=== PATIENT | male | born 1950 | race Caucasian/White ===

== ENCOUNTER 2019-04-21 00:29 | Emergency (ER) | payer MEDICARE, OTHER, SELFPAY ==
[2019-04-21 00:30] VITALS: BP 171/134; PULSE 76; RESP 24; TEMP 36.5; O2SAT 97; BMI 33.0
[2019-04-21 00:40] VITALS: O2SAT 97
--- NOTE | 2019-04-21 00:43 | RAD_ITS ---
STUDY: X-RAY CHEST REASON FOR EXAM: Male, 69 years old. COLD SYMPTOMS X 3 WEEKS -- INCREASED COUGHING and amp; SOB TONIGHT -- HX OF ASTHMA TECHNIQUE: PA and lateral views of the chest. COMPARISON: None. FINDINGS: The lungs are clear and expanded. There is no demonstrated pleural abnormality. Normal size heart. Normal mediastinum and jose l. Normal visualized pulmonary arteries. There is atherosclerotic calcification of the aortic arch with tortuosity. There are diffuse degenerative changes of the visualized thoracic spine. There is degenerative osteoarthritis of the bilateral shoulders. There is no demonstrated abnormality of the visualized soft tissue structures of the upper abdomen. RAD/Chest PA and Lateral IMPRESSION: No acute cardiopulmonary disease. Electronically Signed: Sirena Gonzaelz MD at 1:48 EDT , Service support ,
--- NOTE | 2019-04-21 00:45 | ED.VISSUMM ---
- ER Visit Summary Date of Service: 04/21/19 Chief Complaint: Shortness of breath History of Present Illness: The patient is a 69 M who presents with shortness of breath that is been getting worse over the past couple hours. Patient states this began rather suddenly. Patient states that is been constant. Patient states nothing makes it better or worse. Patient states he has been coughing. Patient states he is coughing up some dark sputum. Patient admits to some rhinorrhea. Patient denies any fevers or chills. Patient denies any chest pain. Patient denies any nausea or vomiting. Physical Examination: Vital signs are stable except for an elevated blood pressure of 171/134 and a mild tachypnea of 24. Patient is afebrile. Patient is in no acute distress. Oral mucosa is pink and moist. Oropharynx is clear. Neck is supple. Trachea is midline. There is no JVD or lymphadenopathy. Heart was regular rate and rhythm. Lungs showed diffuse expiratory wheezing. There is good respiratory effort noted. Abdomen is soft. Bowel sounds are normal. There is no tenderness. Cranial nerves II through XII are intact. There are no focal motor or sensory deficits noted. Extremities are intact. There is no calf tenderness or edema. Test Results: CBC and basic metabolic profile were within normal limits. Flu swabs were negative. PA and lateral chest x-ray was obtained. There is no acute cardiopulmonary process. This is interpreted by the radiologist and myself. Emergency Department Course and Treatment: Patient was given a DuoNeb aerosol here. Patient was given albuterol aerosols. Patient was ordered a dose of clonidine for his blood pressure however, his blood pressure improved prior to obtaining the clonidine so this was held. Patient was feeling better after his aerosols. Patient was instructed to continue his inhalers as prescribed at home. Patient was instructed to follow-up with his primary care physician in 5 to 7 days. Patient understood and was agreeable with the plan. All questions were answered. Disposition: Discharge home Impression: Asthma exacerbation This note was generated with [employer] dictation software. It may contain incorrect words, spelling, and punctuation that were not noted in review of the chart prior to signing ED Disposition - Plan for ED Patient: Disposition: Home or Assisted Living Diagnosis: Asthma exacerbation Instructions: ASTHMA, Acute (Adult) Referrals: Salbador Pollard [Primary Care Provider] - 3-5 Days
[2019-04-21 00:51] LABS: Absolute Lymphocyte Count 1.95 X10^3/uL (0.83-4.51); Absolute Neutrophil Count 5.1 X10^3/uL (2.0-7.7); Basophil# 0.03 X10^3/uL; Basophil% 0.4 % (0-1); Eosinophil# 0.32 X10^3/uL; Eosinophils% 3.8 % (0-5); Hematocrit 40.8 % (40-54); Hemoglobin 13.5 g/dL (13.0-16.5); Lymphocyte # 1.95 X10^3/ul (4.0); Lymphocyte % 23.4 % (19-41); Mean Corp Hgb Conc 33.1 g/dL (32-36); Mean Corpuscular Hgb 28.8 pg (27.0-32.0); Monocyte# 0.89 X10^3/uL; Monocyte% 10.7 % (0-10); NRBC Flagged by Analyzer 0 % (0-5); Neutrophil # 5.13 X10^3/uL (2.7-7.7); Neutrophil % 61.5 % (47-70); Platelet Count 199 K/mm3 (150-450); RBC Distribution Width CV 13.2 % (11.6-14.6); RBC Distribution Width SD 41.3 fl (35.1-43.9); Red Blood Count 4.69 M/mm3 (4.6-6.2); White Blood Count 8.3 K/mm3 (4.4-11.0)
[2019-04-21] MEDS: Albuterol 2.5 MG/3 ML VIAL.NEB. INHALATION ×2 (00:51)
[2019-04-21] MEDS: Ipratropium/Albuterol Sulfate 3 ML AMPUL.NEB INHALATION (00:51)
[2019-04-21 00:52] VITALS: BP 172/98; PULSE 55; RESP 18; O2SAT 96
[2019-04-21 00:55] VITALS: PULSE 68; RESP 16
[2019-04-21 01:09] LABS: Anion Gap 7 (5-15); BUN 17 mg/dL (7-18); BUN/Creat Ratio 17.1 RATIO (10-20); Calcium,Total 9.4 mg/dL (8.5-10.1); Chloride 111 mmol/L (98-107); EST Glomerular Filtration Rate 79 mL/min (>60); Est Glom Filt Rate - Afr Amer 96 mL/min (>60); Estimated Creatinine Clearance 69.72 ml/min; Glucose 102 mg/dL (74-106); Potassium 4.3 mmol/L (3.5-5.1); Sodium Level 144 mmol/L (136-145)
[2019-04-21 01:32] VITALS: BP 125/65; PULSE 64; RESP 15; O2SAT 95
[2019-04-21 02:02] VITALS: BP 139/66; PULSE 62; RESP 10; O2SAT 97
== END 2019-04-21 02:02 | disposition home or self-care (01) ==
PROVIDERS: Emergency Provider Emergency Medicine; PCP Obstetrics & Gynecology Maternal & Fetal Medicine
DX: J45.901 Unspecified asthma with (acute) exacerbation (principal); I10 Essential (primary) hypertension; Z79.51 Long term (current) use of inhaled steroids; Z79.899 Other long term (current) drug therapy
CPT/HCPCS: 71046; 80048; 85025; 87804; 94640; 99251; 99284; A4216; G0463

== ENCOUNTER 2020-04-19 19:05 | Emergency (ER) | payer MEDICARE, OTHER, SELFPAY ==
[2020-04-19 19:06] VITALS: BP 161/85; PULSE 68; RESP 17; TEMP 35.7; O2SAT 96; BMI 32.2
--- NOTE | 2020-04-19 19:26 | ED.VIS.GEN ---
History of Present Illness Chief Complaint: Shortness of Breath Informant: Patient Narrative: This is a 7-year-old male with a history of asthma presenting with shortness of breath. Tells me that 4 days ago he went to a basketball game and sat by a lady who had a very strong perfume. States that once he smelled it he got up and moved but by time he got home he was wheezing. He uses an albuterol MDI rarely. He tells me that it has been about a year since the last time he has had a flareup. He denies any fever. He notes minimal sputum production. He nasal congestion or sore throat. No diarrhea. Past Medical History - Allergies and Home Meds Allergies/Adverse Reactions: Allergies No Known Allergies Allergy (Verified 04/19/20 19:08) Primary Care Physician: Salbador Pollard MD [Primary Care Provider] - Past Medical History: - - Asthma Surgical History: noncontributory Smoking Status: Never smoker Drugs: None Review of Systems General: Denies: Chills, Fever, Sweats Eyes: Denies: Visual changes - bilaterally, Diplopia ENT: Denies: Rhinorrhea, Sore throat Cardiovascular: Denies: Chest pain, Palpitations Respiratory: Reports: Dyspnea, Cough, Dyspnea on exertion. Denies: Orthopnea Gastrointestinal: Denies: Abdominal pain, Nausea, Vomiting, Diarrhea, Melena, Hematochezia Genitourinary: Denies: Dysuria, Hematuria, Frequency Musculoskeletal: Denies: Back pain, Extremity Pain Skin: Denies: Rash, Wounds Neurological: Denies: Headache, Weakness, Numbness Physical Exam Vital Signs/Narrative: Vital Signs Temp Pulse Resp BP Pulse Ox 04/19/20 19:06 96.3 F L 68 17 161/85 H 96 Inital Vital Signs reviewed: Yes General: Well nourished, Well developed, No Acute Distress Head: Normocephalic, Atraumatic Eyes: Perrl, EOMI ENT: Moist mucous membranes, No rhinorrhea Neck: Supple, Nontender Cardiovascular: Regular rate, Regular rhythm, No murmurs Respiratory: No distress, Chest nontender, Diminished Abdomen: Soft, Nontender, Nondistended, Normal bowel sounds Back: Nontender, Normal Inspection Extremities: Nontender, No edema Skin: Normal color, No rash Neurological: Alert, Oriented x3, Cranial nerves II-XII grossly intact, Normal Strength, Normal Sensation Psychological: Normal affect, Normal Mood Diagnostic/Tx/Re-eval - Medical Decision Making Patient received breathing treatments and prednisone. My interpretation of the single view portable chest x-ray is no acute disease process. The patient's Covid test is negative. After treatments he is feeling significantly better. Peak flows are 500. Will write for him to have prednisone for the next 4 days as well as a refill on this his inhaler. Patient to return if worsening or concerns ED Disposition - Plan for ED Patient: Disposition: Home or Assisted Living Diagnosis: Asthma exacerbation Instructions: ED Asthma, Acute (Adult) Prescriptions: predniSONE tablet 60 mg PO DAILY #12 tab Prescription Printed Albuterol Inhaler [Ventolin Hfa] 2 puff INHALATION Q4H PRN PRN #1 inhaler PRN Reason: Wheezing Prescription Printed
[2020-04-19] MEDS: predniSONE 20 MG Tablet 60 MG PO (19:27)
[2020-04-19] MEDS: Albuterol 2.5 MG/3 ML VIAL.NEB. INHALATION ×3 (19:35→19:36)
[2020-04-19] MEDS: Ipratropium/Albuterol Sulfate 3 ML AMPUL.NEB INHALATION (19:35)
[2020-04-19 19:37] VITALS: PULSE 61; RESP 13
--- NOTE | 2020-04-19 19:53 | RAD_ITS ---
STUDY: X-RAY CHEST REASON FOR EXAM: Male, 70 years old. dyspnea TECHNIQUE: Single AP portable view of the chest. COMPARISON: None. FINDINGS: The lungs are clear and expanded. Stable small calcified granuloma in the lower right lung. No infiltrates or effusions. There is no demonstrated pleural abnormality. Normal size heart. Normal mediastinum and jose l. Normal visualized pulmonary arteries. Normal visualized aortic arch and descending thoracic aorta. There are diffuse degenerative changes of the visualized thoracic spine. Normal visualized ribs, clavicles, and shoulders. There is no demonstrated abnormality of the visualized soft tissue structures of the upper abdomen. RAD/Chest 1 View (Portable) IMPRESSION: No definite acute or significant abnormality seen. Electronically Signed: Sylvester Baez MD at 20:42 EST , Service support ,
[2020-04-19 19:54] VITALS: PULSE 71; RESP 18
[2020-04-19 20:06] VITALS: O2SAT 96
[2020-04-19 20:32] VITALS: BP 149/75; PULSE 81; RESP 18; O2SAT 95
== END 2020-04-19 20:32 | disposition home or self-care (01) ==
LOC: ED 20:36
PROVIDERS: Emergency Provider Emergency Medicine
DX: J45.901 Unspecified asthma with (acute) exacerbation (principal)
CPT/HCPCS: 71045; 87426; 94640; 99251; 99283; G0463

== ENCOUNTER 2021-02-28 10:16 | Emergency (ER) | payer MEDICARE, OTHER, SELFPAY ==
[2021-02-28 10:16] VITALS: BP 171/83; PULSE 73; RESP 18; TEMP 36; O2SAT 97; BMI 31.7
[2021-02-28 10:21] VITALS: O2SAT 98
[2021-02-28 10:23] VITALS: BP 171/83; PULSE 73; RESP 18; TEMP 36; O2SAT 97
--- NOTE | 2021-02-28 10:36 | EDS_ITS ---
HPI HPI - URI History of Present Illness Chief Complaint: Shortness of Breath Narrative Narrative: 70-year-old male presenting with a cough. He states he has had this since Sunday. Initial onset he had body aches and chills and went home from work. 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 He has not had a fever. He has not had loss of taste or smell. Patient states he was vaccinated with his last shot in May and states he has had the Moderna shot x2. He has not had any booster. He denies history of having COVID-19. Patient is denying chest pain although he feels a little bit short of breath. Patient states he has a history of asthma and felt he was wheezing earlier uses albuterol inhaler and felt improved. Patient denies nausea, vomiting, diarrhea. ROS ROS ED Constitutional Constitutional ED: Reports chills Eyes Eyes: Denies blurry vision or change in vision ENT ENT ED: Denies rhinorrhea or sore throat Cardiovascular Cardiovascular: Denies chest pain or palpitations Respiratory/Chest Respiratory/Chest: Reports cough and dyspnea Gastrointestinal Gastrointestinal: Denies abdominal pain, nausea or vomiting Genitourinary Genitourinary ED: Denies dysuria or hematuria Musculoskeletal Musculoskeletal: Reports myalgias; Denies arthralgias or neck pain Integumentary Denies Abrasions or rash Neurologic Neurologic: Denies headache(s) or paresthesias PFSH PFSH Home Medications albuterol sulfate 1 - 2 puff IH Q4H PRN 04/21/19 [History Last Taken Unknown] atorvastatin 20 mg PO DAILY 04/21/19 [History Last Taken Unknown] enalapril maleate 20 mg PO DAILY 04/21/19 [History Last Taken Unknown] gtvwxox-bgvoozapp-vhvlzbox(PF) 10 ml OP BID 04/21/19 [History Last Taken Unknown] albuterol sulfate 2 puff INHALATION Q4H PRN PRN #1 inhaler 04/19/20 [Rx Last Taken Unknown] Allergy/AdvReac Type Severity Reaction Status Date / Time No Known Allergies Allergy Verified 02/28/21 10:18 Social History Smoking Status: Never smoker EXAM Physical Exam Const Vital Signs: 02/28/21 10:16 02/28/21 10:21 02/28/21 10:23 Temperature 96.8 F L 96.8 F L Temperature Source Temporal Temporal Pulse Rate 73 73 Respiratory Rate 18 18 Respiratory Effort Normal Non-Labored Respiratory Depth Normal Respiratory Pattern Normal Blood Pressure 171/83 H 171/83 H Blood Pressure Mean 112 112 Pulse Ox 97 97 Oxygen Delivery Method Room Air Room Air Room Air Positive well nourished General Appearance ED: NAD; Negative for pallor HEENT normocephalic and atraumatic Eyes PERRL and EOMs intact bilaterally Neck supple and no meningeal signs Resp normal respiratory effort and clear to auscultation bilaterally Cardio Rate: regular rate Rhythm: regular rhythm Extremity normal to inspection; Negative for full ROM General Extremety ED: Negative for cyanosis General Extremity: Negative for cyanosis Neuro oriented x3, CN's II-XII intact bilaterally and no sensory deficits noted Sensorium / Orientation: alert Motor Exam: strength 5/5 throughout Psych mental status grossly normal Skin General Skin Exam: Negative for jaundice or pallor Lesions: no lesions Rashes: no rashes MDM MDM MDM Narrative Medical decision making narrative: 70-year-old male presenting with a cough, body aches, chills. His symptoms are not severe. He is not having chest pain. He does feel as if he was wheezing earlier and took his home albuterol and this improved however he requested breathing treatment. He is not wheezing on examination. He has a history of asthma and wants to be treated as an asthma exacerbation. I will give him prednisone 60 mg. I will order chest x-ray and COVID test. Rapid COVID is positive. Chest x-ray on my interpretation shows no acute cardiopulmonary process. He does have a stable calcified granuloma in the right lower lobe per the radiologist. Patient is 97% on room air with respirations of 18. He is well-appearing. Patient has albuterol at home. He will be given a burst of prednisone as he feels he was wheezing earlier. Patient did wish to be referred for monoclonal antibodies and this form was filled out and handed to the assistant secretary. Patient will be discharged home in stable condition. Impression: 1. Asthma exacerbation 2. COVID-19 Radiography Diagnostic Testing: Clinical Impression(s) from Imaging Studies Chest X-Ray 02/28/21 10:37 IMPRESSION: Hyperinflation. Stable calcified granuloma in the right lower lobe. Electronically Signed: Gary Hernandez MD at 10:52 EST , Service support , Discharge Plan Triage Chief Complaint: Shortness of Breath ED Provider: Jon Granados Dx/Rx/DC Orders Prescriptions: No Action atorvastatin 20 MG tablet 20 mg PO DAILY RF: 0 enalapril maleate 20 MG tablet 20 mg PO DAILY RF: 0 albuterol sulfate 90 mcg/actuation HFA aerosol inhaler 1 - 2 puff IH Q4H PRN (Reason: Sob &/Or Wheezing) RF: 0 ingvrou-jpfzuquyy-oeixrdjx(PF) 10 ML drops 10 ml OP BID RF: 0 albuterol sulfate 1 INHALER inhaler 2 puff INHALATION Q4H PRN PRN (Reason: Wheezing) Qty: 1 RF: 0 Primary Care Provider: Dorothy Jovel
--- NOTE | 2021-02-28 10:37 | RAD_ITS ---
STUDY: X-RAY CHEST REASON FOR EXAM: Male, 70 years old. Cough TECHNIQUE: Single AP portable view of the chest. COMPARISON: Comparison is made with prior study dated 04/19/2020. FINDINGS: There is hyperinflation of the lungs consistent with chronic obstructive lung disease (COPD). Stable calcified granuloma in the right lower lobe. There is no demonstrated pleural abnormality. Normal size heart. Normal mediastinum and jose l. Normal visualized pulmonary arteries. Normal visualized aortic arch and descending thoracic aorta. There are diffuse degenerative changes of the visualized thoracic spine. Normal visualized ribs, clavicles, and shoulders. There is no demonstrated abnormality of the visualized soft tissue structures of the upper abdomen. RAD/Chest 1 View (Portable) IMPRESSION: Hyperinflation. Stable calcified granuloma in the right lower lobe. Electronically Signed: Gary Hernandez MD at 10:52 EST , Service support ,
[2021-02-28] MEDS: predniSONE 20 MG Tablet 60 MG PO (10:42)
[2021-02-28] MEDS: Ipratropium/Albuterol Sulfate 3 ML AMPUL.NEB INHALATION (11:03)
[2021-02-28] MEDS: Albuterol 2.5 MG/3 ML VIAL.NEB. INHALATION (11:03)
[2021-02-28 11:34] VITALS: PULSE 61; RESP 18
[2021-02-28 11:57] VITALS: BP 137/64; PULSE 72; RESP 17; TEMP 36.4; O2SAT 96
== END 2021-02-28 11:58 | disposition home or self-care (01) ==
PROVIDERS: Emergency Provider Student in an Organized Health Care Education/Training Program; PCP General Practice; Visit Provider Student in an Organized Health Care Education/Training Program
DX: U07.1 COVID-19 (principal); J45.901 Unspecified asthma with (acute) exacerbation; Z79.51 Long term (current) use of inhaled steroids
CPT/HCPCS: 71045; 87426; 94640; 99283

== ENCOUNTER 2021-03-02 17:42 | Outpatient (CLI) | payer MEDICARE, OTHER, SELFPAY ==
[2021-03-02 17:52] VITALS: BP 173/90; PULSE 59; RESP 18; TEMP 36.8; O2SAT 100; BMI 32.5
[2021-03-02] MEDS: 0.9% Saline Lock 10 ML Syringe IV (18:01)
[2021-03-02 18:52] VITALS: BP 150/87; PULSE 52; RESP 18; TEMP 36.9; O2SAT 99
[2021-03-02 19:49] VITALS: BP 161/88; PULSE 51; RESP 16; TEMP 36.6; O2SAT 99
== END 2021-03-02 23:59 | disposition home or self-care (01) ==
LOC: MS3OUT 17:42 → MS3 17:43
PROVIDERS: PCP General Practice; Referring Provider Student in an Organized Health Care Education/Training Program; Visit Provider Student in an Organized Health Care Education/Training Program
DX: Z23 Encounter for immunization (principal); U07.1 COVID-19
CPT/HCPCS: J7050; M0245; Q0245; A4216

== ENCOUNTER 2021-10-31 14:04 | Emergency (ER) | payer MEDICARE, OTHER, SELFPAY ==
[2021-10-31 14:04] VITALS: BP 141/74; PULSE 93; RESP 15; TEMP 36.3; O2SAT 96; BMI 31.6
[2021-10-31 14:06] VITALS: BP 141/74; PULSE 93; RESP 15; TEMP 36.3; O2SAT 96
--- NOTE | 2021-10-31 14:07 | RAD_ITS ---
INDICATION: COUGH EXAMINATION/TECHNIQUE: X-RAY - XR Chest 1 View COMPARISON: 02/28/2021. FINDINGS: LINES/DEVICES: None. LUNGS: No consolidation, edema or effusion. No pneumothorax. Calcified granuloma in the right mid lung field demonstrates no change in comparison to the prior study. MEDIASTINUM AND CARDIOVASCULAR STRUCTURES: Cardiac silhouette not enlarged. Central airways and mediastinal contour are unremarkable. BONES AND SOFT TISSUES: Degenerative changes unremarkable for the patient''s age. RAD/Chest 1 View (Portable) IMPRESSION: No radiographic evidence of acute cardiopulmonary disease. Electronically Signed: Channing Hernandez MD at 14:28 EDT ,
--- NOTE | 2021-10-31 15:20 | EX.ED.DYSGE1 ---
HPI History of Present Illness Chief Complaint: Cough Informant: patient Narrative Narrative: -year-old male with a history of asthma presenting to the emergency department with cough. He tells me at the beginning of the month he was diagnosed via chest x-ray with a pneumonia by his primary care doctor. Sounds like he was treated with an antibiotic for 5 days possibly azithromycin. He states that his cough has continued and is seems to be worsening. He notes night sweats. He notes occasional sputum production. He has an albuterol MDI as well as an albuterol aerosol machine at home. He states has not been doing the trick for him. He is supposed to see his primary care doctor in 4 days but due to the persistent cough wanted to be seen earlier. [facility] Medical History (Updated 10/31/21 @ 15:[address] Rex Jade DO) Asthma Hypercholesterolemia Hypertension Home Medications albuterol sulfate 90 mcg/actuation aerosol inhaler 1 - 2 puff IH Q4H PRN Sob &/Or Wheezing 04/21/19 [History Last Taken Unknown] atorvastatin 20 mg tablet 20 mg PO DAILY 04/21/19 [History Last Taken Unknown] enalapril maleate 20 mg tablet 20 mg PO DAILY 04/21/19 [History Last Taken Unknown] timolol 0.5 %-brimonidine 0.15 %-dorzolamide 2 % (PF) eye drops 1 drp ophthalmic (eye) DAILY 04/21/19 [History Last Taken Unknown] aspirin 81 mg capsule 81 mg PO DAILY 03/02/21 [History Last Taken Unknown] prednisone 20 mg tablet 60 mg PO DAILY 4 days #12 tabs 10/31/21 [Rx Last Taken Unknown] Allergy/AdvReac Type Severity Reaction Status Date / Time No Known Allergies Allergy Verified 02/28/21 10:18 Social History (Updated 10/31/21 @ 15:[address] Rex Jade DO) current gender identity: male Smoking Status: Never smoker ROS ROS ED Constitutional Constitutional ED: Denies chills or weight loss Eyes Eyes: Denies blurry vision, change in vision or diplopia ENT ENT ED: Denies ear pain, rhinorrhea or sore throat Cardiovascular Cardiovascular: Denies chest pain, orthopnea, palpitations or racing heartbeat Respiratory/Chest Respiratory/Chest: Reports cough and dyspnea; Denies orthopnea Gastrointestinal Gastrointestinal: Denies abdominal pain, diarrhea, nausea or vomiting Genitourinary Genitourinary ED: Denies dysuria, hematuria or urinary frequency Musculoskeletal Musculoskeletal: Denies arthralgias or myalgias Integumentary Denies abscess or rash Neurologic Neurologic: Denies headache(s) or weakness Psychiatric Psychiatric: Denies anxiety, depression, suicidal ideation or suicidal thoughts Endocrine Endocrinology: Denies polydipsia, polyphagia or polyuria Allergic/Immunologic Allergic/Immunologic ED: Denies mouth swelling, tongue swelling or urticaria EXAM Physical Exam Const Vital Signs: 10/31/21 14:04 10/31/21 14:06 10/31/21 15:32 Temperature 97.4 F L 97.4 F L Temperature Source Temporal Temporal Pulse Rate 93 93 Respiratory Rate 15 15 Respiratory Effort Normal Non-Labored Respiratory Depth Normal Respiratory Pattern Normal Blood Pressure 141/74 H 141/74 H Blood Pressure Mean 96 96 Pulse Ox 96 96 Oxygen Delivery Method Room Air Room Air Positive well nourished and well developed General Appearance ED: well developed HEENT Reports normocephalic, head/scalp atraumatic and moist mucous membranes Eyes PERRL and EOMs intact bilaterally Neck no lymphadenopathy, supple and no JVD Resp Auscultation: wheezes expiratory wheezes and diminished lung sounds Cardio regular rate, regular rhythm and no murmurs GI normal to inspection, nondistended, normoactive bowel sounds and non-tender Palpation: soft Back/Spine no CVA tenderness and normal ROM Extremity normal to inspection General Extremety ED: Negative for edema General Extremity: Negative for edema Neuro oriented x3 and CN's II-XII intact bilaterally Sensorium / Orientation: alert Motor Exam: strength 5/5 throughout Psych mental status grossly normal Mood & Affect: Negative for depressed or tearful Skin no rashes or lesions noted and no wounds MDM MDM MDM Narrative Medical decision making narrative: My impression of the chest x-ray is no acute process. Radiology concurs. Patient received a DuoNeb and feels significantly better. He does have increased aeration. He also received 60 mg of prednisone. Patient states that he has plenty of albuterol vials at home. We will start him on burst prednisone for the next 4 days. He has an appointment in 4 days with his PCP. Radiography Diagnostic Testing: Clinical Impression(s) from Imaging Studies Chest X-Ray 10/31/21 14:07 IMPRESSION: No radiographic evidence of acute cardiopulmonary disease. Electronically Signed: Channing Hernandez MD at 14:28 EDT , Discharge Plan Triage Chief Complaint: Cough ED Provider: Rex Jade Dx/Rx/DC Orders Clinical Impression: Asthma, Bronchospasm, acute Instructions: ED Bronchospasm (Adult) Prescriptions: New prednisone 20 mg tablet 60 mg PO DAILY 4 Days Qty: 12 0RF Discontinued prednisone 10 mg tablet 50 mg PO DAILY 5 Days Qty: 25 0RF No Action atorvastatin 20 MG tablet 20 mg PO DAILY enalapril maleate 20 MG tablet 20 mg PO DAILY albuterol sulfate 90 mcg/actuation HFA aerosol inhaler 1 - 2 puff IH Q4H PRN (Reason: Sob &/Or Wheezing) oqxfist-ycwxsfifc-yrhhahsf(PF) 10 ML drops 1 drp ophthalmic (eye) DAILY aspirin 81 mg Capsule 81 mg PO DAILY Primary Care Provider: Dorothy Jovel Referrals: Dorothy Jovel MD [Primary Care Provider] - Keep Debra appointment Disposition Disposition: Home, Self Care
[2021-10-31] MEDS: predniSONE 20 MG Tablet 60 MG PO (16:06)
[2021-10-31] MEDS: Ipratropium/Albuterol Sulfate 3 ML AMPUL.NEB INHALATION (16:19)
== END 2021-10-31 16:20 | disposition home or self-care (01) ==
PROVIDERS: Emergency Provider Emergency Medicine; PCP General Practice; Visit Provider Emergency Medicine
DX: J45.909 Unspecified asthma, uncomplicated (principal); I10 Essential (primary) hypertension; E78.00 Pure hypercholesterolemia, unspecified; Z79.899 Other long term (current) drug therapy; Z79.52 Long term (current) use of systemic steroids; Z79.82 Long term (current) use of aspirin
CPT/HCPCS: 71045; 99283

== ENCOUNTER 2021-11-05 19:43 | Emergency (ER) | payer MEDICARE, OTHER, SELFPAY ==
[2021-11-05 19:45] VITALS: BP 158/87; PULSE 86; RESP 15; TEMP 36.9; O2SAT 94; BMI 33.2
--- NOTE | 2021-11-05 20:06 | EKG12_ITS ---
Test Reason : DYSRYTHMIA Blood Pressure : / mmHG Vent. Rate : 082 BPM Atrial Rate : 082 BPM P-R Int : 120 ms QRS Dur : 096 ms QT Int : 382 ms P-R-T Axes : 065 -08 026 degrees QTc Int : 446 ms Sinus rhythm with occasional Premature ventricular complexes Otherwise normal ECG Confirmed by SONIA PHAN, PAGE ([id number]), index editor MARSHALL CORRALES ([id number]) on 11/08/2021 12:57:09 PM Referred By: HOLDEN Confirmed By:PAGE SCOTT MD
--- NOTE | 2021-11-05 20:08 | EDS_ITS ---
HPI HPI - URI History of Present Illness Chief Complaint: Cough Detail of Chief Complaint: Wheezing Informant: patient Onset/Context/Timing Onset: Weeks Context: Gradual Onset Timing: Intermittent Current Severity: Mild Maximum Severity: Mild Associated Symptoms Associated Symptoms: Positive for Productive Cough Narrative Narrative: 79-year-old male history of asthma and hypertension. Has a URI symptoms and was diagnosed with pneumonia by his primary care physician 3 weeks ago. Started on Levaquin. Was improving Sunday started having wheezing and shortness of breath again. Was seen here in the emergency department. Had a negative chest x-ray and was placed on prednisone. States he is wheezing again. He denies any fever. He denies any mopped assist. No recent travel surgery or immobilization. No leg pain or swelling. No chest pain. He does not smoke. Prior similar symptoms: Yes Recent Illness/Hospitalization: No ROS ROS ED ROS Narrative Cough. Wheezing. Review of Systems ROS Unobtainable: Denies due to encephalopathy Constitutional Constitutional ED: Denies chills or fever(s) Eyes Eyes: Denies blurry vision ENT ENT ED: Denies ear pain Cardiovascular Cardiovascular: Denies chest pain Respiratory/Chest Respiratory/Chest: Reports cough, dyspnea and sputum Gastrointestinal Gastrointestinal: Denies abdominal pain Genitourinary Genitourinary ED: Denies dysuria or hematuria Musculoskeletal Musculoskeletal: Denies arthralgias Integumentary Denies abscess Neurologic Neurologic: Denies headache(s) Psychiatric Psychiatric: Denies anxiety Hematologic/Lymphatic Hematologic/Lymphatic: Denies easy bleeding Allergic/Immunologic Allergic/Immunologic ED: Denies mouth swelling or tongue swelling [facility] Medical History Asthma Hypercholesterolemia Hypertension Home Medications albuterol sulfate 90 mcg/actuation aerosol inhaler 1 - 2 puff IH Q4H PRN Sob &/Or Wheezing 04/21/19 [History Last Taken Unknown] atorvastatin 20 mg tablet 20 mg PO DAILY 04/21/19 [History Last Taken Unknown] enalapril maleate 20 mg tablet 20 mg PO DAILY 04/21/19 [History Last Taken Unknown] timolol 0.5 %-brimonidine 0.15 %-dorzolamide 2 % (PF) eye drops 1 drp ophthalmic (eye) DAILY 04/21/19 [History Last Taken Unknown] aspirin 81 mg capsule 81 mg PO DAILY 03/02/21 [History Last Taken Unknown] prednisone 20 mg tablet 60 mg PO DAILY 4 days #12 tabs 10/31/21 [Rx Last Taken Unknown] azithromycin 250 mg tablet (Zithromax) 250 mg PO DAILY 4 days #4 tabs 11/05/21 [Rx Last Taken Unknown] prednisone 20 mg tablet 40 mg PO DAILY 10 days #20 tabs 11/05/21 [Rx Last Taken Unknown] Allergy/AdvReac Type Severity Reaction Status Date / Time No Known Allergies Allergy Verified 11/05/21 19:44 Social History Smoking Status: Never smoker EXAM Physical Exam Narrative Exam Narrative: 21-year-old male no acute distress. Vital signs stable afebrile. H EENT exam unremarkable. Posterior pharynx normal. Moist mucous members. Neck nontender. No JVD. No lymphadenopathy. Lungs prolonged expiratory phase. Expiratory wheezing bilaterally. No rales or rhonchi. Equal symmetrical. No distress. Heart regular rhythm rate about 85 no murmur. Chest were nontender. Abdomen soft nontender. Moving all 4 extremities. Calves are nontender without edema or cords. Neurologically is awake and alert. Const Vital Signs: 11/05/21 19:45 11/05/21 19:58 11/05/21 20:31 Temperature 98.5 F Temperature Source Temporal Pulse Rate 86 80 Respiratory Rate 15 16 Respiratory Effort Short of Breath Respiratory Depth Normal Respiratory Pattern Tachypnea Normal Blood Pressure 158/87 H Blood Pressure Mean 110 Pulse Ox 94 Oxygen Delivery Method Room Air Positive well nourished and well developed; Negative for cachectic or contractures General Appearance ED: well developed and NAD; Negative for cachectic, contractures, cyanotic, diaphoretic or pallor Nutritional Appearance: Negative for cachectic HEENT Reports moist mucous membranes; Denies dry mucous membranes normocephalic and atraumatic; Negative for scalp tenderness Face and Sinus: Negative for sinus tenderness Mouth ED: No dry mucous membranes Mouth: No dry mucous membranes Throat: posterior oropharynx normal Eyes PERRL and EOMs intact bilaterally General Eye ED: Negative for pale conjunctiva or scleral icterus Neck no lymphadenopathy, supple and no meningeal signs General: Negative for anterior neck swelling or lymphadenopathy Resp normal respiratory effort and No clear to auscultation bilaterally Resp Narrative: Prolonged expiratory phase. Effort and Inspection: Negative for retractions Auscultation: wheezes; Negative for rales or rhonchi Cardio S1 normal heart sound, S2 normal heart sound and no murmurs Rate: regular rate Rhythm: regular rhythm GI non-tender, non-distended and no masses Inspection: Negative for abdominal distention Auscultation: normoactive bowel sounds Palpation: soft; Negative for tender or guarding Back/Spine no CVA tenderness and normal ROM General Back: Negative for CVA tenderness Cervical Spine: Negative for cervical spine tenderness Thoracic Spine / Upper Back: Negative for thoracic spinal tenderness Lumbar Spine / Lower Back: Negative for lumbar spinal tenderness Sacrum: Negative for tenderness Extremity normal to inspection and full ROM General Extremety ED: Negative for cyanosis or tenderness General Extremity: Negative for cyanosis Neuro oriented x3 and CN's II-XII intact bilaterally Sensorium / Orientation: alert, oriented to person, oriented to place and oriented to time; Negative for orientation impaired, lethargic or stuporous Motor Exam: strength 5/5 throughout Psych mental status grossly normal Appearance: Negative for other Attitude: No agitated Mood & Affect: Negative for depressed Skin General Skin Exam: Negative for jaundice or pallor Lesions: no lesions Rashes: no rashes Trauma: Negative for abrasion MDM MDM MDM Narrative Medical decision making narrative: 71-year-old male with pneumonia earlier in the month has a history of asthma. He is wheezing. Had a negative COVID test earlier in the month. Exam is consistent with expiratory wheezing. To be treated with Solu-Medrol, DuoNeb and albuterol aerosols. I will do a chest x-ray and screening labs due to his age and recurrent symptoms over the last several weeks. Repeat exam patient is doing well. He is moving more air Aerosols and steroids. We discussed his x-ray results and lab work results. Given a dose of Zithromax here. Placed on a Z-Juan Miguel for the next 4 days. Steroids daily for the next 10 days. Follow-up with his primary care physician. Return if worse. Lab Data Attestation: I reviewed the patient's lab results. Lab results narrative: X-rayCBC increased density right lower lobe consistent with infiltrate and pneumonia. Not seen well on the lateral. A white count of 14.7. H&H 12.2 and 37. Platelets 252. Electrolytes show a gap of 9 BUN and creatinine 22 0.9. Glucose 83. I Labs: Laboratory Results - last 24 hr 11/05/21 11/05/21 20:10 20:10 WBC 14.7 H RBC 4.40 L Hgb 12.2 L Hct 37.9 L MCV 86.1 MCH 27.7 MCHC 32.2 RDW Std Deviation 42.8 RDW Coeff of Diego 13.9 Plt Count 252 MPV 11.0 Immature Gran % (Auto) 0.500 Neut % (Auto) 75.1 H Lymph % (Auto) 10.0 L [place] % (Auto) 12.7 H Eos % (Auto) 1.5 Baso % (Auto) 0.2 Absolute Neuts (auto) 11.0 H Absolute Lymphs (auto) 1.47 Nucleated RBC % 0 Diff Path Review May foll Platelet Estimate ADEQUATE RBC Morphology NORM C+C Sodium 138 Potassium 4.6 Chloride 103 Carbon Dioxide 26.0 Anion Gap 9 BUN 22 H Creatinine 0.96 Estim Creat Clear Calc 68.28 Est GFR (MDRD) Af Amer 99 Est GFR (MDRD) Non-Af 82 BUN/Creatinine Ratio 22.9 H Glucose 83 Calcium 8.9 Radiography Diagnostic Testing: Clinical Impression(s) from Imaging Studies Chest X-Ray 11/05/21 21:10 IMPRESSION: Right lower lobe pneumonia. Electronically Signed: Eli Barr MD at 21:45 EDT Reading Location ID and State: [id number] / Tel , Service support , Chest x-ray, 2 views, AP and lateral, interpreted myself and radiologist shows right lower lobe infiltrate consistent with a right lower lobe pneumonia. Rhythm Strip Rhythm Strip: Sinus Rhythm Rate: 82 Ectopy: PVC(s) EKG Initial EKG: Attestation: I personally reviewed and interpreted this EKG as follows: Interpretation: No Acute Injury Pattern Comments: Normal sinus rhythm rate of 82 with PVCs. Discharge Plan Triage Chief Complaint: Cough ED Provider: Olayinka Palm Dx/Rx/DC Orders Clinical Impression: Asthma, Bronchospasm, acute, Pneumonia Instructions: ED Pneumonia (Adult), Asthma Prescriptions: New azithromycin [Zithromax] 250 mg tablet 250 mg PO DAILY 4 Days Qty: 4 0RF Rx Instructions: start on day 2 of therapy prednisone 20 mg tablet 40 mg PO DAILY 10 Days Qty: 20 0RF No Action atorvastatin 20 MG tablet 20 mg PO DAILY enalapril maleate 20 MG tablet 20 mg PO DAILY albuterol sulfate 90 mcg/actuation HFA aerosol inhaler 1 - 2 puff IH Q4H PRN (Reason: Sob &/Or Wheezing) [id number]-[id number]-fbhjzdid(PF) 10 ML drops 1 drp ophthalmic (eye) DAILY aspirin 81 mg Capsule 81 mg PO DAILY prednisone 20 mg tablet 60 mg PO DAILY 4 Days Qty: 12 0RF Primary Care Provider: Dorothy Jovel Referrals: Dorothy Jovel MD [Primary Care Provider] - Activity Restrictions/Additional Instructions: Prednisone daily 40 mg a day for the next 10 days starting tomorrow. Zithromax 1 pill a day for the next 4 days start tomorrow at lunch. Use your inhaler as needed for wheezing. Follow-up with your doctor to ensure you are improving. Disposition Disposition: Home, Self Care
[2021-11-05 20:21] LABS: Absolute Lymphocyte Count 1.47 X10^3/uL (0.83-4.51); Basophil# 0.03 X10^3/uL; Basophil% 0.2 % (0-1); Eosinophil# 0.22 X10^3/uL; Eosinophils% 1.5 % (0-5); Hematocrit 37.9 % (40-54); Hemoglobin 12.2 g/dL (13.0-16.5); Lymphocyte # 1.47 X10^3/ul (0.83-4.51); Mean Corp Hgb Conc 32.2 g/dL (32-36); Mean Corpuscular Hgb 27.7 pg (27.0-32.0); Mean Corpuscular Volume 86.1 fL (80-94); Monocyte# 1.86 X10^3/uL; Monocyte% 12.7 % (0-10); NRBC Flagged by Analyzer 0 % (0-5); Neutrophil # 11.04 X10^3/uL (2.7-7.7); Neutrophil % 75.1 % (47-70); POSITIVE DIFFERENTIAL YES; Platelet Count 252 K/mm3 (150-450); RBC Distribution Width CV 13.9 % (11.6-14.6); RBC Distribution Width SD 42.8 fl (35.1-43.9); White Blood Count 14.7 K/mm3 (4.4-11.0)
[2021-11-05] MEDS: Albuterol 2.5 MG/3 ML VIAL.NEB. INHALATION ×2 (20:25)
[2021-11-05 20:29] LABS: Differential Indicated SCAN CRITERIA MET
[2021-11-05] MEDS: Ipratropium/Albuterol Sulfate 3 ML AMPUL.NEB INHALATION (20:30)
[2021-11-05 20:31] VITALS: PULSE 80; RESP 16
[2021-11-05] MEDS: MethylPREDNISolone 125 MG/2 ML Vial IV (20:39)
[2021-11-05 20:45] LABS: Anion Gap 9 (5-15); BUN 22 mg/dL (7-18); BUN/Creat Ratio 22.9 RATIO (10-20); Calcium,Total 8.9 mg/dL (8.5-10.1); Chloride 103 mmol/L (98-107); Creatinine, Serum 0.96 mg/dL (0.70-1.30); EST Glomerular Filtration Rate 82 mL/min (>60); Est Glom Filt Rate - Afr Amer 99 mL/min (>60); Estimated Creatinine Clearance 68.28 ml/min; Glucose 83 mg/dL (74-106); Potassium 4.6 mmol/L (3.5-5.1); Sodium Level 138 mmol/L (136-145)
--- NOTE | 2021-11-05 21:10 | RAD_ITS ---
STUDY: X-RAY CHEST REASON FOR EXAM: Male, 71 years old. cough TECHNIQUE: PA and lateral views of the chest. COMPARISON: 10/31/2021, 04/21/2019. FINDINGS: No pleural effusion. Increased markings in the right lower lobe consistent with acute pneumonia. Normal size heart. Normal mediastinum and jose l. Normal visualized pulmonary arteries. Normal visualized aortic arch and descending thoracic aorta. Normal visualized thoracic spine. Normal visualized ribs, clavicles, and shoulders. There is no demonstrated abnormality of the visualized soft tissue structures of the upper abdomen. RAD/Chest PA and Lateral IMPRESSION: Right lower lobe pneumonia. Electronically Signed: Eli Barr MD at 21:45 EDT Reading Location ID and State: [id number] / Tel , Service support ,
[2021-11-05 21:23] LABS: Platelet Estimate ADEQUATE (ADEQ); Red Cell Morphology NORM C+C NORMAL (NORM C&C)
[2021-11-05 22:17] VITALS: BP 122/70; PULSE 83; RESP 18; O2SAT 93
[2021-11-05] MEDS: Azithromycin 250 MG Tablet 500 MG PO (22:22)
[2021-11-07 12:37] LABS: Pathologist Review Reviewed
== END 2021-11-05 22:28 | disposition home or self-care (01) ==
PROVIDERS: Emergency Provider Emergency Medicine; PCP General Practice; Visit Provider Emergency Medicine
DX: J18.9 Pneumonia, unspecified organism (principal); E78.00 Pure hypercholesterolemia, unspecified; J45.909 Unspecified asthma, uncomplicated; I10 Essential (primary) hypertension; Z79.899 Other long term (current) drug therapy
CPT/HCPCS: 71046; 80048; 85025; 93005; 94640; 96374; 99284; A4216

== ENCOUNTER 2024-02-12 17:10 | Emergency (ER) | payer MEDICARE, OTHER, SELFPAY ==
[2024-02-12 17:11] VITALS: BP 184/110; PULSE 65; RESP 18; TEMP 37.1; O2SAT 96; BMI 34.2
[2024-02-12 17:44] VITALS: BP 168/67; PULSE 51; RESP 18; TEMP 37.1; O2SAT 96
--- NOTE | 2024-02-12 17:44 | ED.VIS.DYS ---
HPI History of Present Illness Chief Complaint: Shortness of Breath Detail of Chief Complaint: Respiratory symptoms that started this past weekend Informant: patient Onset/Context/Timing Onset: Days Context: sudden Timing: Continuous and Waxes and wanes Quality: Positive for Dyspnea on exertion and Wheezing; Negative for Orthopnea or PND Current Severity: Mild Maximum Severity: Moderate Worsened by: Exertion and Coughing Relieved by: Nothing Associated Symptoms cough, rhinorrhea, chills and sweats; Negative for post nasal drip, ear pain, fever, sore throat, subjective, clear sputum, white sputum, yellow sputum or green sputum Chest Pain: Positive for None Narrative Narrative: Patient is a 73-year-old male with history of asthma. He presents with respiratory symptoms that started this past weekend. He is not a smoker presently. He has not been using his inhaler. He has not been on prednisone recently. He does have history of hyper cholesterolemia. He also has history of glaucoma. He has had chronic occipital head discomfort. He denies double vision blurred vision loss of vision. [place] photophobia. He denies chest pain. He does have a cough that is nonproductive. He also has wheezing. He denies leg pain, swelling discoloration. Denies orthopnea or PND. He does report body aches. PE Risk Factors: Negative for Cancer, OCP + Smoking + > 35, Prior DVT or PE, Recent immobilization, Recent surgery or Recent travel Prior similar symptoms: No Recent Illness/Hospitalization: No PFSH PFS Medical History Hypercholesterolemia Hypertension Asthma Home Medications ?Medication ?Instructions ?Recorded ?Last Taken ?Type albuterol sulfate 90 mcg/actuation 1 - 2 puff IH Q4H PRN Sob &/Or 04/21/19 Unknown History aerosol inhaler Wheezing atorvastatin 20 mg tablet 20 mg PO DAILY 04/21/19 Unknown History enalapril maleate 20 mg tablet 20 mg PO DAILY 04/21/19 Unknown History timolol 0.5 %-brimonidine 0.15 1 drp ophthalmic (eye) DAILY 04/21/19 Unknown History %-dorzolamide 2 % (PF) eye drops aspirin 81 mg capsule 81 mg PO DAILY 03/02/21 Unknown History prednisone 20 mg tablet 60 mg (3 x 20 mg) PO DAILY 4 days 10/31/21 Unknown Rx #12 tabs azithromycin 250 mg tablet 250 mg PO DAILY 4 days #4 tabs 11/05/21 Unknown Rx (Zithromax) prednisone 20 mg tablet 40 mg (2 x 20 mg) PO DAILY 10 days 11/05/21 Unknown Rx #20 tabs prednisone 20 mg tablet 60 mg (3 x 20 mg) PO DAILY #15 02/12/24 Unknown Rx TABLETS Allergy/AdvReac Type Severity Reaction Status Date / Time No Known Allergies Allergy Verified 02/12/24 17:10 Social History Smoking Status: Never smoker ROS ROS ED Constitutional Constitutional ED: Reports chills and sweats; Denies fever(s) or weight loss Eyes Eyes: Denies blurry vision or change in vision ENT ENT ED: Reports rhinorrhea; Denies ear pain or sore throat Cardiovascular Cardiovascular: Denies chest pain, orthopnea, palpitations, paroxysmal nocturnal dyspnea or racing heartbeat Respiratory/Chest Respiratory/Chest: Reports cough, dyspnea, dyspnea on exertion and other Details: Positive wheezing. ; Denies orthopnea, paroxysmal nocturnal dyspnea or sputum Gastrointestinal Gastrointestinal: Denies abdominal pain, diarrhea, melena or vomiting Musculoskeletal Musculoskeletal: Reports myalgias Integumentary Denies rash Neurologic Neurologic: Reports headache(s); Denies paresthesias or weakness Endocrine Endocrinology: Reports cold intolerance and heat intolerance Hematologic/Lymphatic Hematologic/Lymphatic: Denies easy bleeding or easy bruising EXAM Physical Exam Const Vital Signs: 02/12/24 17:11 02/12/24 17:44 02/12/24 17:44 Temperature 98.8 F 98.7 F Temperature Source Oral Oral Pulse Rate 65 51 L Respiratory Rate 18 18 Respiratory Effort Normal Non-Labored Respiratory Depth Normal Respiratory Pattern Normal Blood Pressure 184/110 H 168/67 H Blood Pressure Mean 134 100 Pulse Ox 96 96 Oxygen Delivery Method Room Air Room Air Room Air 02/12/24 18:02 02/12/24 19:10 Temperature Temperature Source Pulse Rate 60 76 Respiratory Rate 16 16 Respiratory Effort Respiratory Depth Respiratory Pattern Blood Pressure 151/72 H Blood Pressure Mean 98 Pulse Ox 95 Oxygen Delivery Method Positive well nourished and well developed Constitutional Narrative: Patient does not appear well. He is not toxic in appearance. General Appearance ED: well developed; Negative for pallor HEENT Reports dry mucous membranes HEENT Narrative: Ears normal. Nares patent. Posterior pharynx unremarkable. atraumatic; Negative for tenderness Mouth ED: Yes dry mucous membranes Mouth: dry mucous membranes Eyes PERRL and EOMs intact bilaterally General Eye ED: Negative for pale conjunctiva or scleral icterus Neck no lymphadenopathy, supple, no meningeal signs and no JVD Resp normal respiratory effort and No clear to auscultation bilaterally Auscultation: wheezes expiratory wheezes and throughout and diminished lung sounds; Negative for rales or rhonchi Cardio regular rate, regular rhythm, S1 normal heart sound, S2 normal heart sound and no murmurs GI non-tender, non-distended and no masses Palpation: soft Back/Spine no CVA tenderness Extremity normal to inspection General Extremety ED: Negative for edema or tenderness General Extremity: Negative for edema Neuro oriented x3 and CN's II-XII intact bilaterally Darlin Coma Scale: document GCS findings Spontaneous Obeys Commands Oriented 15 Sensorium / Orientation: alert Psych mental status grossly normal Skin no wounds and skin turgor normal General Skin Exam: Negative for jaundice or pallor MDM MDM MDM Narrative Medical decision making narrative: Patient with upper respiratory viral-like symptoms. Will assess for COVID, RSV and influenza. Since he is wheezing he was treated with 3 albuterol treatments. Since he does not have a history of diabetes we will also treat with prednisone. Chest x-ray was obtained to evaluate for pneumonia. History & Record Review Additional record(s) reviewed:: Prior ED visit (Seen October 2021 for asthma exacerbation. February 2021 for asthma exacerbation in April 2019 for asthma exacerbation) Lab Data Lab results narrative: Rapid antigen for COVID, RSV and influenza are all negative. Radiography Chest X-Ray - ED: 2 View, Read by ED Physician ([id number]), Normal, Heart, Mediastinum, Bony Structures, No Acute Disease and Chronic Changes Diagnostic Testing: Clinical Impression(s) from Imaging Studies Chest X-Ray 02/12/24 17:50 IMPRESSION: Mild right upper lobe interstitial thickening possibly inflammatory.. Chronic interstitial thickening in the right lower lobe Electronically Signed: Eren Pruitt MD at 18:24 EST Reading Location ID and State: [facility] / [place] Tel , Service support , EKG Initial EKG: Attestation: I personally reviewed and interpreted this EKG as follows: Interpretation: Sinus Bradycardia (Rate is 51. EKG other than the bradycardia is normal. TN interval is 130 ms Rickers duration 104 ms. QT duration 403 ms. [place] is normal.) Treatment and Re-Evaluation :: Patient was reassessed at 2030. He is wheeze free. Patient been instructed uses inhaler every 2-4 hours while awake. He was placed on prednisone. Since in my opinion this is a viral infection he was not treated with antibiotics. Discharge Plan Triage Chief Complaint: Shortness of Breath ED Provider: Rakan Leger Dx/Rx/DC Orders Clinical Impression: Upper respiratory infection with cough and congestion, Acute exacerbation of extrinsic asthma Instructions: ED URI, Viral, No Abx (Adult) Prescriptions: New prednisone 20 mg tablet 60 mg PO DAILY Qty: 15 0RF No Action atorvastatin 20 MG tablet 20 mg PO DAILY enalapril maleate 20 MG tablet 20 mg PO DAILY albuterol sulfate 90 mcg/actuation HFA aerosol inhaler 1 - 2 puff IH Q4H PRN (Reason: Sob &/Or Wheezing) bipmvec-tqbqtkzba-leqkiuil(PF) 10 ML drops 1 drp ophthalmic (eye) DAILY aspirin 81 mg Capsule 81 mg PO DAILY prednisone 20 mg tablet 60 mg PO DAILY 4 Days Qty: 12 0RF azithromycin [Zithromax] 250 mg tablet 250 mg PO DAILY 4 Days Qty: 4 0RF Rx Instructions: start on day 2 of therapy prednisone 20 mg tablet 40 mg PO DAILY 10 Days Qty: 20 0RF Primary Care Provider: Dorothy Jvoel Referrals: Dorothy Jovel MD [Primary Care Provider] - 1 Week Print Language: Azeri Disposition Disposition: Home, Self Care
--- NOTE | 2024-02-12 17:50 | RAD_ITS ---
STUDY: X-RAY CHEST REASON FOR EXAM: Male, 73 years old. Cough, fever and wheezing TECHNIQUE: PA and lateral COMPARISON: November 05, 2021 FINDINGS: Mild interstitial thickening in the right lower and upper lobes. Tiny calcified granuloma in the right lower lobe There is no demonstrated pleural abnormality. Normal size heart. Calcified right hilar and mediastinal nodes. Normal visualized pulmonary arteries. Normal visualized aortic arch and descending thoracic aorta. Dorsal spine demonstrates changes. Normal visualized ribs, clavicles, and shoulders. There is no demonstrated abnormality of the visualized soft tissue structures of the upper abdomen. There is improved aeration in the right lower lobe since prior exam however the interstitial thickening in the right upper lobe is new and may represent acute inflammatory changes RAD/Chest PA and Lateral IMPRESSION: Mild right upper lobe interstitial thickening possibly inflammatory.. Chronic interstitial thickening in the right lower lobe Electronically Signed: Eren Pruitt MD at 18:24 EST ,
[2024-02-12] MEDS: Albuterol 2.5 MG/3 ML VIAL.NEB. INHALATION ×3 (17:56)
[2024-02-12 18:02] VITALS: PULSE 60; RESP 16
--- NOTE | 2024-02-12 18:03 | EKG12_ITS ---
Test Reason : SOB Blood Pressure : */* mmHG Vent. Rate : 51 BPM Atrial Rate : 51 BPM P-R Int : 130 ms QRS Dur : 104 ms QT Int : 438 ms P-R-T Axes : 40 -23 8 degrees QTcB Int : 403 ms Sinus bradycardia Otherwise normal ECG Confirmed by SONIA PHAN, PAGE ([id number]), editor publications RSOA STEIN ([id number]) on 02/14/2024 6:17:28 AM Referred By: CG/UG Confirmed By: PAGE SCOTT MD
[2024-02-12] MEDS: predniSONE 20 MG Tablet 60 MG PO (18:05)
[2024-02-12] MEDS: 0.9% Normal Saline (1000mL) 1,000 ML 1000 ML IV (18:05)
[2024-02-12 19:10] VITALS: BP 151/72; PULSE 76; RESP 16; O2SAT 95
[2024-02-12 20:54] VITALS: BP 146/77; PULSE 74; RESP 16; TEMP 36.7; O2SAT 98
== END 2024-02-12 20:56 | disposition home or self-care (01) ==
PROVIDERS: Emergency Provider Emergency Medicine; PCP General Practice; Visit Provider Emergency Medicine
DX: J06.9 Acute upper respiratory infection, unspecified (principal); J45.901 Unspecified asthma with (acute) exacerbation
CPT/HCPCS: 71046; 87631; 93005; 94640; 99283; A4216

== ENCOUNTER 2025-02-06 03:15 | Emergency (ER) | payer MEDICARE, SELFPAY ==
[2025-02-06] VITALS (7 sets, daily range): BP systolic 140–181; BP diastolic 65–89; PULSE 48–67; RESP 16–18; TEMP 36.6–36.9; O2SAT 96–99; BMI 34.5
--- NOTE | 2025-02-06 03:19 | EKG12_ITS ---
Test Reason : SOB Blood Pressure : */* mmHG Vent. Rate : 51 BPM Atrial Rate : 51 BPM P-R Int : 112 ms QRS Dur : 116 ms QT Int : 448 ms P-R-T Axes : 27 -14 31 degrees QTcB Int : 412 ms Sinus bradycardia Otherwise normal ECG Confirmed by Willie Linares ([id number]), photograph editor MARSHALL CORRALES ([id number]) on 02/06/2025 8:22:51 AM Referred By: Confirmed By: Willie Linares
[2025-02-06] MEDS: 0.9% Normal Saline (1000mL) 1,000 ML 999 ML IV (03:31)
[2025-02-06 03:33] LABS: Hematocrit 39.1 % (40-54); Hemoglobin 13.0 g/dL (13.0-16.5); Immature Granulocytes Count 0.020 X10^3/uL (0.0-0.0); Mean Corp Hgb Conc 33.2 g/dL (32-36); Mean Corpuscular Volume 85.4 fL (80-94); Mean Platelet Vol. 10.9 fl (6.2-12.0); NRBC Flagged by Analyzer 0 % (0-5); POSITIVE DIFFERENTIAL YES; Platelet Count 152 K/mm3 (150-450); RBC Distribution Width CV 13.3 % (11.6-14.6); RBC Distribution Width SD 41.1 fl (35.1-43.9); Red Blood Count 4.58 M/mm3 (4.6-6.2); White Blood Count 8.3 K/mm3 (4.4-11.0)
--- OUTSIDE RECORDS SUMMARY | 2025-02-06 03:52 | XMS RPT_ITS | CCD ---
Author Organization [facility]iniSymi Care Team Providers Care Certification And Selection Specialist Name Role Phone July Jovel Unavailable Unavailable Med, July Ugarte Unavailable Unavailable Med, July Ugarte Unavailable Unavailable Unavailable Unavailable Unavailable Unavailable Unavailable Med, Dr. July Ugarte Attending Preeti Jovel, Dr. July Ugarte Referring Unavailgulshan Jovel, Dr. July Ugarte Primary Care Preeti BALLESTEROS, Dr. RENATO Michel Referring Unavailable SAMMI, Dr. RENATO Michel Attending Unavailable Med, Dr. July Ugarte Primary Care Unavailgulshan Jovel, Dr. July Ugarte Referring Unavailabl e Med, Dr. July Ugarte Primary Care Unavailgulshan Mack, Dr. Sahara Kruger Attending Duc Mack, Dr. Sahara Kruger Attending Duc Mack, Dr. Sahara Kruger Referring [place] Jovel, Dr. July Ugarte Primary Care Preeti Mack, Dr. Sahara Kruger Attending Duc Mack, Dr. Sahara Kruger Referring Unavai labhans Med, Dr. July Ugarte Primary Care Unavailgulshan Jovel, Dr. July Ugarte Primary Care Preeti Mack, Dr. Sahara Kruger Referring [place] labh[place] Mack, Dr. Sahara Kruger Attending Duc labhans Jovel, Dr. July Ugarte Attending Unavailabl e Med, Dr. July Ugarte Primary Care Unavailgulshan Jovel, Dr. July Ugarte Primary Care Preeti BALLESTEROS, Dr. RENATO Michel Attending Unavailable Med, Dr. July Ugarte Attending Unavailgulshan e Med, Dr. July Ugarte Primary Care Unavailabl e Med, Dr. July Ugarte Attending Unavailabl e Med, Dr. July Ugarte Referring Unavailabl e Med, Dr. July Ugarte Primary Care Unavailabl e Med, Dr. July Ugarte Attending Unavailabl e Med, Dr. July Ugarte Primary Care Unavailabl e Med, Dr. July Ugarte Attending Unavailabl e Med, Dr. July Ugarte Referring Unavailabl e Med, Dr. July Ugarte Primary Care Unavailabl e Med, Dr. July Ugarte Attending Unavailabl e Med, Dr. July Ugarte Referring Unavailabl e Med, Dr. July Ugarte Primary Care Unavailabl e Med, Dr. July Ugarte Primary Care Unavailabl e Med, Dr. July Ugarte Referring Unavailabl e Med, Dr. July Ugarte Attending Unavailabl e Med, Dr. July Ugarte Attending Unavailabl e Med, Dr. July Ugarte Primary Care Unavailabl e Med, Dr. July Ugarte Referring Unavailabl e Med, Dr. July Ugarte Attending Unavailabl e Med, Dr. July Ugarte Primary Care Unavailabl e Med, Dr. July Ugarte Referring Unavailabl e Med, Dr. July Ugarte Attending Unavailabl e Med, Dr. July Ugarte Referring Unavailabl e Med, Dr. July Ugarte Primary Care Unavailabl e Med , July Ugarte Primary Care Provider Med PHAN, July Pike Med, Dr. July Ugarte Primary Care Unavailabl e [place], Dr. Sahara Kruger Attending [facility] lable Med, Dr. July Ugarte Primary Care Unavailabl e [place], Dr. Sahara Kruger Attending [place] lab[place]ans Jovel, Dr. July Ugarte Primary Care Unavailabl e [place], Dr. Sahara Kruger [facility]ending [facility], Dr. July Ugarte Primary Care Unavailabl e [place], Dr. Sahara Kruger Attending [facility] MED, JULY UGARTE Primary Care Unavailable MED, JULY UGARTE Primary Care Unavailable MED, JULY UGARTE Referring Unavailable MED, DONOVAN Primary Care Unavailable Leger, Rakan Attending Unavailable Med, Donovan Primary Care Unavailable Med , July Ugarte Primary Care Provider [phone] Med PHAN, July Ugarte Unavailable Med PHAN, July Ugarte Unavailable Med PHAN, July Ugarte Unavailable LORE CLINTON Attending Unavailab le MED, DONOVAN Primary Care Unavailable PIASECKSAHARA Davis Attending Unavailable MED, JULY UGARTE Primary Care Unavailable MED, JULY UGARTE Attending Unavailable MED, DONOVAN Primary Care Unavailable MED, JULY UGARTE Attending Unavailable MED, DONOVAN Primary Care Unavailable PISAHARA BRITT Attending Unavailable MED, DONOVAN Primary Care Unavailable PISAHARA BRITT Attending Unavailable MED, DONOVAN Primary Care Unavailable PISAHARA BRITT Attending Unavailable MED, DONOVAN Primary Care Unavailable PIASESAHARA MCKEON Attending Unavailable MED, JULY UGARTE Primary Care Unavailable MED, JULY UGARTE Attending Unavailable MED, DONOVAN Primary Care Unavailable PISAHARA BRITT Attending Unavailable MED, DONOVAN Primary Care Unavailable PISAHARA BRITT Attending Unavailable MED, DONOVAN Primary Care Unavailable PISAHARA BRITT Attending Unavailable MED, DONOVAN Primary Care Unavailable MED, JULY UGARTE Attending Unavailable MED, DONOVAN Primary Care Unavailable LORE CLINTON Referring Unavailab le MED, DONOVAN Primary Care Unavailable PISAHARA BRITT Referring Unavailable MED, DONOVAN Primary Care Unavailable Medications Current Medications Medication Drug Class(es) Dates Sig (Normalized) Sig (Original) [id number] 200 actuat albuterol 0.09 mg/actuat metered dose inhaler (20 sources) beta2-Adrenergic Agonist Start: 02-19-2024 End: 02-18-2025 take 2 puff(s) by inhalation every four hours for wheezing albuterol (Ventolin HFA) 90 mcg/actuation inhaler Indications: Moderate persistent asthma without complication ([facility]-H[facility]) Inhale 2 puffs every 4 hours if needed for wheezing or shortness of breath. RINSE MOUTH WITH WATER AFTER AND SPIT. 18 g 2 02/19/2024 02/18/2025 Active Start: 02-18-2024 End: 02-17-2025 albuterol 2.5 mg /3 mL (0.08 3 %) nebulizer solution Indications: COPD with acute exacerbation (Multi) Take 3 mL (2.5 mg) by nebulization 4 times a day as needed for wheezing or shortness of breath. 90 mL 02/18/2024 02/17/2025 Active Start: 02-14-2024 take 2 puff(s) by in halation every four hours for wheezing Ventolin HFA 90 mcg/actuation inhaler Indications: Moderate asthma without complication, unspecified whether persistent ([facility]-HCC) Inhale 2 puffs every 4 hours if needed for wheezing or shortness of breath. 18 g 2 02/14/2024 Active Start: 01-04-2024 take 2 puff(s) by in halation every four hours for wheezing Ventolin HFA 90 mcg/actuation inhaler Indications: Moderate asthma without complication, unspecified whether persistent ([facility]-HCC) Inhale 2 puffs every 4 hours if needed for wheezing or shortness of breath. 18 g 2 01/04/2024 Active Start: 02-21-2022 Albuterol Sulf ate (2.5 MG/3ML) 0.083% Inhalation Nebulization Solution USE 1 UNIT DOSE EVERY 4-6 HOURS NEEDED FOR WHEEZING . Quantity: 1 Refills: 0 Ordered: 21-Feb-2022 July Jovel MD Start : 21-Feb-2022 Active Start: 11-08-2021 End: 01-19-2022 take 1 [IU] by inhalation four times daily as needed Albuterol Sulfate 1.25 MG/3ML Inhalation Nebulization Solution USE 1 UNIT DOSE VIA NEBULIZER 4 TIMES A DAY NEEDED Quantity: 1 Refills: 0 Ordered: 08-Nov-2021 July Jovel MD Start : 08-Nov-2021 End : 19-Jan-2022 Complete Start: 10-20-2021 Albuterol Sulf ate (2.5 MG/3ML) 0.083% Inhalation Nebulization Solution USE 1 VIAL VIA NEBULIZER EVERY 4 HOURS NEEDED Quantity: 90 Refills: 0 Ordered: 08-Nov-2021 DO Start : 20-Oct-2021 Complete Start: 04-21-2019 take 1 puff(s) by in halation every four hours Albuterol Sulfate Active 1 - 2 PUFF IH Q4H April 21, 2019 12:00am Start: 12-03-2017 End: 01-04-2024 Ventolin HFA 90 mcg/actuatio n inhaler Inhale. 12/03/2017 01/04/2024 Discontinued (Reorder) Start: 12-03-2017 take 2 puff(s) by in halation every four to six hours as needed Ventolin HFA 108 (90 Base) MCG/ACT Inhalation Aerosol Solution INHALE 2 PUFFS EVERY 4 TO 6 HOURS NEEDED Quantity: 1 Refills: 1 Ordered: 17-Feb-2022 Sahara Mack DO Start : 03-Dec-2017 Active Start: 12-03-2017 take 2 puff(s) by in halation every four to six hours as needed Ventolin HFA 108 (90 Base) MCG/ACT Inhalation Aerosol Solution INHALE 2 PUFFS EVERY 4 TO 6 HOURS NEEDED Quantity: 2 Refills: 0 July Jovel MD Start : 03-Dec-2017 Active 18 GM Inhaler aspirin 81 mg oral tablet (1 source) Platelet Aggregation Inhibitor, Nonsteroidal Anti-inflammatory Drug Start: 03-02-2021 take 81 mg by mouth once daily Aspirin Active 81 MG PO DAILY March 02, 2021 1:00am atorvastatin 20 mg oral tablet (20 sources) HMG-CoA Reductase Inhibitor Start: 02-14-2024 End: 08-07-2024 take 1 tablet by mouth once daily atorvastatin (Lipitor) 20 mg tablet Indications: Primary hypertension , Mixed hyperlipidemia , Health maintenance examination Take 1 tablet (20 mg) by mouth once daily. 90 tablet 1 08/07/2024 Active Start: 07-12-2022 End: 07-31-2023 take 1 tablet by mouth once daily atorvastatin (Lipitor) 20 mg tablet Indications: Mixed hyperlipidemia Take 1 tablet (20 mg) by mouth once daily. 90 tablet 1 07/31/2023 Active Start: 04-21-2019 take 20 mg by mouth once daily Atorvastatin Active 20 MG PO DAILY April 21, 2019 12:00am azithromycin 250 mg oral tablet (6 sources) Macrolide Antimicrobial Start: 02-18-2024 End: 02-23-2024 azithromycin (Zithromax) 250 mg tablet Indications: COPD with acute exacerbation (Multi) , Acute cough Take 2 tablets (500 mg) by mouth once daily for 1 day, THEN 1 tablet (250 mg) once daily for 4 days. Take 2 tabs (500 mg) by mouth today, than 1 daily for 4 days.. 6 tablet 02/18/2024 02/23/2024 Active Start: 05-31-2021 Azithromycin 2 50 MG Oral Tablet TAKE 2 TABLETS ON DAY 1 THEN TAKE 1 TABLET A DAY FOR 4 DAYS. Quantity: 1 Refills: 0 Ordered: 31-May-2021 July Jovel MD Start : 31-May-2021 Active Start: 11-11-2018 take 2 tablets by mo [facility] once daily, then take 1 tablet by mouth, then take 1 tablet by mouth once daily Azithromycin 250 MG Oral Tablet TAKE 2 TABLETS ON DAY 1 THEN TAKE 1 TABLET A DAY FOR 4 DAYS. Quantity: 1 Refills: 0 July Jovel MD Start : 11-Nov-2018 Active 6 Tablet Pack Start: 07-30-2018 take 2 tablets by mo [facility] once daily, then take 1 tablet by mouth, then take 1 tablet by mouth once daily Azithromycin 250 MG Oral Tablet TAKE 2 TABLETS ON DAY 1 THEN TAKE 1 TABLET A DAY FOR 4 DAYS. Quantity: 1 Refills: 0 July Jovel MD Start : 30-Jul-2018 Active 6 Tablet Pack benzonatate 200 mg oral capsule (7 sources) Non-narcotic Antitussive Start: 03-18-2024 End: 05-17-2024 take 1 capsule by mouth three times daily as needed for cough benzonatate (Tessalon) 200 mg capsule Indications: Mild asthma, unspecified whether complicated, unspecified whether persistent ([facility]) , Chronic cough Take 1 capsule (200 mg) by mouth 3 times a day as needed for cough. Do not crush or chew. 60 capsule 1 03/18/2024 05/17/2024 Active Start: 02-23-2022 End: 03-06-2024 benzonatate (Tessalon) 200 m g capsule Take by mouth. 02/23/2022 03/06/2024 Discontinued (Med List Cleanup) dorzolamide 20 mg/ml / timolol 5 mg/ml ophthalmic solution (12 sources) Carbonic Anhydrase Inhibitor, beta-Adrenergic Ashly Start: 02-14-2024 End: 03-06-2024 dorzolamide-timoloL (Cosopt) 22.3-6.8 mg/mL ophthalmic solution 02/14/2024 03/06/2024 Discontinued (Med List Cleanup) Start: 09-21-2023 take 1 drop(s) into the eye(s) twice daily dorzolamide-timoloL (Cosopt) 22.3-6.8 mg/mL ophthalmic solution Administer 1 drop into both eyes 2 times a day. 09/21/2023 Active enalapril maleate 20 mg oral tablet (20 sources) Angiotensin Converting Enzyme Inhibitor Start: 02-14-2024 End: 08-07-2024 take 1 tablet by mouth once daily enalapril (Vasotec) 20 mg tablet Indications: Primary hypertension Take 1 tablet (20 mg) by mouth once daily. 90 tablet 1 08/07/2024 Active Start: 07-12-2022 End: 07-31-2023 take 1 tablet by mouth once daily enalapril (Vasotec) 20 mg tablet Indications: Primary hypertension Take 1 tablet (20 mg) by mouth once daily. 90 tablet 1 07/31/2023 Active Start: 01-29-2014 take 1 tablet by miguel a th once daily Enalapril Maleate 20 MG Oral Tablet TAKE 1 TABLET DAILY DIRECTED. Quantity: 90 Refills: 0 Ordered: 17-Mar-2022 July Jovel MD Start : 29-Jan-2014 Active fluticasone propionate 0.05 mg/actuat metered dose nasal spray (18 sources) Corticosteroid Start: 07-31-2023 End: 07-30-2024 take 2 spray(s) nasal route once daily fluticasone (Flonase) 50 mcg/actuation nasal spray Indications: Chronic sinusitis, unspecified location Administer 2 sprays into each nostril once daily. Shake gently. Before first use, prime pump. After use, clean tip and replace cap. 48 g 1 07/31/2023 Active Start: 01-26-2023 End: 01-26-2024 take 2 spray(s) nasal route once daily fluticasone (Flonase) 50 mcg/actuation nasal spray Indications: Chronic sinusitis, unspecified location Administer 2 sprays into each nostril once daily. Shake gently. Before first use, prime pump. After use, clean tip and replace cap. 16 g 1 01/26/2023 07/31/2023 Discontinued (Reorder) 30 actuat fluticasone furoate 0.1 mg/actuat / umeclidinium 0.0625 mg/actuat / vilanterol 0.025 mg/actuat dry powder inhaler (6 sources) Anticholinergic, Corticosteroid, beta2-Adrenergic Agonist Start: 07-03-2024 take 1 puff(s) by mouth once daily lrwowsazatn-uqmnylokr-rnyhzyqh (Trelegy Ellipta) 100-62.5-25 mcg blister with device Indications: Moderate persistent asthma without complication ([facility]) Inhale 1 puff once daily. RINSE MOUTH WITH WATER AFTER AND SPIT. 60 each 5 07/03/2024 Active fluticasone-umec lidin-vilanter (Trelegy Ellipta) 100-62.5-25 mcg blister with device Inhale 1 puff. RINSE MOUTH WITH WATER AFTER AND SPIT. #1 Sample to pt per Dr. Mack.LL To replace Trelegy 200. Active 12 hr guaiFENesin 600 mg extended release oral tablet (16 sources) Start: 02-23-2022 take 1 tablet by mouth twice daily guaiFENesin (Mucinex) 600 mg 12 hr tablet Take 1 tablet (600 mg) by mouth 2 times a day. 02/23/2022 Active latanoprost 0.05 mg/ml ophthalmic solution (13 sources) Prostaglandin Analog Start: 02-14-2024 take 1 drop(s) into the eye(s) once daily at bedtime latanoprost (Xalatan) 0.005 % ophthalmic solution Administer 1 drop into both eyes once daily at bedtime. 02/14/2024 Active Start: 10-27-2021 Latanoprost 0. 005 % Ophthalmic Solution Quantity: 10 Refills: 0 Ordered: 27-Oct-2021 DO Start : 27-Oct-2021 Complete levalbuterol 0.417 mg/ml inhalation solution (11 sources) beta2-Adrenergic Agonist Start: 02-23-2022 End: 01-04-2024 levalbuterol (Xopenex) 1.25 mg/3 mL nebulizer solution Inhale. 02/23/2022 01/04/2024 Discontinued (Med List Cleanup) Start: 02-23-2022 take 1 [IU] by inhal ation every four to six hours as needed Levalbuterol HCl - 1.25 MG/3ML Inhalation Nebulization Solution USE 1 UNIT DOSE IN NEBULIZER EVERY 4 TO 6 HOURS NEEDED. Quantity: 1 Refills: 0 Ordered: 23-Feb-2022 July Jovel MD Start : 23-Feb-2022 Active predniSONE 10 mg oral tablet (16 sources) Start: 06-26-2024 End: 07-26-2024 predniSONE (Deltasone) 10 mg tablet Indications: Asthma, unspecified asthma severity, unspecified whether complicated, unspecified whether persistent ([facility]-HCC) Take 4 tabs (40mg) daily for 3 days, then 3 tabs (30mg) daily for 3 days, 2 tabs (20mg) daily for 3 days, 1 tab (10 mg) daily for 3 days. 30 tablet 06/26/2024 07/26/2024 Active Start: 03-18-2024 End: 06-19-2024 predniSONE (Deltasone) 10 mg tablet Indications: Mild asthma, unspecified whether complicated, unspecified whether persistent ([facility]HS-HCC) , Chronic cough Take 2 tabs (20mg) daily for 3 days, 1 tab (10 mg) daily for 4 days in am with food. 10 tablet 03/18/2024 06/19/2024 Discontinued (Therapy completed) Start: 03-06-2024 End: 04-05-2024 predniSONE (Deltasone) 10 mg tablet Indications: Acute bronchitis, unspecified organism , Cough, unspecified type Take 4 tabs (40mg) daily for 3 days, then 3 tabs (30mg) daily for 3 days, 2 tabs (20mg) daily for 3 days, 1 tab (10 mg) daily for 3 days in the morning with food for 12 days. 30 tablet 03/06/2024 04/05/2024 Active Start: 02-13-2024 End: 03-06-2024 predniSONE (Deltasone) 20 mg tablet 02/13/2024 03/06/2024 Discontinued (Therapy completed) Start: 12-07-2021 End: 12-20-2021 predniSONE 20 MG Oral Tablet Take 3 tabs x 3 days, 2 tabs x 5 days, and 1 tab x 5 days Quantity: 24 Refills: 0 Ordered: 07-Dec-2021 July Jovel MD Start : 07-Dec-2021 End : 20-Dec-2021 Complete Start: 10-31-2021 take 60 mg by mouth once daily Prednisone Active 60 MG PO DAILY 12 October 31, 2021 12:00am Start: 10-22-2021 take 1 tablet by miguel a th twice daily predniSONE 10 MG Oral Tablet TAKE 1 TABLET BY MOUTH TWICE DAILY FOR 5 DAYS Quantity: 10 Refills: 0 Ordered: 22-Oct-2021 DO Start : 22-Oct-2021 Complete Start: 02-28-2021 End: 10-31-2021 take 50 mg by mouth once daily Prednisone Discontinued 50 MG PO DAILY 06 07February 28, 2021 1:00am October 31, 2021 4:07pm Gfmsijq-Wsxdnempp-Iahttqdj(P f) (1 source) Start: 04-21-2019 Hykxgjx-Pieygoyfn-Zochpxax(P f) Active 1 DRP OPHTHALMIC DAILY April 21, 2019 12:00am Trelegy Ellipta 200-62.5-25 mcg blister with device (17 sources) Start: 02-14-2024 take 1 puff(s) by mouth once daily Trelegy Ellipta 200-62.5-25 mcg blister with device Indications: Moderate persistent asthma without complication ([facility]-HCC) Inhale 1 puff once daily. Rinse mouth with water after and spit. 30 each 02/14/2024 Active Start: 01-04-2024 take 1 puff(s) by mo [facility] once daily Trelegy Ellipta 200-62.5-25 mcg blister with device Indications: Moderate persistent asthma without complication ([facility]-HCC) Inhale 1 puff once daily. Rinse mouth with water after and spit. 30 each 5 01/04/2024 Active Start: 10-23-2023 End: 01-04-2024 take 1 puff(s) by inhalation once daily Trelegy Ellipta 200-62.5-25 mcg blister with device Indications: Chronic obstructive pulmonary disease, unspecified COPD type (Multi) Inhale 1 puff once daily. 30 each 2 10/23/2023 01/04/2024 Discontinued (Reorder) Start: 03-19-2023 take 1 puff(s) by in halation once daily Trelegy Ellipta 200-62.5-25 mcg blister with device Indications: Chronic obstructive pulmonary disease, unspecified COPD type (Multi) Inhale 1 puff once daily. 1 each 6 03/19/2023 Active take 1 puff(s) by in halation once daily Trelegy Ellipta 200-62.5-25 mcg blister with device Inhale 1 puff once daily. 0 Active Completed/Discontinued Medications Medication Drug Class(es) Dates Sig (Normalized) Sig (Original) Budesonide / formoterol (17 sources) Corticosteroid, beta2-Adrenergic Agonist Start: 02-21-2024 End: 06-19-2024 take 2 puff(s) by mouth twice daily budesonide-formoter oL (Symbicort) 160-4.5 mcg/actuation inhaler Indications: Moderate persistent asthma with acute exacerbation ([facility]-HCC) Inhale 2 puffs 2 times a day. Rinse mouth with water after use to reduce aftertaste and incidence of candidiasis. Do not swallow. 10.2 g 02/21/2024 06/19/2024 Discontinued (Therapy completed) Start: 02-21-2024 End: 02-20-2025 take 2 puff(s) by mouth twice daily budesonide-formoteroL (Symbicort) 160-4.5 mcg/actuation inhaler Indications: Moderate persistent asthma with acute exacerbation ([facility]HS-HCC) Inhale 2 puffs 2 times a day. Rinse mouth with water after use to reduce aftertaste and incidence of candidiasis. Do not swallow. 10.2 g 02/21/2024 02/20/2025 Active Start: 11-18-2021 End: 03-06-2024 take 2 puff(s) by inhalation twice daily budesonide-formoteroL (Symbicort) 160-4.5 mcg/actuation inhaler Inhale 2 puffs 2 times a day. 11/18/2021 03/06/2024 Discontinued (Med List Cleanup) Start: 11-18-2021 End: 12-27-2021 take 2 puff(s) by mouth twice daily Symbicort 160-4.5 MCG/ACT Inhalation Aerosol INHALE 2 PUFFS TWICE DAILY. RINSE MOUTH AFTER USE. Quantity: 1 Refills: 0 Ordered: 18-Nov-2021 July Jovel MD Start : 18-Nov-2021 End : 27-Dec-2021 Complete Start: 05-31-2021 take 2 puff(s) by mo [facility] twice daily Symbicort 160-4.5 MCG/ACT Inhalation Aerosol INHALE 2 PUFFS TWICE DAILY. RINSE MOUTH AFTER USE. Quantity: 1 Refills: 0 Ordered: 31-May-2021 July Jovel MD Start : 31-May-2021 Active Start: 11-11-2018 take 2 puff(s) by mo [facility] twice daily Symbicort 160-4.5 MCG/ACT Inhalation Aerosol INHALE 2 PUFFS TWICE DAILY. RINSE MOUTH AFTER USE. Quantity: 1 Refills: 0 July Jvoel MD Start : 11-Nov-2018 Active 10.2 GM Inhaler levoFLOXacin 500 mg oral tablet (5 sources) Quinolone Antimicrobial Start: 02-23-2022 End: 03-03-2022 take 1 tablet by mouth once daily levoFLOXacin 500 MG Oral Tablet TAKE 1 TABLET Daily TAKE WITH PROBIOTIC Quantity: 7 Refills: 0 Ordered: 27-Feb-2022 Sahara Mack DO Start : 23-Feb-2022 End : 03-Mar-2022 Complete Start: 02-16-2022 take 1 tablet by miguel a once daily levoFLOXacin 750 MG Oral Tablet TAKE 1 TABLET DAILY. Quantity: 5 Refills: 0 Ordered: 16-Feb-2022 Renato Ballesteros MD Start : 16-Feb-2022 Active Start: 10-14-2021 take 1 tablet by miguel a th once daily levoFLOXacin 750 MG Oral Tablet TAKE 1 TABLET DAILY. Quantity: 5 Refills: 0 Ordered: 14-Oct-2021 July Jovel MD Start : 14-Oct-2021 Active sulindac 200 mg oral tablet (1 source) Nonsteroidal Anti-inflammatory Drug Start: 06-18-2018 take 1 tablet by mouth twice daily at mealtime Sulindac 200 MG Oral Tablet TAKE 1 TABLET TWICE DAILY WITH MEALS. Quantity: 40 Refills: 0 July Jovel MD Start : 18-Jun-2018 Active 12 hr timolol 5 mg/ml ophthalmic solution (2 sources) beta-Adrenergic Ashly Start: 06-20-2021 take 1 drop(s) into the eye(s) twice daily Timolol Maleate 0.5 % Ophthalmic Solution instill 1 (ONE) DROP IN THE LEFT EYE only TWICE DAILY Quantity: 10 Refills: 0 Ordered: 27-Oct-2021 DO Start : 20-Jun-2021 Complete Trelegy Ellipta 200-62.5-25 MCG/ACT Inhalation Aerosol Powder Breath Activated (13 sources) Start: 12-27-2021 take 1 puff(s) by inhalation once daily Trelegy Ellipta 200-62.5-25 MCG/ACT Inhalation Aerosol Powder Breath Activated INHALE 1 PUFFS Daily Quantity: 1 Refills: 11 Ordered: 17-Feb-2022 Sahara Mack DO Start : 27-Dec-2021 Active Start: 12-27-2021 take 1 puff(s) by in halation once daily Trelegy Ellipta 200-62.5-25 MCG/ACT Inhalation Aerosol Powder Breath Activated INHALE 1 PUFFS Daily Quantity: 3 Refills: 0 Ordered: 24-Jan-2022 Sahara Mack DO Start : 27-Dec-2021 Active Start: 12-27-2021 take 1 puff(s) by in halation once daily Trelegy Ellipta 200-62.5-25 MCG/ACT Inhalation Aerosol Powder Breath Activated INHALE 1 PUFFS Daily Quantity: 2 Refills: 0 Ordered: 27-Dec-2021 Sahara Mack DO Start : 27-Dec-2021 Active Problems Active Problems Problem Classification Problem Date Documented Da te Episodic/Chronic Asthma (20 sources) Reactive airway disease; Translations: [Asthma, unspecified type, unspecified] Onset: 07-24-2022 07-27-2022 Chronic Chronic obstructive pulmonary disease and bronchiectasis (6 sources) Chronic obstructive lung disease; Translations: [Chronic obstructive pulmonary disease, unspecified] Onset: 01-04-2024 07-31-2023 Chronic Disorders of lipid metabolism (20 sources) Hyperlipidemia; Translations: [Other and unspecified hyperlipidemia] Onset: 07-24-2022 07-27-2022 Chronic Essential hypertension (20 sources) Hypertensive disorder; Translations: [Unspecified essential hypertension] Onset: 07-24-2022 07-27-2022 Chronic Comment on above: HTN (hypertension); Other lower respiratory disease (15 sources) H/O: asthma; Translations: [Personal history of other diseases of respiratory system] Episodic Other lower respiratory disease (13 sources) H/O: pneumonia; Translations: [Personal history of pneumonia (recurrent)] Resolved: 02-16-2022 Episodic Other lower respiratory disease (1 source) Personal history of pneumonia (recurrent); Translations: [Personal history of pneumonia (recurrent)] Onset: 07-04-2022 Episodic Other lower respiratory disease (3 sources) Shortness of breath; Translations: [Shortness of breath] Onset: 12-27-2021 Episodic Other lower respiratory disease (2 sources) Cough; Translations: [Acute cough] 02-18-2024 Episodic Other nutritional; endocrine; and metabolic disorders (20 sources) Obesity; Translations: [Obesity, unspecified] Onset: 06-19-2024 06-19-2024 Chronic Other nutritional; endocrine; and metabolic disorders (20 sources) Body mass index 30+ - obesity; Translations: [Body Mass Index 34.0-34.9, adult] Onset: 06-19-2024 06-19-2024 Chronic Comment on above: Body mass index [BMI ] 34.0-34.9, adult; Other screening for suspected conditions (not mental disorders or infectious disease) (20 sources) Patient encounter status; Translations: [Screening for malignant neoplasms of prostate] Onset: 07-18-2023 Episodic Other upper respiratory disease (8 sources) Hoarse; Translations: [Dysphonia] 04-28-2024 Episodic Other upper respiratory disease (4 sources) Dysphonia; Translations: [Dysphonia] Onset: 12-09-2024 Episodic Other upper respiratory infections (2 sources) Chronic sinusitis; Translations: [Chronic sinusitis, unspecified] 01-26-2023 Chronic Residual codes; unclassified (20 sources) Needs influenza immunization; Translations: [Need for prophylactic vaccination and inoculation against influenza] Episodic Unclassified (6 sources) Cough, unspecified; Translations: [Cough, unspecified] Onset: 12-06-2021 Unclassified (2 sources) Acute cough; Translations: [Acute cough] Onset: 02-18-2024 Past or Other Problems Problem Classification Problem Date Documented Da te Episodic/Chronic Abdominal pain (20 sources) Epigastric pain; Translations: [Abdominal pain] Onset: 06-19-2024 06-19-2024 Episodic Acute bronchitis (20 sources) Acute bronchitis; Translations: [Acute bronchitis] Onset: 03-06-2024 03-06-2024 Episodic Nausea and vomiting (20 sources) Vomiting; Translations: [Vomiting alone] Onset: 06-19-2024 06-19-2024 Episodic Other circulatory disease (20 sources) Elevated blood-pressure reading without diagnosis of hypertension; Translations: [Elevated blood pressure reading without diagnosis of hypertension] Onset: 07-24-2022 07-24-2022 Episodic Other lower respiratory disease (20 sources) Postviral cough; Translations: [Cough] Onset: 06-19-2024 06-19-2024 Episodic Other lower respiratory disease (20 sources) Cough; Translations: [Cough] Onset: 12-27-2021 03-06-2024 Episodic Other lower respiratory disease (20 sources) Chronic cough; Translations: [Cough] Onset: 02-16-2022 Episodic Other lower respiratory disease (20 sources) Dyspnea on exertion; Translations: [Shortness of breath] Onset: 07-24-2022 07-24-2022 Episodic Other non-traumatic joint disorders (20 sources) Hip pain; Translations: [Pain in joint, pelvic region and thigh] Onset: 06-19-2024 06-19-2024 Episodic Other non-traumatic joint disorders (20 sources) Shoulder pain; Translations: [Pain in joint, shoulder region] Onset: 08-07-2024 08-07-2024 Episodic Other skin disorders (20 sources) Skin lesion; Translations: [Unspecified disorder of skin and subcutaneous tissue] Onset: 07-24-2022 07-24-2022 Episodic Other upper respiratory disease (7 sources) Acute bronchospasm; Translations: [Acute bronchospasm] Onset: 06-19-2024 06-19-2024 Episodic Other upper respiratory infections (20 sources) Acute sinusitis; Translations: [Acute pharyngitis] Onset: 06-19-2024 01-03-2023 Episodic Pleurisy; pneumothorax; pulmonary collapse (1 source) Atelectasis; Translations: [Atelectasis] Onset: 05-31-2021 Episodic Pneumonia (except that caused by tuberculosis or sexually transmitted disease) (20 sources) Community acquired pneumonia; Translations: [Pneumonia, organism unspecified] Onset: 11-09-2021 Episodic Spondylosis; intervertebral disc disorders; other back problems (20 sources) Low back pain; Translations: [Lumbago] Onset: 06-19-2024 06-19-2024 Episodic Unclassified (8 sources) Patient encounter status; Translations: [Prostate cancer screening] Unclassified (2 sources) Cough, unspecified; Translations: [Cough, unspecified] Onset: 12-27-2021 Unclassified (20 sources) Onset: 07-27-2022 Resolved: 08-07-2024 07-27-2022 Unclassified (4 sources) Acute cough; Translations: [Acute cough] Onset: 02-18-2024 02-18-2024 Viral infection (20 sources) Disease caused by 2019-nCoV; Translations: [Other specified viral infection] Onset: 06-19-2024 06-19-2024 Episodic NEGATED: Highlighted row has not occurred!Residual codes; unclassified (20 sources) Disease Episodic Results Test Name Value Interpretation Reference Range Facility XR CHEST 2 VIEWSon XR CHEST 2 VIEWS Interpreted By: Harvey Bocanegra, STUDY: XR CHEST 2 VIEWS INDICATION: Signs/Symptoms:cough previous abnormal xray February. COMPARISON: March 06, 2024 ACCESSION NUMBER(S): [id number] ORDERING CLINICIAN: LORE CLINTON FINDINGS: No consolidation, effusion, edema, or pneumothorax. Heart size within normal limits. Previous granulomatous disease again noted. Thoracic spinal DISH IMPRESSION: No evidence of acute intrathoracic abnormality. Signed by: Harvey Cifuentes 12/10/2024 11:52 AM Dictation workstation: [id number] [facility] CBC (INCLUDES DIFF/PLT)on Basophils (Bld) [#/Vol] 0.02 10*3/uL Normal 0-200 [facility] Comment on above: Performed By: #### 3 8611, 5004, 71373, 8699 #### [facility] [address], [address] [place] [id number] [employer]: Korey Fernando MD Basophils/100 WBC (Bld) 0.3 % Normal [facility] Comment on above: Performed By: #### 3 61, 7600, 73293, 6399 #### [facility] of [place] [address] [employer]: Korey Fernando MD Eosinophils (Bld) [#/Vol] 0.315 10*3/uL Normal 15-500 [facility] Comment on above: Performed By: #### 3 61, 7600, 30486, 6399 #### [facility] of [address], [address] [place] [address] [employer]: Korey Fernando MD Eosinophils/100 WBC (Bld) 4.7 % Normal [facility] Comment on above: Performed By: #### 3 61, 7600, 83203, 6399 #### [facility] of [place] [address] [employer]: Korey Fernando MD Erythrocyte distribution width (RBC) [Ratio] 12.6 % Normal 11.0-15.0 [facility] Comment on above: Performed By: #### 3 61, 7600, 49913, 6399 #### [facility] of [place] [address] [employer]: Korey Fernando MD Hematocrit (Bld) [Volume fraction] 43.0 % Normal 38.5-50.0 [facility] Comment on above: Performed By: #### 3 61, 7600, 47973, 6399 #### [facility] of [place] [address] [employer]: Korey Fernando MD Hemoglobin (Bld) [Mass/Vol] 13.8 g/dL Normal 13.2-17.1 [facility] Comment on above: Performed By: #### 3 61, 7600, 30287, 6399 #### [facility] of [place] [address] [employer]: Korey Fernando MD Lymphocytes (Bld) [#/Vol] 1.079 10*3/uL Normal 850-3900 [facility] Comment on above: Performed By: #### 3 61, 0, 94758, 6399 #### [facility] of [place] [address] [employer]: Korey Fernando MD Lymphocytes/100 WBC (Bld) 16.1 % Normal [facility] Comment on above: Performed By: #### 3 6126, 7599, , 6399 #### [facility] [place] [address] [employer]: Korey Fernando MD MCH (RBC) [Entitic mass] 28.9 pg Normal 27.0-33.0 [facility] Comment on above: Performed By: #### 3 6126, 7599, , 6399 #### [facility] [place] [address] [employer]: Korey Fernando MD MCHC (RBC) [Mass/Vol] 32.1 g/dL Normal 32.0-36.0 [facility] Comment on above: Result Comment: For adults, a slight decrease in the calculated MCHC value (in the range of 30 to 32 g/dL) is most likely not clinically significant; however, it should be interpreted with caution in correlation with other red cell parameters and the patient's clinical condition. Performed By: #### 3 6126, 7599, 57867, 6399 #### [facility] [place] [address] [employer]: Korey Fernando MD MCV (RBC) [Entitic vol] 90.1 fL Normal 80.0-100.0 [facility] Comment on above: Performed By: #### 3 6126, 7599, 77383, 2899 #### [facility] [place] [address] [employer]: Korey Fernando MD Monocytes (Bld) [#/Vol] 0.784 10*3/uL Normal 200-950 [facility] Comment on above: Performed By: #### 3 6127, 7600, 20558, 6399 #### [facility] of [address], [address] [place] [address] [employer]: Korey Fernando MD Monocytes/100 WBC (Bld) 11.7 % Normal [facility] Comment on above: Performed By: #### 3 6127, 7600, 54665, 6399 #### [facility] of [address], [address] [place] [address] [employer]: Korey Fernando MD Neutrophils (Bld) [#/Vol] 4.502 10*3/uL Normal 3391-8975 [facility] Comment on above: Performed By: #### 3 6127, 7600, 15715, 6399 #### [facility] of [address], [address] [place] [address] [employer]: Korey Fernando MD Neutrophils/100 WBC (Bld) 67.2 % Normal [facility] Comment on above: Performed By: #### 3 61, 7600, 48593, 6399 #### [facility] of [place] [address] [employer]: Korey Fernando MD Platelet mean volume (Bld) [Entitic vol] 11.2 fL Normal 7.5-12.5 [facility] Comment on above: Performed By: #### 3 6127, 7600, 42573, 6399 #### [facility] of [place] [address] [employer]: Korey Fernando MD Platelets (Bld) [#/Vol] 189 10*3/uL Normal 140-400 [facility] Comment on above: Performed By: #### 3 6127, 7600, 37039, 6399 #### [facility] of [address], [address] [place] [address] [employer]: Korey Fernando MD RBC (Bld) [#/Vol] 4.77 10*6/uL Normal 4.20-5.80 [facility] Comment on above: Performed By: #### 3 6127, 7600, 13383, 6399 #### [facility] of [place] [address], [address] [place] [address] [employer]: Korey Fernando MD WBC (Bld) [#/Vol] 6.7 10*3/uL Normal 3.8-10.8 [facility] Comment on above: Performed By: #### 3 6127, 7600, 34840, 6399 #### [facility] of [place] [address], [address] [place] [address] [employer]: Korey Fernando MD COMPREHENSIVE METABOLIC PANE L W/ANION GAPon 07-28-2024 ALBUMIN Normal [facility] Comment on above: Performed By: #### 3 6127, 7600, 41775, 6399 #### [facility] of [place] [address] [address] , [address] [place] [address] [employer]: Korey Fernando MD ALKALINE PHOSPHATASE Normal [facility] Comment on above: Performed By: #### 3 6127, 7600, 55213, 6399 #### [facility] of [place] [address] [address] , [address] [place] [address] [employer]: Korey Fernando MD ALT Normal [facility] Comment on above: Performed By: #### 3 6127, 7600, 65100, 6399 #### [facility] of [place] [address], [address] [place] [address] [employer]: Korey Fernando MD AST Normal [facility] Comment on above: Performed By: #### 3 6127, 7600, 00444, 6399 #### [facility] of [facility] [address], [address] [place] [address] [employer]: Korey Fernando MD BILIRUBIN, TOTAL Normal [facility] Comment on above: Performed By: #### 3 6127, 7600, 86237, 6399 #### [facility] of [facility] [address], [address] [place] [address] [employer]: Korey Fernando MD CALCIUM Normal [facility] Comment on above: Performed By: #### 3 6127, 7600, 52783, 6399 #### [facility] of [place] [address], [address] [place] [address] [employer]: Korey Fernando MD CARBON DIOXIDE Normal [facility] Comment on above: Performed By: #### 3 6127, 7600, 91688, 6399 #### [facility] of [place] [address], [address] [place] [address] [employer]: Korey Fernando MD CHLORIDE Normal [facility] Comment on above: Performed By: #### 3 6127, 7600, 07022, 6399 #### [facility] of [place] [address] [address] , [address] [place] [address] [employer]: Korey Fernando MD CREATININE Normal [facility] Comment on above: Performed By: #### 3 6127, 7600, 66411, 6399 #### [facility] of [place] [address] [address] , [address] [place] [address] [employer]: Korey Fernando MD EGFR Normal [facility] Comment on above: Performed By: #### 3 6127, 7600, 85493, 6399 #### [facility] of [place] [address] [address] , [address] [place] [address] [employer]: Korey Fernando MD ELECTROLYTE BALANCE Normal [facility] Comment on above: Performed By: #### 3 6127, 7600, 51519, 6399 #### [facility] of [place] [address], [address] [place] [address] [employer]: Korey Fernando MD GLUCOSE Normal [facility] Comment on above: Performed By: #### 3 6127, 7600, 65624, 6399 #### [facility] of [facility] [address], [address] [place] [address] [employer]: Korey Fernando MD POTASSIUM Normal [facility] Comment on above: Performed By: #### 3 6127, 7600, 91890, 6399 #### [facility] of [address], [address] [place] [address] [employer]: Korey Fernando MD PROTEIN, TOTAL Normal [facility] Comment on above: Performed By: #### 3 6127, 7600, 66417, 6399 #### [facility] of [address], [address] [place] [address] [employer]: Korey Fernando MD SODIUM Normal [facility] Comment on above: Performed By: #### 3 6127, 7600, 41304, 6399 #### [facility] of [address], [address] [place] [address] [employer]: Korey Fernando MD UREA NITROGEN (BUN) Normal [facility] Comment on above: Performed By: #### 3 6127, 7600, 95499, 6399 #### [facility] of [address], [address] [place] [address] [employer]: Korey Fernando MD LIPID PANEL, [facility] [place] 07-13 CHOL/HDLC RATIO Normal [facility] Comment on above: Order Comment: FASTI NG:YES FASTING: YES Performed By: #### 3 6127, 7600, 22619, 6399 #### [facility] of [address] , [address] [place] [address] [employer]: Korey Fernando MD CHOLESTEROL, TOTAL Normal [facility] Comment on above: Order Comment: FASTI NG:YES FASTING: YES Performed By: #### 3 6127, 7600, 68306, 6399 #### [facility] of [address] , [address] [place] [address] [employer]: Korey Fernando MD HDL CHOLESTEROL Normal [facility] Comment on above: Order Comment: FASTI NG:YES FASTING: YES Performed By: #### 3 6127, 7600, 22243, 6399 #### [facility] of [address], [address] [place] [address] [employer]: Korey Fernando MD LDL-CHOLESTEROL Normal [facility] Comment on above: Order Comment: FASTI NG:YES FASTING: YES Performed By: #### 3 6127, 7600, 09711, 6399 #### [facility] [address], [address] [place] [address] [employer]: Korey Fernando MD NON HDL CHOLESTEROL Normal [facility] Comment on above: Order Comment: FASTI NG:YES FASTING: YES Performed By: #### 3 6127, 7600, 03853, 6399 #### [facility] of [address], [address] [place] [address] [employer]: Korey Fernando MD TRIGLYCERIDES Normal [facility] Comment on above: Order Comment: FASTI NG:YES FASTING: YES Performed By: #### 3 6127, 7600, 49584, 6399 #### [facility] [address], [address] [place] [address] [employer]: Korey Fernando MD PSA, TOTAL, MONITORINGon PSA, TOTAL, MONITORING Normal [facility] Comment on above: Performed By: #### 3 6127, 7600, 12349, 6399 #### [facility] [address], [address] [place] [address] [employer]: Korey Fernando MD TSH W/REFLEX TO FT4on 2024 TSH W/REFLEX TO FT4 Normal [facility] Comment on above: Performed By: #### 3 6127, 7600, 19299, 6399 #### [facility] [address], [address] [place] [address] [employer]: Korey Fernando MD XR CHEST 2 VIEWSon XR CHEST 2 VIEWS Interpreted By: Tony Horowitz, STUDY: XR CHEST 2 VIEWS; 03/06/2024 11:44 am INDICATION: Signs/Symptoms:pneumonia. COMPARISON: Chest radiograph 02/18/2024 ACCESSION NUMBER(S): [id number] ORDERING CLINICIAN: SAHARA MACK FINDINGS: CARDIOMEDIASTINAL SILHOUETTE: Cardiomediastinal silhouette is unremarkable in size and configuration. LUNGS: No consolidation, pneumothorax, or significant effusion. Slightly improved aeration since previous exam. There is a similar appearing nodular opacity of the left infrahilar region. ABDOMEN: No remarkable upper abdominal findings. BONES: No acute osseous changes. IMPRESSION: 1. Similar appearing nodular opacity left infrahilar region. As previously suggested, CT may be obtained for further assessment and exclusion underlying nodule. Signed by: Tony Khan 03/07/2024 10:37 AM Dictation workstation: [id number] [facility] XR CHEST 2 VIEWSon 5 XR CHEST 2 VIEWS Interpreted By: Alessandra Bocanegra, STUDY: XR CHEST 2 VIEWS; 02/18/2024 10:23 am INDICATION: Signs/Symptoms:cough. COMPARISON: 07/04/2022 ACCESSION NUMBER(S): [id number] ORDERING CLINICIAN: JULY JOVEL FINDINGS: The heart is normal in size. There is a question of irregular patchy density in the left. This is not confirmed on the lateral view and may represent confluent shadows. There are atherosclerotic changes of the aorta. There are degenerative changes of the spine. COMPARISON OF FINDING: The area suspected on the left was not obvious previously. This may be due to a difference in rotation. IMPRESSION: Question of patchy area on the left. CT scan may be useful. MACRO: none Signed by: Alessandra Cifuentes 02/18/2024 10:50 AM Dictation workstation: [id number] [facility] XR Chest 2 Viewson 5 Question of patchy a maximus on the left. CT scan may be useful. MACRO: none Signed by: Alessandra Cifuentes 02/18/2024 10:50 AM Dictation workstation: [id number] [facility] Interpreted By: Alessandra Bocanegra, STUDY: XR CHEST 2 VIEWS; 02/18/2024 10:23 am INDICATION: Signs/Symptoms:cough. COMPARISON: 07/04/2022 ACCESSION NUMBER(S): [id number] ORDERING CLINICIAN: JULY JOVEL FINDINGS: The heart is normal in size. There is a question of irregular patchy density in the left. This is not confirmed on the lateral view and may represent confluent shadows. There are atherosclerotic changes of the aorta. There are degenerative changes of the spine. COMPARISON OF FINDING: The area suspected on the left was not obvious previously. This may be due to a difference in rotation. [facility] Alessandra Cifuentes MD - 02/18/2024 Interpreted By: Alessandra Cifuentes, STUDY: XR CHEST 2 VIEWS; 02/18/2024 10:23 am INDICATION: Signs/Symptoms:cough. COMPARISON: 07/04/2022 ACCESSION NUMBER(S): [id number] ORDERING CLINICIAN: JULY JOVEL FINDINGS: The heart is normal in size. There is a question of irregular patchy density in the left. This is not confirmed on the lateral view and may represent confluent shadows. There are atherosclerotic changes of the aorta. There are degenerative changes of the spine. COMPARISON OF FINDING: The area suspected on the left was not obvious previously. This may be due to a difference in rotation. IMPRESSION: Question of patchy area on the left. CT scan may be useful. MACRO: none Signed by: Alessandra Cifuentes 02/18/2024 10:50 AM Dictation workstation: [id number] [facility] Work Phone: Radiology Study observation (narrative) [facility] Work Phone: XR Chest 2 ViewsOrdered By: Alessandra Cifuentes on 02-18-2024 [facility] Work Phone: 12 Lead EKGon 02-12-2024 12 Lead EKG [facility] Cardiovascular Services [address] [place] [address] 12 Lead EKG 02/12/24 1731 MR#: [id number] Acct: [id number] Name: RORY FELICIANO Rep #: [id number] : 1950 73 From: Jason Ramos MD Attending Dr: Status: DEP ER Ordering Dr: Rakan Leger MD Date: 02/12/24 Location: ED Sex: M C Admitted: Test Reason : SOB Blood Pressure : */* mmHG Vent. Rate : 51 BPM Atrial Rate : 51 BPM P-R Int : 130 ms QRS Dur : 104 ms QT Int : 438 ms P-R-T Axes : 40 -23 8 degrees QTcB Int : 403 ms Sinus bradycardia Otherwise normal ECG Confirmed by SONIA PHAN, JASON ([id number]), book editor EMIL ROSA ([id number]) on 02/14/2024 6:17:28 AM Referred By: MEL/BESS Confirmed By: JASON RAMOS MD 02/14/24 0617 Date Jason Ramos MD CC: Dr. July Jovel MD; Dr. Rakan Leger MD Signed Normal [facility] Chest PA and Lateralon 02-11 Chest PA and Lateral [facility] Imaging Services [address] [place], [place] [address] Chest PA and Lateral MR#: [id number] Acct: [id number] Name: RORY FELICIANO Rep #: [id number] : 1950 M 73 From: Eren Pruitt MD PCP: Dr. July Jovel MD Status: PRE ER Study: Chest PA and Lateral Date of Exam: 02/12/24 Exam# [id number] Ordering Dr: Rakan Leger MD :[id number] STUDY: X-RAY CHEST REASON FOR EXAM: Male, 73 years old. Cough, fever and wheezing TECHNIQUE: PA and lateral COMPARISON: November 05, 2021 FINDINGS: Mild interstitial thickening in the right lower and upper lobes. Tiny calcified granuloma in the right lower lobe There is no demonstrated pleural abnormality. Normal size heart. Calcified right hilar and mediastinal nodes. Normal visualized pulmonary arteries. Normal visualized aortic arch and descending thoracic aorta. Dorsal spine demonstrates changes. Normal visualized ribs, clavicles, and shoulders. There is no demonstrated abnormality of the visualized soft tissue structures of the upper abdomen. There is improved aeration in the right lower lobe since prior exam however the interstitial thickening in the right upper lobe is new and may represent acute inflammatory changes RAD/Chest PA and Lateral IMPRESSION: Mild right upper lobe interstitial thickening possibly inflammatory.. Chronic interstitial thickening in the right lower lobe Electronically Signed: Eren Pruitt MD at 18:24 EST Reading Location ID and State: [facility] / [place] Tel , Service support , CC: Dr. July Jovel MD; Dr. Rakan Leger MD Speech Coach: Signed Normal [facility] Emergency Department Summary on 02-12-2024 Emergency Department Summary [facility] Medical Records Department [address] [place] [address] Emergency Department Summary 02/12/24 MR#: [id number] Acct: [id number] Name: RORY FELICIANO Rep #: [id number] : 1950 73 From: Rakan Leger MD PCP: Dr. July Jovel MD Status:REG ER Location: ED HPI History of Present Illness Chief Complaint: Shortness of Breath Detail of Chief Complaint: Respiratory symptoms that started this past weekend Informant: patient Onset/Context/Timing Onset: Days Context: sudden Timing: Continuous and Waxes and wanes Quality: Positive for Dyspnea on exertion and Wheezing; Negative for Orthopnea or PND Current Severity: Mild Maximum Severity: Moderate Worsened by: Exertion and Coughing Relieved by: Nothing Associated Symptoms cough, rhinorrhea, chills and sweats; Negative for post nasal drip, ear pain, fever, sore throat, subjective, clear sputum, white sputum, yellow sputum or green sputum Chest Pain: Positive for None Narrative Narrative: Patient is a 73-year-old male with history of asthma. He presents with respiratory symptoms that started this past weekend. He is not a smoker presently. He has not been using his inhaler. He has not been on prednisone recently. He does have history of hyper cholesterolemia. He also has history of glaucoma. He has had chronic occipital head discomfort. He denies double vision blurred vision loss of vision. Nu[place] photophobia. He denies chest pain. He does have a cough that is nonproductive. He also has wheezing. He denies leg pain, swelling discoloration. Denies orthopnea or PND. He does report body aches. PE Risk Factors: Negative for Cancer, OCP + Smoking + > 35, Prior DVT or PE, Recent immobilization, Recent surgery or Recent travel Prior similar symptoms: No Recent Illness/Hospitalization: No PFSH PFSH Medical History Hypercholesterolemia Hypertension Asthma Home Medications ???Medication ???Instructions ???Recorded ???Last Taken ???Type albuterol sulfate 90 mcg/actuation 1 - 2 puff IH Q4H PRN Sob /Or 04/21/19 Unknown History aerosol inhaler Wheezing atorvastatin 20 mg tablet 20 mg PO DAILY 04/21/19 Unknown History enalapril maleate 20 mg tablet 20 mg PO DAILY 04/21/19 Unknown History timolol 0.5 %-brimonidine 0.15 1 drp ophthalmic (eye) DAILY 04/21/19 Unknown History %-dorzolamide 2 % (PF) eye drops aspirin 81 mg capsule 81 mg PO DAILY 03/02/21 Unknown History prednisone 20 mg tablet 60 mg (3 x 20 mg) PO DAILY 4 days 10/31/21 Unknown Rx #12 tabs azithromycin 250 mg tablet 250 mg PO DAILY 4 days #4 tabs 11/05/21 Unknown Rx (Zithromax) prednisone 20 mg tablet 40 mg (2 x 20 mg) PO DAILY 10 days 11/05/21 Unknown Rx #20 tabs prednisone 20 mg tablet 60 mg (3 x 20 mg) PO DAILY #15 02/12/24 Unknown Rx TABLETS Allergy/AdvReac Type Severity Reaction Status Date / Time No Known Allergies Allergy Verified 02/12/24 17:10 Social History Smoking Status: Never smoker ROS ROS ED Constitutional Constitutional ED: Reports chills and sweats; Denies fever(s) or weight loss Eyes Eyes: Denies blurry vision or change in vision ENT ENT ED: Reports rhinorrhea; Denies ear pain or sore throat Cardiovascular Cardiovascular: Denies chest pain, orthopnea, palpitations, paroxysmal nocturnal dyspnea or racing heartbeat Respiratory/Chest Respiratory/Chest: Reports cough, dyspnea, dyspnea on exertion and other Details: Positive wheezing. ; Denies orthopnea, paroxysmal nocturnal dyspnea or sputum Gastrointestinal Gastrointestinal: Denies abdominal pain, diarrhea, melena or vomiting Musculoskeletal Musculoskeletal: Reports myalgias Integumentary Denies rash Neurologic Neurologic: Reports headache(s); Denies paresthesias or weakness Endocrine Endocrinology: Reports cold intolerance and heat intolerance Hematologic/Lymphatic Hematologic/Lymphatic: Denies easy bleeding or easy bruising EXAM Physical Exam Const Vital Signs: 02/12/24 17:11 02/12/24 17:44 02/12/24 17:44 Temperature 98.8 F 98.7 F Temperature Source Oral Oral Pulse Rate 65 51 L Respiratory Rate 18 18 Respiratory Effort Normal Non-Labored Respiratory Depth Normal Respiratory Pattern Normal Blood Pressure 184/110 H 168/67 H Blood Pressure Mean 134 100 Pulse Ox 96 96 Oxygen Delivery Method Room Air Room Air Room Air 02/12/24 18:02 02/12/24 19:10 Temperature Temperature Source Pulse Rate 60 76 Respiratory Rate 16 16 Respiratory Effort Respiratory Depth Respiratory Pattern Blood Pressure 151/72 H Blood Pressure Mean 98 Pulse Ox 95 Oxygen Delivery Method Positive well nourished and well developed (more content not included)... Normal [facility] M100.678on 02-12-2024 M100.678 Pending SARS-CoV-2 (COVID 19) Negative INFLUENZA A Negative INFLUENZA B Negative RSV PCR Negative Normal [facility] Comment on above: Performed By: #### M 100.678 #### [facility] [address] [place], [address] Comprehensive metabolic 2000 panelon 01-25-2024 Albumin BCP dye [Mass/Vol] 4.2 g/dL Normal 3.4-5.0 [facility] Comment on above: Performed By: #### 2 4323-8 #### HECTOR Calderon ([id number]) [facility] ([facility]) [address] [place] [address] 89598 ALP [Catalytic activity/Vol] 54 U/L Normal 33-136 [facility] Comment on above: Performed By: #### 2 4323-8 #### HECTOR Calderon ([id number]) [facility] ([facility]) [address] [place] [address] [place] [address] ALT With P-5'-P [Catalytic activity/Vol] 17 U/L Normal 10-52 [facility] Comment on above: Result Comment: Thania ents treated with Sulfasalazine may generate falsely decreased results for ALT. Performed By: #### 2 4323-8 #### HECTOR Calderon ([id number]) [facility] ([facility]) [address] [place] [address] Anion gap [Moles/Vol] 10 mmol/L Normal 10-20 [facility] Comment on above: Performed By: #### 2 4323-8 #### HECTOR Calderon ([id number]) [facility] ([facility]) [address] [place] [address] AST With P-5'-P [Catalytic activity/Vol] 17 U/L Normal 9-39 [facility] Comment on above: Performed By: #### 2 4323-8 #### HECTOR EDWARDS L ([id number]) [facility] ([facility]) [address] [place] [address] 97877 Bilirubin [Mass/Vol] 0.7 mg/dL Normal 0.0-1.2 [facility] Comment on above: Performed By: #### 2 4323-8 #### HECTOR EDWARDS L ([id number]) [facility] ([facility]) [address] [place] [address] 58514 Calcium [Mass/Vol] 9.2 mg/dL Normal 8.6-10.6 [facility] Comment on above: Performed By: #### 2 4323-8 #### HECTOR EDWARDS L ([id number]) [facility] ([facility]) [address] [place] [address] 31672 Chloride [Moles/Vol] 108 mmol/L High 98-107 [facility] Comment on above: Performed By: #### 2 4323-8 #### HECTOR EDWARDS L ([id number]) [facility] ([facility]) [address] [place] [address] CO2 [Moles/Vol] 27 mmol/L Normal 21-32 [facility] Comment on above: Performed By: #### 2 4323-8 #### HECTOR Calderon ([id number]) [facility] ([facility]) [address] [place] [address] 64023 Creatinine [Mass/Vol] 1.20 mg/dL Normal 0.50-1.30 [facility] Comment on above: Performed By: #### 2 4323-8 #### HECTOR EDWARDS L ([id number]) [facility] ([facility]) [address] [place] [address] 92366 Glomerular filtration rate/1.73 sq M.predicted 64 mL/min/1.73m*2 Normal >60 [facility] Comment on above: Result Comment: Calc ulations of estimated GFR are performed using the 2020 CKD-EPI Study Refit equation without the race variable for the IDMS-Traceable creatinine methods. https://jasn.asnjournals.org/content//ASN.7015087489 Performed By: #### 2 4323-8 #### HECTOR Calderon ([id number]) [facility] ([facility]) [address] [place] [address] 28693 Glucose [Mass/Vol] 90 mg/dL Normal 74-99 [facility] Comment on above: Performed By: #### 2 4323-8 #### HECTOR Calderon ([id number]) [facility] ([facility]) [address] [place] [address] 12808 Potassium [Moles/Vol] 4.8 mmol/L Normal 3.5-5.3 [facility] Comment on above: Performed By: #### 2 4323-8 #### HECTOR Calderon ([id number]) [facility] ([facility]) [address] [place] [address] 17791 Protein [Mass/Vol] 6.6 g/dL Normal 6.4-8.2 [facility] Comment on above: Performed By: #### 2 4323-8 #### HECTOR EDWARDS L ([id number]) [facility] ([facility]) [address] [place] [address] Sodium [Moles/Vol] 140 mmol/L Normal 136-145 [facility] Comment on above: Performed By: #### 2 4323-8 #### HECTOR Calderon ([id number]) [facility] ([facility]) [address] [place] [address] Urea nitrogen [Mass/Vol] 21 mg/dL Normal 6-23 [facility] Comment on above: Performed By: #### 2 4323-8 #### HECTOR Calderon ([id number]) [facility] ([facility]) [address] [place] [address] 94640 Lipid 1996 panelon 4 Cholesterol [Mass/Vol] 147 mg/dL Normal 0-199 [facility] Comment on above: Result Comment: Age Desirable Borderline High High 0-19 Y 0 - 169 170 - 199 >/= 200 20-24 Y 0 - 189 190 - 224 >/= 225 >24 Y 0 - 199 200 - 239 >/= 240 All ranges are based on fasting samples. Specific therapeutic targets will vary based on patient-specific cardiac risk. Pediatric guidelines reference:Pediatrics 2011, 128(S5).Adult guidelines reference: NCEP ATPIII Guidelines,MANDIE 2001, 258:2486-97 Venipuncture immediately after or during the administration of Metamizole may lead to falsely low results. Testing should be performed immediately prior to Metamizole dosing. Performed By: #### 2 4331-1 #### HECTOR Calderon ([id number]) [facility] ([facility]) [address] [place] [address] 50279 Cholesterol in HDL [Mass/Vol] 48.9 mg/dL Normal [facility] Comment on above: Result Comment: Age Very Low Low Normal High 0-19 Y < 35 < 40 40-45 ---- 20-24 Y ---- < 40 >45 ---- >24 Y ---- < 40 40-60 >60 Performed By: #### 2 4331-1 #### HECTOR Calderon ([id number]) [facility] ([facility]) [address] [place] [address] 22484 Cholesterol in LDL [Mass/Vol] 84 mg/dL Normal <=99 [facility] Comment on above: Result Comment: Near Borderline AGE Desirable Optimal High High Very High 0-19 Y 0 - 109 --- 110-129 >/= 130 ---- 20-24 Y 0 - 119 --- 120-159 >/= 160 ---- >24 Y 0 - 99 100-129 130-159 160-189 >/=190 Performed By: #### 2 4331-1 #### HECTOR Calderon ([id number]) [facility] ([facility]) [address] [place] [address] Cholesterol in VLDL [Mass/Vol] 15 mg/dL Normal 0-40 [facility] Comment on above: Performed By: #### 2 4331-1 #### HECTOR Calderon ([id number]) [facility] ([facility]) [address] [place] [address] 74151 CHOLESTEROL/HDL RATIO 3.0 Normal [facility] Comment on above: Result Comment: Ref Values Desirable < 3.4 High Risk > 5.0 Performed By: #### 2 4331-1 #### HECTOR Calderon ([id number]) [facility] ([facility]) [address] [place] [address] 25632 NON HDL CHOLESTEROL 98 mg/dL Normal 0-149 [facility] Comment on above: Result Comment: Age Desirable Borderline High High Very High 0-19 Y 0 - 119 120 - 144 >/= 145 >/= 160 20-24 Y 0 - 149 150 - 189 >/= 190 ---- >24 Y 30 mg/dL above LDL Cholesterol goal Performed By: #### 2 4331-1 #### HECTOR Calderon ([id number]) [facility] ([facility]) [address] [place] [address] Triglyceride [Mass/Vol] 73 mg/dL Normal 0-149 [facility] Comment on above: Result Comment: Age Desirable Borderline High Very High SEX:B mg/dL mg/dL mg/dL mg/dL <=14D 86-277 ---- ---- ---- 15D-365D 55-277 ---- ---- ---- 1Y-9Y 0-74 75-99 >=100 ---- 10Y-19Y 0-89 90-129 >=130 ---- 20Y-24Y 0-114 115-149 >=150 ---- >= 25Y 0-149 150-199 200-499 >=500 Venipuncture immediately after or during the administration of Metamizole may lead to falsely low results. Testing should be performed immediately prior to Metamizole dosing. Performed By: #### 2 4331-1 #### HECTOR Calderon ([id number]) [facility] ([facility]) [address] [place] [address] 64615 CBC W Auto Differential pane l (Bld)on 07-18-2023 Basophils (Bld) [#/Vol] 0.03 x10*3/uL Normal 0.00-0.10 [facility] Comment on above: Performed By: #### 5 7021-8 #### HECTOR Caledron ([id number]) [facility] ([facility]) [address] [place] [address] 84243 Basophils/100 WBC (Bld) 0.4 % Normal 0.0-2.0 [facility] Comment on above: Performed By: #### 5 7021-8 #### HECTOR LANDEROSMOMARIKA L ([id number]) [facility] ([facility]) [address] [place] [address] 94882 Eosinophils (Bld) [#/Vol] 0.25 x10*3/uL Normal 0.00-0.40 [facility] Comment on above: Performed By: #### 5 7021-8 #### HECTOR LANDEROSMOMARIKA L ([id number]) [facility] ([facility]) [address] [place] [address] 76993 Eosinophils/100 WBC (Bld) 3.1 % Normal 0.0-6.0 [facility] Comment on above: Performed By: #### 5 7021-8 #### HECTOR LANDEROSMOMARIKA L ([id number]) [facility] ([facility]) [address] [place] [address] 77317 Erythrocyte distribution width (RBC) [Ratio] 13.7 % Normal 11.5-14.5 [facility] Comment on above: Performed By: #### 5 7021-8 #### HECTOR Calderon ([id number]) [facility] ([facility]) [address] [place] [address] 71537 Hematocrit (Bld) [Volume fraction] 42.8 % Normal 41.0-52.0 [facility] Comment on above: Performed By: #### 5 7021-8 #### HECTOR Calderon ([id number]) [facility] ([facility]) [address] [place] [address] 87507 Hemoglobin (Bld) [Mass/Vol] 13.8 g/dL Normal 13.5-17.5 [facility] Comment on above: Performed By: #### 5 7021-8 #### HECTOR Calderon ([id number]) [facility] ([facility]) [address] [place] [address] 01665 Immature granulocytes (Bld) [#/Vol] 0.02 x10*3/uL Normal 0.00-0.50 [facility] Comment on above: Performed By: #### 5 7021-8 #### HECTOR Calderon ([id number]) [facility] ([facility]) [address] [place] [address] 86342 Immature granulocytes/100 WBC (Bld) 0.2 % Normal 0.0-0.9 [facility] Comment on above: Result Comment: Johana ture Granulocyte Count (IG) includes promyelocytes, myelocytes and metamyelocytes but does not include bands. Percent differential counts (%) should be interpreted in the context of the absolute cell counts (cells/UL). Performed By: #### 5 7021-8 #### HECTOR Calderon ([id number]) [facility] ([facility]) [address] [place] [address] 08839 Lymphocytes (Bld) [#/Vol] 1.44 x10*3/uL Normal 0.80-3.00 [facility] Comment on above: Performed By: #### 5 7021-8 #### HECTOR Calderon ([id number]) [facility] ([facility]) [address] [place] [address] 49346 Lymphocytes/100 WBC (Bld) 17.7 % Normal 13.0-44.0 [facility] Comment on above: Performed By: #### 5 7021-8 #### HECTOR EDWARDS L ([id number]) [facility] ([facility]) [address] [place] [address] 31486 MCH (RBC) [Entitic mass] 28.2 pg Normal 26.0-34.0 [facility] Comment on above: Performed By: #### 5 7021-8 #### HECTOR Calderon ([id number]) [facility] ([facility]) [address] [place] [address] 68896 MCHC (RBC) [Mass/Vol] 32.2 g/dL Normal 32.0-36.0 [facility] Comment on above: Performed By: #### 5 7021-8 #### HECTOR Calderon ([id number]) [facility] ([facility]) [address] [place] [address] 76706 MCV (RBC) [Entitic vol] 87 fL Normal 80-100 [facility] Comment on above: Performed By: #### 5 7021-8 #### HECTOR Calderon ([id number]) [facility] ([facility]) [address] [place] [address] 78130 Monocytes (Bld) [#/Vol] 0.84 x10*3/uL High 0.05-0.80 [facility] Comment on above: Performed By: #### 5 7021-8 #### HECTOR EDWARDS L ([id number]) [facility] ([facility]) [address] [place] [address] 03522 Monocytes/100 WBC (Bld) 10.3 % Normal 2.0-10.0 [facility] Comment on above: Performed By: #### 5 7021-8 #### HECTOR Calderon ([id number]) [facility] ([facility]) [address] [place] [address] 19624 Neutrophils (Bld) [#/Vol] 5.55 x10*3/uL High 1.60-5.50 [facility] Comment on above: Result Comment: Perc ent differential counts (%) should be interpreted in the context of the absolute cell counts (cells/uL). Performed By: #### 5 7021-8 #### HECTOR EDWARDS L ([id number]) [facility] ([facility]) [address] [place] [address] Neutrophils/100 WBC (Bld) 68.3 % Normal 40.0-80.0 [facility] Comment on above: Performed By: #### 5 7021-8 #### HECTOR EDWARDS L ([id number]) [facility] ([facility]) [address] [place] [address] Nucleated RBC/100 WBC (Bld) [Ratio] 0.0 /100 WBCs Normal 0.0-0.0 [facility] Comment on above: Performed By: #### 5 7021-8 #### HECTOR EDWARDS L ([id number]) [facility] ([facility]) [address] [place] [address] Platelets (Bld) [#/Vol] 209 x10*3/uL Normal 150-450 [facility] Comment on above: Performed By: #### 5 7021-8 #### HECTOR EDWARDS L ([id number]) [facility] ([facility]) [address] [place] [address] RBC (Bld) [#/Vol] 4.90 x10*6/uL Normal 4.50-5.90 [facility] Comment on above: Performed By: #### 5 7021-8 #### HECTOR LANDEROSMOMARIKA L ([id number]) [facility] ([facility]) [address] [place] [address] WBC (Bld) [#/Vol] 8.1 x10*3/uL Normal 4.4-11.3 [facility] Comment on above: Performed By: #### 5 7021-8 #### HECTOR Calderon ([id number]) [facility] ([facility]) [address] [place] [address] 26738 Comprehensive metabolic 2000 panelon 07-18-2023 Albumin BCP dye [Mass/Vol] 4.3 g/dL Normal 3.4-5.0 [facility] Comment on above: Performed By: #### 2 4323-8 #### HECTOR Calderon ([id number]) [facility] ([facility]) [address] [place] [address] 05594 ALP [Catalytic activity/Vol] 62 U/L Normal 33-136 [facility] Comment on above: Performed By: #### 2 4323-8 #### HECTOR Calderon ([id number]) [facility] ([facility]) [address] [place] [address] 42604 ALT With P-5'-P [Catalytic activity/Vol] 21 U/L Normal 10-52 [facility] Comment on above: Result Comment: Thania ents treated with Sulfasalazine may generate falsely decreased results for ALT. Performed By: #### 2 4323-8 #### HECTOR Calderon ([id number]) [facility] ([facility]) [address] [place] [address] 15845 Anion gap [Moles/Vol] 11 mmol/L Normal 10-20 [facility] Comment on above: Performed By: #### 2 4323-8 #### HECTOR Calderon ([id number]) [facility] ([facility]) [address] [place] [address] 71859 AST With P-5'-P [Catalytic activity/Vol] 18 U/L Normal 9-39 [facility] Comment on above: Performed By: #### 2 4323-8 #### HECTOR Calderon ([id number]) [facility] ([facility]) [address] [place] [address] 80541 Bilirubin [Mass/Vol] 0.4 mg/dL Normal 0.0-1.2 [facility] Comment on above: Performed By: #### 2 4323-8 #### HECTOR Calderon ([id number]) [facility] ([facility]) [address] [place] [address] Calcium [Mass/Vol] 9.3 mg/dL Normal 8.6-10.6 [facility] Comment on above: Performed By: #### 2 4323-8 #### HECTOR Calderon ([id number]) [facility] ([facility]) [address] [place] [address] Chloride [Moles/Vol] 110 mmol/L High 98-107 [facility] Comment on above: Performed By: #### 2 4323-8 #### HECTOR EDWARDS L ([id number]) [facility] ([facility]) [address] [place] [address] CO2 [Moles/Vol] 26 mmol/L Normal 21-32 [facility] Comment on above: Performed By: #### 2 4323-8 #### HECTOR Calderon ([id number]) [facility] ([facility]) [address] [place] [address] 78930 Creatinine [Mass/Vol] 0.94 mg/dL Normal 0.50-1.30 [facility] Comment on above: Performed By: #### 2 4323-8 #### HECTOR Calderon ([id number]) [facility] ([facility]) [address] [place] [address] 84487 Glomerular filtration rate/1.73 sq M.predicted 86 mL/min/1.73m*2 Normal >60 [facility] Comment on above: Result Comment: Calc ulations of estimated GFR are performed using the 2020 CKD-EPI Study Refit equation without the race variable for the IDMS-Traceable creatinine methods. https://jasn.asnjournals.org/content/early/ASN.7885063321 Performed By: #### 2 4323-8 #### HECTOR EDWARDS L ([id number]) [facility] ([facility]) [address] [place] [address] 06779 Glucose [Mass/Vol] 100 mg/dL High 74-99 [facility] Comment on above: Performed By: #### 2 4323-8 #### HECTOR BOXER L ([id number]) [facility] ([facility]) [address] [place] [address] Potassium [Moles/Vol] 4.7 mmol/L Normal 3.5-5.3 [facility] Comment on above: Performed By: #### 2 4323-8 #### HECTOR SCHMOTZER L ([id number]) [facility] ([facility]) [address] [place] [address] 19188 Protein [Mass/Vol] 6.5 g/dL Normal 6.4-8.2 [facility] Comment on above: Performed By: #### 2 4323-8 #### HECTOR SCHMOTZER L ([id number]) [facility] ([facility]) [address] [place] [address] 46818 Sodium [Moles/Vol] 142 mmol/L Normal 136-145 [facility] Comment on above: Performed By: #### 2 4323-8 #### HECTOR LANDEROSMOTZER L ([id number]) [facility] ([facility]) [address] [place] [address] 30760 Urea nitrogen [Mass/Vol] 20 mg/dL Normal 6-23 [facility] Comment on above: Performed By: #### 2 4323-8 #### HECTOR SCHMOTZER L ([id number]) [facility] ([facility]) [address] [place] [address] 31866 Lipid 1996 panelon 4 Cholesterol [Mass/Vol] 146 mg/dL Normal 0-199 [facility] Comment on above: Result Comment: Age Desirable Borderline High High 0-19 Y 0 - 169 170 - 199 >/= 200 20-24 Y 0 - 189 190 - 224 >/= 225 >24 Y 0 - 199 200 - 239 >/= 240 All ranges are based on fasting samples. Specific therapeutic targets will vary based on patient-specific cardiac risk. Pediatric guidelines reference:Pediatrics 2011, 128(S5).Adult guidelines reference: NCEP ATPIII Guidelines,MANDIE 2001, 258:2486-97 Venipuncture immediately after or during the administration of Metamizole may lead to falsely low results. Testing should be performed immediately prior to Metamizole dosing. Performed By: #### 2 4331-1 #### HECTOR Calderon ([id number]) [facility] ([facility]) [address] [place] [address] 09205 Cholesterol in HDL [Mass/Vol] 48.6 mg/dL Normal [facility] Comment on above: Performed By: #### 2 4331-1 #### HECTOR Calderon ([id number]) [facility] ([facility] [facility]) [id number] [place] [address]4622 Cholesterol in LDL [Mass/Vol] 76 mg/dL Normal <=99 [facility] Comment on above: Result Comment: Near Borderline AGE Desirable Optimal High High Very High 0-19 Y 0 - 109 --- 110-129 >/= 130 ---- 20-24 Y 0 - 119 --- 120-159 >/= 160 ---- >24 Y 0 - 99 100-129 130-159 160-189 >/=190 Performed By: #### 2 4331-1 #### HECTOR Calderon ([id number]) [facility] ([facility]) [id number] [place] [address] 11347 Cholesterol in VLDL [Mass/Vol] 21 mg/dL Normal 0-40 [facility] Comment on above: Performed By: #### 2 4331-1 #### HECTOR Calderon ([id number]) [facility] ([facility]) [id number] [place] [address] 83939 CHOLESTEROL/HDL RATIO 3.0 Normal [facility] Comment on above: Result Comment: Ref Values Desirable < 3.4 High Risk > 5.0 Performed By: #### 2 4331-1 #### HECTOR Calderon ([id number]) [facility] ([facility]) [address] [place] [address] NON HDL CHOLESTEROL 97 mg/dL Normal 0-149 [facility] Comment on above: Result Comment: Age Desirable Borderline High High Very High 0-19 Y 0 - 119 120 - 144 >/= 145 >/= 160 20-24 Y 0 - 149 150 - 189 >/= 190 ---- >24 Y 30 mg/dL above LDL Cholesterol goal Performed By: #### 2 4331-1 #### HECTOR Calderon ([id number]) [facility] ([facility]) [address] [place] [address] Triglyceride [Mass/Vol] 107 mg/dL Normal 0-149 [facility] Comment on above: Performed By: #### 2 4331-1 #### HECTOR Calderon ([id number]) [facility] ([facility]) [address] [place] [address] Prostate specific Agon 07-17 Prostate specific Ag [Mass/Vol] 0.91 ng/mL Normal <=4.00 [facility] Comment on above: Order Comment: The DA requires that the method used for PSA assay be reported to the physician. Values obtained with different assay methods must not be used interchangeably. This test was performed at [facility] using Siemens Clinc! PSA method, which is a sandwich immunoassay using chemiluminescence for quantitation. The assay is approved for measurement of prostate-specific antigen (PSA) in serum and may be used in conjunction with a digital rectal examination in men 50 years and older as an aid in the detection of prostate cancer. 5 Alpha-reductase inhibitors (e.g., Proscar, Finasteride, Avodart, Dutasteride, and Em) for the treatment of BPH have been shown to lower PSA levels by an average of 50% after 6 months of treatment. Performed By: #### 2 857-1 #### HECTOR Calderon ([id number]) [facility] ([facility]) [address] [place] [address] TSH WITH REFLEX TO FREE T4 I F ABNORMALon 07-18-2023 TSH Qn 1.18 m[IU]/L Normal 0.44-3.98 [facility] Comment on above: Order Comment: TSH t esting is performed using different testing methodology at [facility] than at other [facility]. Direct result comparisons should only be made within the same method. Performed By: #### T HYDS #### HECTOR Calderon ([id number]) [facility] ([facility]) [id number] [place] [address] CHEST 2 VIEW PA AND LATon CHEST 2 VIEW PA AND LAT Patient Name: RORY FELICIANO STUDY: TH CHEST 2 VIEW PA AND LAT; 07/04/2022 8:55 am INDICATION: CHRONIC COUGH, S/P RIGHT LOWER LOBE PNEUMONIA R05.3: Chronic cough J18.9: Pneumonia. COMPARISON: 03/03/2022 ACCESSION NUMBER(S): [id number] ORDERING CLINICIAN: SAHARA MACK FINDINGS: PA and lateral views of the chest were obtained. No focal infiltrate, pleural effusion or pneumothorax is identified. The cardiac silhouette is within normal limits for size. Moderate discogenic degenerative changes are seen throughout the thoracic spine. IMPRESSION: No focal infiltrate or pneumothorax. Electronically signed by: ERNESTO DIAZ MD [facility] CHEST 2 VIEW PA AND LATon CHEST 2 VIEW PA AND LAT Patient Name: RORY FELICIANO STUDY: TH CHEST 2 VIEW PA AND LAT; 03/03/2022 8:50 am INDICATION: cough R05.9: Cough J18.9: Pneumonia. COMPARISON: 02/23/2022 ACCESSION NUMBER(S): [id number] ORDERING CLINICIAN: SAHARA MACK TECHNIQUE: FINDINGS: Heart is normal in size. There is no consolidation. There is blunting of the right costophrenic angle. There are calcified granulomas. There are degenerative changes of the spine. COMPARISON OF FINDING: There appears to be less patchiness at the right base than there was previously. The small effusion however may be new. IMPRESSION: Blunting of the right costophrenic angle. Otherwise unremarkable chest. Electronically signed by: ALESSANDRA CIFUENTES MD [facility] Radiologyon 03-03-2022 XR Chest 2 Views Please click on the link to view the study images Normal [facility] DO Work Phone: XR Chest 2 Views Normal [facility] Work Phone: Tobacco Screening.on 023 Fall risk assessment a) No falls within the last year [facility] Work Phone: Tobacco use status CPHS b) No [facility] DO Work Phone: CHEST 2 VIEW PA AND LATon CHEST 2 VIEW PA AND LAT Patient Name: RORY FELICIANO STUDY: TH CHEST 2 VIEW PA AND LAT; 02/23/2022 8:29 am INDICATION: PNEUMONIA J18.9: Community acquired pneumonia. COMPARISON: 02/21/2022 ACCESSION NUMBER(S): [id number] ORDERING CLINICIAN: SAHARA MACK FINDINGS: PA and lateral radiographs of the chest were provided. CARDIOMEDIASTINAL SILHOUETTE: Cardiomediastinal silhouette is normal in size and configuration.Suggestion of prominent hilar lymph nodes which may be reactive. LUNGS: Patchy right basilar opacity may reflect pneumonia in the appropriate clinical scenario. This is similar to the prior. No pneumothorax. No pleural effusion. ABDOMEN: No remarkable upper abdominal findings. BONES: No acute osseous changes. IMPRESSION: 1. Overall unchanged appearance of the thorax with patchy right basilar opacities which may reflect pneumonia in the appropriate clinical scenario. 2. Likely reactive prominent right hilar lymph nodes. Electronically signed by: ATA RIVAS MD [facility] Follow Up (Pulmonary Medicin e)on 02-23-2022 Follow Up (Pulmonary Medicine) Diagnoses/Problems Pneumonia (486) (J18.9) Cough (786.2) (R05.9) Moderate persistent asthma, unspecified whether complicated (493.90) (J45.40) Orders Start: Benzonatate 200 MG Oral Capsule; TAKE 1 CAPSULE 3 times daily PRN cough Rx By: Sahara Mack; Dispense: 17 Days ; #:50 Capsule; Refill: 0;For: Cough; JANNA = N; Call Rx; Last Updated By: Yanira Lopez; 02/23/2022 10:09:27 AM Xray Chest 2 View PA + Lateral; Status:Hold For - Scheduling,Retrospective Authorization; Requested for:03Mar2022; Perform: Radiology Services Imaging; Due:01Jun2022; Last Updated By:Yanira Lopez; 02/23/2022 10:09:48 AM;Ordered; For:Cough, Pneumonia; Ordered By:Sahara Mack; Radiologist to Determine Optimal Study : Y What are the patient's signs and symptoms? : cough Start: levoFLOXacin 500 MG Oral Tablet; TAKE 1 TABLET Daily TAKE WITH PROBIOTIC Rx By: Sahara Mack; Dispense: 7 Days ; #:7 Tablet; Refill: 0;For: Pneumonia; JANNA = N; Call Rx; Last Updated By: Yanira Lopez; 02/23/2022 10:09:27 AM Provider Impressions Impressions: 1. Right lower lobe pneumonia that is gradually improving on his chest x-ray from today. 2. History of chronic cough which was worsened with the above pneumonia. 3. Moderate persistent asthma. Recommendations: 1. We can extend his antibiotics for several days and I placed him back on Levaquin at 500 mg #7 to be taken 1 p.o. daily with a probiotic. 2. Tessalon Perles 200 mg #51 p.o. 3 times daily as needed cough. 3. Mucinex 1 tablet p.o. twice daily. Patient reports that the phlegm he has is very tenacious and difficult to expectorate. 4. Stay on current bronchodilator therapy, which is Trelegy?200 and daily and albuterol inhaler 2 puffs 4 times daily as needed shortness of breath. 5. Follow-up with the patient in 7 to 10 days. Also discuss with patient discontinuing the enalapril if that has not already been trialed in the past. This note was transcribed using the [employer] Dictation system. There may be grammatical, punctuation, or verbiage errors that occur with voice recognition programs. Chief Complaint RORY FELICIANO is here for a 6 week follow-up and here with daughter, Eli. Reason for Visit: Obstructive Airway Disease; S/P Urgent care visit 02/16/2022; CXR done on arrival. Appointment requested by: Dr. Jovel (PCP); Dr. Lawton (ENT). History of Present IllnessPatient was seen in the office today in regards to his chronic cough and with a recent chest x-ray from an urgent care center on 02/16/2022 which apparently indicated that he had a pneumonia in the right lower lobe. He was placed on Levaquin 750 mg daily for 5 days and has noticed some improvement in the sputum production but still has yellowish color to what he is expectorating. I had the patient do a chest x-ray today in the office which shows improvement in that right lower lobe infiltrate. The report from the urgent care mistakenly refer to this is being in the right middle lobe. Patient does report that his right posterior chest pain that he was having has improved. He no longer has fever, chills, rhinitis or sore throat. He is not a smoker. He did finish the Levaquin on 02/20/2022 I did review his chest x-ray once again that proceeds this from 12/06/2021 which showed was clear. I did review the reports he brought to me from his programmer engineering and scientific from 2020 which shows that he does have some allergies that office visit did not make any new recommendations except for consideration of discontinuing the enalapril as the possible etiology of his chronic cough. Review of Systems On review of systems refer to the HPI. Active Problems Abdominal pain (789.00) (R10.9) Abdominal pain, epigastric (789.06) (R10.13) Acute bronchitis (466.0) (J20.9) Acute pharyngitis (462) (J02.9) Acute sinusitis (461.9) (J01.90) Body mass index [BMI] 34.0-34.9, adult (V85.34) (Z68.34) Body mass index [BMI] 34.0-34.9, adult Chronic cough (786.2) (R05.3) Class 1 obesity with body mass index (BMI) of 33.0 to 33.9 in adult (278.00,V85.33) (E66.9,Z68.33) Class 1 obesity with body mass index (BMI) of 34.0 to 34.9 in adult (278.00,V85.34) (E66.9,Z68.34) Community acquired pneumonia (486) (J18.9) Cough (786.2) (R05.9) COVID (079.89) (U07.1) Elevated blood pressure reading without diagnosis of hypertension (796.2) (R03.0) Hip pain (719.45) (M25.559) History of asthma (V12.69) (Z87.09) HTN (hypertension) (401.9) (I10) HTN (hypertension) Hyperlipidemia (272.4) (E78.5) Low back pain (724.2) (M54.50) Moderate persistent asthma, unspecified whether complicated (493.90) (J45.40) Need for influenza vaccination (V04.81) (Z23) Post-viral cough syndrome (786.2) (R05.8) Prostate cancer screening (V76.44) (Z12.5) Reactive airway disease (493.90) (J45.909) Shortness of breath on exertion (786.05) (R06.02) Shoulder pain (719.41) (M25.519) Skin lesion (709.9) (L98.9) Vomiting (787.03) (R11.10) Past Medical History History of community acquired pneumon (more content not included)... Normal [facility] 02-23-2022 XR Chest 2 Views Please click on the link to view the study images Normal [facility] DO Work Phone: XR Chest 2 Views Normal [facility] Work Phone: Tobacco Screening.on 023 Fall risk assessment a) No falls within the last year [facility] Work Phone: Tobacco use status CPHS b) No [facility] Work Phone: CHEST 2 VIEW PA AND LATon CHEST 2 VIEW PA AND LAT STUDY: Chest Radiographs; 02/21/2022 4:09 PM INDICATION: Community acquired pneumonia. COMPARISON: 02/17/2022 XR Chest Two Views. 12/06/2021 XR Chest Two Views ACCESSION NUMBER(S): [id number] ORDERING CLINICIAN: VALDO JOVEL MD TECHNIQUE: Frontal and lateral chest. FINDINGS: CARDIOMEDIASTINAL SILHOUETTE: Cardiomediastinal silhouette is normal in size and configuration. LUNGS: Persistent focal opacity in the posteromedial right lung base, slightly improved. The lungs otherwise appear clear. ABDOMEN: No remarkable upper abdominal findings. BONES: No acute osseous changes. IMPRESSION: Minimal interval improvement in right lower lobe pneumonia. No new abnormalities. Continued follow-up to demonstrate complete clearing is recommended. Signed by Nora Fuentes MD Electronically signed by: NORA FUENTES MD Normal [facility] Office Visit (Family Abdelrahman pike)on 02-21-2022 Follow-up visit Diagnoses/Problems Community acquired pneumonia (486) (J18.9) Cough (786.2) (R05.9) Orders Community acquired pneumonia Xray Chest 2 View PA + Lateral; Status:Canceled; Radiologist to Determine Optimal Study : Y What are the patient's signs and symptoms? : CAP Cough Start: Albuterol Sulfate (2.5 MG/3ML) 0.083% Inhalation Nebulization Solution; USE 1 UNIT DOSE EVERY 4-6 HOURS NEEDED FOR WHEEZING Patient Discussion/Summary By signing my name below, I, Dustin Armenta , attest that this documentation has been prepared under the direction and in the presence of Dr. July Jovel MD.1 All medical record entries made by the Scribe were at my direction and personally dictated by me. I have reviewed the chart and agree that the record accurately reflects my personal performance of the history, physical exam, discussion and plan. 1 . 1 Amended By: Charisse Roberts; Feb 21 2022 11:05 PM ESTHistory of Present Illness EP. Here for cough. Feels the same from when he had pneumonia. Rory is a 71 year old male presenting today for a cough. 1 -feeling 1 better but still has cough. 1 -Has appointment with product blending supervisor Dr. Mack on . -Did not receive a call until 02/17 from the pulmonology office. -Recently diagnosed with right lower lobe pneumonia. 1 -He was prescribed Levaquin. -Doing albuterol nebulizer treatments at home. -Also 1 has some congestion and sinus pressure 1 with his cough. -He was told at urgent care there is a possibility it may be an esophageal issue.1 1 Amended By: Charisse Roberts; Feb 21 2022 10:44 PM ESTActive Problems Abdominal pain (789.00) (R10.9) Abdominal pain, epigastric (789.06) (R10.13) Acute bronchitis (466.0) (J20.9) Acute pharyngitis (462) (J02.9) Acute sinusitis (461.9) (J01.90) Body mass index [BMI] 34.0-34.9, adult (V85.34) (Z68.34) Body mass index [BMI] 34.0-34.9, adult Chronic cough (786.2) (R05.3) Class 1 obesity with body mass index (BMI) of 33.0 to 33.9 in adult (278.00,V85.33) (E66.9,Z68.33) Class 1 obesity with body mass index (BMI) of 34.0 to 34.9 in adult (278.00,V85.34) (E66.9,Z68.34) Community acquired pneumonia (486) (J18.9) Cough (786.2) (R05.9) COVID (079.89) (U07.1) Elevated blood pressure reading without diagnosis of hypertension (796.2) (R03.0) Hip pain (719.45) (M25.559) History of asthma (V12.69) (Z87.09) HTN (hypertension) (401.9) (I10) HTN (hypertension) Hyperlipidemia (272.4) (E78.5) Low back pain (724.2) (M54.50) Moderate persistent asthma, unspecified whether complicated (493.90) (J45.40) Need for influenza vaccination (V04.81) (Z23) Post-viral cough syndrome (786.2) (R05.8) Prostate cancer screening (V76.44) (Z12.5) Reactive airway disease (493.90) (J45.909) Shortness of breath on exertion (786.05) (R06.02) Shoulder pain (719.41) (M25.519) Skin lesion (709.9) (L98.9) Vomiting (787.03) (R11.10) Past Medical History History of community acquired pneumonia (V12.61) (Z87.01) Resolved Date: 16 Feb 2022 Allergies No Known Allergies Recorded By: Daphnie Nina; 05/03/2012 9:47:16 AM Current Meds Medication NameInstructionReason Ventolin HFA 108 (90 Base) MCG/ACT Inhalation Aerosol SolutionINHALE 2 PUFFS EVERY 4 TO 6 HOURS NEEDEDCough Trelegy Ellipta 200-62.5-25 MCG/ACT Inhalation Aerosol Powder Breath ActivatedINHALE 1 PUFFS DailyHistory of asthma Enalapril Maleate 20 MG Oral TabletTAKE 1 TABLET DAILY DIRECTED.HTN (hypertension) Atorvastatin Calcium 20 MG Oral TabletTAKE 1 TABLET DAILY.Hyperlipidemia Vitals Vital Signs Recorded: 21Feb2022 03:00PM Gfyocnfztpa43.4 F Heart Rate76 Xhuoefck368 Slhrcbwdn68 Yjrssd224 lb BMI Awmbzaqahs97.46 kg/m2 BSA Calculated2.11 Tobacco Useb) No Falls Screening (Age 18+)a) No falls within the last year Physical Exam Alert, well-appearing. HEENT: OP clear. Sclera white. Pupils equal and round. EACs and TMs clear. Neck: Supple. No palpable masses. CVS: RRR, no murmurs. Respiratory: Normal inspirations and expirations. Clear and equal breath sounds. GI: Soft, nontender 'Scores and Scales' Signatures Electronically signed by : July Jovel MD; Feb 22 2022 5:40PM EST (Author) Normal [facility] 02-21-2022 XR Chest 2 Views Normal [facility] Work Phone: XR Chest 2 Views FINAL REPORT Interpreted by: NORA FUENTES DANIEL, MD 02/21/22 16:16 STUDY: Chest Radiographs; 02/21/2022 4:09 PM INDICATION: Community acquired pneumonia. COMPARISON: 02/17/2022 XR Chest Two Views. 12/06/2021 XR Chest Two Views ACCESSION NUMBER( Normal [facility] Work Phone: Tobacco Screening.on 023 Fall risk assessment a) No falls within the last year [facility] Physician [facility] Work Phone: Tobacco use status CPHS b) No [facility] Physician [facility] Work Phone: CHEST 2 VIEW PA AND LATon CHEST 2 VIEW PA AND LAT STUDY: Chest Radiographs; 02/16/2022 12:25 PM INDICATION: Persistent cough for three months. COMPARISON: 12/06/2021 XR Chest ACCESSION NUMBER(S): [id number] ORDERING CLINICIAN: RENATO BALLESTEROS MD TECHNIQUE: Frontal and lateral chest. FINDINGS: CARDIOMEDIASTINAL SILHOUETTE: Cardiomediastinal silhouette is normal in size and configuration. LUNGS: There is a focal region of opacity within the right lower lobe measuring approximately 6.6 x 3.6 cm ABDOMEN: No remarkable upper abdominal findings. BONES: No acute osseous changes. IMPRESSION: 6.6 x 3.6 cm focal opacity along the posterior aspect of the right lower lobe may represent right lower lobe pneumonia. Recommend follow-up chest x-ray after antibiotic therapy to document resolution. If the abnormality does not resolve on follow-up chest x-ray, recommend correlation with CT chest to exclude pulmonary mass. Signed by Glory Goodman MD Electronically signed by: GLORY GOODMAN MD Normal [facility] Office Visit (Urgent Care)on 02-16-2022 Follow-up visit Diagnoses/Problems Assessed Cough (786.2) (R05.9) History of community acquired pneumonia (V12.61) (Z87.01) Community acquired pneumonia (486) (J18.9) Orders Community acquired pneumonia Start: levoFLOXacin 750 MG Oral Tablet; TAKE 1 TABLET DAILY Rx By: Renato Ballesteros; Dispense: 5 Days ; #:5 Tablet; Refill: 0;For: Community acquired pneumonia; JANNA = N; [facility] To: [id number] Cough Xray Chest 2 View PA + Lateral; Status:Canceled; Perform: Radiology Services Imaging; Due:17May2022;Ordered; Stat; For:Cough; Ordered By:Renato Ballesteros; Radiologist to Determine Optimal Study : Y What are the patient's signs and symptoms? : Persistent cough x3 months Provider Impressions 1. Chronic cough-unclear diagnosis. Exam pretty benign today. Asthma seems well controlled, maybe has a bit more sinus congestion. Doubt allergies suspicion of MARY effect due to duration, has appointment Sunday to discuss that. New chest x-ray today does show a recurrence of an infiltrate in the right middle lobe so we will treat with a course of antibiotics, follow-up with PCP Sunday. Chief Complaint Chief Complaints Cough History of Present Illness 71-year-old male presents with evaluation for chronic cough x3 months. Was diagnosed with pneumonia in November has struggled with cough since then. He has several visits including his PCP and a product blending supervisor. The reason he came in today is because he most recently saw his product blending supervisor a month ago. Seemed to think the cough was more allergic , they added Xyzal and then he has a follow-up appointment in 2 weeks. He does not feel improved at all on the Xyzal. The last 2 nights that he had some chills or sweats overnight. But otherwise just frustrated that this cough is waxing and waning and not resolved. He also saw his programmer engineering and scientific 2 days ago who thought the cough was less likely allergic or pulmonary and was concerned about an MARY induced cough told to see his PCP. Has an appointment next week Active Problems Problems Abdominal pain (789.00) (R10.9) Abdominal pain, epigastric (789.06) (R10.13) Acute bronchitis (466.0) (J20.9) Acute pharyngitis (462) (J02.9) Acute sinusitis (461.9) (J01.90) Body mass index [BMI] 34.0-34.9, adult (V85.34) (Z68.34) Body mass index [BMI] 34.0-34.9, adult Chronic cough (786.2) (R05.3) Class 1 obesity with body mass index (BMI) of 33.0 to 33.9 in adult (278.00,V85.33) (E66.9,Z68.33) Class 1 obesity with body mass index (BMI) of 34.0 to 34.9 in adult (278.00,V85.34) (E66.9,Z68.34) Cough (786.2) (R05.9) COVID (079.89) (U07.1) Elevated blood pressure reading without diagnosis of hypertension (796.2) (R03.0) Hip pain (719.45) (M25.559) History of asthma (V12.69) (Z87.09) HTN (hypertension) (401.9) (I10) HTN (hypertension) Hyperlipidemia (272.4) (E78.5) Low back pain (724.2) (M54.50) Moderate persistent asthma, unspecified whether complicated (493.90) (J45.40) Need for influenza vaccination (V04.81) (Z23) Post-viral cough syndrome (786.2) (R05.8) Prostate cancer screening (V76.44) (Z12.5) Reactive airway disease (493.90) (J45.909) Shortness of breath on exertion (786.05) (R06.02) Shoulder pain (719.41) (M25.519) Skin lesion (709.9) (L98.9) Vomiting (787.03) (R11.10) Past Medical History Problems History of community acquired pneumonia (V12.61) (Z87.01) Resolved Date: 16 Feb 2022 Allergies NoKnown No Known Allergies Recorded By: Daphnie Nina; 05/03/2012 9:47:16 AM Current Meds Medication NameInstruction Atorvastatin Calcium 20 MG Oral TabletTAKE 1 TABLET DAILY. Enalapril Maleate 20 MG Oral TabletTAKE 1 TABLET DAILY DIRECTED. Trelegy Ellipta 200-62.5-25 MCG/ACT Inhalation Aerosol Powder Breath ActivatedINHALE 1 PUFFS Daily Ventolin HFA 108 (90 Base) MCG/ACT Inhalation Aerosol SolutionINHALE 2 PUFFS EVERY 4 TO 6 HOURS NEEDED Vitals Vital Signs Recorded: 16Feb2022 11:42AM Zlsjoqdivvw20.7 F Heart Rate88 Qjgdaxioeux11 Ltaeaxgq078 Cfzbjbapf90 Height5 ft 7 in Gvjjon828 lb BMI Pnrsjipqin22.83 kg/m2 BSA Calculated2.09 Tobacco Useb) No PHQ-2 Patient Declined/Screening not indicatedYes Falls Screening (Age 18+)a) No falls within the last year O2 Tdpeeuksve84 Pain Scale4 Physical Exam General- No apparent distress, well appearing Cardiovascular- regular rate and rhythm, no gallops, murmurs or rubs Lungs- clear to auscultation bilaterally, no wheezing or rhonchi ENT- Normal bilateral tympanic membranes, normal pharynx Skin- no rashes noted Signatures Electronically signed by : Renato Ballesteros MD; Feb 16 2022 12:56PM EST (Author) Normal [facility] 02-16-2022 XR Chest 2 Views Normal [facility] Work Phone: Tobacco Screening.on 023 Fall risk assessment a) No falls within the last year [facility] Work Phone: Tobacco use status CPHS b) No [facility] Work Phone: Tobacco Screening. Yes [facility] Work Phone: Established Visit (Pulmonary Medicine)on 01-19-2022 Established Visit (Pulmonary Medicine) Diagnoses/Problems Chronic cough (786.2) (R05.3) Moderate persistent asthma, unspecified whether complicated (493.90) (J45.40) Shortness of breath on exertion (786.05) (R06.02) Orders History of asthma Renew: Caterina Ellipta 200-62.5-25 MCG/ACT Inhalation Aerosol Powder Breath Activated; INHALE 1 PUFFS Daily Rx By: Sahara Mack; Dispense: 0 Days ; #:3 X 28 Each Pack; Refill: 0;For: History of asthma; JANNA = N; Dispense Sample; Last Updated By: Yanira Lopez; 01/19/2022 5:06:37 PM Provider Impressions Impressions: 1. Obstructive airway disease most consistent with asthma. 2. Cough secondary to posterior nasal drainage. 3. Dyspnea on exertion. Recommendations: 1 trial of Xyzal 5 mg nightly. 2. If his cough is not improved within the next 2 weeks then I told him to contact our office. 3. The patient has tried Mucinex DM and bjvw-dhv-robncwk cough preparations without improvement in the cough. 4. We will follow-up with the patient in 6 weeks. This note was transcribed using the Mind[employer] Studio Dictation system. There may be grammatical, punctuation, or verbiage errors that occur with voice recognition programs. Chief Complaint RORY FELICIANO is here for a 4 week follow-up. Reason for Visit: Obstructive Airway Disease. Appointment requested by: Dr. Jovel. History of Present IllnessPatient was seen today in the office on a 4-week follow-up visit. He has a history of obstructive airway disease that is most consistent with asthma. His peak flow today was 490 L/min patient also has a problem today with a cough which is something he has had since he first had pneumonia about 4 months ago. He has clear phlegm production, with a mild amount of clear sputum. He reports that the cough decreases when he lays down at night he feels that the source is posterior nasal drainage that he can appreciate when he is walking around during the day. He did try Mucinex DM but that did not change his cough. He is on Trelegy?200 daily and that does help out with his of breathing and he has an albuterol inhaler that he is seldom using. He does complain of some dyspnea with activity especially a flight of stairs or an incline. Should be noted to that the patient did have a right lower lobe pneumonia on his chest x-ray from 10/14/2021 which has resolved on the 12/06/2021 x-ray. Review of Systems On review of systems the denies any fever or chills and does have rhinitis but denies any reflux symptoms. He is not a smoker. All other review of systems were noncontributory. Refer to the HPI. Active Problems Abdominal pain (789.00) (R10.9) Abdominal pain, epigastric (789.06) (R10.13) Acute bronchitis (466.0) (J20.9) Acute pharyngitis (462) (J02.9) Acute sinusitis (461.9) (J01.90) Body mass index [BMI] 34.0-34.9, adult (V85.34) (Z68.34) Body mass index [BMI] 34.0-34.9, adult Chronic cough (786.2) (R05.3) Class 1 obesity with body mass index (BMI) of 33.0 to 33.9 in adult (278.00,V85.33) (E66.9,Z68.33) Class 1 obesity with body mass index (BMI) of 34.0 to 34.9 in adult (278.00,V85.34) (E66.9,Z68.34) Community acquired pneumonia (486) (J18.9) Cough (786.2) (R05.9) COVID (079.89) (U07.1) Elevated blood pressure reading without diagnosis of hypertension (796.2) (R03.0) Hip pain (719.45) (M25.559) History of asthma (V12.69) (Z87.09) HTN (hypertension) (401.9) (I10) HTN (hypertension) Hyperlipidemia (272.4) (E78.5) Low back pain (724.2) (M54.50) Moderate persistent asthma, unspecified whether complicated (493.90) (J45.40) Need for influenza vaccination (V04.81) (Z23) Post-viral cough syndrome (786.2) (R05.8) Prostate cancer screening (V76.44) (Z12.5) Reactive airway disease (493.90) (J45.909) Shortness of breath on exertion (786.05) (R06.02) Shoulder pain (719.41) (M25.519) Skin lesion (709.9) (L98.9) Vomiting (787.03) (R11.10) Allergies No Known Allergies Recorded By: Daphnie Nina; 05/03/2012 9:47:16 AM Current Meds Medication NameInstructionReason Ventolin HFA 108 (90 Base) MCG/ACT Inhalation Aerosol SolutionINHALE 2 PUFFS EVERY 4 TO 6 HOURS NEEDEDCough Trelegy Ellipta 200-62.5-25 MCG/ACT Inhalation Aerosol Powder Breath ActivatedINHALE 1 PUFFS DailyHistory of asthma Enalapril Maleate 20 MG Oral TabletTAKE 1 TABLET DAILY DIRECTED.HTN (hypertension) Atorvastatin Calcium 20 MG Oral TabletTAKE 1 TABLET DAILY.Hyperlipidemia Vitals Vital Signs Recorded: 95Idm2029 04:03PM Thagcwcoqzf82.7 F, Temporal Heart Rate70 Cnrqdlrg106 Kdrdqkvpu83 Height5 ft 7 in Vzmenq163 lb 9.6 oz BMI Rqdjnalmpe78.92 kg/m2 BSA Calculated2.09 Tobacco Useb) No Falls Screening (Age 18+)a) No falls within the last year O2 Ssfnwgyztl08, RA Physical Exam On physical exam, auscultation of the lungs was normal. Cardio, heart sounds are regular rate and rhythm. Extremities, cyanosis, clubbing or pretibial edema. The patient is oriented to time person place and was of appropriate mood and affect. Si (more content not included)... Normal [facility] Tobacco Screening.on 022 Fall risk assessment a) No falls within the last year [facility] DO Work Phone: Tobacco use status [facility] b) No [facility] DO Work Phone: Follow Up (Pulmonary Medicin e)on 12-27-2021 Follow Up (Pulmonary Medicine) Diagnoses/Problems Moderate persistent asthma, unspecified whether complicated (493.90) (J45.40) Shortness of breath on exertion (786.05) (R06.02) Orders Complete PFT w/o ABG; Status:Hold For - Scheduling; Requested for:20Dec2021; Perform:[facility] (Non-Interfaced); Due:[id number];Ordered; For:Cough, Shortness of breath on exertion; Ordered By:Sahara Mack; Start: Trelegy Ellipta 200-62.5-25 MCG/ACT Inhalation Aerosol Powder Breath Activated; INHALE 1 PUFFS Daily Rx By: Sahara Mack; Dispense: 0 Days ; #:2 X 28 Each Pack; Refill: 0;For: History of asthma; JANNA = N; Dispense Sample Provider Impressions Impressions: 1. Moderate obstructive airway disease and with the patient's medical history and results of the testing suggesting some mild chronic asthma. 2. I am concerned about the severity of his obstructive airway disease. 3. Dyspnea on exertion. Recommendations: 1. Note placed him on a trial of Trelegy?200 and samples #2 were given which will last him for about 1 month. 2. He has not been using the Symbicort inhaler and I have asked him to hold on restarting that. 3. Albuterol inhaler 4 times daily as needed shortness of breath. 4. Stay on the Mucinex DM 1 tab twice a day for the next 2 weeks. 5. Follow-up with the patient in 4 weeks. This note was transcribed using the [employer] Dictation system. There may be grammatical, punctuation, or verbiage errors that occur with voice recognition programs. Chief Complaint RORY FELICIANO is here for a follow-up visit. Reason for Visit: Review PFT results. Appointment requested by: Dr. Jovel. History of Present IllnessPatient was seen today on a follow-up of visit. This was to review review the results of his pulmonary function testing. He does report that his cough is better. He is still on Mucinex DM twice a day over the last 2 weeks he reports he does not use his Symbicort on a regular basis when he feels better. I reviewed with him the results of his pulmonary function testing done earlier today which shows that he has moderate obstructive airway disease with significant improvement postbronchodilator. He has a mild cough with some clear sputum production. He denies any wheezing. He does have shortness of breath going up a flight of stairs. Review of Systems He denies having any fever, chills, rhinitis or sore throat. The patient is not a smoker. Oxygen saturation on room air today was 97%. All other review of systems were noncontributory. Active Problems Abdominal pain (789.00) (R10.9) Abdominal pain, epigastric (789.06) (R10.13) Acute bronchitis (466.0) (J20.9) Acute pharyngitis (462) (J02.9) Acute sinusitis (461.9) (J01.90) Body mass index [BMI] 34.0-34.9, adult (V85.34) (Z68.34) Body mass index [BMI] 34.0-34.9, adult Chronic cough (786.2) (R05.3) Class 1 obesity with body mass index (BMI) of 33.0 to 33.9 in adult (278.00,V85.33) (E66.9,Z68.33) Class 1 obesity with body mass index (BMI) of 34.0 to 34.9 in adult (278.00,V85.34) (E66.9,Z68.34) Community acquired pneumonia (486) (J18.9) Cough (786.2) (R05.9) COVID (079.89) (U07.1) Elevated blood pressure reading without diagnosis of hypertension (796.2) (R03.0) Hip pain (719.45) (M25.559) History of asthma (V12.69) (Z87.09) HTN (hypertension) (401.9) (I10) HTN (hypertension) Hyperlipidemia (272.4) (E78.5) Low back pain (724.2) (M54.50) Need for influenza vaccination (V04.81) (Z23) Post-viral cough syndrome (786.2) (R05.8) Prostate cancer screening (V76.44) (Z12.5) Reactive airway disease (493.90) (J45.909) Shortness of breath on exertion (786.05) (R06.02) Shoulder pain (719.41) (M25.519) Skin lesion (709.9) (L98.9) Vomiting (787.03) (R11.10) Allergies No Known Allergies Recorded By: Daphnie Nina; 05/03/2012 9:47:16 AM Current Meds Medication NameInstruction Albuterol Sulfate 1.25 MG/3ML Inhalation Nebulization SolutionUSE 1 UNIT DOSE VIA NEBULIZER 4 TIMES A DAY NEEDED Atorvastatin Calcium 20 MG Oral TabletTAKE 1 TABLET DAILY. Enalapril Maleate 20 MG Oral TabletTAKE 1 TABLET DAILY DIRECTED. Ventolin HFA 108 (90 Base) MCG/ACT Inhalation Aerosol SolutionINHALE 2 PUFFS EVERY 4 TO 6 HOURS NEEDED Vitals Vital Signs Recorded: [id number] 01:00PM Xssifznczyc50.5 F, Temporal Heart Ogph292 Zlrjontz482 Iwdeyilsv27 Height5 ft 7 in Gjdqeu710 lb 12.8 oz BMI Oizhzuqefj51.49 kg/m2 BSA Calculated2.08 Tobacco Useb) No Falls Screening (Age 18+)a) No falls within the last year O2 Bkyeagcsgt62, RA Peak Flow: 490 L/Min Physical Exam Pulmonary, diminished breath sounds bilaterally. Cardio, heart sounds were regular rate and rhythm. Extremities, no cyanosis, clubbing or pretibial edema. Psych, the patient was alert and oriented x3. Signatures Electronically signed by : Sahara Mack DO; Dec 28 2021 8:20AM EST (Author) Normal [facility] Tobacco Screening.on 022 Fall risk assessment a) No falls within the last year [facility] DO Work Phone: Tobacco use status [facility] b) No [facility] DO Work Phone: Consult (Pulmonary Medicine) on 12-20-2021 Consult (Pulmonary Medicine) Diagnoses/Problems Chronic cough (786.2) (R05.3) Shortness of breath on exertion (786.05) (R06.02) History of asthma (V12.69) (Z87.09) Orders Complete PFT w/o ABG; Status:Hold For - Scheduling,Retrospective Authorization; Requested for:[id number]; Perform:[facility] (Non-Interfaced); Due:[id number]; Last Updated By:Yanira Lopez; 12/20/2021 11:46:47 AM;Ordered; For:Cough, Shortness of breath on exertion; Ordered By:Sahara Mack; Provider Impressions Impressions: 1. Chronic cough that is productive of clear phlegm. 2. Dyspnea on exertion. 3. History of asthma and allergies. Recommendations: 1. Mucinex DM 1 to 2 tablets twice daily 2. I've asked him to call us within the next week to let us know how he is doing with that. 3. Based on his peak flows being below normal for him we have schedule him for a complete PFT to be done in 1 week from now. I have asked him to hold the Symbicort for 48 hours before the test and no albuterol for 6 hours before. Testing will be done at [facility] in [place]. This note was transcribed using the Mind[employer] Studio Dictation system. There may be grammatical, punctuation, or verbiage errors that occur with voice recognition programs. Chief Complaint RORY FELICIANO is here for an initial evaluation. Reason for Visit: Cough. Appointment requested by: Dr. Jovel. History of Present IllnessThis is a 71-year-old male who reports having a cough for the last 2 months following a pneumonia that he had in October of this year. That chest x-ray showed a right lower lobe infiltrate. He had previous chest x-ray from 05/31/2021 which was clear and a subsequent chest x-ray from 12/06/2021 which was also clear. Patient also informed me that he had been treated for COVID infection in February 2021. Reports that initially the phlegm production was discolored but has had no color to his phlegm over the last 2 weeks. He does report shortness of breath on exertion and also for period of time with him being able to sing. He was given a course of steroids which did not seem to improve the cough he also tried a avvr-jgx-uafmrnl cough medication which did not seem to help him. Patient denies any current fevers or chills. The last time he was treated for pneumonia was as a child. He has received pneumococcal vaccine but no flu vaccine. He reports this was a decision by his family physician. 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 Patient has had appendectomy and repair of the left knee. Review of the family medical history indicates that the patient's mother from lung cancer and was a smoker. Otherwise there is no significant family history. Patient was never smoker but does admit to social alcohol usage. 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 He was born and raised in [place]. Review of Systems On review of systems the patient denies any significant change in his weight over the past year. He does have cataract of his left eye. All other medical history was noncontributory. Refer to the HPI. Active Problems Abdominal pain (789.00) (R10.9) Abdominal pain, epigastric (789.06) (R10.13) Acute bronchitis (466.0) (J20.9) Acute pharyngitis (462) (J02.9) Acute sinusitis (461.9) (J01.90) Body mass index [BMI] 34.0-34.9, adult (V85.34) (Z68.34) Body mass index [BMI] 34.0-34.9, adult Class 1 obesity with body mass index (BMI) of 33.0 to 33.9 in adult (278.00,V85.33) (E66.9,Z68.33) Class 1 obesity with body mass index (BMI) of 34.0 to 34.9 in adult (278.00,V85.34) (E66.9,Z68.34) Community acquired pneumonia (486) (J18.9) Cough (786.2) (R05.9) COVID (079.89) (U07.1) Elevated blood pressure reading without diagnosis of hypertension (796.2) (R03.0) Hip pain (719.45) (M25.559) HTN (hypertension) (401.9) (I10) HTN (hypertension) Hyperlipidemia (272.4) (E78.5) Low back pain (724.2) (M54.50) Need for influenza vaccination (V04.81) (Z23) Post-viral cough syndrome (786.2) (R05.8) Prostate cancer screening (V76.44) (Z12.5) Reactive airway disease (493.90) (J45.909) Shoulder pain (719.41) (M25.519) Skin lesion (709.9) (L98.9) Vomiting (787.03) (R11.10) Allergies No Known Allergies Recorded By: Daphnie Nina; 05/03/2012 9:47:16 AM Current Meds Medication NameInstruction Albuterol Sulfate 1.25 MG/3ML Inhalation Nebulization SolutionUSE 1 UNIT DOSE VIA NEBULIZER 4 TIMES A DAY NEEDED Atorvastatin Calcium 20 MG Oral TabletTAKE 1 TABLET DAILY. Enalapril Maleate 20 MG Oral TabletTAKE 1 TABLET DAILY DIRECTED. Symbicort 160-4.5 MCG/ACT Inhalation AerosolINHALE 2 PUFFS TWICE DAILY. RINSE MOUTH AFTER USE. Ventolin HFA 108 (90 Base) MCG/ACT Inhalation Aerosol SolutionINHALE 2 PUFFS EVERY 4 TO 6 HOURS NEEDED Vitals Vital Signs Recorded: 08N (more content not included)... Normal [facility] Tobacco Screening.on 022 Fall risk assessment a) No falls within the last year [facility] DO Work Phone: Tobacco use status [facility] b) No [facility] DO Work Phone: CBC AND DIFFERENTIALon 12-07 % AUTOMATED IMMATURE GRAN 0.2 % Normal 0.0 - 0.9 [facility] Comment on above: Result Comment: Johana ture Granulocyte Count (IG) includes promyelocytes, myelocytes and metamyelocytes but does not include bands. Percent differential counts (%) should be interpreted in the context of the absolute cell counts (cells/L). Performed By: #### C BCDF ####[id number] [place] [address] Basophils (Bld) [#/Vol] 0.03 10*3/uL Normal 0.00 - 0.10 [facility] Comment on above: Performed By: #### C BCDF ####[id number] [place] [address] Basophils/100 WBC (Bld) 0.3 % Normal 0.0 - 2.0 [facility] Comment on above: Performed By: #### C BCDF ####[id number] [place] [address] Eosinophils (Bld) [#/Vol] 0.32 10*3/uL Normal 0.00 - 0.40 [facility] Comment on above: Performed By: #### C BCDF ####[id number] [place] [address] Eosinophils/100 WBC (Bld) 3.7 % Normal 0.0 - 6.0 [facility] Comment on above: Performed By: #### C BCDF ####[id number] [place] [address] Erythrocyte distribution width (RBC) [Ratio] 14.5 % Normal 11.5 - 14.5 [facility] Comment on above: Performed By: #### C BCDF ####[id number] [place] [address] Hematocrit (Bld) [Volume fraction] 39.4 % Low 41.0 - 52.0 [facility] Comment on above: Performed By: #### C BCDF ####[id number] [place] [address] Hemoglobin (Bld) [Mass/Vol] 12.7 g/dL Low 13.5 - 17.5 [facility] Comment on above: Performed By: #### C BCDF ####[id number] [place] [address] Lymphocytes (Bld) [#/Vol] 1.62 10*3/uL Normal 0.80 - 3.00 [facility] Comment on above: Performed By: #### C BCDF ####[id number] [place] [address] Lymphocytes/100 WBC (Bld) 18.6 % Normal 13.0 - 44.0 [facility] Comment on above: Performed By: #### C BCDF ####[id number] [place] [address] MCHC (RBC) [Mass/Vol] 32.2 g/dL Normal 32.0 - 36.0 [facility] Comment on above: Performed By: #### C BCDF ####[id number] [place] [address] MCV (RBC) [Entitic vol] 88 fL Normal 80 - 100 [facility] Comment on above: Performed By: #### C BCDF ####[id number] [place] [address] Monocytes (Bld) [#/Vol] 1.06 10*3/uL High 0.05 - 0.80 [facility] Comment on above: Performed By: #### C BCDF ####[id number] [place] [address] Monocytes/100 WBC (Bld) 12.2 % Normal 2.0 - 10.0 [facility] Comment on above: Performed By: #### C BCDF ####[id number] [place] [address] Neutrophils (Bld) [#/Vol] 5.67 10*3/uL High 1.60 - 5.50 [facility] Comment on above: Performed By: #### C BCDF ####[id number] [place] [address] Neutrophils/100 WBC (Bld) 65.0 % Normal 40.0 - 80.0 [facility] Comment on above: Performed By: #### C BCDF ####[id number] [place] [address] NUCLEATED RBC 0.0 /100 WBC Normal 0.0-0.0 [facility] Comment on above: Performed By: #### C BCDF ####[id number] [place] [address] Platelets (Bld) [#/Vol] 197 10*3/uL Normal 150 - 450 [facility] Comment on above: Performed By: #### C BCDF ####[id number] [place] [address] RBC 4.49 x10E12/L Low 4.50 - 5.90 [facility] Comment on above: Performed By: #### C BCDF ####[id number] [place] [address] WBC (Bld) [#/Vol] 8.7 10*3/uL Normal 4.4 - 11.3 [facility] Comment on above: Performed By: #### C BCDF ####[id number] [place] [address] COMPREHENSIVE PANELon 12-07- 2021 Albumin [Mass/Vol] 4.2 g/dL Normal 3.4 - 5.0 [facility] Comment on above: Performed By: #### C MP #### [facility] [address] [place] [address] ALP [Catalytic activity/Vol] 68 U/L Normal 33 - 136 [facility] Comment on above: Performed By: #### C MP #### [facility] [address] [place] [address] ALT [Catalytic activity/Vol] 25 U/L Normal 10 - 52 [facility] Comment on above: Result Comment: Thania ents treated with Sulfasalazine may generate falsely decreased results for ALT. Performed By: #### C MP #### [facility] [address] [place] [address] Anion gap [Moles/Vol] 13 mmol/L Normal 10 - 20 [facility] Comment on above: Performed By: #### C MP #### [facility] [address] [place] [address] AST [Catalytic activity/Vol] 19 U/L Normal 9 - 39 [facility] Comment on above: Performed By: #### C MP #### [facility] [address] [place] [address] Bilirubin [Mass/Vol] 0.5 mg/dL Normal 0.0 - 1.2 [facility] Comment on above: Performed By: #### C MP #### [facility] [address] [place] [address] Calcium [Mass/Vol] 9.7 mg/dL Normal 8.6 - 10.6 [facility] Comment on above: Performed By: #### C MP #### [facility] [address] [place] [address] Chloride [Moles/Vol] 108 mmol/L High 98 - 107 [facility] Comment on above: Performed By: #### C MP #### [facility] [address] [place] [address] Creatinine [Mass/Vol] 1.12 mg/dL Normal 0.50 - 1.30 [facility] Comment on above: Performed By: #### C MP #### [facility] [address] [place] [address] GFR/1.73 sq M.predicted among non-blacks MDRD (S/P/Bld) [Vol rate/Area] 70 mL/min/{1.73_m2} Normal >90 [facility] Comment on above: Result Comment: CALC ULATIONS OF ESTIMATED GFR ARE PERFORMED USING THE 2020 CKD-EPI STUDY REFIT EQUATION WITHOUT THE RACE VARIABLE FOR THE IDMS-TRACEABLE CREATININE METHODS. https://jasn.asnjournals.org/content//ASN.9380398479 Performed By: #### C MP #### [facility] [address] [place] [address] Glucose [Mass/Vol] 86 mg/dL Normal 74 - 99 [facility] Comment on above: Performed By: #### C MP #### [facility] [address] [place] [address] HCO3 (Bld) [Moles/Vol] 26 mmol/L Normal 21 - 32 [facility] Comment on above: Performed By: #### C MP #### [facility] [address] [place] [address] Potassium [Moles/Vol] 4.4 mmol/L Normal 3.5 - 5.3 [facility] Comment on above: Performed By: #### C MP #### [facility] [address] [place] [address] Protein [Mass/Vol] 7.0 g/dL Normal 6.4 - 8.2 [facility] Comment on above: Performed By: #### C MP #### [facility] [address] [place] [address] Sodium [Moles/Vol] 143 mmol/L Normal 136 - 145 [facility] Comment on above: Performed By: #### C MP #### [facility] [address] [place] [address] Urea nitrogen [Mass/Vol] 19 mg/dL Normal 6 - 23 [facility] Comment on above: Performed By: #### C MP #### [facility] [address] [place] [address] CHEST 2 VIEW PA AND LATon CHEST 2 VIEW PA AND LAT Patient Name: RORY FELICIANO STUDY: TH CHEST 2 VIEW PA AND LAT; 12/06/2021 2:32 pm INDICATION: cough R05.9: Cough. COMPARISON: 10/14/2021 ACCESSION NUMBER(S): [id number] ORDERING CLINICIAN: VALDO JOVEL FINDINGS: PA and lateral views of the chest were obtained. No focal infiltrate, pleural effusion or pneumothorax is identified. The cardiac silhouette is within normal limits for size. Avmf-qz-xocrbgxb discogenic degenerative changes are seen throughout the thoracic spine. IMPRESSION: No focal infiltrate or pneumothorax. Electronically signed by: ERNESTO DIAZ MD Normal [facility] Complete Blood Count + Diffe rentialon 12-06-2021 Basophils/100 WBC (Bld) 0.3 % 0.0 - 2.0 [facility] Work Phone: Erythrocyte distribution width (RBC) [Ratio] 14.5 % See Below [facility] Work Phone: Comment on above: Reference Range: 11. 5 - 14.5 Hematocrit (Bld) [Volume fraction] 39.4 % below low threshold See Below [facility] Work Phone: Comment on above: Reference Range: 41. 0 - 52.0 Hemoglobin (Bld) [Mass/Vol] 12.7 g/dL below low threshold See Below [facility] Work Phone: Comment on above: Reference Range: 13. 5 - 17.5 Lymphocytes/100 WBC (Bld) 18.6 % See Below [facility] Work Phone: Comment on above: Reference Range: 13. 0 - 44.0 MCHC (RBC) [Mass/Vol] 32.2 g/dL See Below [facility] Work Phone: Comment on above: Reference Range: 32. 0 - 36.0 MCV (RBC) [Entitic vol] 88 fL 80 - 100 [facility] Work Phone: Monocytes/100 WBC (Bld) 12.2 % 2.0 - 10.0 [facility] Work Phone: Neutrophils/100 WBC (Bld) 65.0 % See Below [facility] Work Phone: Comment on above: Reference Range: 40. 0 - 80.0 Platelets (Bld) [#/Vol] 197 10*3/uL 150 - 450 [facility] Work Phone: RBC (Bld) [#/Vol] 4.49 {x10E12/L} below low threshold See Below [facility] Work Phone: Comment on above: Reference Range: 4.5 0 - 5.90 WBC (Bld) [#/Vol] 8.7 10*3/uL 4.4 - 11.3 [facility] Work Phone: Complete Blood Count + Differential 0.03 {x10E9/L} See Below [facility] Work Phone: Comment on above: Reference Range: 0.0 0 - 0.10 Complete Blood Count + Differential 0.32 {x10E9/L} See Below [facility] Work Phone: Comment on above: Reference Range: 0.0 0 - 0.40 Complete Blood Count + Differential 1.06 {x10E9/L} above high threshold See Below [facility] Work Phone: Comment on above: Reference Range: 0.0 5 - 0.80 Complete Blood Count + Differential 1.62 {x10E9/L} See Below [facility] Work Phone: Comment on above: Reference Range: 0.8 0 - 3.00 Complete Blood Count + Differential 5.67 {x10E9/L} above high threshold See Below [facility] Work Phone: Comment on above: Reference Range: 1.6 0 - 5.50 Complete Blood Count + Differential 3.7 % 0.0 - 6.0 [facility] Work Phone: Complete Blood Count + Differential 0.2 % 0.0 - 0.9 [facility] Work Phone: Comment on above: Immature Granulocyte Count (IG) includes promyelocytes, myelocytes and metamyelocytes but does not include bands. Percent differential counts (%) should be interpreted in the context of the absolute cell counts (cells/L). Complete Blood Count + Differential 0.0 {/100_WBC} 0.0-0.0 [facility] Work Phone: Laboratory - Chemistry and C hemistry - challengeon 12-06-2021 Albumin BCP dye [Mass/Vol] 4.2 g/dL 3.4 - 5.0 [facility] Work Phone: ALP [Catalytic activity/Vol] 68 U/L 33 - 136 [facility] Work Phone: ALT With P-5'-P [Catalytic activity/Vol] 25 U/L 10 - 52 [facility] Work Phone: Comment on above: Patients treated wit h Sulfasalazine may generate falsely decreased results for ALT. Anion gap [Moles/Vol] 13 mmol/L 10 - 20 [facility] Work Phone: AST With P-5'-P [Catalytic activity/Vol] 19 U/L 9 - 39 [facility] Work Phone: Bilirubin [Mass/Vol] 0.5 mg/dL 0.0 - 1.2 [facility] Work Phone: Calcium [Mass/Vol] 9.7 mg/dL 8.6 - 10.6 [facility] Work Phone: Chloride [Moles/Vol] 108 mmol/L above high threshold 98 - 107 [facility] Work Phone: CO2 [Moles/Vol] 26 mmol/L 21 - 32 [facility] Work Phone: Creatinine [Mass/Vol] 1.12 mg/dL See Below [facility] Work Phone: Comment on above: Reference Range: 0.5 0 - 1.30 Glucose [Mass/Vol] 86 mg/dL 74 - 99 [facility] Work Phone: Potassium [Moles/Vol] 4.4 mmol/L 3.5 - 5.3 [facility] Work Phone: Protein [Mass/Vol] 7.0 g/dL 6.4 - 8.2 [facility] Work Phone: Sodium [Moles/Vol] 143 mmol/L 136 - 145 [facility] Work Phone: Urea nitrogen [Mass/Vol] 19 mg/dL 6 - 23 [facility] Work Phone: No Panel Informationon 12-06 70 {mL/min/1.73m2} >90 [facility] Work Phone: Comment on above: CALCULATIONS OF BARRON MATED GFR ARE PERFORMED USING THE 2020 CKD-EPI STUDY REFIT EQUATION WITHOUT THE RACE VARIABLE FOR THE IDMS-TRACEABLE CREATININE METHODS.https://jasn.asnjournals.org/content//ASN.20 95646568 Office Visit (Family Medicin e)on 12-06-2021 Follow-up visit Diagnoses/Problems Cough (786.2) (R05.9) Community acquired pneumonia (486) (J18.9) * Orders Cough Complete Blood Count + Differential; Status:Complete; Done: 06Dec2021 02:21PM Comprehensive Metabolic Panel; Status:Complete; Done: 06Dec2021 02:21PM Xray Chest 2 View PA + Lateral; Status:Complete; Done: 06Dec2021 02:32PM Radiologist to Determine Optimal Study : Y What are the patient's signs and symptoms? : cough Cough (786.2) (R05.9) Patient Discussion/Summary By signing my name below, I, Lacy Armenta, attest that this documentation has been prepared under the direction and in the presence of Dr. July Jovel MD. All medical record entries made by the Scribe were at my direction and personally dictated by me. I have reviewed the chart and agree that the record accurately reflects my personal performance of the history, physical exam, discussion and plan. History of Present Illness EP. Here for follow up on pneumonia. States still not feeling well. Rory is a 71 year old male presenting today to follow up on a recent diagnosis of pneumonia haven't felt well since this all began (10/11/21) the cough is my biggest thing -Nothing specific will trigger his coughing. -Symbicort does not seem to be helping -Reports episode of epistaxis yesterday evening. -He has not been having any issues with his breathing or SOB. However, he did have wheezing when he overexerted himself. -Been having night sweats often, except for the last two nights. -Feels chest tightness and pressure, denies any pain in the chest. -Was seen 10/14/21 by me and dx'ed with pneumonia (RLL) and treated with Levaquin -Then was seen at [facility], on 10/31 and also 11/05. -CXR on 10/31 clear but CXR on 11/05 again showed right LL pneumonia-he was prescribed a z-juan miguel and prednisone 20 mg 2 tabs for 10 days. * Active Problems Abdominal pain (789.00) (R10.9) Abdominal pain, epigastric (789.06) (R10.13) Acute bronchitis (466.0) (J20.9) Acute pharyngitis (462) (J02.9) Acute sinusitis (461.9) (J01.90) Body mass index [BMI] 34.0-34.9, adult (V85.34) (Z68.34) Body mass index [BMI] 34.0-34.9, adult Class 1 obesity with body mass index (BMI) of 33.0 to 33.9 in adult (278.00,V85.33) (E66.9,Z68.33) Class 1 obesity with body mass index (BMI) of 34.0 to 34.9 in adult (278.00,V85.34) (E66.9,Z68.34) Community acquired pneumonia (486) (J18.9) COVID (079.89) (U07.1) Elevated blood pressure reading without diagnosis of hypertension (796.2) (R03.0) Hip pain (719.45) (M25.559) HTN (hypertension) (401.9) (I10) HTN (hypertension) Hyperlipidemia (272.4) (E78.5) Low back pain (724.2) (M54.50) Need for influenza vaccination (V04.81) (Z23) Post-viral cough syndrome (786.2) (R05.8) Prostate cancer screening (V76.44) (Z12.5) Reactive airway disease (493.90) (J45.909) Shoulder pain (719.41) (M25.519) Skin lesion (709.9) (L98.9) Vomiting (787.03) (R11.10) Cough (786.2) (R05.9) Allergies No Known Allergies Recorded By: Daphnie Nina; 05/03/2012 9:47:16 AM Current Meds Medication NameInstructionReason Albuterol Sulfate 1.25 MG/3ML Inhalation Nebulization SolutionUSE 1 UNIT DOSE VIA NEBULIZER 4 TIMES A DAY NEEDEDAcute bronchitis Symbicort 160-4.5 MCG/ACT Inhalation AerosolINHALE 2 PUFFS TWICE DAILY. RINSE MOUTH AFTER USE.Community acquired pneumonia, Cough Ventolin HFA 108 (90 Base) MCG/ACT Inhalation Aerosol SolutionINHALE 2 PUFFS EVERY 4 TO 6 HOURS NEEDEDCough Enalapril Maleate 20 MG Oral TabletTAKE 1 TABLET DAILY DIRECTED.HTN (hypertension) Atorvastatin Calcium 20 MG Oral TabletTAKE 1 TABLET DAILY.Hyperlipidemia Vitals Vital Signs Recorded: 06Dec2021 01:27PM Pywpvvpwrrg29.6 F Doqloaes339 Ctjctoyms11 Yuxprq726 lb BMI Lamyfjdcay74.36 kg/m2 BSA Calculated2.08 Tobacco Useb) No Falls Screening (Age 18+)a) No falls within the last year Physical Exam Alert, well-appearing, + cough HEENT: OP clear. Sclera white. Pupils equal and round. EACs and TMs clear. Neck: Supple. No LAD. CVS: RRR, no murmurs. Respiratory: Normal inspirations and expirations. Clear and equal breath sounds. GI: Soft, nontender. 'Scores and Scales' Signatures Electronically signed by : July Jovel MD; Dec 07 2021 10:09PM EST (Author) [facility] 12-06-2021 XR Chest 2 Views FINAL REPORT Interpreted by: ERNESTO DIAZ CHRISTOPHER, MD 12/06/21 14:36 Patient Name: RORY FELICIANO STUDY: TH CHEST 2 VIEW PA AND LAT; 12/06/2021 2:32 pm INDICATION: cough R05.9: Cough. COMPARISON: 10/14/2021 ACCESSION NU Normal [facility] Work Phone: Tobacco Screening.on 022 Fall risk assessment a) No falls within the last year [facility] Work Phone: Tobacco use status CP b) No [facility] Work Phone: Office Visit (Family Medicin e)on 11-08-2021 Follow-up visit Diagnoses/Problems Community acquired pneumonia (486) (J18.9) Orders Acute bronchitis Start: Albuterol Sulfate 1.25 MG/3ML Inhalation Nebulization Solution; USE 1 UNIT DOSE VIA NEBULIZER 4 TIMES A DAY NEEDED Cough Renew: Ventolin HFA 108 (90 Base) MCG/ACT Inhalation Aerosol Solution (Albuterol Sulfate HFA); INHALE 2 PUFFS EVERY 4 TO 6 HOURS NEEDED Patient Discussion/Summary Finish course of Zpak and prednisone, albuterol treatments up to 4x/day; to call with update in 2 days, if not better 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 July Jovel MD. All medical record entries made by the Lacy were at my direction and personally dictated by me. I have reviewed the chart and agree that the record accurately reflects my personal performance of the history, physical exam, discussion and plan. History of Present Illness Was seen in ER on Sunday, cough ,SOB continues to have productive cough and SOB Rory is a 71 year old male presenting today to follow up after an ER visit for cough and SOB. -Was seen 10/14/21 by me and dx'ed with pneumonia (RLL) and treated with Levaquin -He was not better and was seen at the ER, on 10/31 and also 11/05. -CXR on 10/31 clear but CXR on 11/05 again showed right LL pneumonia-he was prescribed a z-juan miguel and prednisone 20 mg 2 tabs for 10 days. -Daily he has been using his nebulizer with albuterol up to 4 times. He recently just ran out of the solution. -For his wheezing his albuterol inhaler provided him with some relief. -Still has a cough and it has been causing sleep disturbance. -He was unable to stay at work yesterday. -Denies any fever. -His appetite has been normal and he has been increasing his fluid intake. Active Problems Abdominal pain (789.00) (R10.9) Abdominal pain, epigastric (789.06) (R10.13) Acute bronchitis (466.0) (J20.9) Acute pharyngitis (462) (J02.9) Acute sinusitis (461.9) (J01.90) Body mass index [BMI] 34.0-34.9, adult (V85.34) (Z68.34) Body mass index [BMI] 34.0-34.9, adult Class 1 obesity with body mass index (BMI) of 33.0 to 33.9 in adult (278.00,V85.33) (E66.9,Z68.33) Class 1 obesity with body mass index (BMI) of 34.0 to 34.9 in adult (278.00,V85.34) (E66.9,Z68.34) Community acquired pneumonia (486) (J18.9) Cough (786.2) (R05.9) COVID (079.89) (U07.1) Elevated blood pressure reading without diagnosis of hypertension (796.2) (R03.0) Hip pain (719.45) (M25.559) HTN (hypertension) (401.9) (I10) HTN (hypertension) Hyperlipidemia (272.4) (E78.5) Low back pain (724.2) (M54.50) Need for influenza vaccination (V04.81) (Z23) Post-viral cough syndrome (786.2) (R05.8) Prostate cancer screening (V76.44) (Z12.5) Reactive airway disease (493.90) (J45.909) Shoulder pain (719.41) (M25.519) Skin lesion (709.9) (L98.9) Vomiting (787.03) (R11.10) Allergies No Known Allergies Recorded By: Daphnie Nina; 05/03/2012 9:47:16 AM Current Meds Medication NameInstructionReason Ventolin HFA 108 (90 Base) MCG/ACT Inhalation Aerosol SolutionINHALE 2 PUFFS EVERY 4 TO 6 HOURS NEEDEDCough Enalapril Maleate 20 MG Oral TabletTAKE 1 TABLET DAILY DIRECTED.HTN (hypertension) Atorvastatin Calcium 20 MG Oral TabletTAKE 1 TABLET DAILY.Hyperlipidemia Vitals Vital Signs Recorded: [id number] 09:35AM Nxvsuuskrrw39.6 F Heart Rate60 Afgigvxisgi54 Pvjixgek943 Neqkfcesl24 Oimyxn200 lb 14.4 oz BMI Jtokifwpyd04.97 kg/m2 BSA Calculated2.09 Tobacco Useb) No Falls Screening (Age 18+)a) No falls within the last year O2 Gcukacypct76, RA Physical Exam Alert, well-appearing. HEENT: OP clear. Sclera white. Pupils equal and round. EACs and TMs clear. Neck: Supple. No palpable masses or LAD. CVS: RRR, no murmurs. No peripheral edema. Respiratory: Normal inspirations and expirations. Clear and equal breath sounds. GI: Soft, nontender, no masses or hepatosplenomegaly. 'Scores and Scales' Signatures Electronically signed by : July Jovel MD; Nov 09 2021 4:14PM EST (Author) [facility] Tobacco Screening.on 022 Fall risk assessment a) No falls within the last year [facility] Work Phone: Tobacco use status [facility] b) No [facility] Work Phone: CHEST 2 VIEW PA AND LATon CHEST 2 VIEW PA AND LAT STUDY: Chest Radiographs; 10/14/2021 4:19 PM INDICATION: Cough. COMPARISON: Chest, two view obtained on 05/31/2021 at 13:10 hours. Chest, two view obtained on 07/30/2018 at 15:50 hours. Chest, two view obtained on 11/27/2017 at 16:11 hours. ACCESSION NUMBER(S): [id number] ORDERING CLINICIAN: VALDO JOEVL MD TECHNIQUE: Frontal and lateral chest. FINDINGS: CARDIOMEDIASTINAL SILHOUETTE: Cardiomediastinal silhouette is normal in size and configuration. LUNGS: Streaky and mildly consolidative opacities seen in the right lower lobe suspicious for developing infiltrate. Correlate clinically and follow-up should document resolution to exclude any underlying pathology. ABDOMEN: No remarkable upper abdominal findings. BONES: No acute osseous changes. IMPRESSION: Streaky and mildly consolidative opacities seen in the right lower lobe suspicious for developing infiltrate. Correlate clinically and follow-up should document resolution to exclude any underlying pathology. Signed by Glory Cordova MD Electronically signed by: GLORY CORDOVA MD Normal [facility] Office Visit (Family Medicin e)on 10-14-2021 Follow-up visit Diagnoses/Problems Cough (786.2) (R05.9) Orders Cough Xray Chest 2 View PA + Lateral; Status:Canceled; Radiologist to Determine Optimal Study : Y What are the patient's signs and symptoms? : cough Patient Discussion/Summary Addendum: SA on CXR By signing my name below, ICharisse Scribe, attest that this documentation has been prepared under the direction and in the presence of Dr. July Jovel MD. All medical record entries made by the Scribe were at my direction and personally dictated by me. I have reviewed the chart and agree that the record accurately reflects my personal performance of the history, physical exam, discussion and plan. History of Present Illness EP. Here for sinus and head pressure with congestion. Has tried all OTC medications with no relief. Rory is a 71 year old male presenting today for a sick visit with upper respiratory symptoms. -Not feeling well since 10/11. -Has tried an alcoholic beverage at night in hopes it will help with sleep, NyQuil, and breathing treatments with albuterol -Symptoms of chills that started this morning. -SOB with coughing and has green sputum production. -Reports started as head pressure and sinus pressure. Denies any headache. -No abdominal pain or back pain. Active Problems Abdominal pain (789.00) (R10.9) Abdominal pain, epigastric (789.06) (R10.13) Acute bronchitis (466.0) (J20.9) Acute pharyngitis (462) (J02.9) Acute sinusitis (461.9) (J01.90) Body mass index [BMI] 34.0-34.9, adult (V85.34) (Z68.34) Body mass index [BMI] 34.0-34.9, adult Class 1 obesity with body mass index (BMI) of 33.0 to 33.9 in adult (278.00,V85.33) (E66.9,Z68.33) Class 1 obesity with body mass index (BMI) of 34.0 to 34.9 in adult (278.00,V85.34) (E66.9,Z68.34) Cough (786.2) (R05.9) COVID (079.89) (U07.1) Elevated blood pressure reading without diagnosis of hypertension (796.2) (R03.0) Hip pain (719.45) (M25.559) HTN (hypertension) (401.9) (I10) HTN (hypertension) Hyperlipidemia (272.4) (E78.5) Low back pain (724.2) (M54.50) Need for influenza vaccination (V04.81) (Z23) Post-viral cough syndrome (786.2) (R05.8) Prostate cancer screening (V76.44) (Z12.5) Reactive airway disease (493.90) (J45.909) Shoulder pain (719.41) (M25.519) Skin lesion (709.9) (L98.9) Vomiting (787.03) (R11.10) Allergies No Known Allergies Recorded By: Daphnie Nina; 05/03/2012 9:47:16 AM Current Meds Medication NameInstructionReason Ventolin HFA 108 (90 Base) MCG/ACT Inhalation Aerosol SolutionINHALE 2 PUFFS EVERY 4 TO 6 HOURS NEEDEDCough Enalapril Maleate 20 MG Oral TabletTAKE 1 TABLET DAILY DIRECTED.HTN (hypertension) Atorvastatin Calcium 20 MG Oral TabletTAKE 1 TABLET DAILY.Hyperlipidemia Vitals Vital Signs Recorded: 14Oct2021 03:45PM Ddztacrbccn420.6 F Ovuwhuyu938 Tjvflpyte07 Vvgtzs168 lb BMI Schyojuqcf67.05 kg/m2 BSA Calculated2.07 Tobacco Useb) No Falls Screening (Age 18+)a) No falls within the last year Physical Exam Genl: Mildly ill appearing, lots of coughing HEENT: Conj and sclera clear. EACs and TMs clear. Normal nares. Oropharynx clear. Neck: supple, no LAD CVS RRR, no murmurs Resp good exchange with no ronchi or rales 'Scores and Scales' Signatures Electronically signed by : July Jovel MD; Oct 14 2021 10:24PM EST (Author) [facility] 10-14-2021 XR Chest 2 Views FINAL REPORT Interpreted by: GLORY CORDOVA GIRISH, MD 10/14/21 16:45 STUDY: Chest Radiographs; 10/14/2021 4:19 PM INDICATION: Cough. COMPARISON: Chest, two view obtained on 05/31/2021 at 13:10 hours. Chest, two view obtained on 07/30/2018 at 15: Normal [facility] Work Phone: Tobacco Screening.on 022 Fall risk assessment a) No falls within the last year [facility] Work Phone: Tobacco use status [facility] b) No [facility] Work Phone: Medicare Annual Wellness Vis yusra 08-02-2021 Medicare Annual Wellness Visit History of Present Illness The patient is being seen for the subsequent annual wellness visit. Past Medical, Surgical and Family History: reviewed and updated in chart. Interval History: Patient has not been hospitalized previously. Medications and Supplements: Review of all medications by a prescribing practitioner or clinical pharmacist (such as prescriptions, OTCs, herbal therapies and supplements) documented in the medical record. No, the patient is not using opioids. Patient Self Assessment of Health Status: good. Tobacco use: Non-User Alcohol use: Non-User Illicit drug use: Non-User Current diet: well balanced diet, does consume adequate fluids and does consume caffeine. Exercise Frequency: regularly. Depression/Suicide Screening: . During the past 2 weeks, the patient has not felt down, depressed or hopeless. During the past 2 weeks, the patient has not felt little interest or pleasure in doing things. Hearing Impairment: He uses a hearing aid. Cognitive Impairment: No cognitive impairment observed, patient or family reported no cognitive impairment. Bathing: performs independently. Dressing: performs independently. Walking: performs independently. Bowels: continent. Bladder: continent. Managing Finances: performs independently. Shopping: performs independently. Managing Medications: performs independently. Housework / Basic Home Maintenance: performs independently. Falls Risk Screening:. RORY has not fallen in the last 6 months. Home safety risk factors: none. Advance directives:. Advanced Care Planning discussed and documented advance care plan or surrogate decision maker documented in the medical record. Patient has living will. Patient has healthcare POA. EP. Here for [facility]. Rory is a 71 year old male presenting today for his annual Medicare wellness exam -Reports frequent urination more noticeable. No change in urinary flow or waking up often during the night. -Does drink an increased amount of fluids. -Still having the abnormal smell he has been smelling for a while now. Concerned it may have something to do with the cleaning products he uses or embalming fluid at the home. -Reports rhinorrhea and when he gets this it is normally followed by congestion. -sees Dr. Lawton for allergies and asthma- unable to afford Trelegy inhaler that was prescribed -Says his insurance will not cover the shingles vaccine, so he has not gotten UTD on that yet. Review of Systems General: no fever or night sweats, no change in weight Eyes: no vision disturbance ENT: no hearing loss, no hoarseness, no mouth lesions, no sore throat, and no dysphagia CV: no chest pain, no palpitations, no lower extremity edema Resp: no shortness of breath, no cough GI: no abdominal pain, no change in bowel habits : no urinary problems except some frequency but I drink a lot of water MSK: no arthralgias, myalgias, or back pain Skin; no rashes or new/changed skin lesions Neuro: no headache, no difficulty walking *Active Problems Abdominal pain (789.00) (R10.9) Abdominal pain, epigastric (789.06) (R10.13) Acute bronchitis (466.0) (J20.9) Acute pharyngitis (462) (J02.9) Acute sinusitis (461.9) (J01.90) Body mass index [BMI] 34.0-34.9, adult (V85.34) (Z68.34) Body mass index [BMI] 34.0-34.9, adult Class 1 obesity with body mass index (BMI) of 34.0 to 34.9 in adult (278.00,V85.34) (E66.9,Z68.34) Community acquired pneumonia (486) (J18.9) Cough (786.2) (R05.9) COVID (079.89) (U07.1) Elevated blood pressure reading without diagnosis of hypertension (796.2) (R03.0) Hip pain (719.45) (M25.559) HTN (hypertension) (401.9) (I10) HTN (hypertension) Hyperlipidemia (272.4) (E78.5) Low back pain (724.2) (M54.50) Need for influenza vaccination (V04.81) (Z23) Post-viral cough syndrome (786.2) (R05.8) Prostate cancer screening (V76.44) (Z12.5) Reactive airway disease (493.90) (J45.909) Shoulder pain (719.41) (M25.519) Skin lesion (709.9) (L98.9) Vomiting (787.03) (R11.10) *Allergies No Known Allergies Recorded By: Daphnie Nina; 05/03/2012 9:47:16 AM *Current Meds Medication NameInstruction Atorvastatin Calcium 20 MG Oral TabletTAKE 1 TABLET DAILY. Enalapril Maleate 20 MG Oral TabletTAKE 1 TABLET DAILY DIRECTED. Ventolin HFA 108 (90 Base) MCG/ACT Inhalation Aerosol SolutionINHALE 2 PUFFS EVERY 4 TO 6 HOURS NEEDED Immunizations Influenza --- Series1: 23-Oct-2016 (66y); Series2: 29-Oct-2018 (68y); Series3: Nov 29 2019 12:00AM (69y); Series4: Dec 14 2020 12:00AM (70y) Moderna COVID-19 Vaccine 100 MCG/0.5ML Intramuscular Suspension --- Series1: May 12 2020 12:00AM (70y); Series2: Jun 09 2020 12:00AM (70y) PCV --- Series1: 23-Dec-2015 (65y) PPSV --- Series1: 23-Oct-2016 (66y) Tdap --- Series1: 07-Aug-2018 (68y) Varicella --- Series1: 07-Aug-2013 (63y) Patient Care Team Care Team MemberRoleSpecialtyOffice Number Med PHAN, July Elizabeth (more content not included)... Normal [facility] Tobacco Screening.on 022 Tobacco use status [facility] b) No -[place] [facility] Work Phone: CBC AND DIFFERENTIALon 07-27 % AUTOMATED IMMATURE GRAN 0.3 % Normal 0.0 - 0.9 [facility] Comment on above: Result Comment: Johana ture Granulocyte Count (IG) includes promyelocytes, myelocytes and metamyelocytes but does not include bands. Percent differential counts (%) should be interpreted in the context of the absolute cell counts (cells/L). Performed By: #### C BCDF #### [facility] [id number] [place] [address] Basophils (Bld) [#/Vol] 0.03 10*3/uL Normal 0.00 - 0.10 [facility] Comment on above: Performed By: #### C BCDF #### [facility] [id number] [place] [address] Basophils/100 WBC (Bld) 0.4 % Normal 0.0 - 2.0 [facility] Comment on above: Performed By: #### C BCDF #### [facility] [address] [place] [address] Eosinophils (Bld) [#/Vol] 0.28 10*3/uL Normal 0.00 - 0.40 [facility] Comment on above: Performed By: #### C BCDF #### [facility] [address] [place] [address] Eosinophils/100 WBC (Bld) 4.2 % Normal 0.0 - 6.0 [facility] Comment on above: Performed By: #### C BCDF #### [facility] [address] [place] [address] Erythrocyte distribution width (RBC) [Ratio] 13.3 % Normal 11.5 - 14.5 [facility] Comment on above: Performed By: #### C BCDF #### [facility] [address] [place] [address] Hematocrit (Bld) [Volume fraction] 43.3 % Normal 41.0 - 52.0 [facility] Comment on above: Performed By: #### C BCDF #### [facility] [address] [place] [address] Hemoglobin (Bld) [Mass/Vol] 14.0 g/dL Normal 13.5 - 17.5 [facility] Comment on above: Performed By: #### C BCDF #### [facility] [address] [place] [address] Lymphocytes (Bld) [#/Vol] 1.45 10*3/uL Normal 0.80 - 3.00 [facility] Comment on above: Performed By: #### C BCDF #### [facility] [address] [place] [address] Lymphocytes/100 WBC (Bld) 21.7 % Normal 13.0 - 44.0 [facility] Comment on above: Performed By: #### C BCDF #### [facility] [address] [place] [address] MCHC (RBC) [Mass/Vol] 32.3 g/dL Normal 32.0 - 36.0 [facility] Comment on above: Performed By: #### C BCDF #### [facility] [address] [place] [address] MCV (RBC) [Entitic vol] 90 fL Normal 80 - 100 [facility] Comment on above: Performed By: #### C BCDF #### [facility] [address] [place] [address] Monocytes (Bld) [#/Vol] 0.78 10*3/uL Normal 0.05 - 0.80 [facility] Comment on above: Performed By: #### C BCDF #### [facility] [address] [place] [address] Monocytes/100 WBC (Bld) 11.7 % Normal 2.0 - 10.0 [facility] Comment on above: Performed By: #### C BCDF #### [facility] [address] [place] [address] Neutrophils (Bld) [#/Vol] 4.13 10*3/uL Normal 1.60 - 5.50 [facility] Comment on above: Performed By: #### C BCDF #### [facility] [address] [place] [address] Neutrophils/100 WBC (Bld) 61.7 % Normal 40.0 - 80.0 [facility] Comment on above: Performed By: #### C BCDF #### [facility] [address] [place] [address] NUCLEATED RBC 0.0 /100 WBC Normal 0.0-0.0 [facility] Comment on above: Performed By: #### C BCDF #### [facility] [address] [place] [address] Platelets (Bld) [#/Vol] 186 10*3/uL Normal 150 - 450 [facility] Comment on above: Performed By: #### C BCDF #### [facility] [address] [place] [address] RBC 4.83 x10E12/L Normal 4.50 - 5.90 [facility] Comment on above: Performed By: #### C BCDF #### [facility] [address] [place] [address] WBC (Bld) [#/Vol] 6.7 10*3/uL Normal 4.4 - 11.3 [facility] Comment on above: Performed By: #### C BCDF #### [facility] [address] [place] [address] COMPREHENSIVE PANELon 07-27- 2021 Albumin [Mass/Vol] 4.4 g/dL Normal 3.4 - 5.0 [facility] Comment on above: Performed By: #### C MP #### [facility] [address] [place] [address] ALP [Catalytic activity/Vol] 65 U/L Normal 33 - 136 [facility] Comment on above: Performed By: #### C MP #### [facility] [address] [place] [address] ALT [Catalytic activity/Vol] 20 U/L Normal 10 - 52 [facility] Comment on above: Result Comment: Thania ents treated with Sulfasalazine may generate falsely decreased results for ALT. Performed By: #### C MP #### [facility] [address] [place] [address] Anion gap [Moles/Vol] 13 mmol/L Normal 10 - 20 [facility] Comment on above: Performed By: #### C MP #### [facility] [address] [place] [address] AST [Catalytic activity/Vol] 20 U/L Normal 9 - 39 [facility] Comment on above: Performed By: #### C MP #### [facility] [address] [place] [address] Bilirubin [Mass/Vol] 0.9 mg/dL Normal 0.0 - 1.2 [facility] Comment on above: Performed By: #### C MP #### [facility] [address] [place] [address] Calcium [Mass/Vol] 9.4 mg/dL Normal 8.6 - 10.6 [facility] Comment on above: Performed By: #### C MP #### [facility] [address] [place] [address] Chloride [Moles/Vol] 108 mmol/L High 98 - 107 [facility] Comment on above: Performed By: #### C MP #### [facility] [address] [place] [address] Creatinine [Mass/Vol] 0.90 mg/dL Normal 0.50 - 1.30 [facility] Comment on above: Performed By: #### C MP #### [facility] [address] [place] [address] eGFR MALE >90 Normal >90 [facility] Comment on above: Result Comment: CALC ULATIONS OF ESTIMATED GFR ARE PERFORMED USING THE 2020 CKD-EPI STUDY REFIT EQUATION WITHOUT THE RACE VARIABLE FOR THE IDMS-TRACEABLE CREATININE METHODS. https://jasn.asnjournals.org/content/early//ASN.6037949358 Performed By: #### C MP #### [facility] [address] [place] [address] Glucose [Mass/Vol] 98 mg/dL Normal 74 - 99 [facility] Comment on above: Performed By: #### C MP #### [facility] [address] [place] [address] HCO3 (Bld) [Moles/Vol] 24 mmol/L Normal 21 - 32 [facility] Comment on above: Performed By: #### C MP #### [facility] [address] [place] [address] Potassium [Moles/Vol] 4.4 mmol/L Normal 3.5 - 5.3 [facility] Comment on above: Performed By: #### C MP #### [facility] [address] [place] [address] Protein [Mass/Vol] 7.2 g/dL Normal 6.4 - 8.2 [facility] Comment on above: Performed By: #### C MP #### [facility] [address] [place] [address] Sodium [Moles/Vol] 141 mmol/L Normal 136 - 145 [facility] Comment on above: Performed By: #### C MP #### [facility] [address] [place] [address] Urea nitrogen [Mass/Vol] 22 mg/dL Normal 6 - 23 [facility] Comment on above: Performed By: #### C MP #### [facility] [address] [place] [address] Complete Blood Count + Diffe jahtialon 07-27-2021 Basophils/100 WBC (Bld) 0.4 % 0.0 - 2.0 [facility] Work Phone: Erythrocyte distribution width (RBC) [Ratio] 13.3 % See Below [facility] Work Phone: Comment on above: Reference Range: 11. 5 - 14.5 Hematocrit (Bld) [Volume fraction] 43.3 % See Below [facility] Work Phone: Comment on above: Reference Range: 41. 0 - 52.0 Hemoglobin (Bld) [Mass/Vol] 14.0 g/dL See Below [facility] Work Phone: Comment on above: Reference Range: 13. 5 - 17.5 Lymphocytes/100 WBC (Bld) 21.7 % See Below [facility] Work Phone: Comment on above: Reference Range: 13. 0 - 44.0 MCHC (RBC) [Mass/Vol] 32.3 g/dL See Below [facility] Work Phone: Comment on above: Reference Range: 32. 0 - 36.0 MCV (RBC) [Entitic vol] 90 fL 80 - 100 [facility] Work Phone: Monocytes/100 WBC (Bld) 11.7 % 2.0 - 10.0 [facility] Work Phone: Neutrophils/100 WBC (Bld) 61.7 % See Below [facility] Work Phone: Comment on above: Reference Range: 40. 0 - 80.0 Platelets (Bld) [#/Vol] 186 10*3/uL 150 - 450 [facility] Work Phone: RBC (Bld) [#/Vol] 4.83 {x10E12/L} See Below [facility] Work Phone: Comment on above: Reference Range: 4.5 0 - 5.90 WBC (Bld) [#/Vol] 6.7 10*3/uL 4.4 - 11.3 [facility] Work Phone: Complete Blood Count + Differential 0.03 {x10E9/L} See Below [facility] Work Phone: Comment on above: Reference Range: 0.0 0 - 0.10 Complete Blood Count + Differential 0.28 {x10E9/L} See Below [facility] Work Phone: Comment on above: Reference Range: 0.0 0 - 0.40 Complete Blood Count + Differential 0.78 {x10E9/L} See Below [facility] Work Phone: Comment on above: Reference Range: 0.0 5 - 0.80 Complete Blood Count + Differential 1.45 {x10E9/L} See Below [facility] Work Phone: Comment on above: Reference Range: 0.8 0 - 3.00 Complete Blood Count + Differential 4.13 {x10E9/L} See Below [facility] Work Phone: Comment on above: Reference Range: 1.6 0 - 5.50 Complete Blood Count + Differential 4.2 % 0.0 - 6.0 [facility] Work Phone: Complete Blood Count + Differential 0.3 % 0.0 - 0.9 [facility] Work Phone: Comment on above: Immature Granulocyte Count (IG) includes promyelocytes, myelocytes and metamyelocytes but does not include bands. Percent differential counts (%) should be interpreted in the context of the absolute cell counts (cells/L). Complete Blood Count + Differential 0.0 {/100_WBC} 0.0-0.0 [facility] Work Phone: LIPID PANEL (CORONARY RISK 2 )on 07-27-2021 Cholesterol [Mass/Vol] 150 mg/dL Normal 0 - 199 [facility] Comment on above: Result Comment: . AGE DESIRABLE BORDERLINE HIGH HIGH 0-19 Y 0 - 169 170 - 199 >/= 200 20-24 Y 0 - 189 190 - 224 >/= 225 >24 Y 0 - 199 200 - 239 >/= 240 All ranges are based on fasting samples. Specific therapeutic targets will vary based on patient-specific cardiac risk. . Pediatric guidelines reference:Pediatrics 2011, 128(S5). Adult guidelines reference: NCEP ATPIII Guidelines, MANDIE 2001, 258:2486-97 . Venipuncture immediately after or during the administration of Metamizole may lead to falsely low results. Testing should be performed immediately prior to Metamizole dosing. Performed By: #### L IPID #### [facility] [address] [place] [address] Cholesterol in HDL [Mass/Vol] 47.4 mg/dL Normal [facility] Comment on above: Result Comment: . AGE VERY LOW LOW NORMAL HIGH 0-19 Y < 35 < 40 40-45 ---- 20-24 Y ---- < 40 >45 ---- >24 Y ---- < 40 40-60 >60 . Performed By: #### L IPID #### [facility] [address] [place] [address] Cholesterol in LDL [Mass/Vol] 82 mg/dL Normal 0 - 99 [facility] Comment on above: Result Comment: . NEAR BORD AGE DESIRABLE OPTIMAL HIGH HIGH VERY HIGH 0-19 Y 0 - 109 --- 110-129 >/= 130 ---- 20-24 Y 0 - 119 --- 120-159 >/= 160 ---- >24 Y 0 - 99 100-129 130-159 160-189 >/=190 . Performed By: #### L IPID #### [facility] [address] [place] [address] Cholesterol in VLDL [Mass/Vol] 21 mg/dL Normal 0 - 40 [facility] Comment on above: Performed By: #### L IPID #### [facility] [address] [place] [address] Cholesterol.total /Cholesterol in HDL [Mass ratio] 3.2 {ratio} Normal [facility] Comment on above: Result Comment: REF VALUES DESIRABLE < 3.4 HIGH RISK > 5.0 Performed By: #### L IPID #### [facility] [address] [place] [address] Triglyceride [Mass/Vol] 105 mg/dL Normal 0 - 149 [facility] Comment on above: Result Comment: . AGE DESIRABLE BORDERLINE HIGH HIGH VERY HIGH 0 D-90 D 19 - 174 ---- ---- ---- 91 D- 9 Y 0 - 74 75 - 99 >/= 100 ---- 10-19 Y 0 - 89 90 - 129 >/= 130 ---- 20-24 Y 0 - 114 115 - 149 >/= 150 ---- >24 Y 0 - 149 150 - 199 200- 499 >/= 500 . Venipuncture immediately after or during the administration of Metamizole may lead to falsely low results. Testing should be performed immediately prior to Metamizole dosing. Performed By: #### L IPID #### [facility] [address] [place] [address] Laboratory - Chemistry and C hemistry - challengeon 07-27-2021 Albumin BCP dye [Mass/Vol] 4.4 g/dL 3.4 - 5.0 [facility] Work Phone: ALP [Catalytic activity/Vol] 65 U/L 33 - 136 [facility] Work Phone: ALT With P-5'-P [Catalytic activity/Vol] 20 U/L 10 - 52 [facility] [facility] Work Phone: Comment on above: Patients treated wit h Sulfasalazine may generate falsely decreased results for ALT. Anion gap [Moles/Vol] 13 mmol/L 10 - 20 [facility] Work Phone: AST With P-5'-P [Catalytic activity/Vol] 20 U/L 9 - 39 [facility] Work Phone: Bilirubin [Mass/Vol] 0.9 mg/dL 0.0 - 1.2 [facility] Work Phone: Calcium [Mass/Vol] 9.4 mg/dL 8.6 - 10.6 [facility] Work Phone: Chloride [Moles/Vol] 108 mmol/L above high threshold 98 - 107 [facility] Work Phone: CO2 [Moles/Vol] 24 mmol/L 21 - 32 [facility] Work Phone: Creatinine [Mass/Vol] 0.90 mg/dL See Below [facility] Work Phone: Comment on above: Reference Range: 0.5 0 - 1.30 Glucose [Mass/Vol] 98 mg/dL 74 - 99 [facility] Work Phone: Potassium [Moles/Vol] 4.4 mmol/L 3.5 - 5.3 [facility] Work Phone: Protein [Mass/Vol] 7.2 g/dL 6.4 - 8.2 [facility] Work Phone: Sodium [Moles/Vol] 141 mmol/L 136 - 145 [facility] Work Phone: TSH Qn 1.20 m[IU]/L See Below [facility] Work Phone: Comment on above: Reference Range: 0.4 4 - 3.98 TSH testing is performed using different testing methodology at [facility] than at other [facility]. Direct result comparisons should only be made within the same method. Urea nitrogen [Mass/Vol] 22 mg/dL 6 - 23 [facility] Work Phone: Lipid Panelon 07-27-2021 Cholesterol [Mass/Vol] 150 mg/dL 0 - 199 [facility] Work Phone: Comment on above: . AGE DESIRABLE BORD SADAF HIGH HIGH 0-19 Y 0 - 169 170 - 199 >/= 200 20-24 Y 0 - 189 190 - 224 >/= 225 >24 Y 0 - 199 200 - 239 >/= 240 All ranges are based on fasting samples. Specific therapeutic targets will vary based on patient-specific cardiac risk.. Pediatric guidelines reference:Pediatrics 2011, 128(S5). Adult guidelines reference: NCEP ATPIII Guidelines, MANDIE 2001, 258:2486-97. Venipuncture immediately after or during the administration of Metamizole may lead to falsely low results. Testing should be performed immediately prior to Metamizole dosing. Cholesterol in HDL [Mass/Vol] 47.4 mg/dL [facility] Work Phone: Comment on above: . AGE VERY LOW LOW N ORMAL HIGH 0-19 Y < 35 < 40 40-45 ---- 20- 24 Y ---- < 40 >45 ---- >24 Y ---- < 40 40-60 >60. Cholesterol in LDL [Mass/Vol] 82 mg/dL 0 - 99 [facility] Work Phone: Comment on above: . NEAR BORD AGE BRITNI RABLE OPTIMAL HIGH HIGH VERY HIGH 0-19 Y 0 - 109 --- 110-129 >/= 130 ---- 20-24 Y 0 - 119 --- 120-159 >/= 160 ---- >24 Y 0 - 99 100-129 130-159 160-189 >/=190. Cholesterol.total /Cholesterol in HDL [Mass ratio] 3.2 {ratio} [facility] Work Phone: Comment on above: REF VALUESDESIRABLE < 3.4HIGH RISK > 5.0 Triglyceride [Mass/Vol] 105 mg/dL 0 - 149 [facility] Work Phone: Comment on above: . AGE DESIRABLE BORD SADAF HIGH HIGH VERY HIGH 0 D-90 D 19 - 174 ---- ---- ----91 D- 9 Y 0 - 74 75 - 99 >/= 100 ---- 10-19 Y 0 - 89 90 - 129 >/= 130 ---- 20-24 Y 0 - 114 115 - 149 >/= 150 ---- >24 Y 0 - 149 150 - 199 200- 499 >/= 500. Venipuncture immediately after or during the administration of Metamizole may lead to falsely low results. Testing should be performed immediately prior to Metamizole dosing. Lipid Panel 21 mg/dL 0 - 40 [facility] Work Phone: No Panel Informationon 07-27 >90 >90 [facility] Work Phone: Comment on above: CALCULATIONS OF BARRON MATED GFR ARE PERFORMED USING THE 2020 CKD-EPI STUDY REFIT EQUATION WITHOUT THE RACE VARIABLE FOR THE IDMS-TRACEABLE CREATININE METHODS.https://jasn.asnjournals.org/content//ASN.20 35753235 PROSTATE SPEC.AG,SCREENon PROSTATE SPEC.AG,SCREEN 1.00 ng/mL Normal 0.00 - 4.00 [facility] Comment on above: Result Comment: The FDA requires that the method used for PSA assay be reported to the physician. Values obtained with different assay methods must not be used interchangeably. This test was performed at [facility] using the Siemens Pharmacopeiall[employer]path PSA method, which is a sandwich immunoassay using chemiluminescence for quantitation. The assay is approved for measurement of prostate-specific antigen (PSA) in serum and may be used in conjunction with a digital rectal examination in men 50 years and older as an aid in detection of prostate cancer. 6-Krcoy-gucztiazc inhibitors (e.g. Proscar, Finasteride, Avodart, Dutasteride and Em) for the treatment of BPH have been shown to lower PSA levels by an average of 50% after 6 months of treatment. Performed By: #### [facility] ####[id number] [place] [address] Prostate Spec.Ag, Screenon 0 07-27-2021 Prostate specific Ag [Mass/Vol] 1.00 ng/mL See Below [facility] Work Phone: Comment on above: Reference Range: 0.0 0 - 4.00The FDA requires that the method used for PSA assay be reported to the physician. Values obtained with different assay methods must not be used interchangeably. This test was performed at [facility] using the [place] PSA method, which is a sandwich immunoassay using chemiluminescence for quantitation. The assay is approvedfor measurement of prostate-specific antigen (PSA) in serum and may be used in conjunction with a digital rectalexamination in men 50 years and older as an aid in detection of prostate cancer. 3-Lqxyq-ugapgnyex inhibitors (e.g. Proscar, Finasteride, Avodart, Dutasteride and Em) for the treatment of BPH have been shown to lower PSA levels by an average of 50% after 6 months of treatment. TSH WITH REFLEX TO FREE T4 I F ABNORMALon 07-27-2021 TSH Qn 1.20 m[IU]/L Normal 0.44 - 3.98 [facility] Comment on above: Result Comment: TSH testing is performed using different testing methodology at [facility] than at other [facility]. Direct result comparisons should only be made within the same method. Performed By: #### T HYDS #### [facility] [address] [place] [address] CHEST 2 VIEW PA AND LATon CHEST 2 VIEW PA AND LAT STUDY: Chest Radiographs; 05/31/2021 1:14 PM INDICATION: Cough. COMPARISON: None available. ACCESSION NUMBER(S): [id number] ORDERING CLINICIAN: VALDO JOVEL MD TECHNIQUE: Frontal and lateral chest. FINDINGS: CARDIOMEDIASTINAL SILHOUETTE: Cardiomediastinal silhouette is normal in size and configuration. Vascular calcifications are identified. LUNGS: There is bibasilar dependent atelectasis. ABDOMEN: No remarkable upper abdominal findings. BONES: No acute osseous changes. IMPRESSION: Bibasilar dependent atelectasis is seen. Signed by Debora Denton MD Electronically signed by: DEBORA DENTON MD Normal [facility] Office Visit (Family Medicin e)on 05-31-2021 Follow-up visit Diagnoses/Problems Cough (786.2) (R05.9) Acute bronchitis (466.0) (J20.9) Class 1 obesity with body mass index (BMI) of 34.0 to 34.9 in adult (278.00,V85.34) (E66.9,Z68.34) Orders Acute bronchitis Start: Azithromycin 250 MG Oral Tablet; TAKE 2 TABLETS ON DAY 1 THEN TAKE 1 TABLET A DAY FOR 4 DAYS Start: Symbicort 160-4.5 MCG/ACT Inhalation Aerosol; INHALE 2 PUFFS TWICE DAILY. RINSE MOUTH AFTER USE Cough Xray Chest 2 View PA + Lateral; Status:Canceled; Radiologist to Determine Optimal Study : Y What are the patient's signs and symptoms? : cough Patient Discussion/Summary Discussed getting a chest x-ray to rule out pneumonia. Will start him on a Z-Juan Miguel and Symbicort. By signing my name below, I, Nicolle Armentaibe, attest that this documentation has been prepared under the direction and in the presence of Dr. July Jovel MD. All medical record entries made by the Scribe were at my direction and personally dictated by me. I have reviewed the chart and agree that the record accurately reflects my personal performance of the history, physical exam, discussion and plan. History of Present Illness EP. Here for cough with thick yellow phlegm,congestion and some sob. -His symptoms started 3-4 days ago. -Patient says he is coughing very bad and bringing up thick yellow phelgm. -He reports he is unable to sleep at night due to the cough. -The sickness started as head cold. Similar sickness back in February but only lasted a couple days. -Patient complains of some wheezing and dyspnea. Did have a sore throat but no longer does now. -He states no body aches, no fever, no headache, no ear pain. -Has an upcoming colonoscopy. -Since onset he has been using his albuterol inhaler a lot more than he has before. In the past he did use Symbicort. Review of Systems General: no fever or night sweats, no change in weight Eyes: no vision disturbance ENT: Positive sputum production, no hearing loss, no hoarseness, no mouth lesions, no sore throat, and no dysphagia CV: no chest pain, no palpitations, no lower extremity edema Resp: positive shortness of breath, cough, congestion, and wheezing GI: no abdominal pain, no change in bowel habits : no urinary problems MSK: no arthralgias, myalgias, or back pain Skin: no rashes or new/changed skin lesions Neuro: no headache, no difficulty walking Active Problems Abdominal pain (789.00) (R10.9) Abdominal pain, epigastric (789.06) (R10.13) Acute bronchitis (466.0) (J20.9) Acute pharyngitis (462) (J02.9) Acute sinusitis (461.9) (J01.90) Community acquired pneumonia (486) (J18.9) Cough (786.2) (R05.9) COVID (079.89) (U07.1) Elevated blood pressure reading without diagnosis of hypertension (796.2) (R03.0) Hip pain (719.45) (M25.559) HTN (hypertension) (401.9) (I10) Hyperlipidemia (272.4) (E78.5) Low back pain (724.2) (M54.50) Need for influenza vaccination (V04.81) (Z23) Post-viral cough syndrome (786.2) (R05.8) Prostate cancer screening (V76.44) (Z12.5) Reactive airway disease (493.90) (J45.909) Shoulder pain (719.41) (M25.519) Skin lesion (709.9) (L98.9) Vomiting (787.03) (R11.10) Allergies No Known Allergies Recorded By: Daphnie Nina; 05/03/2012 9:47:16 AM Current Meds Medication NameInstructionReason Ventolin HFA 108 (90 Base) MCG/ACT Inhalation Aerosol SolutionINHALE 2 PUFFS EVERY 4 TO 6 HOURS NEEDEDCough Enalapril Maleate 20 MG Oral TabletTAKE 1 TABLET DAILY DIRECTED.HTN (hypertension) Atorvastatin Calcium 20 MG Oral TabletTAKE 1 TABLET DAILY.Hyperlipidemia Vitals Vital Signs Recorded: 31May2021 11:54AM Izuaubacaxz18.5 F Wrngbnst025 Rbaptlfck50 Eeywqf174 lb BMI Fnqqvlghxa90.3 kg/m2 BSA Calculated2.1 Tobacco Useb) No PHQ-2 #1. Over the last 2 weeks have you felt down, depressed or hopeless? (If yes, answer PHQ-9 below)No PHQ-2 #2. Over the last 2 weeks have you felt little interest or pleasure in doing things? (If yes, answer PHQ-9 below)No Fall Screeninga) No falls within the last year Physical Exam Genl: Mildly ill appearing HEENT: Conj and sclera clear. EACs and TMs clear. Normal nares. Oropharynx clear. Neck: supple, no LAD CVS RRR, no murmurs Resp + wheezing throughout 'Scores and Scales' Signatures Electronically signed by : July Jovel MD; May 31 2021 3:30PM EST (Author) Normal [facility] 05-31-2021 XR Chest 2 Views FINAL REPORT Interpreted by: DEBORA DENTON NARINDER, MD 05/31/21 13:39 STUDY: Chest Radiographs; 05/31/2021 1:14 PM INDICATION: Cough. COMPARISON: None available. ACCESSION NUMBER(S): [id number] ORDERING CLINICIAN: VALDO JOVEL MD TECHNIQUE Normal [facility] Work Phone: Tobacco Screening.on 022 Adult depression screening assessment No [facility] Work Phone: Fall risk assessment a) No falls within the last year [facility] Work Phone: Tobacco use status CP b) No [facility] Work Phone: Office Visit (Family Medicin e)on 03-01-2021 Follow-up visit Diagnoses/Problems COVID (079.89) (U07.1) Patient Discussion/Summary Will attempt to get monoclonal antibodies for patient; he is to call if he starts coughing more or becomes more short of breath, continue to use albuterol nebulizer/inhaler prn History of Present Illness felt ill before , tested negative COVID, got better then on February 25 felt ill again, felt bad on and and went to [facility], was wheezing some, had breathing treatment, was did some walking outside today and did ok with this, slight wheezing has nebulizer and has albuterol solution which seems to help feeling pretty good not coughing a lot and not short of breath sees Dr. Lawton (programmer engineering and scientific) for allergies and asthma- h/o allergic rhinitis and receives allergen immunotherapy and h/o moderate persistent asthma - is prescribed Trelegy 200 one inhalation daily Active Problems Abdominal pain (789.00) (R10.9) Abdominal pain, epigastric (789.06) (R10.13) Acute bronchitis (466.0) (J20.9) Acute pharyngitis (462) (J02.9) Acute sinusitis (461.9) (J01.90) Community acquired pneumonia (486) (J18.9) Cough (786.2) (R05.9) Elevated blood pressure reading without diagnosis of hypertension (796.2) (R03.0) Hip pain (719.45) (M25.559) HTN (hypertension) (401.9) (I10) Hyperlipidemia (272.4) (E78.5) Low back pain (724.2) (M54.50) Need for influenza vaccination (V04.81) (Z23) Post-viral cough syndrome (786.2) (R05.8) Prostate cancer screening (V76.44) (Z12.5) Reactive airway disease (493.90) (J45.909) Shoulder pain (719.41) (M25.519) Skin lesion (709.9) (L98.9) Vomiting (787.03) (R11.10) Allergies No Known Allergies Recorded By: Daphnie Nina; 05/03/2012 9:47:16 AM Current Meds Medication NameInstructionReason Ventolin HFA 108 (90 Base) MCG/ACT Inhalation Aerosol SolutionINHALE 2 PUFFS EVERY 4 TO 6 HOURS NEEDEDCough Enalapril Maleate 20 MG Oral TabletTAKE 1 TABLET DAILY DIRECTED.HTN (hypertension) Atorvastatin Calcium 20 MG Oral TabletTAKE 1 TABLET DAILY.Hyperlipidemia 'Scores and Scales' Signatures Electronically signed by : July Jovel MD; Mar 23 2021 9:37PM EST (Author) Normal [facility] Tobacco Screening.on 021 Tobacco use status CPHS b) No -[place] [facility] Work Phone: Complete Blood Count + Megan yates 12-28-2020 Basophils/100 WBC (Bld) 0.4 % 0.0 - 2.0 [facility] Work Phone: Erythrocyte distribution width (RBC) [Ratio] 13.3 % See Below [facility] Work Phone: Comment on above: Reference Range: 11. 5 - 14.5 Hematocrit (Bld) [Volume fraction] 43.7 % See Below [facility] Work Phone: Comment on above: Reference Range: 41. 0 - 52.0 Hemoglobin (Bld) [Mass/Vol] 14.1 g/dL See Below [facility] Work Phone: Comment on above: Reference Range: 13. 5 - 17.5 Lymphocytes/100 WBC (Bld) 20.2 % See Below [facility] Work Phone: Comment on above: Reference Range: 13. 0 - 44.0 MCHC (RBC) [Mass/Vol] 32.3 g/dL See Below [facility] Work Phone: Comment on above: Reference Range: 32. 0 - 36.0 MCV (RBC) [Entitic vol] 89 fL 80 - 100 [facility] Work Phone: Monocytes/100 WBC (Bld) 10.9 % 2.0 - 10.0 [facility] Work Phone: Neutrophils/100 WBC (Bld) 65.0 % See Below [facility] Work Phone: Comment on above: Reference Range: 40. 0 - 80.0 Platelets (Bld) [#/Vol] 180 10*3/uL 150 - 450 [facility] Work Phone: RBC (Bld) [#/Vol] 4.91 {x10E12/L} See Below [facility] Work Phone: Comment on above: Reference Range: 4.5 0 - 5.90 WBC (Bld) [#/Vol] 7.1 10*3/uL 4.4 - 11.3 [facility] Work Phone: Complete Blood Count + Differential 0.03 {x10E9/L} See Below [facility] Work Phone: Comment on above: Reference Range: 0.0 0 - 0.10 Complete Blood Count + Differential 0.24 {x10E9/L} See Below [facility] Work Phone: Comment on above: Reference Range: 0.0 0 - 0.70 Complete Blood Count + Differential 0.77 {x10E9/L} See Below [facility] Work Phone: Comment on above: Reference Range: 0.1 0 - 1.00 Complete Blood Count + Differential 1.43 {x10E9/L} See Below [facility] Work Phone: Comment on above: Reference Range: 1.2 0 - 4.80 Complete Blood Count + Differential 4.61 {x10E9/L} See Below [facility] Work Phone: Comment on above: Reference Range: 1.2 0 - 7.70 Complete Blood Count + Differential 3.4 % 0.0 - 6.0 [facility] Work Phone: Complete Blood Count + Differential 0.1 % 0.0 - 0.9 [facility] Work Phone: Comment on above: Immature Granulocyte Count (IG) includes promyelocytes, myelocytes and metamyelocytes but does not include bands. Percent differential counts (%) should be interpreted in the context of the absolute cell counts (cells/L). Complete Blood Count + Differential 0.0 {/100_WBC} 0.0-0.0 [facility] Work Phone: Laboratory - Chemistry and C hemistry - challengeon 12-28-2020 Albumin BCP dye [Mass/Vol] 4.7 g/dL 3.4 - 5.0 [facility] Work Phone: ALP [Catalytic activity/Vol] 67 U/L 33 - 136 [facility] Work Phone: ALT With P-5'-P [Catalytic activity/Vol] 22 U/L 10 - 52 [facility] Work Phone: Comment on above: Patients treated wit h Sulfasalazine may generate falsely decreased results for ALT. Anion gap [Moles/Vol] 13 mmol/L 10 - 20 [facility] Work Phone: AST With P-5'-P [Catalytic activity/Vol] 18 U/L 9 - 39 [facility] Work Phone: Bilirubin [Mass/Vol] 0.7 mg/dL 0.0 - 1.2 [facility] Work Phone: Calcium [Mass/Vol] 9.6 mg/dL 8.6 - 10.6 [facility] Work Phone: Chloride [Moles/Vol] 109 mmol/L above high threshold 98 - 107 [facility] Work Phone: CO2 [Moles/Vol] 27 mmol/L 21 - 32 [facility] Work Phone: Creatinine [Mass/Vol] 0.99 mg/dL See Below [facility] Work Phone: Comment on above: Reference Range: 0.5 0 - 1.30 Glucose [Mass/Vol] 85 mg/dL 74 - 99 [facility] Work Phone: Potassium [Moles/Vol] 4.6 mmol/L 3.5 - 5.3 [facility] Work Phone: Protein [Mass/Vol] 7.0 g/dL 6.4 - 8.2 [facility] Work Phone: Sodium [Moles/Vol] 144 mmol/L 136 - 145 [facility] Work Phone: Urea nitrogen [Mass/Vol] 26 mg/dL above high threshold 6 - 23 [facility] Work Phone: Lipid Panelon 12-28-2020 Cholesterol [Mass/Vol] 185 mg/dL 0 - 199 [facility] Work Phone: Comment on above: . AGE DESIRABLE BORD SADAF HIGH HIGH 0-19 Y 0 - 169 170 - 199 >/= 200 20-24 Y 0 - 189 190 - 224 >/= 225 >24 Y 0 - 199 200 - 239 >/= 240 All ranges are based on fasting samples. Specific therapeutic targets will vary based on patient-specific cardiac risk.. Pediatric guidelines reference:Pediatrics 2011, 128(S5). Adult guidelines reference: NCEP ATPIII Guidelines, MANDIE 2001, 258:0726-97. Venipuncture immediately after or during the administration of Metamizole may lead to falsely low results. Testing should be performed immediately prior to Metamizole dosing. Cholesterol in HDL [Mass/Vol] 56.1 mg/dL [facility] Work Phone: Comment on above: . AGE VERY LOW LOW N ORMAL HIGH 0-19 Y < 35 < 40 40-45 ---- 20- 24 Y ---- < 40 >45 ---- >24 Y ---- < 40 40-60 >60. Cholesterol in LDL [Mass/Vol] 113 mg/dL above high threshold 0 - 99 [facility] Work Phone: Comment on above: . NEAR BORD AGE BRITNI RABLE OPTIMAL HIGH HIGH VERY HIGH 0-19 Y 0 - 109 --- 110-129 >/= 130 ---- 20-24 Y 0 - 119 --- 120-159 >/= 160 ---- >24 Y 0 - 99 100-129 130-159 160-189 >/=190. Cholesterol.total /Cholesterol in HDL [Mass ratio] 3.3 {ratio} [facility] Work Phone: Comment on above: REF VALUESDESIRABLE < 3.4HIGH RISK > 5.0 Triglyceride [Mass/Vol] 82 mg/dL 0 - 149 [facility] Work Phone: Comment on above: . AGE DESIRABLE BORD SADAF HIGH HIGH VERY HIGH 0 D-90 D 19 - 174 ---- ---- ----91 D- 9 Y 0 - 74 75 - 99 >/= 100 ---- 10-19 Y 0 - 89 90 - 129 >/= 130 ---- 20-24 Y 0 - 114 115 - 149 >/= 150 ---- >24 Y 0 - 149 150 - 199 200- 499 >/= 500. Venipuncture immediately after or during the administration of Metamizole may lead to falsely low results. Testing should be performed immediately prior to Metamizole dosing. Lipid Panel 16 mg/dL 0 - 40 [facility] Work Phone: No Panel Informationon 12-28 >60 >60 [facility] Work Phone: Comment on above: CALCULATIONS OF BARRON MATED GFR ARE PERFORMED USING THE MDRD STUDY EQUATION FOR THE IDMS-TRACEABLE CREATININE METHODS. CLIN CHEM 2007;53:766-72 Tobacco Screening.on 021 Fall risk assessment a) No falls within the last year [facility] Work Phone: Tobacco use status CP b) No [facility] Work Phone: Complete Blood Count + Diffe rentialon 07-26-2020 Basophils/100 WBC (Bld) 0.5 % 0.0 - 2.0 [facility] Work Phone: Erythrocyte distribution width (RBC) [Ratio] 13.8 % See Below [facility] Work Phone: Comment on above: Reference Range: 11. 5 - 14.5 Hematocrit (Bld) [Volume fraction] 42.6 % See Below [facility] Work Phone: Comment on above: Reference Range: 41. 0 - 52.0 Hemoglobin (Bld) [Mass/Vol] 13.8 g/dL See Below [facility] Work Phone: Comment on above: Reference Range: 13. 5 - 17.5 Lymphocytes/100 WBC (Bld) 20.5 % See Below [facility] Work Phone: Comment on above: Reference Range: 13. 0 - 44.0 MCHC (RBC) [Mass/Vol] 32.4 g/dL See Below [facility] Work Phone: Comment on above: Reference Range: 32. 0 - 36.0 MCV (RBC) [Entitic vol] 89 fL 80 - 100 [facility] Work Phone: Monocytes/100 WBC (Bld) 10.9 % 2.0 - 10.0 [facility] Work Phone: Neutrophils/100 WBC (Bld) 62.9 % See Below [facility] Work Phone: Comment on above: Reference Range: 40. 0 - 80.0 Platelets (Bld) [#/Vol] 169 10*3/uL 150 - 450 [facility] Work Phone: RBC (Bld) [#/Vol] 4.77 {x10E12/L} See Below [facility] Work Phone: Comment on above: Reference Range: 4.5 0 - 5.90 WBC (Bld) [#/Vol] 6.5 10*3/uL 4.4 - 11.3 [facility] Work Phone: Complete Blood Count + Differential 0.03 {x10E9/L} See Below [facility] Work Phone: Comment on above: Reference Range: 0.0 0 - 0.10 Complete Blood Count + Differential 0.32 {x10E9/L} See Below [facility] Work Phone: Comment on above: Reference Range: 0.0 0 - 0.70 Complete Blood Count + Differential 0.70 {x10E9/L} See Below [facility] Work Phone: Comment on above: Reference Range: 0.1 0 - 1.00 Complete Blood Count + Differential 1.32 {x10E9/L} See Below [facility] Work Phone: Comment on above: Reference Range: 1.2 0 - 4.80 Complete Blood Count + Differential 4.07 {x10E9/L} See Below [facility] Work Phone: Comment on above: Reference Range: 1.2 0 - 7.70 Complete Blood Count + Differential 5.0 % 0.0 - 6.0 [facility] Work Phone: Complete Blood Count + Differential 0.2 % 0.0 - 0.9 [facility] Work Phone: Comment on above: Immature Granulocyte Count (IG) includes promyelocytes, myelocytes and metamyelocytes but does not include bands. Percent differential counts (%) should be interpreted in the context of the absolute cell counts (cells/L). Complete Blood Count + Differential 0.0 {/100_WBC} 0.0-0.0 [facility] Work Phone: Laboratory - Chemistry and C hemistry - challengeon 07-26-2020 Albumin BCP dye [Mass/Vol] 4.4 g/dL 3.4 - 5.0 [facility] Work Phone: ALP [Catalytic activity/Vol] 59 U/L 33 - 136 [facility] Work Phone: ALT With P-5'-P [Catalytic activity/Vol] 25 U/L 10 - 52 [facility] Work Phone: Comment on above: Patients treated wit h Sulfasalazine may generate falsely decreased results for ALT. Anion gap [Moles/Vol] 10 mmol/L 10 - 20 [facility] Work Phone: AST With P-5'-P [Catalytic activity/Vol] 20 U/L 9 - 39 [facility] Work Phone: Bilirubin [Mass/Vol] 0.6 mg/dL 0.0 - 1.2 [facility] Work Phone: Calcium [Mass/Vol] 9.6 mg/dL 8.6 - 10.6 [facility] Work Phone: Chloride [Moles/Vol] 107 mmol/L 98 - 107 [facility] Work Phone: CO2 [Moles/Vol] 28 mmol/L 21 - 32 [facility] Work Phone: Creatinine [Mass/Vol] 0.87 mg/dL See Below [facility] Work Phone: Comment on above: Reference Range: 0.5 0 - 1.30 Glucose [Mass/Vol] 97 mg/dL 74 - 99 [facility] Work Phone: Potassium [Moles/Vol] 4.8 mmol/L 3.5 - 5.3 [facility] Work Phone: Protein [Mass/Vol] 6.7 g/dL 6.4 - 8.2 [facility] Work Phone: Sodium [Moles/Vol] 140 mmol/L 136 - 145 [facility] Work Phone: TSH Qn 1.71 m[IU]/L See Below [facility] Work Phone: Comment on above: Reference Range: 0.4 4 - 3.98 TSH testing is performed using different testing methodology at [facility] than at other [facility]. Direct result comparisons should only be made within the same method. Urea nitrogen [Mass/Vol] 18 mg/dL 6 - 23 [facility] Work Phone: Lipid Panelon 07-26-2020 Cholesterol [Mass/Vol] 177 mg/dL 0 - 199 [facility] Work Phone: Comment on above: . AGE DESIRABLE BORD SADAF HIGH HIGH 0-19 Y 0 - 169 170 - 199 >/= 200 20-24 Y 0 - 189 190 - 224 >/= 225 >24 Y 0 - 199 200 - 239 >/= 240 All ranges are based on fasting samples. Specific therapeutic targets will vary based on patient-specific cardiac risk.. Pediatric guidelines reference:Pediatrics 2011, 128(S5). Adult guidelines reference: NCEP ATPIII Guidelines, MANDIE 2001, 258:2486-97. Venipuncture immediately after or during the administration of Metamizole may lead to falsely low results. Testing should be performed immediately prior to Metamizole dosing. Cholesterol in HDL [Mass/Vol] 51.4 mg/dL [facility] Work Phone: Comment on above: . AGE VERY LOW LOW N ORMAL HIGH 0-19 Y < 35 < 40 40-45 ---- 20- 24 Y ---- < 40 >45 ---- >24 Y ---- < 40 40-60 >60. Cholesterol in LDL [Mass/Vol] 95 mg/dL 0 - 99 [facility] Work Phone: Comment on above: . NEAR BORD AGE BRITNI RABLE OPTIMAL HIGH HIGH VERY HIGH 0-19 Y 0 - 109 --- 110-129 >/= 130 ---- 20-24 Y 0 - 119 --- 120-159 >/= 160 ---- >24 Y 0 - 99 100-129 130-159 160-189 >/=190. Cholesterol.total /Cholesterol in HDL [Mass ratio] 3.4 {ratio} [facility] Work Phone: Comment on above: REF VALUESDESIRABLE < 3.4HIGH RISK > 5.0 Triglyceride [Mass/Vol] 152 mg/dL above high threshold 0 - 149 [facility] Work Phone: Comment on above: . AGE DESIRABLE BORD SADAF HIGH HIGH VERY HIGH 0 D-90 D 19 - 174 ---- ---- ----91 D- 9 Y 0 - 74 75 - 99 >/= 100 ---- 10-19 Y 0 - 89 90 - 129 >/= 130 ---- 20-24 Y 0 - 114 115 - 149 >/= 150 ---- >24 Y 0 - 149 150 - 199 200- 499 >/= 500. Venipuncture immediately after or during the administration of Metamizole may lead to falsely low results. Testing should be performed immediately prior to Metamizole dosing. Lipid Panel 30 mg/dL 0 - 40 [facility] Work Phone: No Panel Informationon 07-26 >60 >60 [facility] Work Phone: Comment on above: CALCULATIONS OF BARRON MATED GFR ARE PERFORMED USING THE MDRD STUDY EQUATION FOR THE IDMS-TRACEABLE CREATININE METHODS. CLIN CHEM 2007;53:766-72 Prostate Spec.Ag, Screenon 0 07-26-2020 Prostate specific Ag [Mass/Vol] 0.80 ng/mL See Below [facility] Work Phone: Comment on above: Reference Range: 0.0 0 - 4.00The FDA requires that the method used for PSA assay be reported to the physician. Values obtained with different assay methods must not be used interchangeably. This test was performed at [facility] using the [place] PSA method, which is a sandwich immunoassay using chemiluminescence for quantitation. The assay is approvedfor measurement of prostate-specific antigen (PSA) in serum and may be used in conjunction with a digital rectalexamination in men 50 years and older as an aid in detection of prostate cancer. 4-Qyeun-nquojoupx inhibitors (e.g. Proscar, Finasteride, Avodart, Dutasteride and Em) for the treatment of BPH have been shown to lower PSA levels by an average of 50% after 6 months of treatment. Lipid Panelon 01-26-2020 Cholesterol [Mass/Vol] 164 mg/dL 0 - 199 [facility] Work Phone: Comment on above: . AGE DESIRABLE BORD SADAF HIGH HIGH 0-19 Y 0 - 169 170 - 199 >/= 200 20-24 Y 0 - 189 190 - 224 >/= 225 >24 Y 0 - 199 200 - 239 >/= 240 All ranges are based on fasting samples. Specific therapeutic targets will vary based on patient-specific cardiac risk.. Pediatric guidelines reference:Pediatrics 2011, 128(S5). Adult guidelines reference: NCEP ATPIII Guidelines, MANDIE 2001, 258:2486-97. Venipuncture immediately after or during the administration of Metamizole may lead to falsely low results. Testing should be performed immediately prior to Metamizole dosing. Cholesterol in HDL [Mass/Vol] 47.3 mg/dL [facility] Work Phone: Comment on above: . AGE VERY LOW LOW N ORMAL HIGH 0-19 Y < 35 < 40 40-45 ---- 20- 24 Y ---- < 40 >45 ---- >24 Y ---- < 40 40-60 >60. Cholesterol in LDL [Mass/Vol] 85 mg/dL 0 - 99 [facility] Work Phone: Comment on above: . NEAR BORD AGE BRITNI RABLE OPTIMAL HIGH HIGH VERY HIGH 0-19 Y 0 - 109 --- 110-129 >/= 130 ---- 20-24 Y 0 - 119 --- 120-159 >/= 160 ---- >24 Y 0 - 99 100-129 130-159 160-189 >/=190. Cholesterol.total /Cholesterol in HDL [Mass ratio] 3.5 {ratio} [facility] Work Phone: Comment on above: REF VALUESDESIRABLE < 3.4HIGH RISK > 5.0 Triglyceride [Mass/Vol] 158 mg/dL above high threshold 0 - 149 [facility] Work Phone: Comment on above: . AGE DESIRABLE BORD SADAF HIGH HIGH VERY HIGH 0 D-90 D 19 - 174 ---- ---- ----91 D- 9 Y 0 - 74 75 - 99 >/= 100 ---- 10-19 Y 0 - 89 90 - 129 >/= 130 ---- 20-24 Y 0 - 114 115 - 149 >/= 150 ---- >24 Y 0 - 149 150 - 199 200- 499 >/= 500. Venipuncture immediately after or during the administration of Metamizole may lead to falsely low results. Testing should be performed immediately prior to Metamizole dosing. Lipid Panel 32 mg/dL 0 - 40 [facility] Work Phone: Metabolic Panelon 01-26-2020 ALP [Catalytic activity/Vol] 60 U/L 33 - 136 [facility] Work Phone: Anion gap [Moles/Vol] 12 mmol/L 10 - 20 [facility] Work Phone: Bilirubin [Mass/Vol] 0.6 mg/dL 0.0 - 1.2 [facility] Work Phone: Calcium [Mass/Vol] 10.1 mg/dL 8.6 - 10.6 [facility]ician [facility] Work Phone: Chloride [Moles/Vol] 105 mmol/L 98 - 107 [facility] Work Phone: CO2 [Moles/Vol] 28 mmol/L 21 - 32 [facility] Work Phone: Creatinine [Mass/Vol] 0.84 mg/dL See Below [facility] Physician [facility] Work Phone: Comment on above: Reference Range: 0.5 0 - 1.30 Glucose [Mass/Vol] 92 mg/dL 74 - 99 [facility] Work Phone: Potassium [Moles/Vol] 5.0 mmol/L 3.5 - 5.3 [facility] Work Phone: Protein [Mass/Vol] 6.9 g/dL 6.4 - 8.2 [facility] Work Phone: Sodium [Moles/Vol] 140 mmol/L 136 - 145 [facility] Work Phone: Urea nitrogen [Mass/Vol] 18 mg/dL 6 - 23 [facility] Work Phone: Otheron 01-26-2020 Albumin BCP dye [Mass/Vol] 4.5 g/dL 3.4 - 5.0 [facility] Work Phone: ALT With P-5'-P [Catalytic activity/Vol] 21 U/L 10 - 52 [facility] Work Phone: Comment on above: Patients treated wit h Sulfasalazine may generate falsely decreased results for ALT. AST With P-5'-P [Catalytic activity/Vol] 16 U/L 9 - 39 [facility] Work Phone: >60 >60 [facility] Work Phone: Comment on above: CALCULATIONS OF BARRON MATED GFR ARE PERFORMED USING THE MDRD STUDY EQUATION FOR THE IDMS-TRACEABLE CREATININE METHODS. CLIN CHEM 2007;53:766-72 Lipid Panelon 10-29-2018 Cholesterol [Mass/Vol] 169 mg/dL 0 - 199 [facility] Work Phone: Comment on above: . AGE DESIRABLE BORD SADAF HIGH HIGH 0-19 Y 0 - 169 170 - 199 >/= 200 20-24 Y 0 - 189 190 - 224 >/= 225 >24 Y 0 - 199 200 - 239 >/= 240 All ranges are based on fasting samples. Specific therapeutic targets will vary based on patient-specific cardiac risk.. Pediatric guidelines reference:Pediatrics 2011, 128(S5). Adult guidelines reference: NCEP ATPIII Guidelines, MANDIE 2001, 258:2486-97. Venipuncture immediately after or during the administration of Metamizole may lead to falsely low results. Testing should be performed immediately prior to Metamizole dosing. Cholesterol in HDL [Mass/Vol] 45.1 mg/dL [facility] Work Phone: Comment on above: . AGE VERY LOW LOW N ORMAL HIGH 0-19 Y < 35 < 40 40-45 ---- 20- 24 Y ---- < 40 >45 ---- >24 Y ---- < 40 40-60 >60. Cholesterol in LDL [Mass/Vol] 95 mg/dL 0 - 99 [facility] Work Phone: Comment on above: . NEAR BORD AGE BRITNI RABLE OPTIMAL HIGH HIGH VERY HIGH 0-19 Y 0 - 109 --- 110-129 >/= 130 ---- 20-24 Y 0 - 119 --- 120-159 >/= 160 ---- >24 Y 0 - 99 100-129 130-159 160-189 >/=190. Cholesterol.total /Cholesterol in HDL [Mass ratio] 3.7 {ratio} [facility] Work Phone: Comment on above: REF VALUESDESIRABLE < 3.4HIGH RISK > 5.0 Triglyceride [Mass/Vol] 144 mg/dL 0 - 149 [facility] Work Phone: Comment on above: . AGE DESIRABLE BORD SADAF HIGH HIGH VERY HIGH 0 D-90 D 19 - 174 ---- ---- ----91 D- 9 Y 0 - 74 75 - 99 >/= 100 ---- 10-19 Y 0 - 89 90 - 129 >/= 130 ---- 20-24 Y 0 - 114 115 - 149 >/= 150 ---- >24 Y 0 - 149 150 - 199 200- 499 >/= 500. Venipuncture immediately after or during the administration of Metamizole may lead to falsely low results. Testing should be performed immediately prior to Metamizole dosing. Lipid Panel 29 mg/dL 0 - 40 [facility] Work Phone: Metabolic Panelon 10-29-2018 ALP [Catalytic activity/Vol] 54 U/L 33 - 136 [facility] Work Phone: Anion gap [Moles/Vol] 12 mmol/L 10 - 20 [facility] Work Phone: Bilirubin [Mass/Vol] 0.6 mg/dL 0.0 - 1.2 [facility] Work Phone: Calcium [Mass/Vol] 10.0 mg/dL 8.6 - 10.6 [facility] Work Phone: Chloride [Moles/Vol] 107 mmol/L 98 - 107 [facility] Work Phone: CO2 [Moles/Vol] 27 mmol/L 21 - 32 [facility] Work Phone: Creatinine [Mass/Vol] 0.97 mg/dL See Below [facility] Work Phone: Comment on above: Reference Range: 0.5 0 - 1.30 Glucose [Mass/Vol] 90 mg/dL 74 - 99 [facility] Work Phone: Potassium [Moles/Vol] 4.8 mmol/L 3.5 - 5.3 [facility] Work Phone: Protein [Mass/Vol] 7.2 g/dL 6.4 - 8.2 [facility] Work Phone: Sodium [Moles/Vol] 141 mmol/L 136 - 145 [facility] Work Phone: Urea nitrogen [Mass/Vol] 17 mg/dL 6 - 23 [facility] Work Phone: Otheron 10-29-2018 Albumin BCP dye [Mass/Vol] 4.5 g/dL 3.4 - 5.0 [facility] Work Phone: ALT With P-5'-P [Catalytic activity/Vol] 17 U/L 10 - 52 [facility] Work Phone: Comment on above: Patients treated wit h Sulfasalazine may generate falsely decreased results for ALT. AST With P-5'-P [Catalytic activity/Vol] 15 U/L 9 - 39 [facility] Work Phone: >60 >60 [facility] Work Phone: Comment on above: CALCULATIONS OF BARRON MATED GFR ARE PERFORMED USING THE MDRD STUDY EQUATION FOR THE IDMS-TRACEABLE CREATININE METHODS. CLIN CHEM 2007;53:766-72 IO Rapid Strepon 07-30-2018 S. pyogenes Ag Ql (Throat) Negative Negative [facility] Work Phone: Otheron 07-30-2018 XR Chest 2 views Interpreted by: GERI CIFUENTES07/30/18 16:36MRN: [id number] Name: RORY FELICIANO STUDY:CHEST 2 VIEW PA AND LAT; 07/30/2018 3:50 pm INDICATION:cough. COMPARISON:11/27/2017 ORDERING CLINICIAN:VALDO JOVEL TECHNIQUE: FINDINGS:The heart is normal in size. There is no obvious consolidation or pleural fluid. There are calcified hilar granulomas. There are calcified parenchymalgranulomas. Mediastinum is unremarkable. There are degenerative changes of thespine. COMPARISON OF FINDING:The chest is similar. IMPRESSION:No acute cardiopulmonary disease. Electronically signed by: ALESSANDRA CIFUENTES 07/30/18 16:36 Normal [facility] Work Phone: Vital Signs Date Time Vital Sign Value Performing Clinician Facility 12-09-2024 09:45-0400 Body height 168.2 cm Loreambrosio Kidd-Leti SINGLE WIRE SAW OPERATOR-DEPOSIT REFUND CLERK Work Phone: [facility] 12-09-2024 09:45-0400 Body mass index (BMI) [Ratio] 35.11 kg/m2 Lore Kidd-Leti SINGLE WIRE SAW OPERATOR-DEPOSIT REFUND CLERK Work Phone: [facility] 12-09-2024 09:45-0400 Body temperature 98.2 [degF] Lore Kidd-Leti SINGLE WIRE SAW OPERATOR-DEPOSIT REFUND CLERK Work Phone: [facility] 12-09-2024 09:45-0400 Body weight 99.34 kg Lore Kidd-Leti SINGLE WIRE SAW OPERATOR-DEPOSIT REFUND CLERK Work Phone: [facility] 12-09-2024 09:45-0400 Diastolic blood pressure 82 mm[Hg] Lore Kidd-Leti SINGLE WIRE SAW OPERATOR-DEPOSIT REFUND CLERK Work Phone: [facility] 12-09-2024 09:45-0400 Heart rate 49 /min Lore Kidd-Leti SINGLE WIRE SAW OPERATOR-DEPOSIT REFUND CLERK Work Phone: [facility] 12-09-2024 09:45-0400 SaO2% (BldA) [Mass fraction] 96 % Lore Kidd-Leti SINGLE WIRE SAW OPERATOR-DEPOSIT REFUND CLERK Work Phone: [facility] 12-09-2024 09:45-0400 Systolic blood pressure 152 mm[Hg] Lore Kidd-Leti SINGLE WIRE SAW OPERATOR-DEPOSIT REFUND CLERK Work Phone: [facility] 08-07-2024 08:47-0400 Body height 168.2 cm July Jovel MD Work Phone: [facility] 08-07-2024 08:47-0400 Body mass index (BMI) [Ratio] 34.92 kg/m2 July Jovel MD Work Phone: [facility] 08-07-2024 08:47-0400 Body temperature 98.6 [degF] July Jovel MD Work Phone: [facility] 08-07-2024 08:47-0400 Body weight 98.79 kg July Jovel MD Work Phone: [facility] 08-07-2024 08:47-0400 Diastolic blood pressure 78 mm[Hg] July Jovel MD Work Phone: [facility] 08-07-2024 08:47-0400 Heart rate 62 /min July Jovel MD Work Phone: [facility] 08-07-2024 08:47-0400 Respiratory rate 18 /min July Jovel MD Work Phone: [facility] 08-07-2024 08:47-0400 SaO2% (BldA) [Mass fraction] 98 % July Jovel MD Work Phone: [facility] 08-07-2024 08:47-0400 Systolic blood pressure 128 mm[Hg] July Jovel MD Work Phone: [facility] 08-05-2024 09:11-0400 Body height 170.2 cm Sahara Mack DO Work Phone: [facility] 08-05-2024 09:11-0400 Body mass index (BMI) [Ratio] 34.3 kg/m2 Sahara Mack DO Work Phone: [facility] 08-05-2024 09:11-0400 Body temperature 98.2 [degF] Sahara Piasecki DO Work Phone: [facility] 08-05-2024 09:11-0400 Body weight 99.34 kg Sahara Piasecki DO Work Phone: [facility] 08-05-2024 09:11-0400 Diastolic blood pressure 75 mm[Hg] Sahara Piasecki DO Work Phone: [facility] 08-05-2024 09:11-0400 Heart rate 46 /min Sahara Piasecki DO Work Phone: [facility] 08-05-2024 09:11-0400 SaO2% (BldA) [Mass fraction] 98 % Sahara Piasecki DO Work Phone: [facility] 08-05-2024 09:11-0400 Systolic blood pressure 146 mm[Hg] Sahara Piasecki DO Work Phone: [facility] 06-26-2024 16:01-0400 Body height 170.2 cm Sahara Piasecki DO Work Phone: [facility] 06-26-2024 16:01-0400 Body mass index (BMI) [Ratio] 33.89 kg/m2 Sahara Piasecki DO Work Phone: [facility] 06-26-2024 16:01-0400 Body weight 98.16 kg Sahara Piasecki DO Work Phone: [facility] 06-26-2024 16:01-0400 Diastolic blood pressure 81 mm[Hg] Sahara Piasecki DO Work Phone: [facility] 06-26-2024 16:01-0400 Heart rate 61 /min Sahara Piasecki DO Work Phone: [facility] 06-26-2024 16:01-0400 SaO2% (BldA) [Mass fraction] 97 % Sahara Piasecki DO Work Phone: [facility] 06-26-2024 16:01-0400 Systolic blood pressure 133 mm[Hg] Sahara Mack DO Work Phone: [facility] 06-19-2024 15:21-0400 Body height 170.2 cm July Jovel MD Work Phone: [facility] 06-19-2024 15:21-0400 Body mass index (BMI) [Ratio] 33.69 kg/m2 July Jovel MD Work Phone: [facility] 06-19-2024 15:21-0400 Body temperature 98.49 [degF] July Jovel MD Work Phone: [facility] 06-19-2024 15:21-0400 Body weight 97.57 kg July Jovel MD Work Phone: [facility] 06-19-2024 15:21-0400 Diastolic blood pressure 70 mm[Hg] July Jovel MD Work Phone: [facility] 06-19-2024 15:21-0400 Heart rate 60 /min July Jovel MD Work Phone: [facility] 06-19-2024 15:21-0400 Respiratory rate 18 /min July Jovel MD Work Phone: [facility] 06-19-2024 15:21-0400 SaO2% (BldA) [Mass fraction] 98 % July Jovel MD Work Phone: [facility] 06-19-2024 15:21-0400 Systolic blood pressure 132 mm[Hg] July Jovel MD Work Phone: [facility] 04-28-2024 08:13-0400 Body height 170.2 cm Sahara Mack DO Work Phone: [facility] 04-28-2024 08:13-0400 Body mass index (BMI) [Ratio] 33.71 kg/m2 Sahara Piasecki DO Work Phone: [facility] 04-28-2024 08:13-0400 Body temperature 98.01 [degF] Sahara Piasecki DO Work Phone: [facility] 04-28-2024 08:13-0400 Body weight 97.61 kg Sahara Zoeycki DO Work Phone: [facility] 04-28-2024 08:13-0400 Diastolic blood pressure 83 mm[Hg] Sahara Piasecki DO Work Phone: [facility] 04-28-2024 08:13-0400 Heart rate 46 /min Sahara Purii DO Work Phone: [facility] 04-28-2024 08:13-0400 SaO2% (BldA) [Mass fraction] 97 % Sahara Jaxsoni DO Work Phone: [facility] 04-28-2024 08:13-0400 Systolic blood pressure 146 mm[Hg] Sahara Jaxsoni DO Work Phone: [facility] 03-31-2024 08:19-0500 Body height 170.2 cm Sahara Purii DO Work Phone: [facility] 03-31-2024 08:19-0500 Body mass index (BMI) [Ratio] 33.05 kg/m2 Sahara Purii DO Work Phone: [facility] 03-31-2024 08:19-0500 Body temperature 98.01 [degF] Sahara Piasecki DO Work Phone: [facility] 03-31-2024 08:19-0500 Body weight 95.71 kg Sahara Purii DO Work Phone: [facility] 03-31-2024 08:19-0500 Diastolic blood pressure 73 mm[Hg] Sahara Piasecki DO Work Phone: [facility] 03-31-2024 08:19-0500 Heart rate 50 /min Sahara Kevinasecki DO Work Phone: [facility] 03-31-2024 08:19-0500 SaO2% (BldA) [Mass fraction] 97 % Sahara Piasecki DO Work Phone: [facility] 03-31-2024 08:19-0500 Systolic blood pressure 126 mm[Hg] Sahara Piasecki DO Work Phone: [facility] 03-17-2024 11:02-0500 Diastolic blood pressure 80 mm[Hg] Sahara Piasecki DO Work Phone: [facility] Comment on above: manual 03-17-2024 11:02-0500 Systolic blood pressure 150 mm[Hg] Sahara Piasecki DO Work Phone: [facility] Comment on above: manual 03-17-2024 10:50-0500 Body height 170.2 cm Sahara Piasecki DO Work Phone: [facility] 03-17-2024 10:50-0500 Body mass index (BMI) [Ratio] 32.42 kg/m2 Sahara Piasecki DO Work Phone: [facility] 03-17-2024 10:50-0500 Body temperature 98.91 [degF] Sahara Piasecki DO Work Phone: [facility] 03-17-2024 10:50-0500 Body weight 93.89 kg Sahara Piasecki DO Work Phone: [facility] 03-17-2024 10:50-0500 Heart rate 65 /min Sahara Piasecki DO Work Phone: [facility] 03-17-2024 10:50-0500 SaO2% (BldA) [Mass fraction] 96 % Sahara Piasecki DO Work Phone: [facility] 03-06-2024 10:51-0500 Body height 170.2 cm Sahara aMck DO Work Phone: [facility] 03-06-2024 10:51-0500 Body mass index (BMI) [Ratio] 33.52 kg/m2 Sahara Greercki DO Work Phone: [facility] 03-06-2024 10:51-0500 Body temperature 98.91 [degF] Sahara Piasecki DO Work Phone: [facility] 03-06-2024 10:51-0500 Body weight 97.07 kg Sahara Greercki DO Work Phone: [facility] 03-06-2024 10:51-0500 Diastolic blood pressure 79 mm[Hg] Sahara Greercki DO Work Phone: [facility] 03-06-2024 10:51-0500 Heart rate 56 /min Sahara Mack DO Work Phone: [facility] 03-06-2024 10:51-0500 SaO2% (BldA) [Mass fraction] 97 % Sahara Greerckmeng DO Work Phone: [facility] 03-06-2024 10:51-0500 Systolic blood pressure 147 mm[Hg] Sahara Brownsueckmeng DO Work Phone: [facility] 02-18-2024 09:38-0500 Body mass index (BMI) [Ratio] 35.55 kg/m2 July Jovel MD Work Phone: [facility] 02-18-2024 09:38-0500 Body temperature 98.1 [degF] July Jovel MD Work Phone: [facility] 02-18-2024 09:38-0500 Body weight 102.97 kg July Jovel MD Work Phone: [facility] 02-18-2024 09:38-0500 Diastolic blood pressure 74 mm[Hg] July Jovel MD Work Phone: [facility] 02-18-2024 09:38-0500 Heart rate 62 /min July Jovel MD Work Phone: [facility] 02-18-2024 09:38-0500 SaO2% (BldA) [Mass fraction] 97 % July Jovel MD Work Phone: [facility] 02-18-2024 09:38-0500 Systolic blood pressure 128 mm[Hg] July Jovel MD Work Phone: [facility] 01-31-2024 09:12-0500 Body mass index (BMI) [Ratio] 34.61 kg/m2 July Jovel MD Work Phone: [facility] 01-31-2024 09:12-0500 Body temperature 98.1 [degF] July Jovel MD Work Phone: [facility] 01-31-2024 09:12-0500 Body weight 100.25 kg July Jovel MD Work Phone: [facility] 01-31-2024 09:12-0500 Diastolic blood pressure 64 mm[Hg] July Jovel MD Work Phone: [facility] 01-31-2024 09:12-0500 Heart rate 49 /min July Jovel MD Work Phone: [facility] 01-31-2024 09:12-0500 SaO2% (BldA) [Mass fraction] 96 % July Jovel MD Work Phone: [facility] 01-31-2024 09:12-0500 Systolic blood pressure 118 mm[Hg] July Jovel MD Work Phone: [facility] 01-04-2024 09:00-0500 Diastolic blood pressure 60 mm[Hg] Sahara Mack DO Work Phone: [facility] Comment on above: manual 01-04-2024 09:00-0500 Systolic blood pressure 110 mm[Hg] Sahara Mack DO Work Phone: [facility] Comment on above: manual 01-04-2024 08:58-0500 Body height 170.2 cm Sahara Mack DO Work Phone: [facility] 01-04-2024 08:58-0500 Body mass index (BMI) [Ratio] 34.61 kg/m2 Sahara Mack DO Work Phone: [facility] 01-04-2024 08:58-0500 Body temperature 97.81 [degF] Sahara Mack DO Work Phone: [facility] 01-04-2024 08:58-0500 Body weight 100.25 kg Sahara Mack DO Work Phone: [facility] 01-04-2024 08:58-0500 Heart rate 61 /min Sahara Mack DO Work Phone: [facility] 01-04-2024 08:58-0500 SaO2% (BldA) [Mass fraction] 97 % Sahara Mack DO Work Phone: [facility] 07-31-2023 09:42-0400 Body height 170.2 cm July Jovel MD Work Phone: [facility] 07-31-2023 09:42-0400 Body mass index (BMI) [Ratio] 34.77 kg/m2 July Jovel MD Work Phone: [facility] 07-31-2023 09:42-0400 Body temperature 97 [degF] July Jovel MD Work Phone: [facility] 07-31-2023 09:42-0400 Body weight 100.7 kg July Jovel MD Work Phone: [facility] 07-31-2023 09:42-0400 Diastolic blood pressure 78 mm[Hg] July Jovel MD Work Phone: [facility] 07-31-2023 09:42-0400 Heart rate 54 /min July Jovel MD Work Phone: [facility] 07-31-2023 09:42-0400 SaO2% (BldA) [Mass fraction] 97 % July Jovel MD Work Phone: [facility] 07-31-2023 09:42-0400 Systolic blood pressure 130 mm[Hg] July Jovel MD Work Phone: [facility] 07-04-2023 08:41-0400 Diastolic blood pressure 64 mm[Hg] Sahara Mack DO Work Phone: [facility] Comment on above: Pulse 46 07-04-2023 08:41-0400 Systolic blood pressure 146 mm[Hg] Sahara Mack DO Work Phone: [facility] Comment on above: Pulse 46 07-04-2023 08:36-0400 Body height 170.2 cm Sahara Mack DO Work Phone: [facility] 07-04-2023 08:36-0400 Body mass index (BMI) [Ratio] 34.93 kg/m2 Sahara Mack DO Work Phone: [facility] 07-04-2023 08:36-0400 Body temperature 97.7 [degF] Sahara Mack DO Work Phone: [facility] 07-04-2023 08:36-0400 Body weight 101.15 kg Sahara Mack DO Work Phone: [facility] 07-04-2023 08:36-0400 Heart rate 40 /min Sahara Mack DO Work Phone: [facility] 07-04-2023 08:36-0400 SaO2% (BldA) [Mass fraction] 97 % Sahara Mack DO Work Phone: [facility] 01-26-2023 09:25-0500 Body mass index (BMI) [Ratio] 34.46 kg/m2 July Jovel MD Work Phone: [facility] 01-26-2023 09:25-0500 Body temperature 98.6 [degF] July Jovel MD Work Phone: [facility] 01-26-2023 09:25-0500 Body weight 99.79 kg July Jovel MD Work Phone: [facility] 01-26-2023 09:25-0500 Diastolic blood pressure 84 mm[Hg] July Jovel MD Work Phone: [facility] 01-26-2023 09:25-0500 Systolic blood pressure 128 mm[Hg] July Jovel MD Work Phone: [facility] 01-03-2023 08:58-0500 Body mass index (BMI) [Ratio] 34.08 kg/m2 Sahara Mack DO Work Phone: [facility] 01-03-2023 08:58-0500 Body temperature 96.8 [degF] Sahara Mack DO Work Phone: [facility] 01-03-2023 08:58-0500 Body weight 98.7 kg Sahara Mack DO Work Phone: [facility] 01-03-2023 08:58-0500 Diastolic blood pressure 88 mm[Hg] Sahara Mack DO Work Phone: [facility] 01-03-2023 08:58-0500 Heart rate 48 /min Sahara Mack DO Work Phone: [facility] 01-03-2023 08:58-0500 SaO2% (BldA) [Mass fraction] 99 % Sahara Mack DO Work Phone: [facility] 01-03-2023 08:58-0500 Systolic blood pressure 154 mm[Hg] Sahara Mack DO Work Phone: [facility] 07-27-2022 09:39-0400 Body mass index (BMI) [Ratio] 34.61 kg/m2 July Jovel MD Work Phone: [facility] 07-27-2022 09:39-0400 Body temperature 97.81 [degF] July Jovel MD Work Phone: [facility] 07-27-2022 09:39-0400 Body weight 100.25 kg July Jovel MD Work Phone: [facility] 07-27-2022 09:39-0400 Diastolic blood pressure 82 mm[Hg] July Jovel MD Work Phone: [facility] 07-27-2022 09:39-0400 Systolic blood pressure 124 mm[Hg] July Jovel MD Work Phone: [facility] 03-03-2022 09:23-0500 Body height 170.18 cm July Jovel Work Phone: [facility] DO Work Phone: 03-03-2022 09:23-0500 Body mass index (BMI) [Ratio] 33.99 kg/m2 July Jovel Work Phone: [facility] DO Work Phone: 03-03-2022 09:23-0500 Body surface area Derived from formula 2.09 m2 July Jovel Work Phone: [facility] DO Work Phone: 03-03-2022 09:23-0500 Body temperature 97.7 [degF] July Jovel Work Phone: [facility] DO Work Phone: 03-03-2022 09:23-0500 Body weight 98.43 kg July Jovel Work Phone: [facility] DO Work Phone: 03-03-2022 09:23-0500 Diastolic blood pressure 66 mm[Hg] July Jovel Work Phone: [facility] DO Work Phone: 03-03-2022 09:23-0500 Heart rate 62 /min July Jovel Work Phone: [facility] DO Work Phone: 03-03-2022 09:23-0500 SaO2% (BldA) [Mass fraction] 97 % July Jovel Work Phone: [facility] DO Work Phone: 03-03-2022 09:23-0500 Systolic blood pressure 118 mm[Hg] July Jovel Work Phone: [facility] DO Work Phone: 02-23-2022 08:43-0500 Body height 170.18 cm July Jovel Work Phone: [facility] DO Work Phone: 02-23-2022 08:43-0500 Body mass index (BMI) [Ratio] 34.21 kg/m2 July Jovel Work Phone: [facility] DO Work Phone: 02-23-2022 08:43-0500 Body surface area Derived from formula 2.1 m2 July Jovel Work Phone: [facility] DO Work Phone: 02-23-2022 08:43-0500 Body temperature 97.8 [degF] July Jovel Work Phone: [facility] DO Work Phone: 02-23-2022 08:43-0500 Body weight 99.07 kg July Jovel [facility] DO Work Phone: 02-23-2022 08:43-0500 Diastolic blood pressure 64 mm[Hg] DonovanShanel Jovel Work Phone: [facility] DO Work Phone: 02-23-2022 08:43-0500 Heart rate 72 /min July Jovel [facility] DO Work Phone: 02-23-2022 08:43-0500 SaO2% (BldA) [Mass fraction] 96 % July Jovel [facility] DO Work Phone: 02-23-2022 08:43-0500 Systolic blood pressure 118 mm[Hg] July Jovel [facility] Phone[facility] DO Work Phone: 02-21-2022 15:00-0500 Body mass index (BMI) [Ratio] 34.46 kg/m2 DonovanShanel Jovel Work Phone: [facility] Work Phone: 02-21-2022 15:00-0500 Body surface area Derived from formula 2.11 m2 DonovanShanel Jovel Work Phone: [facility] Work Phone: 02-21-2022 15:00-0500 Body temperature 98.4 [degF] Donovan Med Work Phone: [facility] Work Phone: 02-21-2022 15:00-0500 Body weight 99.79 kg Donovan Med Work Phone: [facility] Work Phone: 02-21-2022 15:00-0500 Diastolic blood pressure 72 mm[Hg] July Jovel Work Phone: [facility] Work Phone: 02-21-2022 15:00-0500 Heart rate 76 /min July Jovel Work Phone: [facility] Work Phone: 02-21-2022 15:00-0500 Systolic blood pressure 128 mm[Hg] July Jovel Work Phone: [facility] Work Phone: 02-16-2022 11:42-0500 Body height 170.18 cm July Jovel Work Phone: [facility] Work Phone: 02-16-2022 11:42-0500 Body mass index (BMI) [Ratio] 33.83 kg/m2 July Jovel Work Phone: [facility] Work Phone: 02-16-2022 11:42-0500 Body surface area Derived from formula 2.09 m2 July Jovel Work Phone: [facility] Work Phone: 02-16-2022 11:42-0500 Body temperature 97.7 [degF] July Jovel Work Phone: [facility] Work Phone: 02-16-2022 11:42-0500 Body weight 97.98 kg Donovan Med Work Phone: [facility] Work Phone: 02-16-2022 11:42-0500 Diastolic blood pressure 67 mm[Hg] July Jovel Work Phone: [facility] Work Phone: 02-16-2022 11:42-0500 Heart rate 88 /min July Jovel Work Phone: [facility] Work Phone: 02-16-2022 11:42-0500 Respiratory rate 16 /min July Jovel Work Phone: [facility] Work Phone: 02-16-2022 11:42-0500 SaO2% (BldA) [Mass fraction] 94 % July Jovel Work Phone: [facility] Work Phone: 02-16-2022 11:42-0500 Systolic blood pressure 124 mm[Hg] July Jovel Work Phone: [facility] Work Phone: 02-16-2022 11:42-0500 4 1 July Jovel Work Phone: [facility] Work Phone: Comment on above: [employer] 01-19-2022 16:03-0500 Body height 170.18 cm July Jovel Work Phone: [facility] 400 DO Work Phone: 01-19-2022 16:03-0500 Body mass index (BMI) [Ratio] 33.92 kg/m2 July Jovel Work Phone: [facility] 400 DO Work Phone: 01-19-2022 16:03-0500 Body surface area Derived from formula 2.09 m2 July Jovel Work Phone: [facility] 400 DO Work Phone: 01-19-2022 16:03-0500 Body temperature 97.7 [degF] July Jovel Work Phone: [facility] 400 DO Work Phone: 01-19-2022 16:03-0500 Body weight 98.25 kg July Jovel Work Phone: [facility] 400 DO Work Phone: 01-19-2022 16:03-0500 Diastolic blood pressure 70 mm[Hg] July Jovel Work Phone: [facility] 400 DO Work Phone: 01-19-2022 16:03-0500 Heart rate 70 /min July Jovel Work Phone: [facility] 400 DO Work Phone: 01-19-2022 16:03-0500 SaO2% (BldA) [Mass fraction] 96 % July Jovel Work Phone: [facility] 400 DO Work Phone: 01-19-2022 16:03-0500 Systolic blood pressure 124 mm[Hg] July Jovel Work Phone: [facility] 400 DO Work Phone: 12-27-2021 13:00-0500 Body height 170.18 cm July Jovel Work Phone: [facility] 400 DO Work Phone: 12-27-2021 13:00-0500 Body mass index (BMI) [Ratio] 33.49 kg/m2 July Jovel Work Phone: [facility] 400 DO Work Phone: 12-27-2021 13:00-0500 Body surface area Derived from formula 2.08 m2 Jluy Jovel Work Phone: [facility] 400 DO Work Phone: 12-27-2021 13:00-0500 Body temperature 97.5 [degF] July Jovel Work Phone: [facility] 400 DO Work Phone: 12-27-2021 13:00-0500 Body weight 96.98 kg July Jovel Work Phone: [facility] 400 DO Work Phone: 12-27-2021 13:00-0500 Diastolic blood pressure 70 mm[Hg] July Jovel Work Phone: [facility] 400 DO Work Phone: 12-27-2021 13:00-0500 Heart rate 100 /min July Jovel Work Phone: [facility] 400 DO Work Phone: 12-27-2021 13:00-0500 SaO2% (BldA) [Mass fraction] 97 % July Jovel Work Phone: [facility] 400 DO Work Phone: 12-27-2021 13:00-0500 Systolic blood pressure 126 mm[Hg] July Jovel Work Phone: [facility] 400 DO Work Phone: 12-20-2021 10:48-0500 Body height 170.18 cm July Jovel Work Phone: [facility] 400 DO Work Phone: 12-20-2021 10:48-0500 Body mass index (BMI) [Ratio] 33.61 kg/m2 July Jovel Work Phone: [facility] 400 DO Work Phone: 12-20-2021 10:48-0500 Body surface area Derived from formula 2.08 m2 July Jovel Work Phone: [facility] 400 DO Work Phone: 12-20-2021 10:48-0500 Body temperature 97.5 [degF] July Jovel Work Phone: [facility] 400 DO Work Phone: 12-20-2021 10:48-0500 Body weight 97.34 kg July Jovel Work Phone: [facility] 400 DO Work Phone: 12-20-2021 10:48-0500 Diastolic blood pressure 68 mm[Hg] July Jovel Work Phone: [facility] DO Work Phone: 12-20-2021 10:48-0500 Heart rate 66 /min July Jovel Work Phone: [facility] DO Work Phone: 12-20-2021 10:48-0500 SaO2% (BldA) [Mass fraction] 97 % July Jovel Work Phone: [facility] DO Work Phone: 12-20-2021 10:48-0500 Systolic blood pressure 130 mm[Hg] July Jovel Work Phone: [facility] DO Work Phone: 12-06-2021 13:27-0400 Body mass index (BMI) [Ratio] 33.36 kg/m2 Donovan [facility] Work Phone: [facility] Work Phone: 12-06-2021 13:27-0400 Body surface area Derived from formula 2.08 m2 July Jovel Work Phone: [facility] Work Phone: 12-06-2021 13:27-0400 Body temperature 98.6 [degF] July Jovel Work Phone: [facility] Work Phone: 12-06-2021 13:27-0400 Body weight 96.62 kg July Jovel Work Phone: [facility] Work Phone: 12-06-2021 13:27-0400 Diastolic blood pressure 86 mm[Hg] July Jovel Work Phone: [facility] Work Phone: 12-06-2021 13:27-0400 Systolic blood pressure 136 mm[Hg] July Jovel Work Phone: [facility] Work Phone: 11-08-2021 09:35-0400 Body mass index (BMI) [Ratio] 33.97 kg/m2 July Jovel Work Phone: [facility] Work Phone: 11-08-2021 09:35-0400 Body surface area Derived from formula 2.09 m2 July Jovel Work Phone: [facility] Work Phone: 11-08-2021 09:35-0400 Body temperature 98.6 [degF] July Jovel Work Phone: [facility] Work Phone: 11-08-2021 09:35-0400 Body weight 98.39 kg July Jovel Work Phone: [facility] Work Phone: 11-08-2021 09:35-0400 Diastolic blood pressure 84 mm[Hg] July Jovel Work Phone: [facility] Work Phone: 11-08-2021 09:35-0400 Heart rate 60 /min July Jovel Work Phone: [facility] Work Phone: 11-08-2021 09:35-0400 Respiratory rate 20 /min July Jovel Work Phone: [facility] Work Phone: 11-08-2021 09:35-0400 SaO2% (BldA) [Mass fraction] 95 % July Jovel Work Phone: [facility] Work Phone: 11-08-2021 09:35-0400 Systolic blood pressure 144 mm[Hg] July Jovel Work Phone: [facility] Work Phone: 10-31-2021 14:06-0400 Body temperature 97.4 [degF] [facility] Work Phone: 10-31-2021 14:06-0400 Diastolic blood pressure 74 mm[Hg] [facility] Work Phone: 10-31-2021 14:06-0400 Heart rate 93 /min [facility] Work Phone: 10-31-2021 14:06-0400 Respiratory rate 15 /min [facility] Work Phone: 10-31-2021 14:06-0400 SaO2% (BldA) [Mass fraction] 96 % [facility] Work Phone: 10-31-2021 14:06-0400 Systolic blood pressure 141 mm[Hg] [facility] Work Phone: 10-31-2021 14:04-0400 Body height 172.72 cm [facility] Work Phone: 10-31-2021 14:04-0400 Body mass index (BMI) [Ratio] 31.6 kg/m2 [facility] Work Phone: 10-31-2021 14:04-0400 Body weight 94.34 kg [facility] Work Phone: 10-14-2021 15:45-0400 Body mass index (BMI) [Ratio] 33.05 kg/m2 July Jovel Work Phone: [facility] Work Phone: 10-14-2021 15:45-0400 Body surface area Derived from formula 2.07 m2 DonovanShanel Jovel Work Phone: [facility] Work Phone: 10-14-2021 15:45-0400 Body temperature 110.6 [degF] July Ulloauart Work Phone: [facility] Work Phone: 10-14-2021 15:45-0400 Body weight 95.71 kg July Baxterrt Work Phone: [facility] Work Phone: 10-14-2021 15:45-0400 Diastolic blood pressure 82 mm[Hg] [facility] Work Phone: [facility] Work Phone: 10-14-2021 15:45-0400 Systolic blood pressure 140 mm[Hg] [facility] Work Phone: [facility] Work Phone: 08-02-2021 09:37-0400 Body height 170.18 cm Donovan Emd Work Phone: [facility] Work Phone: 08-02-2021 09:37-0400 Body mass index (BMI) [Ratio] 33.67 kg/m2 July Baxterrt Work Phone: [facility] Work Phone: 08-02-2021 09:37-0400 Body surface area Derived from formula 2.09 m2 July Baxterrt Work Phone: [facility] Work Phone: 08-02-2021 09:37-0400 Body temperature 97.9 [degF] July Baxterrt Work Phone: [facility] Work Phone: 08-02-2021 09:37-0400 Body weight 97.52 kg July Baxterrt Work Phone: [facility] Work Phone: 08-02-2021 09:37-0400 Diastolic blood pressure 72 mm[Hg] July Baxterrt Work Phone: [facility] Work Phone: 08-02-2021 09:37-0400 Systolic blood pressure 132 mm[Hg] July Baxterrt Work Phone: [facility] Work Phone: 05-31-2021 11:54-0400 Body mass index (BMI) [Ratio] 34.3 kg/m2 July Baxterrt Work Phone: [facility] Work Phone: 05-31-2021 11:54-0400 Body surface area Derived from formula 2.1 m2 July Baxterrt Work Phone: [facility] Work Phone: 05-31-2021 11:54-0400 Body temperature 98.5 [degF] July Baxterrt Work Phone: [facility] Work Phone: 05-31-2021 11:54-0400 Body weight 99.34 kg Donovan [facility] Work Phone: [facility] Work Phone: 05-31-2021 11:54-0400 Diastolic blood pressure 74 mm[Hg] July Ugarte Med Work Phone: [facility] Work Phone: 05-31-2021 11:54-0400 Systolic blood pressure 130 mm[Hg] July Baxterrt Work Phone: [facility] Work Phone: 12-30-2020 09:12-0500 Body mass index (BMI) [Ratio] 35.24 kg/m2 Donovan [facility] Work Phone: [facility] Work Phone: 12-30-2020 09:12-0500 Body surface area Derived from formula 2.13 m2 Donovan [facility] Work Phone: [facility] Work Phone: 12-30-2020 09:12-0500 Body temperature 98.2 [degF] [facility] Work Phone: [facility] Work Phone: 12-30-2020 09:12-0500 Body weight 102.06 kg Donovan [facility] Work Phone: [facility] Work Phone: 12-30-2020 09:12-0500 Diastolic blood pressure 86 mm[Hg] July Ugarte Med Work Phone: [facility] Work Phone: 12-30-2020 09:12-0500 Systolic blood pressure 134 mm[Hg] July Baxterrt Work Phone: [facility] Work Phone: 07-29-2020 09:34-0400 Body height 170.18 cm July Ugarte Med Work Phone: [facility] Work Phone: 07-29-2020 09:34-0400 Body mass index (BMI) [Ratio] 33.83 kg/m2 July Jovel Work Phone: [facility] Work Phone: 07-29-2020 09:34-0400 Body surface area Derived from formula 2.09 m2 July Jovel Work Phone: [facility] Work Phone: 07-29-2020 09:34-0400 Body temperature 98.3 [degF] July Baxterrt Work Phone: [facility] Work Phone: 07-29-2020 09:34-0400 Body weight 97.98 kg July Ugarte Med Work Phone: [facility] Work Phone: 07-29-2020 09:34-0400 Diastolic blood pressure 74 mm[Hg] July Jovel Work Phone: [facility] Work Phone: 07-29-2020 09:34-0400 Systolic blood pressure 134 mm[Hg] July Ugarte Med Work Phone: [facility] Work Phone: 02-02-2020 13:47-0500 BMI (Body Mass Index) 33.23 kg/m2 July Jovel [facility] Work Phone: 02-02-2020 13:47-0500 Body Temperature 98.1 [degF] July Jovel [facility] Work Phone: 02-02-2020 13:47-0500 Body weight 96.25 kg Donovan [facility] [facility] Work Phone: 02-02-2020 13:47-0500 BP Diastolic 84 mm[Hg] [facility] Work Phone: 02-02-2020 13:47-0500 BP Systolic 140 mm[Hg] [facility] Work Phone: 02-02-2020 13:47-0500 BSA (Body Surface Area) 2.07 m2 [facility] [facility] Work Phone: 11-11-2018 16:19-0400 BMI (Body Mass Index) 33.99 kg/m2 Donovna [facility] [facility] Work Phone: 11-11-2018 16:19-0400 Body Temperature 98.6 [degF] Donovan [facility] Work Phone: 11-11-2018 16:19-0400 Body weight 98.43 kg Donovan Med [facility] Work Phone: 11-11-2018 16:19-0400 BP Diastolic 60 mm[Hg] [facility] [facility] Work Phone: 11-11-2018 16:19-0400 BP Systolic 100 mm[Hg] [facility] Work Phone: 11-11-2018 16:19-0400 BSA (Body Surface Area) 2.09 m2 Donovan [facility] Work Phone: 10-29-2018 11:04-0400 BMI (Body Mass Index) 33.83 kg/m2 Donovan [facility] Work Phone: 10-29-2018 11:04-0400 Body Temperature 97.3 [degF] July Baxterrt [facility] Work Phone: 10-29-2018 11:04-0400 Body weight 97.98 kg Donovan Med [facility] Work Phone: 10-29-2018 11:04-0400 BP Diastolic 86 mm[Hg] Donovan Med [facility] Work Phone: 10-29-2018 11:04-0400 BP Systolic 130 mm[Hg] Donovan Med [facility] Work Phone: 10-29-2018 11:04-0400 BSA (Body Surface Area) 2.09 m2 July Baxterrt [facility] Work Phone: 10-29-2018 11:04-0400 Height 170.18 cm Donovan Med [facility] Work Phone: 10-29-2018 11:04-0400 Pulse (Heart Rate) 60 /min Donovan Med [facility] Work Phone: 07-30-2018 16:42-0400 BMI (Body Mass Index) 18.8 kg/m2 Donovan [facility] Work Phone: 07-30-2018 16:42-0400 Body Temperature 99.6 [degF] Donovan [facility] Work Phone: 07-30-2018 16:42-0400 Body weight 54.46 kg Donovan Med [facility] Work Phone: 07-30-2018 16:42-0400 BP Diastolic 84 mm[Hg] [facility] [facility] Work Phone: 07-30-2018 16:42-0400 BP Systolic 130 mm[Hg] [facility] [facility] Work Phone: 07-30-2018 16:42-0400 BSA (Body Surface Area) 1.63 m2 DonovanShanel Baxterrt -[place] [facility] Work Phone: 07-30-2018 16:42-0400 Height 170.18 cm July Baxterrt [facility] Work Phone: 07-30-2018 16:42-0400 Pulse (Heart Rate) 94 /min July Baxterrt -[place] [facility] Work Phone: 07-30-2018 16:42-0400 Pulse Oximetry 94 % July Baxterrt -[place] [facility] Work Phone: 06-18-2018 15:12-0400 BMI (Body Mass Index) 34.64 kg/m2 [facility] Work Phone: 06-18-2018 15:12-0400 Body Temperature 98.3 [degF] Donovan [facility] Work Phone: 06-18-2018 15:12-0400 BP Diastolic 86 mm[Hg] [facility] Work Phone: 06-18-2018 15:12-0400 BP Systolic 130 mm[Hg] [facility] Work Phone: 06-18-2018 15:12-0400 BSA (Body Surface Area) 2.11 m2 July Baxterrt -[place] [facility] Work Phone: 06-18-2018 15:12-0400 Height 170.18 cm DonovanShanel Baxterrt [facility] Work Phone: 06-18-2018 15:12-0400 Weight 100.33 kg July Baxterrt [facility] Work Phone: Encounters Encounter Date Encounter Type Care Provider Facility Start: 12-09-2024 End: 12-09-2024 Subsequent hospital visit by physician Narayan Linny100 X-Ray [facility] Comment on above: Mild persistent asth ma without complication (HHS-HCC); Hoarseness Start: 12-09-2024 End: 12-09-2024 Office outpatient visit 25 minutes Lore Dubon [facility] [employer]W OPERATOR-[employer]POSIT REFUND CLERK Work Phone: [facility] Comment on above: Mild persistent asth ma without complication (HHS-HCC) (Primary Dx); Hoarseness Start: 12-09-2024 End: 12-09-2024 ambulatory [facility] Start: 08-07-2024 End: 08-07-2024 Patient encounter procedure July Jovel MD Work Phone: [facility] Comment on above: Health maintenance e xamination (Primary Dx); Primary hypertension; Mixed hyperlipidemia; Moderate persistent asthma without complication (HHS-HCC) Start: 08-07-2024 End: 08-07-2024 Patient encounter status July Jovel MD Work Phone: [facility] Work Phone: Start: 08-07-2024 End: 08-07-2024 ambulatory [facility] Start: 08-07-2024 End: 08-07-2024 Encounter for general adult medical examination without abnormal findings [facility] Start: 08-05-2024 End: 08-05-2024 Office outpatient visit 25 minutes Sahara Mack DO Work Phone: [facility] Comment on above: Mild persistent asth ma without complication (HHS-HCC) (Primary Dx) Start: 08-05-2024 End: 08-05-2024 ambulatory [facility] Ambulatory Start: 07-03-2024 End: 07-03-2024 ambulatory [facility] Start: 06-26-2024 End: 06-26-2024 Office outpatient visit 25 minutes Sahara Mack DO Work Phone: [facility] Comment on above: Moderate persistent asthma with exacerbation (HHS-HCC) (Primary Dx); Asthma, unspecified asthma severity, unspecified whether complicated, unspecified whether persistent (HHS-HCC) Start: 06-26-2024 End: 06-26-2024 ambulatory [facility] Start: 06-19-2024 End: 06-19-2024 Office outpatient visit 15 minutes July Jovel MD Work Phone: [facility] Comment on above: Viral upper respirat ory tract infection (Primary Dx) Start: 06-19-2024 End: 06-19-2024 ambulatory JULY ULLOAUART [facility] Ambulatory Start: 04-28-2024 End: 04-28-2024 Office outpatient visit 25 minutes Sahara Mack DO Work Phone: [facility] Comment on above: Mild persistent asth ma with acute exacerbation (HHS-HCC) (Primary Dx); Hoarseness Start: 04-28-2024 End: 04-28-2024 ambulatory [facility] Amb[facility] Start: 03-31-2024 End: 03-31-2024 Office outpatient visit 25 minutes Sahara Calderon Expreemnorah DO Work Phone: [facility] Comment on above: Mild intermittent as thma without complication ([facility]-HCC) (Primary Dx); Other cough Start: 03-31-2024 End: 03-31-2024 ambulatory [facility] Amb[facility] Start: 03-17-2024 End: 03-17-2024 Office outpatient visit 25 minutes Sahara Yumiko Purii DO Work Phone: [facility] Comment on above: Chronic cough (Prima ry Dx); Mild persistent asthma without complication (HHS-HCC) Start: 03-17-2024 End: 03-17-2024 ambulatory [facility] Amb[facility] Start: 03-06-2024 End: 03-06-2024 Subsequent hospital visit by physician Narayan Linny100 X-Ray [facility] Comment on above: Pneumonia due to inf ectious organism, unspecified laterality, unspecified part of lung Start: 03-06-2024 End: 03-06-2024 ambulatory [facility] Start: 03-06-2024 End: 03-06-2024 Office outpatient visit 40 minutes Sahara Mack DO Work Phone: [facility] Comment on above: Moderate persistent asthma without complication (HHS-HCC) (Primary Dx); Pneumonia due to infectious organism, unspecified laterality, unspecified part of lung; Acute bronchitis, unspecified organism; Cough, unspecified type; Dyspnea on exertion Start: 03-06-2024 End: 03-06-2024 ambulatory [facility] Start: 02-18-2024 End: 02-18-2024 ambulatory [facility] Start: 02-18-2024 End: 02-18-2024 Subsequent hospital visit by physician Raine Brown110 X-Ray [facility] Comment on above: Acute cough Start: 02-18-2024 End: 02-18-2024 Office outpatient visit 15 minutes July Jovel MD Work Phone: [facility] Comment on above: COPD with acute exac erbation (Multi) (Primary Dx); Acute cough Start: 02-18-2024 End: 02-18-2024 ambulatory [facility] Start: 02-12-2024 End: 02-12-2024 Emergency department patient visit [facility] Facility:[facility] Start: 01-31-2024 End: 01-31-2024 Office outpatient visit 25 minutes July Jovel MD Work Phone: [facility] Comment on above: Primary hypertension (Primary Dx); Mixed hyperlipidemia Start: 01-31-2024 End: 01-31-2024 ambulatory [facility] Start: 01-25-2024 End: 01-25-2024 ambulatory [facility] Start: 01-04-2024 End: 01-04-2024 Office outpatient visit 25 minutes Sahara Mack DO Work Phone: [facility] Comment on above: Moderate asthma with out complication, unspecified whether persistent (HHS-HCC) (Primary Dx); Moderate persistent asthma without complication (HHS-HCC); Dyspnea on exertion Start: 01-04-2024 End: 01-04-2024 [facility] Start: 07-31-2023 End: 07-31-2023 Patient encounter procedure July Jovel MD Work Phone: [facility] Comment on above: Health maintenance e xamination (Primary Dx); Chronic obstructive pulmonary disease, unspecified COPD type (Multi); Chronic sinusitis, unspecified location; Mixed hyperlipidemia; Primary hypertension Start: 07-31-2023 End: 07-31-2023 Patient encounter status July Jovel MD Work Phone: [facility] Work Phone: Start: 07-18-2023 End: 07-18-2023 ambulatory [facility] Start: 07-18-2023 End: 07-18-2023 Encounter for general adult medical examination without abnormal findings [facility] Start: 07-04-2023 End: 07-04-2023 Office outpatient visit 15 minutes Sahara Mack DO Work Phone: [facility] Comment on above: Moderate asthma with out complication, unspecified whether persistent (HHS-HCC) (Primary Dx); Dyspnea on exertion Start: 01-26-2023 End: 01-26-2023 Office outpatient visit 25 minutes July Jovel MD Work Phone: [facility] Comment on above: Primary hypertension (Primary Dx); Mixed hyperlipidemia; Chronic sinusitis, unspecified location; Healthcare maintenance Start: 01-26-2023 End: 01-26-2023 Patient encounter status July Jovel MD Work Phone: [facility] Work Phone: Start: 01-03-2023 End: 01-03-2023 Office outpatient visit 25 minutes Sahara Mack DO Work Phone: [facility] Comment on above: Moderate persistent asthma without complication (Primary Dx); Dyspnea on exertion; Acute frontal sinusitis, recurrence not specified Start: 07-27-2022 End: 07-27-2022 Assay of hemosiderin, quant July Jovel MD Work Phone: [facility] Work Phone: Start: 07-27-2022 End: 07-27-2022 Patient encounter procedure July Jovel MD Work Phone: [facility] Comment on above: Routine general medi samson examination at health care facility (Primary Dx); Mixed hyperlipidemia; Primary hypertension; Reactive airway disease without complication, unspecified asthma severity, unspecified whether persistent Start: 07-04-[address] July Tam cility:[id number] Start: 03-05-2022 Chart Update Juyl hitchcock [facility] 400 DO Work Phone: Start: 03-03-2022 Office outpatient vi sit 25 minutes July Jovel Work Phone: [facility] 400 DO Work Phone: Start: 03-03-[address] July Tam cility:[id number] Start: 02-23-2022 FUV, Provider: Sahara Mack, Status: Pen, Time: 9:00 AM July Jovel Work Phone: [facility] Work Phone: Start: 02-23-2022 Office outpatient vi sit 25 minutes July Jovel Work Phone: [facility] 400 DO Work Phone: Start: 02-23-[address] July Tam cility:[id number] Start: 02-21-2022 Office outpatient vi sit 15 minutes July Jovel Work Phone: [facility] Work Phone: Start: 02-21-[address] July Tam cility:[id number] Start: 02-17-2022 AUDIT July hitchcock Work Phone: [facility] 400 DO Work Phone: Start: 02-16-[address] July Tam cility:[id number] Start: 02-16-[address] RENATO BALLESTEROS Fac ility:[id number] Start: 02-16-2022 Office outpatient vi sit 25 minutes July Jovel Work Phone: [facility] Work Phone: Start: 01-19-2022 Office outpatient vi sit 25 minutes July Jovel Work Phone: [facility] 400 DO Work Phone: Start: 01-19-[address] Sahara Mack Facility:[id number] Start: 12-27-2021 Office outpatient vi sit 25 minutes July Jovel Work Phone: [facility] 400 DO Work Phone: Start: 12-27-2021 Patient encounter procedure July Jovel Work Phone: [facility] 400 DO Work Phone: Start: 12-27-[address] Sahara Mack Facility:[id number] Start: 12-27-[address] July Tam cility:[id number] Start: 12-20-2021 Office consultation new/estab patient 80 min July Jovel Work Phone: [facility] 400 DO Work Phone: Start: 12-20-[address] July Tam cility:[id number] Start: 12-07-2021 AUDIT July Baxter rt Work Phone: [facility] Work Phone: Start: 12-07-2021 Chart Update July Baxter rt Work Phone: [facility] Work Phone: Start: 12-06-[address] July stormty:[id number] Start: 12-06-2021 Patient encounter procedure July Jovel Work Phone: [facility] Work Phone: Start: 12-06-[address] July stormty:[id number] Start: 11-08-2021 Office outpatient vi sit 15 minutes July Jovel Work Phone: [facility] Work Phone: Start: 11-08-2021 Patient encounter procedure July Jovel Work Phone: [facility] Work Phone: Start: 11-08-[address] July stormty:[id number] Start: 10-31-2021 End: 10-31-2021 Emergency department patient visit [facility] Start: 10-14-[address] July stormty:[id number] Start: 10-14-2021 Office outpatient vi sit 15 minutes July Jovel Work Phone: [facility] Work Phone: Start: 10-14-[address] July stormty:[id number] Start: 08-04-2021 Chart Update July hitchcock Work Phone: [facility] Work Phone: Start: 08-02-2021 Patient encounter procedure July Jovel Work Phone: [facility] Work Phone: Start: 08-02-[address] July stormty:[id number] Start: 07-22-2021 AUDIT July Baxter rt Work Phone: [facility] Work Phone: Start: 05-31-[address] July stormty:[id number] Start: 05-31-2021 Office outpatient vi sit 25 minutes July Jovel Work Phone: [facility] Work Phone: Start: 05-31-[address] July stormty:[id number] Start: 03-01-2021 Telephone encounter July Jovel Work Phone: [facility] Work Phone: Start: 03-01-[address] July stormty:[id number] Start: 01-03-2021 Chart Update July Baxter rt Work Phone: [facility] Work Phone: Start: 12-30-2020 Patient encounter procedure July Jovel Work Phone: [facility] Work Phone: Start: 12-27-2020 AUDIT July Baxter rt Work Phone: [facility] Work Phone: Start: 07-29-2020 Patient encounter procedure July Baxterrt Work Phone: [facility] Work Phone: Start: 07-20-2020 AUDIT July Baxter rt Work Phone: [facility] Work Phone: Start: 02-02-2020 Patient encounter procedure July Jovel [facility] Work Phone: Start: 05-12-2019 Patient encounter procedure July Baxterrt [facility] Work Phone: Start: 04-21-2019 Patient encounter procedure July Baxterrt [facility] Work Phone: Start: 11-11-2018 Patient encounter procedure July Baxterrt [facility] Work Phone: Start: 10-29-2018 Patient encounter procedure July Baxterrt [facility] Work Phone: Start: 07-30-2018 Patient encounter procedure July Baxterrt [facility] Work Phone: Start: 06-18-2018 Patient encounter procedure July Baxterrt [facility] Work Phone: Start: 04-30-2018 Patient encounter procedure July Baxterrt [facility] Work Phone: Start: 12-03-2017 Patient encounter procedure July Baxterrt [facility] Work Phone: Start: 11-27-2017 Patient encounter procedure July Baxterrt [facility] Work Phone: Start: 09-06-2017 Patient encounter procedure July Baxterrt [facility] Work Phone: Start: 08-17-2017 Patient encounter procedure July Baxterrt [facility] Work Phone: Start: 07-27-2017 Patient encounter procedure DonovanShanel Baxterrt [facility] Work Phone: Start: 04-05-2017 Patient encounter procedure DonovanShanel Baxterrt [facility] Work Phone: Start: 10-23-2016 Patient encounter procedure DonovanShanel Baxterrt [facility] Work Phone: Start: 06-30-2016 Patient encounter procedure July Jovel [facility] Work Phone: Procedures Date Procedure Procedure Detail Performing Clinician Start: 07-28-2024 Lipid 1995 panel - S andressa or Plasma Sahara Mack DO Work Phone: Start: 02-18-2024 Radiologic exam ches t 2 views July Jovel MD Work Phone: Start: 01-25-2024 Lipid 1996 panel - S andressa or Plasma July Jovel MD Work Phone: Start: 07-18-2023 Lipid 1996 panel - S andressa or Plasma July Jovel MD Work Phone: Start: 01-16-2023 Lipid 1996 panel - S andressa or Plasma July Jovel MD Work Phone: Start: 07-25-2022 Lipid 1996 panel - S andressa or Plasma July Jovel MD Work Phone: Start: 10-31-2021 Plain chest X-ray Start: 06-06-2021 Colonoscopy July Jovel MD Work Phone: Start: 01-05-2020 Comprehensive metabo lic 2000 panel July Jovel Start: 01-05-2020 Lipid panel July Jovel Start: 07-30-2018 Xray Chest 2 View PA + Lateral July Jovel Plan of Treatment Date Care Activity Detail Author Start: 06-07-2031 Screening for malignant neoplasm of colon [facility] Start: 07-28-2029 Lipid panel Lipid Panel [facility] Start: 01-24-2029 Lipid panel Lipid Panel [facility] Start: 08-07-2028 DTaP/Tdap/Td Vaccine s (2 - Td or Tdap) DTaP/Tdap/Td Vaccines (2 - Td or Tdap) [facility] Start: 07-17-2028 Lipid panel Lipid Panel [facility] Start: 01-17-2028 Lipid panel Lipid Panel [facility] Start: 07-26-2027 Lipid panel Lipid Panel [facility] Start: 08-08-2025 Medicare Annual Wellness Visit Medicare Annual Wellness Visit (AWV) [facility] Start: 08-07-2025 End: 08-07-2025 Patient encounter procedure 08/07/2025 9:00 AM EDT Office Visit [facility] [address] [place] [phone] July Jovel MD [address] [facility] [place], [place] [phone] [facility] Start: 06-09-2025 End: 06-09-2025 Patient encounter procedure 06/09/2025 8:00 AM EDT Office Visit [facility] [address] [facility] [address] [place] [phone] Lore Clinton, SINGLE WIRE SAW OPERATOR-DEPOSIT REFUND CLERK [address] [place] [address] [facility] Start: 01-26-2025 End: 01-26-2025 Patient encounter procedure 01/26/2025 4:30 PM EST Office Visit [facility] [address] [facility] [address] [place] [address] July Jovel MD [address] [facility] [place], [place] [id number] [facility] Start: 12-09-2024 End: 12-09-2025 Complete Pulmonary Function Test (Spirometry/DLCO/Lung Volumes) Complete Pulmonary Function Test (Spirometry/DLCO/Lung Volumes) PFT Routine Mild persistent asthma without complication ([facility]) Hoarseness Expected: 12/09/2024 (Approximate), Expires: 12/09/2025 [facility] Service Area Work Phone: Comment on above: Expected: 12/09/2024 (Approximate), Expires: 12/09/2025 Start: 12-09-2024 End: 12-09-2025 Exhaled Nitric Oxide (FeNO) Exhaled Nitric Oxide (FeNO) PFT Routine Mild persistent asthma without complication ([facility]) Hoarseness Expected: 12/09/2024 (Approximate), Expires: 12/09/2025 [facility] Work Phone: Comment on above: Expected: 12/09/2024 (Approximate), Expires: 12/09/2025 Start: 12-09-2024 End: 12-09-2025 XR Chest 2 Views [facility] Work Phone: Comment on above: Expected: 12/09/2024 (Approximate), Expires: 12/09/2025 Once for 1 Occurrenc es starting 12/09/2024 until 12/09/2024 Start: 12-05-2024 End: 12-05-2024 Patient encounter procedure 12/05/2024 8:40 AM EDT Office Visit [facility] [address] [place] [phone] Sahara Mack DO [address] [place] [address] [facility] Start: 10-13-2024 COVID-19 Vaccine ( season) COVID-19 Vaccine ( season) [facility] Start: 10-13-2024 Influenza vaccination Influenz a Vaccine (Season Ended) [facility] Start: 09-12-2024 Influenza vaccination Influenza Vacc ine (#1) [facility] Start: 08-07-2024 End: 08-07-2024 Patient encounter procedure 08/07/2024 9:00 AM EDT [facility] [address] [place] [phone] July Jovel MD [address] [facility] [address] [place] [address] [facility] Start: 07-31-2024 Medicare Annual Wellness Visit Medicare Annual Wellness Visit (AWV) [facility] Start: 07-03-2024 End: 07-03-[address] [facility] Start: 06-26-2024 End: 06-26-2024 Patient encounter procedure 06/26/2024 4:20 PM EDT Office Visit [facility] [address] [place] [phone] Sahara Mack DO [address] [place] [address] [facility] Start: 04-28-2024 End: 04-28-2024 Patient encounter procedure 04/28/2024 8:00 AM EDT Office Visit [facility] [address] [place] [phone] Sahara Mack DO [address] [place] [address] [facility] Start: 03-31-2024 End: 03-31-2024 Patient encounter procedure 03/31/2024 8:00 AM EST Office Visit [facility] [address] [place] [address] Sahara Mack DO [address] [place] [address] [facility] Start: 03-17-2024 End: 03-17-2024 Patient encounter procedure 03/17/2024 11:00 AM EST Office Visit [facility] [address] [place] [phone] Sahara Mack DO [address] [place] [address] [facility] Start: 03-06-2024 End: 03-06-2025 XR Chest 2 Views [facility] Service Area Work Phone: Comment on above: Expected: 03/06/2024 , Expires: 03/06/2025 Once for 1 Occurrenc es starting 03/06/2024 until 03/06/2024 Start: 01-31-2024 End: 01-31-2024 Patient encounter procedure 01/31/2024 9:00 AM EST Office Visit [facility] [address] [place] [address] July Jovel MD [address] [facility] [address] [place], [place] [phone] [facility] Start: 01-04-2024 End: 01-04-2024 Patient encounter procedure 01/04/2024 8:40 AM EST Office Visit [facility] [address] [place] [phone] Sahara Mack DO [address] [place] [address] [facility] Start: 10-14-2023 COVID-19 Vaccine ( season) COVID-19 Vaccine ( season) [facility] Start: 10-14-2023 Influenza vaccination [facility] Start: 07-31-2023 End: 07-31-2023 Patient encounter procedure 07/31/2023 9:30 AM EDT Office Visit [facility] [address] [place] [address] July Jovel MD [address] [facility] [address] [place], [place] [phone] [facility] Start: 07-29-2023 Medicare Annual Wellness Visit Medicare Annual Wellness Visit (AWV) [facility] Start: 07-04-2023 End: 07-04-2023 Patient encounter procedure 07/04/2023 9:00 AM EDT Office Visit [facility] [address] [place] [address] Sahara Mack DO [address] [place] [address] [facility] Start: 01-26-2023 End: 01-26-2023 Patient encounter procedure 01/26/2023 9:00 AM EST Office Visit [facility] [address] [place] [phone] July Jovel MD [address] [facility] [address] [place] [address] [facility] Start: 10-13-2022 COVID-19 Vaccine ( season) COVID-19 Vaccine ( season) [facility] Start: 10-13-2022 Influenza vaccination [facility] Start: 07-27-2022 End: 07-28-2023 Comprehensive metabolic 2000 panel - Serum or Plasma Comprehensive metabolic panel Lab Routine Mixed hyperlipidemia Expected: 07/27/2022 (Approximate), Expires: 07/28/2023 [facility] Service Area Work Phone: Comment on above: Expected: 07/27/2022 (Approximate), Expires: 07/28/2023 Start: 07-27-2022 End: 07-28-2023 Lipid 1996 panel - Serum or Plasma Lipid panel Lab Routine Mixed hyperlipidemia Expected: 07/27/2022 (Approximate), Expires: 07/28/2023 [facility] Work Phone: Comment on above: Expected: 07/27/2022 (Approximate), Expires: 07/28/2023 Start: 07-27-2022 Patient encounter procedure MCRANNUAL, Provider: July Jovel, Status: Pen, Time: 9:30 AM [facility] Work Phone: Start: 07-04-2022 FUV, Provider: Sahara Mack, Status: Pen, Time: 9:00 AM FUV, Provider: Sahara Mack, Status: Pen, Time: 9:00 AM [facility] 400 DO Work Phone: Start: 03-03-2022 FUV, Provider: Sahara Mack, Status: Pen, Time: 9:30 AM FUV, Provider: Sahara Mack, Status: Pen, Time: 9:30 AM [facility] 400 DO Work Phone: Start: 03-02-2022 FUV, Provider: Sahara Mack, Status: Pen, Time: 3:30 PM FUV, Provider: Sahara Mack, Status: Pen, Time: 3:30 PM [facility] 400 DO Work Phone: Start: 02-23-2022 FUV, Provider: Sahara Mack, Status: Pen, Time: 9:00 AM FUV, Provider: Sahara Mack, Status: Pen, Time: 9:00 AM [facility] 400 DO Work Phone: Start: 02-21-2022 FUV, Provider: July Jovel, Status: Pen, Time: 2:45 PM FUV, Provider: July Jovel, Status: Pen, Time: 2:45 PM [facility] Work Phone: Start: 01-20-2022 FUV, Provider: Sahara Mack, Status: Pen, Time: 1:30 PM FUV, Provider: Sahara Mack, Status: Pen, Time: 1:30 PM [facility] 400 DO Work Phone: Start: 12-27-2021 FUV, Provider: Sahara Mack, Status: Pen, Time: 1:00 PM FUV, Provider: Sahara Mack, Status: Pen, Time: 1:00 PM [facility] 400 DO Work Phone: Start: 12-27-2021 PFT, Provider: ASHWINI PFT ROOM,[id number], Status: Pen, Time: 11:00 AM PFT, Provider: ASHWINI PFT ROOM,[id number], Status: Pen, Time: 11:00 AM [facility] 400 DO Work Phone: Start: 12-20-2021 NPV, Provider: Sahara Mack, Status: Pen, Time: 11:00 AM NPV, Provider: Sahara Mack, Status: Pen, Time: 11:00 AM [facility] Work Phone: Start: 10-31-2021 Inhalation therapy procedure [facility] Work Phone: Start: 10-31-2021 Inhalation therapy procedure [facility] Work Phone: Start: 08-02-2021 Patient encounter procedure MCRANNUAL, Provider: July Jovel, Status: Pen, Time: 9:00 AM [facility] Work Phone: Start: 12-30-2020 FUV, Provider: July Jovel, Status: Pen, Time: 9:00 AM FUV, Provider: July Jovel, Status: Pen, Time: 9:00 AM [facility] Work Phone: Start: 08-04-2020 COVID-19 Vaccine (3 - Booster for Moderna series) COVID-19 Vaccine (3 - Booster for Moderna series) [facility] Start: 08-04-2020 COVID-19 Vaccine (3 - Moderna series) COVID-19 Vaccine (3 - Moderna series) [facility] Start: 07-29-2020 FUV, Provider: July Jovel, Status: Pen, Time: 9:30 AM FUV, Provider: July Jovel, Status: Pen, Time: 9:30 AM [facility] Work Phone: Start: 07-30-2018 Xray Chest 2 V iew PA + Lateral [facility] Work Phone: Start: 10-02-2013 Zoster Vaccines (1 o f 2) Zoster Vaccines (1 of 2) [facility] Start: 09-04-2013 MMR Vaccines (1 of 1 - Standard series) MMR Vaccines (1 of 1 - Standard series) [facility] Start: 2010 RSV High Risk: (Elderly (60+) or Population) (1 - Risk 60-74 years 1-dose series) RSV High Risk: (Elderly (60+) or Population) (1 - Risk 60-74 years 1-dose series) [facility] Start: 2010 RSV patient s and/or patients aged 60+ years (1 - 1-dose 60+ series) RSV patients and/or patients aged 60+ years (1 - 1-dose 60+ series) [facility] Start: 1968 Hepatitis C screening Hepatitis C [facility] Start: 1950 Medicare Annual Wellness Visit Medicare Annual Wellness Visit (AWV) [facility] Start: 1950 Screening for malignant neoplasm of colon [facility] Start: 1950 Thyroid stimulating hormone measurement TSH Level [facility] Patient Education ED Bronchospasm (Adult) [facility] Work Phone: Patient referral [facility] Work Phone: [facility] Work Phone: NEGATED: Highlighted row has been ruled out! Planned Goals not documented [facility] Work Phone: Immunizations Immunization Date Immunization Notes Care Provider Anel andrew 12-14-2020 Fluzone High-Dose Quadrivalent 0.7 ML Intramuscular Suspension Prefilled Syringe July Jovel Work Phone: [facility] 12-14-2020 influenza, high dose seasonal, preservative-free July Jovel MD Work Phone: [facility] Work Phone: 12-14-2020 influenza virus vacc ine, unspecified formulation July Jovel MD Work Phone: [facility] Work Phone: 06-09-2020 Moderna COVID-19 Vac cine 100 MCG/0.5ML Intramuscular Suspension July Jovel Work Phone: [facility] 05-12-2020 Moderna COVID-19 Vac cine 100 MCG/0.5ML Intramuscular Suspension July Jovel Work Phone: [facility] 11-29-2019 Fluzone High-Dose Quadrivalent 0.7 ML Intramuscular Suspension Prefilled Syringe July Jovel Work Phone: [facility] 11-29-2019 influenza, high dose seasonal, preservative-free July Jovel MD Work Phone: [facility] Work Phone: 10-29-2018 influenza, injectabl e, quadrivalent, contains preservative; Translations: [Flulaval Quadrivalent Intramuscular Suspension] July Jovel [facility] Work Phone: Comment on above: Series: 08-07-2018 tetanus toxoid, redu gurjit diphtheria toxoid, and acellular pertussis vaccine, adsorbed July Jovel [facility] Work Phone: Comment on above: Series: 10-23-2016 influenza virus vacc ine, unspecified formulation; Translations: [Influenza] July Jovel Work Phone: [facility] Work Phone: Comment on above: Series: 10-23-2016 influenza, seasonal, injectable; Translations: [Influenza] July Jovel [facility] Work Phone: 10-23-2016 pneumococcal polysaccharide vaccine, 23 valent; Translations: [Pneumovax 23 25 MCG/0.5ML Injection Injectable] July Jovel [facility] Work Phone: Comment on above: Series: 12-23-2015 pneumococcal conjuga te vaccine, 13 valent July Jovel [facility] Work Phone: Comment on above: Series: 08-07-2013 varicella virus vacc ine; Translations: [Varicella] July Jovel [facility] Work Phone: Comment on above: Series: Payers Date Payer Category Payer Medicare (Managed Care) [facility] MEDICARE [id number] 2024 Medicare [id number] 2024 Self-pay [id number] 2015 Medicare [id number] 2015 Medicare supplementa l policy (as second payer) [employer] S[employer] [id number] 2016 Private Health Insurance [employer] S UPPLEMENTAL [employer] SENIOR SUPPLEMENT [id number] 2015-Present [address] [place] [address] [id number] 2015 Medicare [id number] 2015 Private Health Insurance [facility] [id number] 2006 [id number] 1950 Unknown [id number] 2.16840.1.798785.3.57 9.2.356 1950 Unknown [id number] 2.16840.1.696730.3.57 9.2.356 1950 Unknown [id number] 2.16840.1.742853.3.57 9.2.356 1950 Unknown [id number] 2.16.840.1.639764.3.57 9.2.356 1950 Unknown [id number] 2.16.840.1.201700.3.57 9.2.356 1950 Unknown [id number] 2.16.840.1.912781.3.57 9.2.356 1950 Unknown [id number] 2.16840.1.250134.3.57 9.2.356 1950 Unknown [id number] 2.16840.1.322792.3.57 9.2.356 1950 Unknown [id number] 2.16840.1.615080.3.57 9.2.356 1950 Unknown [id number] 2.16840.1.380544.3.57 9.2.356 1950 Unknown [id number] 2.16.840.1.407236.3.57 9.2.356 1950 Unknown [id number] 2.16.840.1.394233.3.57 9.2.356 1950 Unknown [id number] 2.16.840.1.844422.3.57 9.2.356 1950 Unknown [id number] 2.16.840.1.981313.3.57 9.2.356 1950 Unknown [id number] 2.16.840.1.046696.3.57 9.2.356 1950 Unknown [id number] 2.16.840.1.112899.3.57 9.2.356 1950 Unknown [id number] 2.16840.1.041042.3.57 9.2.356 1950 Unknown [id number] 2.16.840.1.478279.3.57 9.2.1069 1950 Unknown [id number] 2.16.840.1.073544.3.57 9.2.1069 1950 Unknown [id number] 2.16.840.1.056743.3.57 9.2.1069 1950 Unknown [id number] 2.840.1.319737.3.57 9.2.1069 1950 Unknown [id number] 2.16.840.1.538742.3.57 9.2.1245 1950 Unknown [id number] 2.16.840.1.490343.3.57 9.2.1245 1950 Unknown [id number] 2.16.840.1.500536.3.57 9.2.1245 1950 Unknown [id number] 9.2.1244 1950 Unknown [id number] 9.2.1244 1950 Unknown [id number] 2.840.1.833006.3.57 9.2.1244 1950 Unknown [id number] 2.16.840.1.878171.3.57 9.2.1244 1950 Unknown [id number] 2.840.1.822440.3.57 9.2.1244 1950 Unknown [id number] 2.840.1.424105.3.57 9.2.1244 1950 Unknown [id number] 2.0.1.365302.3.57 9.2.124 1950 Unknown [id number] 2.840.1.504645.3.57 9.2.124 1950 Unknown [id number] 2.0.1.235115.3.57 9.2.1244 1950 Unknown [id number] 2.0.1.963101.3.57 9.2.124 1950 Unknown [id number] 2.0.1.667920.3.57 9.2.124 1950 Unknown [id number] 2.840.1.962061.3.57 9.2.124 1950 Unknown [id number] 2.840.1.576622.3.57 9.2.1244 1950 Unknown [id number] 2.840.1.057771.3.57 9.2.1243 1950 Unknown [id number] 2.840.1.967682.3.57 9.2.1243 Private Health Insurance [id number] Unknown Unknown [id number] 9.2.462 Social History Date Type Detail Facility Assertion Unknown if ever smoked [facility] Work Phone: Start: 10-31-2021 Tobacco smoking status NHIS Unknown if ever smoked [facility] Work Phone: Start: 04-19-2020 None [facility] Work Phone: Start: 1950 Sex Assigned At Male [facility] Start: 07-27-2022 Tobacco smoking status NHIS Never smoked tobacco [facility] Work Phone: Start: 07-27-2022 Tobacco use and exposure Smokeless tobacco non-user [facility] Work Phone: Start: 07-27-2022 End: 12-09-2024 Alcohol intake Lifetime non-drinker (finding) [facility] Work Phone: Start: 07-27-2022 End: 08-07-2024 History of Social function [facility] Work Phone: Start: 07-27-2022 End: 08-07-2024 Tobacco use panel [facility] Work Phone: Start: 1950 Sex Assigned At Not on file [facility] Work Phone: Start: 07-17-2022 End: 06-26-2024 Exposure to SARS-CoV-2 (event) Not sure [facility] How often to you hav e a drink containing alcohol? Never [facility] Work Phone: How many standard drinks containing alcohol do you have on a typical day? Patient does not drink [facility] Work Phone: Start: 01-07-2022 Sex Male (finding) [facility] Start: 12-09-2024 Gender identity Identifies as male gender (finding) [facility] Work Phone: Start: 12-09-2024 Sexual orientation Heterosexual (siria de la torre) [facility] Work Phone: NEGATED: Highlighted rowStart: NINF History of tobacco use Passive smoker [facility] Work Phone: Functional Status Date Assessment Result Facility 12-09-2024 Functional status 152/82 [facility] 12-09-2024 Vital signs 49 12/09/2024 9: 45 AM EDT Bhavna Mckeon LPN [facility] Work Phone: 12-09-2024 [facility] Work Phone: 08-07-2024 Patient Health Questionnaire 2 item (PHQ-2) [Reported] [facility] Work Phone: 06-19-2024 Patient Health Questionnaire 2 item (PHQ-2) [Reported] [facility] Work Phone: NEGATED: Highlighted row Functional performance Functional status health issues are not documented [facility] Work Phone: Mental Status Date Assessment Result Facility NEGATED: Highlighted row Cognitive function [Interpretation] Cognitive status health issues are not documented Disease [facility] Work Phone: Clinical Notes 04-12-2020 to 12-09-2024 ANGELICA Sanchez - 12/09/2024 10:00 AM Osbaldo Jovel MD - 08/07/2024 9:00 AM Dennys Mack, DO - 08/05/2024 9:20 AM Dennys Mack, DO - 06/26/2024 4:20 PM EDT Note Date & Type Note Facility 12-09-2024 History of Present illness Narrative Images from the original note were not included. Patient: Rory Feliciano [id number] : 1950 -- AGE 74 y.o. Provider: Lore DOMINGUEZ Location [facility] Service Date: 12/09/2024 [facility] New Visit Note HISTORY OF PRESENT ILLNESS HISTORY OF PRESENT ILLNESS Rory Feliciano is a 74 y.o. male who presents to a [facility] for an evaluation with concerns of Asthma. I have independently interviewed and examined the patient in the office and reviewed available records. Current History 12/09/2024 ACT 23 mMRC 0 Peak Flow 400 Albuterol use: once per month Previous exacerbations: last February. He was sick for 5 weeks. No Hospitalization Hospitalizations or intubations: no Night symptoms: no Triggers: strenuous activity. Previous pulmonary testin years ago Average Peak Flow: 450 Previous therapies: none Atopy: none NSAID sensitivity: no Nasal polyps: no Previous pulmonary history: No history of recurrent infections, or lung disease as a child. Previously was told he has Asthma . Does not recall having AECOPD requiring antibiotics or prednisone. He has a known history of allergies. He was previously treated with allergy shots. Those were DC about 7 years ago. He is not using any OTC for allergies. Inhalers/nebulized medications: Trelegy reduced in July which helped his raspy voice. Albuterol inhaler and neb Hospitalization History: Not been hospitalized over the last year for breathing related problem. Sleep history: Denies snoring, apnea, feeling tired during the day or taking naps during the day. Dr. Mack's note07/17/2023 Patient reports that his breathing has been doing good over the past month. His peak flow today was 420 L/min with an oxygen saturation of 98%. On his last visit from a month ago we decreased his Trelegy to 100 mcg daily. Review of Systems Impressions: 1. Asthma Recommendations: 1. Remain on Trelegy 100 mcg dose daily. 2. Follow-up with the patient in 4 months. ALLERGIES AND MEDICATIONS ALLERGIES Allergies[1] MEDICATIONS Current Medications[2] PAST HISTORY PAST MEDICAL HISTORY He has a past medical history of Personal history of pneumonia (recurrent) (02/16/2022). PAST SURGICAL HISTORY Surgical History[3] IMMUNIZATION HISTORY Immunization History Administered Date(s) Administered Flu vaccine, quadrivalent, high-dose, preservative free, age 65y+ (FLUZONE) 11/29/2019, 12/14/2020 Flu vaccine, trivalent, preservative free, HIGH-DOSE, age 65y+ (Fluzone) 11/29/2019, 12/14/2020 Influenza, Unspecified 10/23/2016 Influenza, injectable, quadrivalent 10/29/2018 Influenza, seasonal, injectable 10/23/2016 Moderna SARS-CoV-2 Vaccination 05/12/2020, 06/09/2020 Pneumococcal conjugate vaccine, 13-valent (PREVNAR 13) 12/23/2015 Pneumococcal polysaccharide vaccine, 23-valent, age 2 years and older (PNEUMOVAX 23) 10/23/2016 Tdap vaccine, age 7 year and older (BOOSTRIX, ADACEL) 08/07/2018 Varicella vaccine, subcutaneous (VARIVAX) 08/07/2013 SOCIAL HISTORY He reports that he has never smoked. He has never been exposed to tobacco smoke. He has never used smokeless tobacco. He reports that he does not drink alcohol and does not use drugs. 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 DOES/DOES NOT EC: does not have exposure to birds or exotic animals. FAMILY HISTORY Family History[4] DOES/DOES NOT EC: does not have a family history of pulmonary disease. DOES/DOES NOT EC: does have a family history of cancer. Lung cancer smoker DOES/DOES NOT EC: does not have a family history of autoimmune disorders. RESULTS/DATA Pulmonary Function Test Results No testing found. Chest Radiograph XR chest 2 views 03/06/2024 CARDIOMEDIASTINAL SILHOUETTE: Cardiomediastinal silhouette is unremarkable in size and configuration. LUNGS: No consolidation, pneumothorax, or significant effusion. Slightly improved aeration since previous exam. There is a similar appearing nodular opacity of the left infrahilar region. Impression 1. Similar appearing nodular opacity left infrahilar region. As previously suggested, CT may be obtained for further assessment and exclusion underlying nodule. Signed by: Tony Khan 03/07/2024 10:[address] Scan No results found. Echocardiogram No results found. REVIEW OF SYSTEMS REVIEW OF SYSTEMS Review of Systems Constitutional: Negative. HENT: Positive for voice change. Negative for congestion. Respiratory: Negative. Cardiovascular: Negative. Endocrine: Negative. Allergic/Immunologic: Positive for environmental allergies. Negative for food allergies and immunocompromised state. Neurological: Positive for dizziness and headaches. Negative for tremors and weakness. PHYSICAL EXAM VITAL SIGNS: Vitals: 12/09/24 0945 BP: 152/82 Pulse: (!) 49 Temp: 36.8 C (98.2 F) SpO2: 96% CURRENT WEIGHT: @WTENG@ BMI: @BMI1@ PREVIOUS WEIGHTS: Wt Readings from Last 3 Encounters: 08/07/24 98.8 kg (217 lb 12.8 oz) 08/05/24 99.3 kg (219 lb) 07/03/24 101 kg (221 lb 9.6 oz) Latest Reference Range & Units 07/28/24 07:05 ABSOLUTE EOSINOPHILS 15 - 500 cells/uL 315 Physical Exam Cardiovascular: Pulses: Normal pulses. Heart sounds: Normal heart sounds. Pulmonary: Effort: Pulmonary effort is normal. Breath sounds: Normal breath sounds. Skin: Capillary Refill: Capillary refill takes less than 2 seconds. Neurological: Mental Status: He is alert and oriented to person, place, and time. ASSESSMENT/PLAN Mr. Feliciano is a 74 y.o. male and has a past medical history of Personal history of pneumonia (recurrent) (02/16/2022). Assessment and Plan / Recommendations: Problem List Items Addressed This Visit None Moderate persistent Asthma/COPD with air trapping -PFT 2021 FEV1/FVC 56 /FEV1 60 ( %)/FVC 106( %)/ FCB900 ( %)/ RV 210( %)/ DLCO %123 -Update PFT, FENO, 6mwt -Stay current with recommended immunizations -Recommend home SpO2 monitor -Continue Trelegy daily and albuterol PRN Allergic rhinitis -may use otc flonase and antihistamine. Abnormal chest xray 02/2024 -Similar appearing nodular opacity left infrahilar region. Was sick at this time. -Get chest xray Thank you for visiting the Pulmonary clinic today! Return to clinic after 6month PFTs, xray complete or sooner if needed Lore Clinton APRN, DEPOSIT REFUND CLERK My office number is Any test results will be discussed at next visit -- please make sure to make a follow up appt after testing. [1] No Known Allergies [2] Current Outpatient Medications Medication Sig Dispense Refill albuterol (Ventolin HFA) 90 mcg/actuation inhaler Inhale 2 puffs every 4 hours if needed for wheezing or shortness of breath. RINSE MOUTH WITH WATER AFTER AND SPIT. 18 g 2 albuterol 2.5 mg /3 mL (0.083 %) nebulizer solution Take 3 mL (2.5 mg) by nebulization 4 times a day as needed for wheezing or shortness of breath. 90 mL 0 atorvastatin (Lipitor) 20 mg tablet Take 1 tablet (20 mg) by mouth once daily. 90 tablet 1 dorzolamide-timoloL (Cosopt) 22.3-6.8 mg/mL ophthalmic solution Administer 1 drop into both eyes 2 times a day. enalapril (Vasotec) 20 mg tablet Take 1 tablet (20 mg) by mouth once daily. 90 tablet 1 fluticasone (Flonase) 50 mcg/actuation nasal spray Administer 2 sprays into each nostril once daily. Shake gently. Before first use, prime pump. After use, clean tip and replace cap. 48 g 1 jirqjswotuq-uwukcasbn-wwbwsbza (Trelegy Ellipta) 100-62.5-25 mcg blister with device Inhale 1 puff once daily. RINSE MOUTH WITH WATER AFTER AND SPIT. 60 each 5 guaiFENesin (Mucinex) 600 mg 12 hr tablet Take 1 tablet (600 mg) by mouth 2 times a day. latanoprost (Xalatan) 0.005 % ophthalmic solution Administer 1 drop into both eyes once daily at bedtime. No current facility-administered medications for this visit. [3] No past surgical history on file. [4] Family History Problem Relation Name Age of Onset Cancer Mother Heart disease Father documented in this encounter [facility] Work Phone: 08-07-2024 History of Present illness Narrative Subjective Patient ID: Rory Feliciano is a 74 y.o. male who presents for Annual Exam (EPV, MWE/Blood Work completed 07/28/24). History of Present Illness Rory Fleiciano is a 74 year old male who presents for MWE. Feels well, no specific complaints or concerns today. His breathing is generally good. He had recent follow up with product blending supervisor, Dr. Mack. He uses Trelegy and rarely uses his albuterol inhaler. He feels tired more easily, especially after prolonged physical activity in the heat, attributing this to aging and his active lifestyle. Colonoscopy 05/2021 Review of Systems General: no fever or night sweats, no change in weight Eyes: no vision disturbance- has glaucoma, sees eye doctor, and uses eye drops ENT: wears hearing aids, no hoarseness, no mouth lesions, no sore throat, and no dysphagia CV: no chest pain, no palpitations, no lower extremity edema Resp: no shortness of breath, no cough GI: no abdominal pain, no change in bowel habits : no urinary problems MSK: no arthralgias, myalgias, or back pain Skin; no rashes or new/changed skin lesions Neuro: no headache, no difficulty walking Objective BP 128/78 (BP Location: Left arm, Patient Position: Sitting) Pulse 62 Temp 37 C (98.6 F) (Oral) Resp 18 Ht 1.682 m (5' 6.22) Wt 98.8 kg (217 lb 12.8 oz) SpO2 98% BMI 34.92 kg/m Physical Exam Appears well. HEENT: OP clear. Sclera white. PERRL. EACs and TMs clear. Neck: Supple, no masses, lymphadenopathy, or thyromegaly. CVS: RRR, no murmurs. No peripheral edema. Resp: Clear and equal breath sounds. Abd: Soft, non-tender, no mass or HSM. Male: Normal testes. No hernia. Rectal: No mass. Guaiac negative stool. Normal prostate. Skin: No suspicious lesions. Reviewed labs: all WNL Assessment/Plan Diagnoses and all orders for this visit: Health maintenance examination - atorvastatin (Lipitor) 20 mg tablet; Take 1 tablet (20 mg) by mouth once daily. Primary hypertension - atorvastatin (Lipitor) 20 mg tablet; Take 1 tablet (20 mg) by mouth once daily. - enalapril (Vasotec) 20 mg tablet; Take 1 tablet (20 mg) by mouth once daily. - Follow Up In [facility] - PCP - Established; Future Mixed hyperlipidemia - atorvastatin (Lipitor) 20 mg tablet; Take 1 tablet (20 mg) by mouth once daily. - Follow Up In [facility] - PCP - Established; Future Assessment & Plan - Schedule follow-up in 6 months. July Jovel MD This medical note was created with the assistance of artificial intelligence (AI) for documentation purposes. The content has been reviewed and confirmed by the healthcare provider for accuracy and completeness. Patient consented to the use of audio recording and use of AI during their visit. documented in this encounter [facility] Work Phone: 08-05-2024 History of Present illness Narrative Subjective Patient ID: Rory Feliciano is a 74 y.o. male who presents for No chief complaint on file.. HPI Patient reports that his breathing has been doing good over the past month. His peak flow today was 420 L/min with an oxygen saturation of 98%. On his last visit from a month ago we decreased his Trelegy to 100 mcg daily. Review of Systems Patient denies having any fever, chills, rhinitis or sore throat and is not smoking. Objective Physical Exam HEENT, there is no inflammation on examination of the oropharynx. Pulmonary, lungs were clear to auscultation. Cardio, heart sounds are regular rate and rhythm. Extremities, no cyanosis, clubbing or pretibial edema. Psych, the patient is alert and oriented x 3. Assessment/Plan Impressions: 1. Asthma Recommendations: 1. Remain on Trelegy 100 mcg dose daily. 2. Follow-up with the patient in 4 months. This note was transcribed using the [employer] Dictation system. There may be grammatical, punctuation, or verbiage errors that occur with voice recognition programs. Sahara Mack DO 08/05/24 9:46 AM documented in this encounter [facility] Work Phone: 06-26-2024 History of Present illness Narrative Subjective Patient ID: Rory Feliciano is a 74 y.o. male who presents for exacerbation of asthma. He also has had some problems with allergies. HPI Patient reports that he has been using Tessalon Perles 3 times daily and Mucinex DM tablets twice daily he reports still having some cough but it has improved over the last couple days it was a very dark color but now it has becoming clear. He did not go to the hospital urgent care while he was having problems over the last week. He currently denies having any wheezing or hemoptysis. Patient had some dyspnea with his daily activities. Review of Systems Patient denies having fever, chills, rhinitis or sore throat and not smoking. Objective Physical Exam Patient was having a coughing episode in the office today but in general it was decreased. Respiratory, decreased breath sounds with some end expiratory wheezes bilaterally. Heart sounds are regular rate and rhythm. Extremities, no cyanosis, clubbing or pretibial edema. Peak flow today was 420 L/min. Assessment/Plan Impressions: 1 seasonal allergies. 2. Exacerbation of asthma. Recommendations: 1 prednisone with a taper at starting at 40 x 3, 30 x 3, 20 x 3, 10 x 3. 2. I did give the patient 2 different masks that he could use well working outdoors and with cutting the lawn. 3. Continue with the Tessalon Perles 3 times a day. 4. Continue with Mucinex DM 1 tab p.o. twice daily 5. Follow-up with the patient in 1 week. This note was transcribed using the [employer] Dictation system. There may be grammatical, punctuation, or verbiage errors that occur with voice recognition programs. Sahara Mack DO 06/26/24 4:46 PM documented in this encounter [facility] Work Phone: 06-19-2024 History of Present illness Narrative Subjective Patient ID: Rory Feliciano is a 74 y.o. male who presents for Cough (EPV, C/O Productive Cough (yellow phlegm), Chest congestion, No fever X 4 days/Over the counter meds not working). History of Present Illness Rory Feliciano is a 74 year old male with lung disease who presents with worsening cough and shortness of breath. He has been experiencing worsening cough and shortness of breath for the past four days. The cough is bad.He has increased the use of his Ventolin inhaler over the past two days due to these symptoms. He has a history of lung disease and recalls a similar episode around that lasted five and a half weeks. During that time, he was prescribed course of steroid. He is currently using Trelegy at a dose of 200 mcg and Ventolin twice daily, though he has increased the frequency of his albuterol use recently. He is also taking Mucinex DM and Tessalon Perles for his symptoms. No fever, chills, or body aches but significant drainage down his throat, which he finds bothersome. He denies any sinus pain and maintains a good appetite despite his respiratory symptoms. Objective BP 132/70 (BP Location: Left arm, Patient Position: Sitting) Pulse 60 Temp 36.9 C (98.5 F) (Oral) Resp 18 Ht 1.702 m (5' 7) Wt 97.6 kg (215 lb 1.6 oz) SpO2 98% BMI 33.69 kg/m Physical Exam Alert, well-appearing. CVS: RRR, no murmurs. Respiratory: Normal inspirations and expirations. Clear and equal breath sounds. GI: Soft, nontender. Assessment/Plan Diagnoses and all orders for this visit: Viral upper respiratory tract infection Assessment & Plan Acute bronchitis Likely viral etiology. No pneumonia. Antibiotics not indicated. - Continue Mucinex DM. - Use Tessalon Perles as needed for cough. - Increase albuterol (Ventolin) for shortness of breath. - Encourage increased fluid intake. - Advise to call if symptoms do not improve. July Jovel MD This medical note was created with the assistance of artificial intelligence (AI) for documentation purposes. The content has been reviewed and confirmed by the healthcare provider for accuracy and completeness. Patient consented to the use of audio recording and use of AI during their visit. documented in this encounter [facility] Work Phone: 04-28-2024 History of Present illness Narrative Subjective Patient ID: Rory Feliciano is a 74 y.o. male who presents for No chief complaint on file.. HPI Patient was seen today on a 1 month follow-up visit. Patient reports that his breathing has been good. He does however have persistent slight hoarseness. Some of that he attributes to posterior nasal drainage. The patient denies shortness of breath however with his daily activities. The cough that he had before improved significantly with the Tessalon Perles. Patient is currently on Trelegy-200 daily and albuterol inhaler 2 puffs twice daily as needed shortness of breath. Patient denies cough, sputum production, hemoptysis or wheezing. He has no dyspnea with usual daily activities. Review of Systems Patient denies any fever, chills, rhinitis or sore throat and he is not smoking. Objective Physical Exam HEENT, there is no inflammation on examination of the oropharynx. Pulmonary, lungs are clear to auscultation bilaterally. Cardio, heart sounds are regular rate and rhythm. Extremities, no cyanosis, clubbing or pretibial edema. Assessment/Plan Impressions: 1. Mild asthma. 2 mild hoarseness. Recommendations: 1. Consider decreasing the Trelegy to 100 mcg dose daily. I have given him a sample of that which last for 2 weeks and he is to call us to see if it has made a difference in his hoarseness. 2. Follow-up with the patient in June. This note was transcribed using the [employer] Dictation system. There may be grammatical, punctuation, or verbiage errors that occur with voice recognition programs. Sahara Mack DO 04/28/24 9:07 AM documented in this encounter [facility] Work Phone: 03-31-2024 History of Present illness Narrative Subjective Patient ID: Rory Feliciano is a 74 y.o. male who presents for No chief complaint on file.. HPI Was seen today in the office on a 2-week follow-up visit. He reports that his cough is largely resolved. He does have slight hoarseness in his voice. He does not have any sputum production. He is still using the Trelegy-200 daily and albuterol inhaler 2 puffs 4 times daily as needed shortness of breath Review of Systems Improved. Objective Physical Exam HEENT, there is no inflammation on examination of the oropharynx. Pulmonary, lungs were clear to auscultation and there was no rhonchi noted. Cardio, heart sounds were regular rate and rhythm. Patient did not have a productive cough today in the office. Assessment/Plan Impressions: 1. Mild occasional cough. 2. Mild asthma. Recommendations: 1. Continue with current bronchodilator therapy. 2. Follow-up with the patient in 1 month. If his symptoms are stable at that time then we will schedule him for follow-up in June. This note was transcribed using the creadsation system. There may be grammatical, punctuation, or verbiage errors that occur with voice recognition programs. Sahara Mack DO 03/31/24 8:45 AM documented in this encounter [facility] Work Phone: 03-17-2024 History of Present illness Narrative Subjective Patient ID: Rory Feliciano is a 73 y.o. male who presents for No chief complaint on file.. HPI Patient was seen today on a 10-day follow-up appointment with his Yissel. He reports his cough has been better and his phlegm production is clear. He has mild cough. Denies any wheezing. Denies any shortness of breath. He denies any fever, chills, rhinitis or sore throat. He is not smoking. Today was the last day of his prednisone at 10 mg a day. Review of Systems As above. Objective Physical Exam Pulmonary, breath sounds were symmetrical with no wheezing and I could not appreciate any rhonchi. Cardio, heart sounds were regular rate and rhythm. Psych, the patient was alert and oriented x 3 with minimal coughing during the office visit. Assessment/Plan Impressions: 1. Chronic cough. 2. Mild asthma. Recommendations: 1. Tessalon Perles 100 mg dose 2 p.o. 3 times daily as needed cough. #60 x 1. 2. Prednisone 20 mg every morning for 3 days and then 10 mg every morning for 4 days. 3. Follow-up with the patient in 2 weeks. This note was transcribed using the [employer] Dictation system. There may be grammatical, punctuation, or verbiage errors that occur with voice recognition programs. Sahara Mack DO 03/17/24 11:58 AM documented in this encounter [facility] Work Phone: 03-06-2024 History of Present illness Narrative Subjective Patient ID: Rory Feliciano is a 73 y.o. male who presents for No chief complaint on file.. HPI Patient was seen today in the office at his request. He relates to me that he has been ill since 02/12/2024 with increased cough and shortness of breath. He also at 1 point had greenish phlegm production which he reports now has been clear. He is also been taking Mucinex DM and Tessalon Perles but he still has some persistent cough. He has also been taking albuterol nebulized treatments or albuterol inhaler. His main concern at this point is the severe persistent cough. He has no hemoptysis. He is also on Trelegy-100 daily and albuterol inhaler 2 puffs 4 times daily as needed cough and shortness of breath. I did his review his chest x-ray that was done today on 03/06/2024 and it shows no longer does he have areas of consolidation in the lung and no infiltrates. Review of Systems Patient does admit to some wheezing. He denies any fever, chills, rhinitis or sore throat. Objective Physical Exam HEENT, no inflammation on examination of the oropharynx. Pulmonary, he has some bilateral expiratory rhonchi in the lung bases and some end expiratory scattered wheezes. Cardio, heart sounds are regular rate and rhythm. Extremities, no cyanosis, clubbing or pretibial edema. Psych, the patient is alert and oriented x 3 Assessment/Plan Impressions: 1. Moderate asthma. 2. Dyspnea on exertion. 3. Chronic cough. 4. No current evidence of bronchitis or pneumonia. Recommendations: 1. We placed him on a steroid taper over the next 12 days, starting at 40 mg a day for 3 days, 30 mg for 3 days, 20 mg for 3 days and 10 mg for 3 days. 2. Continue with the Mucinex DM and Tessalon Perles. 3. Follow-up with the patient in 10 days. This note was transcribed using the [employer] Dictation system. There may be grammatical, punctuation, or verbiage errors that occur with voice recognition programs. Sahara Mack DO 03/06/24 11:56 AM documented in this encounter [facility] Work Phone: 02-18-2024 History of Present illness Narrative Subjective Patient ID: Rory Feliciano is a 73 y.o. male who presents for chest congestion and Cough (EP. Here for chest congestion and cough. Seen in ER. Finished Abx. ). HPI IRVIN went to [facility] due to shortness of breath, was given prednisone (60 mg x 5 days) Feels better but still has chest congestion, + productive cough, denies shortness of breath No abd or back pain Been using Ventolin more, also using nebulizer Objective BP 128/74 (BP Location: Right arm) Pulse 62 Temp 36.7 C (98.1 F) (Oral) Wt 103 kg (227 lb) SpO2 97% BMI 35.55 kg/m Physical Exam Alert, mildly ill-appearing. HEENT: OP clear. Sclera white. Pupils equal and round. EACs and TMs clear. Neck: Supple. No LAD. CVS: RRR, no murmurs. Respiratory: + rales throughout GI: Soft, nontender. Assessment/Plan Diagnoses and all orders for this visit: COPD with acute exacerbation (Multi) - albuterol 2.5 mg /3 mL (0.083 %) nebulizer solution; Take 3 mL (2.5 mg) by nebulization 4 times a day as needed for wheezing or shortness of breath. - azithromycin (Zithromax) 250 mg tablet; Take 2 tablets (500 mg) by mouth once daily for 1 day, THEN 1 tablet (250 mg) once daily for 4 days. Take 2 tabs (500 mg) by mouth today, than 1 daily for 4 days.. Acute cough - XR chest 2 views; Future - azithromycin (Zithromax) 250 mg tablet; Take 2 tablets (500 mg) by mouth once daily for 1 day, THEN 1 tablet (250 mg) once daily for 4 days. Take 2 tabs (500 mg) by mouth today, than 1 daily for 4 days.. July Jovel MD [facility] documented in this encounter [facility] Work Phone: 01-31-2024 History of Present illness Narrative Subjective Patient ID: Rory Feliciano is a 73 y.o. male who presents for Follow-up (EP. Here for follow up and medication.). HPI Feels well, no specific complaints or concerns today. Does not need refills today but will need them sent after Feb. 1 Sees product blending supervisor, Dr. Mack - on [facility] Review of Systems Genl: The patient has been in good health without recent weight change, fevers, or night sweats CVS: No chest pain, irregular heartbeat, shortness of breath, or swollen ankles Resp: No cough or difficulty breathing GI: No change in bowel habits or abdominal pain. No heartburn : No urinary problems. Objective BP 118/64 (BP Location: Left arm) Pulse (!) 49 Temp 36.7 C (98.1 F) (Oral) Wt 100 kg (221 lb) SpO2 96% BMI 34.61 kg/m Physical Exam Alert, well-appearing. CVS: RRR, no murmurs. Respiratory: Clear and equal breath sounds. GI: Soft, nontender, no masses or hepatosplenomegaly. Assessment/Plan Diagnoses and all orders for this visit: Primary hypertension Mixed hyperlipidemia He is to call when he needs refills July Jovel MD [facility] documented in this encounter [facility] Work Phone: 01-04-2024 History of Present illness Narrative Subjective Patient ID: Rory Feliciano is a 73 y.o. male who presents for No chief complaint on file.. HPI Patient was seen today on a 6-month follow-up visit. He reports that he feels as though he has some chest congestion over the past week and he ran out of his albuterol inhaler. He is currently on Trelegy-100 daily and has been getting his medications from [facility] but they are going out of business so eventually he will want his medications transferred over to [facility] [place]. Patient has a frequent cough with some clear sputum production. No hemoptysis or wheezing. Patient has been using Mucinex DM as needed for the chest congestion. Review of Systems Patient denies any fever, chills, rhinitis or sore throat and he is not smoking. Objective Physical Exam HEENT, no inflammation noted on examination of the oropharynx and the patient does rinse his mouth with water after use of the Trelegy. Pulmonary, lungs were clear to auscultation bilaterally. Cardio, heart sounds were regular rate and rhythm. Extremities, no cyanosis, clubbing or pretibial edema. Psych, the patient is alert and oriented x 3. Assessment/Plan Impressions: 1. Moderate persistent asthma. 2. Dyspnea on exertion. Recommendations: 1. New prescription for the albuterol with 2 refills his pharmacy is closing and his medications will transfer to [facility] [place]. 2. Continue with the Trelegy-100 inhaler. 3. Told the patient to contact our office he is having any new problems with his breathing. This note was transcribed using the [employer] Dictation system. There may be grammatical, punctuation, or verbiage errors that occur with voice recognition programs. Sahara Mack DO 01/04/24 9:29 AM documented in this encounter [facility] Work Phone: 07-31-2023 History of Present illness Narrative 3Subjective Patient ID: Rory Feliciano is a 73 y.o. male who presents for Medicare Annual Wellness Visit Subsequent (EP. Here for AMCR.). HPI Feels well, no specific complaints or concerns today. A couple weeks ago had some epigastric pain - slept a lot, had no nausea or vomitting or diarrhea Recently saw product blending supervisor, Dr. Mack- using Trelegy - moderate asthma Review of Systems General: no fever or night sweats, no change in weight Eyes: sees eye doctor regularly- had cataract surgery, has glaucoma ENT: no hearing loss, no hoarseness, no mouth lesions, no sore throat, and no dysphagia CV: no chest pain, no palpitations, no lower extremity edema Resp: no shortness of breath, no cough GI: no abdominal pain, no change in bowel habits : no urinary problems MSK: no arthralgias, myalgias, or back pain Skin; no rashes or new/changed skin lesions Neuro: no headache, no difficulty walking Objective BP 130/78 Pulse 54 Temp 36.1 C (97 F) (Oral) Ht 1.702 m (5' 7) Wt 101 kg (222 lb) SpO2 97% BMI 34.77 kg/m Physical Exam Appears well. HEENT: OP clear. Sclera white. PERRL. EACs and TMs clear. Neck: Supple, no masses, lymphadenopathy, or thyromegaly. CVS: RRR, no murmurs. No peripheral edema. Resp: Clear and equal breath sounds. Normal inspirations and expirations. Abd: Soft, non-tender, no mass or HSM. Male: Normal testes. No hernia. Rectal: No mass. Guaiac negative stool. Normal prostate. Skin: No suspicious lesions. Assessment/Plan Diagnoses and all orders for this visit: Health maintenance examination Chronic obstructive pulmonary disease, unspecified COPD type (Multi) Chronic sinusitis, unspecified location Mixed hyperlipidemia Primary hypertension July Jovel MD [facility] documented in this encounter [facility] Work Phone: 07-04-2023 History of Present illness Narrative Subjective Patient ID: Rory Feliciano is a 73 y.o. male who presents for No chief complaint on file.. HPI Patient was seen today in the office on a follow-up visit. He reports that his breathing has been doing very well over the last 6 months. He is currently on Trelegy-100 daily and he does have an albuterol inhaler but reports he does not find it necessary to use that. Peak flow today was normal at 500 L/min. He denies having significant cough or sputum production at this time. He has not had any problems with wheezing. He denies dyspnea with daily activities. Review of Systems He is not having any problems with fever, chills, rhinitis or sore throat. And he is not a smoker. Objective Physical Exam HEENT, no inflammation on examination of the oropharynx. Pulmonary, slightly diminished breath sounds bilaterally but otherwise clear. Cardio, heart sounds are regular rate and rhythm. Extremities, no pretibial edema, cyanosis or clubbing. Patient is not dyspneic with activity in the office. Patient is alert and oriented x 3. Assessment/Plan Impressions: 1. Moderate asthma. 2. Dyspnea on exertion with flight of stairs. Recommendations: 1. Continue with the Trelegy-100 inhaler daily. I reminded the patient to rinse his mouth with tap water after each use. 2. Albuterol inhaler at 2 puffs twice daily as needed shortness of breath. 3. Follow-up with the patient in 6 months. This note was transcribed using the [employer] Dictation system. There may be grammatical, punctuation, or verbiage errors that occur with voice recognition programs. Sahara Mack DO 07/04/23 9:16 AM documented in this encounter [facility] Work Phone: 01-26-2023 History of Present illness Narrative Subjective Patient ID: Rory Feliciano is a 72 y.o. male who presents for Follow-up (EP. Here for 6 month follow up and medication/). HPI Feeling pretty well Pressure in face and raspy voice, nasal congestion This has been going on 2 mos Saw product blending supervisor- has moderate asthma- on Trelegy Review of Systems Genl: The patient has been in good health without recent weight change, fevers, or night sweats CVS: No chest pain, irregular heartbeat, shortness of breath, or swollen ankles Resp: No cough or difficulty breathing GI: No change in bowel habits or abdominal pain. No heartburn : No urinary problems. Objective Visit Vitals BP 128/84 Temp 37 C (98.6 F) (Oral) Physical Exam Alert, well-appearing. HEENT: OP clear. Sclera white. Pupils equal and round. EACs and TMs clear. Neck: Supple. No palpable masses. Thyroid was not enlarged. CVS: RRR, no murmurs. No peripheral edema. Respiratory: Normal inspirations and expirations. Clear and equal breath sounds. GI: Soft, nontender. Assessment/Plan Diagnoses and all orders for this visit: Primary hypertension - enalapril (Vasotec) 20 mg tablet; Take 1 tablet (20 mg) by mouth once daily. Mixed hyperlipidemia - atorvastatin (Lipitor) 20 mg tablet; Take 1 tablet (20 mg) by mouth once daily. Chronic sinusitis, unspecified location - fluticasone (Flonase) 50 mcg/actuation nasal spray; Administer 2 sprays into each nostril once daily. Shake gently. Before first use, prime pump. After use, clean tip and replace cap. Healthcare maintenance - Follow Up In [facility] - PCP - Medicare Annual; Future Trial of Flonase and to let me know if not better, may need referral to ENT July Jovel MD [facility] documented in this encounter [facility] Work Phone: 01-03-2023 History of Present illness Narrative Subjective Patient ID: Rory Feliciano is a 72 y.o. male who presents for Asthma and Shortness of Breath (6 mos follow up). HPI Patient was seen today on a 6-month follow-up visit for his moderate asthma and his dyspnea on exertion. We did also talk for while on his most recent problems with sinus congestion and recommendations for treatment of that. I suggested to him trying Mucinex D and that that may help clear up the sinuses. Patient is on Trelegy-200 daily and short acting beta agonist 4 times daily as needed shortness of breath. Patient currently denies any significant coughing. He denies dyspnea with daily activities. His peak flow today was 510 L/min which is significantly improved over his last visit (410). Review of Systems Patient denies having any fever or chills. He does have problems with rhinitis denies any sore throat. He is rinsing his mouth after using the Trelegy. Patient is not a smoker. All other review of systems were noncontributory. Refer to the HPI. Objective Physical Exam HEENT, no inflammation noted on examination of the oral pharynx. His oxygen saturation today on room air was 99%. Pulmonary, lungs were clear to auscultation. Cardio, heart sounds were regular rate and rhythm. Extremities, no pretibial edema, cyanosis or clubbing. Psych, the patient is alert and oriented x3. He was in no respiratory distress today in the office Assessment/Plan Impressions: 1. Moderate asthma. 2. Dyspnea on exertion such as flight of stairs or an incline. 3. Sinusitis. Recommendations: 1. I suggested a trial of Mucinex D. This usually involves taking 1 tablet once a day or twice a day as needed. 2. Continue with the Trelegy inhaler daily and albuterol inhaler only as needed which patient reports has been very rare use. 3. Follow-up with the patient in 6 months. If he has any new problems with his breathing prior to that time he was instructed to contact our office for a follow-up. This note was transcribed using the [employer] Dictation system. There may be grammatical, punctuation, or verbiage errors that occur with voice recognition programs. documented in this encounter [facility] Work Phone: 07-27-2022 History of Present illness Narrative Subjective Reason for Visit: Rory Feliciano is an 72 y.o. male here for a Medicare Wellness visit. Past Medical, Surgical, and Family History reviewed and updated in chart. Reviewed all medications by prescribing practitioner or clinical pharmacist (such as prescriptions, OTCs, herbal therapies and supplements) and documented in the medical record. HPI Feels well, no specific complaints or concerns today. Due to recurrent cough he was referred to product blending supervisor- saw Dr. Mack, on Trelegy Colonoscopy 05/2021 Patient Care Team: July Jovel MD as PCP - General July Jovel MD as PCP - [facility] ACO Attributed Provider Review of Systems General: no fever or night sweats, no change in weight Eyes: no vision disturbance ENT: no hearing loss, no hoarseness, no mouth lesions, no sore throat, and no dysphagia CV: no chest pain, no palpitations, no lower extremity edema Resp: no shortness of breath, no cough GI: no abdominal pain, no change in bowel habits : no urinary problems MSK: no arthralgias, myalgias, or back pain Skin; no rashes or new/changed skin lesions Neuro: no headache, no difficulty walking Objective Vitals: BP 124/82 Temp 36.6 C (97.8 F) (Oral) Wt 100 kg (221 lb) BMI 34.61 kg/m Physical Exam Appears well. HEENT: OP clear. Sclera white. PERRL. EACs and TMs clear. Neck: Supple, no masses, lymphadenopathy, or thyromegaly. CVS: RRR, no murmurs. No peripheral edema. Resp: Clear and equal breath sounds. Normal inspirations and expirations. Abd: Soft, non-tender, no mass or HSM. Male: Normal testes. No hernia. Rectal: No mass. Guaiac negative stool. Normal prostate. Skin: No suspicious lesions. Assessment/Plan Problem List Items Addressed This Visit HTN (hypertension) Hyperlipidemia Reactive airway disease Other Visit Diagnoses Hypothyroidism, unspecified type Encouraged him to check on coverage for Shingles vaccine documented in this encounter [facility] Work Phone: 03-16-2022 History of Present illness Narrative EP. Here for cough. Feels the same from when he had pneumonia.Rory is a 71 year old male presenting today for a cough.-feeling better but still has cough.-Has appointment with product blending supervisor Dr. Mack on .-Did not receive a call until 02/17 from the pulmonology office.-Recently diagnosed with right lower lobe pneumonia.-He was prescribed Levaquin.-Doing albuterol nebulizer treatments at home.-Also has some congestion and sinus pressure with his cough.-He was told at urgent care there is a possibility it may be an esophageal issue. [facility] Work Phone: 02-17-2022 History of Present illness Narrative EP. Here for cough. Feels the same from when he had pneumonia.Rory is a 71 year old male presenting today for a cough.-feeling better but still has cough.-Has appointment with product blending supervisor Dr. Mack on .-Did not receive a call until 02/17 from the pulmonology office.-Recently diagnosed with right lower lobe pneumonia.-He was prescribed Levaquin.-Doing albuterol nebulizer treatments at home.-Also has some congestion and sinus pressure with his cough.-He was told at urgent care there is a possibility it may be an esophageal issue. [facility] Work Phone: 02-17-2022 History of Present illness Narrative EP. Here for cough. Feels the same from when he had pneumonia.Rory is a 71 year old male presenting today for a cough.-feeling better but still has cough.-Has appointment with product blending supervisor Dr. Mack on .-Did not receive a call until 02/17 from the pulmonology office.-Recently diagnosed with right lower lobe pneumonia.-He was prescribed Levaquin.-Doing albuterol nebulizer treatments at home.-Also has some congestion and sinus pressure with his cough.-He was told at urgent care there is a possibility it may be an esophageal issue. -[facility] Work Phone: 02-16-2022 History of Present illness Narrative Patient was seen in the office today in regards to his chronic cough and with a recent chest x-ray from an urgent care center on 02/16/2022 which apparently indicated that he had a pneumonia in the right lower lobe. He was placed on Levaquin 750 mg daily for 5 days and has noticed some improvement in the sputum production but still has yellowish color to what he is expectorating. I had the patient do a chest x-ray today in the office which shows improvement in that right lower lobe infiltrate. The report from the urgent care mistakenly refer to this is being in the right middle lobe. Patient does report that his right posterior chest pain that he was having has improved. He no longer has fever, chills, rhinitis or sore throat. He is not a smoker. He did finish the Levaquin on 02/20/2022I did review his chest x-ray once again that proceeds this from 12/06/2021 which showed was clear.I did review the reports he brought to me from his programmer engineering and scientific from 2020 which shows that he does have some allergies that office visit did not make any new recommendations except for consideration of discontinuing the enalapril as the possible etiology of his chronic cough. [facility] [id number] [facility] Work Phone: 02-16-2022 History of Present illness Narrative Patient was seen in the office today in regards to his chronic cough and with a recent chest x-ray from an urgent care center on 02/16/2022 which apparently indicated that he had a pneumonia in the right lower lobe. He was placed on Levaquin 750 mg daily for 5 days and has noticed some improvement in the sputum production but still has yellowish color to what he is expectorating. I had the patient do a chest x-ray today in the office which shows improvement in that right lower lobe infiltrate. The report from the urgent care mistakenly refer to this is being in the right middle lobe. Patient does report that his right posterior chest pain that he was having has improved. He no longer has fever, chills, rhinitis or sore throat. He is not a smoker. He did finish the Levaquin on 02/20/2022I did review his chest x-ray once again that proceeds this from 12/06/2021 which showed was clear.I did review the reports he brought to me from his programmer engineering and scientific from 2020 which shows that he does have some allergies that office visit did not make any new recommendations except for consideration of discontinuing the enalapril as the possible etiology of his chronic cough. [facility] [place] [id number] [place] Work Phone: 12-14-2021 History of Present illness Narrative Patient was seen today on a follow-up of visit. This was to review review the results of his pulmonary function testing. He does report that his cough is better. He is still on Mucinex DM twice a day over the last 2 weeks he reports he does not use his Symbicort on a regular basis when he feels better. I reviewed with him the results of his pulmonary function testing done earlier today which shows that he has moderate obstructive airway disease with significant improvement postbronchodilator.He has a mild cough with some clear sputum production. He denies any wheezing. He does have shortness of breath going up a flight of stairs. [facility] [facility] Work Phone: 12-06-2021 History of Present illness Narrative Patient was seen today on a 1 week follow-up visit to review his chest x-ray that was done today. He was accompanied by his daughter Eli. His oxygen saturation was 97% on room air. Review of today's chest x-ray shows nearly clear right lower lobe and improved versus the 12/06/2021 chest x-ray. The patient has completed 7 days of Levaquin 500 mg a day and he had also previous to this been on Levaquin 750 mg a day for 5 days. There was 2 or 3 days lapse between those 2 treatments. The patient is on Trelegy 200 daily and albuterol inhaler 2 puffs 4 times daily as needed shortness of breath. He still taking Mucinex and an occasional Tessalon Perles because of his persistent cough. We did talk about the MARY inhibitor that he has been on and whether this may be a cause for his cough.Patient has mild cough with occasional clear sputum production. He denies any dyspnea with daily activities. [facility] [id number] [place] Work Phone: 11-12-2021 History of Present illness Narrative 71-year-old male presents with evaluation for chronic cough x3 months. Was diagnosed with pneumonia in November has struggled with cough since then. He has several visits including his PCP and a product blending supervisor.The reason he came in today is because he most recently saw his product blending supervisor a month ago. Seemed to think the cough was more allergic , they added Xyzal and then he has a follow-up appointment in 2 weeks. He does not feel improved at all on the Xyzal. The last 2 nights that he had some chills or sweats overnight. But otherwise just frustrated that this cough is waxing and waning and not resolved. He also saw his programmer engineering and scientific 2 days ago who thought the cough was less likely allergic or pulmonary and was concerned about an MARY induced cough told to see his PCP. Has an appointment next week [facility] Work Phone: 10-31-2021 History of Present illness Narrative Was seen in ER on Sunday, cough ,SOB continues to have productive cough and SOBCharles is a 71 year old male presenting today to follow up after an ER visit for cough and SOB.-Reports he was having trouble breathing and was seen at the ER, on 10/31 and also 11/05.-He was prescribed a z-juan miguel and prednisone for 10 days.-Took 2 prednisone on 11/05, 11/06, and 11/07. He has 7 days left of this medication.-He called the office and spoke with nurse Daphnie Chinchilla.-Daily he has been using his nebulizer with albuterol up to 4 times. He recently just ran out of the solution.-For his wheezing his albuterol inhaler provided him with some relief.-Recalls being prescribed Levaquin for his cough earlier this month.-Still has a cough and it has been causing sleep disturbance.-CXR on 10/31 did not show any markings, however the CXR on 11/05 showed some markings consistent with pneumonia in the right lower lobe.-He was unable to stay at work yesterday.-Denies any fever.-His appetite has been normal and he has been increasing his fluid intake. [facility] Work Phone: 10-14-2021 History of Present illness Narrative Was seen in ER on Sunday, cough ,SOB continues to have productive cough and SOBCharles is a 71 year old male presenting today to follow up after an ER visit for cough and SOB.-Was seen 10/14/21 by me and dx'ed with pneumonia (RLL) and treated with Levaquin-He was not better and was seen at the ER, on 10/31 and also 11/05.-CXR on 10/31 clear but CXR on 11/05 again showed right LL pneumonia-he was prescribed a z-juan miguel and prednisone 20 mg 2 tabs for 10 days.-Daily he has been using his nebulizer with albuterol up to 4 times. He recently just ran out of the solution.-For his wheezing his albuterol inhaler provided him with some relief.-Still has a cough and it has been causing sleep disturbance.-He was unable to stay at work yesterday.-Denies any fever.-His appetite has been normal and he has been increasing his fluid intake. [facility] Work Phone: 10-11-2021 History of Present illness Narrative EP. Here for sinus and head pressure with congestion. Has tried all OTC medications with no relief.Rory is a 71 year old male presenting today for a sick visit with upper respiratory symptoms.-Not feeling well since 10/11.-Has tried an alcoholic beverage at night in hopes it will help with sleep, NyQuil, and breathing treatments with albuterol-Symptoms of chills that started this morning.-SOB with coughing and has green sputum production.-Reports started as head pressure and sinus pressure. Denies any headache.-No abdominal pain or back pain. [facility] Work Phone: 10-11-2021 History of Present illness Narrative EP. Here for follow up on pneumonia. States still not feeling well.Rory is a 71 year old male presenting today to follow up on a recent diagnosis of pneumoniahaven't felt well since this all began (10/11/21)the cough is my biggest thing-Nothing specific will trigger his coughing.-Symbicort does not seem to be helping-Reports episode of epistaxis yesterday evening.-He has not been having any issues with his breathing or SOB. However, he did have wheezing when he overexerted himself.-Been having night sweats often, except for the last two nights.-Feels chest tightness and pressure, denies any pain in the chest.-Was seen 10/14/21 by me and dx'ed with pneumonia (RLL) and treated with Levaquin-Then was seen at [facility], on 10/31 and also 11/05.-CXR on 10/31 clear but CXR on 11/05 again showed right LL pneumonia-he was prescribed a z-juan miguel and prednisone 20 mg 2 tabs for 10 days. [facility] Work Phone: 09-25-2021 History of Present illness Narrative Patient was seen today in the office on a 4-week follow-up visit. He has a history of obstructive airway disease that is most consistent with asthma. His peak flow today was 490 L/min patient also has a problem today with a cough which is something he has had since he first had pneumonia about 4 months ago. He has clear phlegm production, with a mild amount of clear sputum. He reports that the cough decreases when he lays down at night he feels that the source is posterior nasal drainage that he can appreciate when he is walking around during the day.He did try Mucinex DM but that did not change his cough. He is on Trelegy 200 daily and that does help out with his of breathing and he has an albuterol inhaler that he is seldom using.He does complain of some dyspnea with activity especially a flight of stairs or an incline. Should be noted to that the patient did have a right lower lobe pneumonia on his chest x-ray from 10/14/2021 which has resolved on the 12/06/2021 x-ray. -[facility] [place] [id number] DO Work Phone: 09-20-2021 History of Present illness Narrative Patient was seen today in the office on a 4-week follow-up visit. He has a history of obstructive airway disease that is most consistent with asthma. His peak flow today was 490 L/min patient also has a problem today with a cough which is something he has had since he first had pneumonia about 4 months ago. He has clear phlegm production, with a mild amount of clear sputum. He reports that the cough decreases when he lays down at night he feels that the source is posterior nasal drainage that he can appreciate when he is walking around during the day.He did try Mucinex DM but that did not change his cough. He is on Trelegy 200 daily and that does help out with his of breathing and he has an albuterol inhaler that he is seldom using.He does complain of some dyspnea with activity especially a flight of stairs or an incline. Should be noted to that the patient did have a right lower lobe pneumonia on his chest x-ray from 10/14/2021 which has resolved on the 12/06/2021 x-ray. [facility] [place] DO Work Phone: 05-28-2021 History of Present illness Narrative EP. Here for cough with thick yellow phlegm,congestion and some sob.-His symptoms started 3-4 days ago.-Patient says he is coughing very bad and bringing up thick yellow phelgm.-He reports he is unable to sleep at night due to the cough.-The sickness started as head cold. Similar sickness back in February but only lasted a couple days.-Patient complains of some wheezing and dyspnea. Did have a sore throat but no longer does now.-He states no body aches, no fever, no headache, no ear pain.-Has an upcoming colonoscopy.-Since onset he has been using his albuterol inhaler a lot more than he has before. In the past he did use Symbicort. [facility] Work Phone: 02-25-2021 History of Present illness Narrative felt ill before , tested negative COVID, got betterthen on February 25 felt ill again, felt bad on and and went to [facility], was wheezing some, had breathing treatment, wasdid some walking outside today and did ok with this, slight wheezinghas nebulizer and has albuterol solution which seems to helpfeeling pretty goodnot coughing a lot and not short of breathsees Dr. Lawton (programmer engineering and scientific) for allergies and asthma- h/o allergic rhinitis and receives allergen immunotherapy and h/o moderate persistent asthma - is prescribed Trelegy 200 one inhalation daily [facility] Work Phone: 04-12-2020 History of Present illness Narrative The patient is being seen for the subsequent annual wellness visit.Interval History: Patient has had Asthma attack in April previous hospitalizations.Medications and Supplements:No, the patient is not using opioids.Patient Self Assessment of Health Status: good.Tobacco use: Non-UserAlcohol use: Non-UserIllicit drug use: Non-UserCurrent diet: well balanced diet.Exercise Frequency: regularly.Depression/Suicide Screening: .Hearing Impairment: bilaterally.Cognitive Impairment: No cognitive impairment observed, patient or family reported no cognitive impairment.Bathing: performs independently.Dressing: performs independently.Walking: performs independently.Bowels: continent.Bladder: continent.Managing Finances: performs independently.Shopping: performs independently.Managing Medications: performs independently.Housework / Basic Home Maintenance: performs independently.Falls Risk Screening:. RORY has not fallen in the last 6 months.Advance directives:. Patient has no living will. Patient has no healthcare POA.[facility].States he is doing well.Denies needing to use in inhalers often.Reports having a previous asthma attack in April but states he has not had any issues since.Reports having a cough.Denies any SOB.States he saw Dr. Olivo recently a couple months ago.Reports taking Zinc and vitamin D3.States he was told by GI is will be due for his next colonoscopy next year.States he has received both COVID-19 vaccines.He has received Zostavax but not the new shingles vaccine.He has received both pneumonia vaccines. [facility] Work Phone: 04-12-2020 History of Present illness Narrative The patient is being seen for the subsequent annual wellness visit.Past Medical, Surgical and Family History: reviewed and updated in chart.Interval History: Patient has had Asthma attack in April previous hospitalizations.Medications and Supplements: Medications and supplements, including calcium and vitamins reviewed and updated in chart.No, the patient is not using opioids.Patient Self Assessment of Health Status: good.Tobacco use: Non-UserAlcohol use: Non-UserIllicit drug use: Non-UserCurrent diet: well balanced diet.Exercise Frequency: regularly.Depression/Suicide Screening: .During the past 2 weeks, the patient has not felt down, depressed or hopeless.During the past 2 weeks, the patient has not felt little interest or pleasure in doing things.Hearing Impairment: He uses a hearing aid.Cognitive Impairment: No cognitive impairment observed, patient or family reported no cognitive impairment.Bathing: performs independently.Dressing: performs independently.Walking: performs independently.Bowels: continent.Bladder: continent.Managing Finances: performs independently.Shopping: performs independently.Managing Medications: performs independently.Housework / Basic Home Maintenance: performs independently.Falls Risk Screening:. RORY has not fallen in the last 6 months.Advance directives:. Patient has no living will. Patient has no healthcare POA.[facility].States he is doing well, no specific complaints or concernsDenies recent use of albuterol inhaler- really no issues since asthma attack in AprilReports having a constant slight cough. Denies any SOB.Reports taking Zinc and vitamin D3.States he was told by GI is will be due for his next colonoscopy next year.States he has received both COVID-19 vaccines.He has received Zostavax but not the new shingles vaccine.He has received both pneumonia vaccines. [facility] Work Phone: Evaluation note No assessment inform ation available [facility] Work Phone: Evaluation note Diagnosis Routine general medical examination at health care facility- Primary Routine general medical examination at a health care facility Mixed hyperlipidemia Primary hypertension Unspecified essential hypertension Reactive airway disease without complication, unspecified asthma severity, unspecified whether persistent documented in this encounter [facility] Work Phone: Evaluation note* Diagnosis Moderate persistent asthma without complication- Primary Dyspnea on exertion Other dyspnea and respiratory abnormality Acute frontal sinusitis, recurrence not specified documented in this encounter [facility] Work Phone: [phone] note* Diagnosis Primary hypertension- Primary Unspecified essential hypertension Mixed hyperlipidemia Chronic sinusitis, unspecified location Healthcare maintenance documented in this encounter [facility] Work Phone: [phone] note* Diagnosis Moderate asthma without complication, unspecified whether persistent (HHS-HCC)- Primary Dyspnea on exertion Other dyspnea and respiratory abnormality documented in this encounter [facility] Work Phone: [phone] note* Diagnosis Health maintenance examination- Primary Unspecified general medical examination Chronic obstructive pulmonary disease, unspecified COPD type (Multi) Chronic sinusitis, unspecified location Mixed hyperlipidemia Primary hypertension Unspecified essential hypertension documented in this encounter [facility] Work Phone: [phone] note* Diagnosis Moderate asthma without complication, unspecified whether persistent (HHS-HCC)- Primary Moderate persistent asthma without complication (HHS-HCC) Dyspnea on exertion Other dyspnea and respiratory abnormality documented in this encounter [facility] Work Phone: [phone] note* Diagnosis Primary hypertension- Primary Unspecified essential hypertension Mixed hyperlipidemia documented in this encounter [facility] Work Phone: [phone] note* Diagnosis COPD with acute exacerbation (Multi)- Primary Acute cough Acute cough documented in this encounter [facility] Work Phone: [phone] note* Diagnosis Acute cough documented in this encounter [facility] Work Phone: [phone] note* Diagnosis Moderate persistent asthma without complication (HHS-HCC)- Primary Pneumonia due to infectious organism, unspecified laterality, unspecified part of lung Acute bronchitis, unspecified organism Cough, unspecified type Dyspnea on exertion Other dyspnea and respiratory abnormality documented in this encounter [facility] Work Phone: [phone] note* Diagnosis Pneumonia due to infectious organism, unspecified laterality, unspecified part of lung documented in this encounter [facility] Work Phone: [phone] note* Diagnosis Chronic cough- Primary Cough Mild persistent asthma without complication (HHS-HCC) documented in this encounter [facility] Work Phone: [phone] note* Diagnosis Mild intermittent asthma without complication (HHS-HCC)- Primary Other cough documented in this encounter [facility] Work Phone: [phone] note* Diagnosis Mild persistent asthma with acute exacerbation (HHS-HCC)- Primary Hoarseness Dysphonia documented in this encounter [facility] Work Phone: [phone] note* Diagnosis Viral upper respiratory tract infection- Primary Acute upper respiratory infections of unspecified site documented in this encounter [facility] Work Phone: [phone] note* Diagnosis Moderate persistent asthma with exacerbation (HHS-HCC)- Primary Unspecified asthma, with exacerbation Asthma, unspecified asthma severity, unspecified whether complicated, unspecified whether persistent (HHS-HCC) documented in this encounter [facility] Work Phone: [phone] note* Diagnosis Mild persistent asthma without complication (HHS-HCC)- Primary documented in this encounter [facility] Work Phone: [phone] note* Diagnosis Health maintenance examination- Primary Unspecified general medical examination Primary hypertension Unspecified essential hypertension Mixed hyperlipidemia Moderate persistent asthma without complication (HHS-HCC) documented in this encounter [facility] Work Phone: [phone] note* Diagnosis Mild persistent asthma without complication (HHS-HCC)- Primary Hoarseness Dysphonia documented in this encounter [facility] Work Phone: Evaluation note* Diagnosis Mild persistent asthma without complication ([facility]) Hoarseness Dysphonia documented in this encounter [facility] Work Phone: History of Present illness Narrative* EP. re for follow up on B/P. * Rory is a 70 year old male presenting for a follow up of blood pressure. * - Feels well * - He sees programmer engineering and scientific (Dr. Lawton) - gets allergy shots. 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 * - He has not been checking his blood pressures at home. * - Has experienced recent weight gain. [facility] Work Phone: History of Present illness Narrative* The patient is being seen for the subsequent annual wellness visit. * Past Medical, Surgical and Family History: reviewed and updated in chart. * Interval History: Patient has not been hospitalized previously. * Medications and Supplements: Review of all medications by a prescribing practitioner or clinical pharmacist (such as prescriptions, OTCs, herbal therapies and supplements) documented in the medical record. * No, the patient is not using opioids. * Patient Self Assessment of Health Status: good. * Tobacco use: Non-User * Alcohol use: Non-User * Illicit drug use: Non-User * Current diet: well balanced diet, does consume adequate fluids and does consume caffeine. * Exercise Frequency: regularly. * Depression/Suicide Screening: . * During the past 2 weeks, the patient has not felt down, depressed or hopeless. * During the past 2 weeks, the patient has not felt little interest or pleasure in doing things. * Hearing Impairment: He uses a hearing aid. * Cognitive Impairment: No cognitive impairment observed, patient or family reported no cognitive impairment. * Bathing: performs independently. * Dressing: performs independently. * Walking: performs independently. * Bowels: continent. * Bladder: continent. * Managing Finances: performs independently. * Shopping: performs independently. * Managing Medications: performs independently. * Housework / Basic Home Maintenance: performs independently. * Falls Risk Screening:. RORY has not fallen in the last 6 months. * Home safety risk factors: none. * Advance directives:. Advanced Care Planning discussed and documented advance care plan or surrogatedecision maker documented in the medical record. Patient has living will. Patient has healthcare POA. * EP. Here for AMCR. * Rory is a 71 year old male presenting today for his annual Medicare wellness exam * -Reports frequent urination more noticeable. No change ub flow or waking up often during the night. * -Does drink an increased amount of fluids. * -Still having the abnormal smell he has been smelling for a while now. Concerned it may have something to do with the cleaning products he uses or embalming fluid at the home. * -States the smell was sudden. * -Reports rhinorrhea and when he gets this it is normally followed by congestion. * -sees Dr. Lawton for allergies and asthma- unable to afford Trelegy inhaler that was prescribed * -Says his insurance will not cover the shingles vaccine, so he has not gotten UTD on that yet. [facility] Work Phone: History of Present illness Narrative* The patient is being seen for the subsequent annual wellness visit. * Past Medical, Surgical and Family History: reviewed and updated in chart. * Interval History: Patient has not been hospitalized previously. * Medications and Supplements: Review of all medications by a prescribing practitioner or clinical pharmacist (such as prescriptions, OTCs, herbal therapies and supplements) documented in the medical record. * No, the patient is not using opioids. * Patient Self Assessment of Health Status: good. * Tobacco use: Non-User * Alcohol use: Non-User * Illicit drug use: Non-User * Current diet: well balanced diet, does consume adequate fluids and does consume caffeine. * Exercise Frequency: regularly. * Depression/Suicide Screening: . * During the past 2 weeks, the patient has not felt down, depressed or hopeless. * During the past 2 weeks, the patient has not felt little interest or pleasure in doing things. * Hearing Impairment: He uses a hearing aid. * Cognitive Impairment: No cognitive impairment observed, patient or family reported no cognitive impairment. * Bathing: performs independently. * Dressing: performs independently. * Walking: performs independently. * Bowels: continent. * Bladder: continent. * Managing Finances: performs independently. * Shopping: performs independently. * Managing Medications: performs independently. * Housework / Basic Home Maintenance: performs independently. * Falls Risk Screening:. RORY has not fallen in the last 6 months. * Home safety risk factors: none. * Advance directives:. Advanced Care Planning discussed and documented advance care plan or surrogatedecision maker documented in the medical record. Patient has living will. Patient has healthcare POA. * EP. Here for AMCR. * Rory is a 71 year old male presenting today for his annual Medicare wellness exam * -Reports frequent urination more noticeable. No change in urinary flow or waking up often during the night. * -Does drink an increased amount of fluids. * -Still having the abnormal smell he has been smelling for a while now. Concerned it may have something to do with the cleaning products he uses or embalming fluid at the home. * -Reports rhinorrhea and when he gets this it is normally followed by congestion. * -sees Dr. Lawton for allergies and asthma- unable to afford Trelegy inhaler that was prescribed * -Says his insurance will not cover the shingles vaccine, so he has not gotten UTD on that yet. [facility] Work Phone: History of Present illness Narrative* EP. Here for cough. Feels the same from when he had pneumonia. * feels better * has appt with pulm on [facility] Work Phone: Reason for referral (narrative)* Consultation (Routine) - Authorized Specialty Diagnoses / Procedures Referred By Contac t Referred To Contact Primary Care Diagnoses Healthcare maintenance Procedures Follow Up In [facility] - PCP - Medicare Annual July Jovel MD [address] [facility], [address] [address] Referral ID Status Reason Start Date Expiration Date V isits Requested Visits Authorized [id number] Authorized 01/26/2023 01/26/2024 1 1 [facility] Work Phone: reason for referral (narrative)* Consultation (Routine) - Authorized Specialty Diagnoses / Procedures Referred By Contac t Referred To Contact Primary Care Diagnoses Mixed hyperlipidemia Primary hypertension Procedures Follow Up In [facility] - PCP - Established July Jovel MD [address] [facility], [facility] [address] [place] [address] Referral ID Status Reason Start Date Expiration Date V isits Requested Visits Authorized [id number] Authorized 07/31/2023 07/30/2024 1 1 [facility] Work Phone: reason for visit Narrative* Imaging (Emergency) - Authorized Specialty Diagnoses / Procedures Referred By Contac t Referred To Contact Radiology Diagnoses Acute cough Procedures XR chest 2 views July Joevl MD [address] [facility], [facility] [address] [place] [address] Phone: tel: fax: Referral ID Status Reason Start Date Expiration Date Visits Requested Visits Authorized [id number] Authorized Perform Procedure 02/18/2024 02/17/2025 1 1 [facility] Work Phone: reason for visit Narrative* Imaging (Routine) - Authorized Specialty Diagnoses / Procedures Referred By Contac t Referred To Contact Radiology Diagnoses Pneumonia due to infectious organism, unspecified laterality, unspecified part of lung Procedures XR chest 2 views Sahara Mack, DO Hoffman S Danni Brower [address] [address] Phone: tel: fax: Referral ID Status Reason Start Date Expiration Date Visits Requested Visits Authorized [id number] Authorized Perform Procedure 03/06/2024 03/06/2025 1 1 [facility] Work Phone: reason for visit Narrative* Imaging (Routine) - Authorized Specialty Diagnoses / Procedures Referred By Contac t Referred To Contact Radiology Diagnoses Mild persistent asthma without complication (HHS-HCC) Hoarseness Procedures XR chest 2 views Kidd-Leti, Lore A, SINGLE WIRE SAW OPERATOR-DEPOSIT REFUND CLERK [address] [id number] Phone: tel: fax: Referral ID Status Reason Start Date Expiration Date Visits Requested Visits Authorized [id number] Authorized Perform Procedure 5 01/09/2026 1 1 [facility] Work Phone: Chief Complaint and Reason for Visit Chief Complaint COUGH Advance Directives No Advanced Directives Records Found Advance Directive Response Recorded Date/ Time Living Will No October 31, 2021 3:32pm Power of 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 No October 3:32pm Healthcare Agents on File Name Relationship Healthcare Agent Relationshi p Communication Yissel Feliciano Spouse First Alternate Health Care Agent Healthcare Agents on File Name Relationship Healthcare Agent Relationshi p Communication Yissel Feliciano Spouse First Alternate Health Care Agent Healthcare Agents on File Name Relationship Healthcare Agent Relationshi p Communication Yissel Feliciano Spouse First Alternate Health Care Agent Healthcare Agents on File Name Relationship Healthcare Agent Relationshi p Communication Yissel Feliciano Spouse First Alternate Health Care Agent Healthcare Agents on File Name Relationship Healthcare Agent Relationshi p Communication Yissel Feliciano Spouse First Alternate Health Care Agent Healthcare Agents on File Name Relationship Healthcare Agent Relationshi p Communication Yissel Feliciano Spouse First Alternate Health Care Agent Healthcare Agents on File Name Relationship Healthcare Agent Relationshi p Communication Yissel Feliciano Spouse First Alternate Health Care Agent Healthcare Agents on File Name Relationship Healthcare Agent Relationshi p Communication Yissel Feliciano Spouse First Alternate Health Care Agent Healthcare Agents on File Name Relationship Healthcare Agent Relationshi p Communication Yissel Feliciano Spouse First Alternate Health Care Agent Healthcare Agents on File Name Relationship Healthcare Agent Relationshi p Communication Yissel Feliciano Spouse First Alternate Health Care Agent Healthcare Agents on File Name Relationship Healthcare Agent Relationshi p Communication Yissel Feliciano Spouse First Alternate Health Care Agent Healthcare Agents on File Name Relationship Healthcare Agent Relationshi p Communication Yissel Feliciano Spouse First Alternate Health Care Agent Healthcare Agents on File Name Relationship Healthcare Agent Relationshi p Communication Yissel Feliciano Spouse First Alternate Health Care Agent Healthcare Agents on File Name Relationship Healthcare Agent Relationshi p Communication Yissel Feliciano Spouse Health Care Agent [phone] (Home) Healthcare Agents on File Name Relationship Healthcare Agent Relationshi p Communication Yisselbren Feliciano Spouse Health Care Agent [phone] (Home) Healthcare Agents on File Name Relationship Healthcare Agent Relationship Communication W Vida Feliciano Spouse Health Care Agent Chief Complaint * RORY FELICIANO is here for a follow-up visit. * Reason for Visit: Review PFT results. * Appointment requested by: Dr. Jovel. * RORY FELICIANO is here for a follow-up visit. * Reason for Visit: Review PFT results. * Appointment requested by: Dr. Jovel. * RORY FELICIANO is here for a 4 week follow-up. * Reason for Visit: Obstructive Airway Disease. * Appointment requested by: Dr. Jovel. * RORY FELICIANO is here for a 4 week follow-up. * Reason for Visit: Obstructive Airway Disease. * Appointment requested by: Dr. Jovel. * RORY FELICIANO is here for a 6 week follow-up and here with Eli fuentes. * Reason for Visit: Obstructive Airway Disease; S/P Urgent care visit 02/16/2022; CXR done on arrival. * Appointment requested by: Dr. Jovel (PCP); Dr. Lawton (ENT). * RORY FELICIANO is here for a 6 week follow-up and here with Eli fuentes. * Reason for Visit: Obstructive Airway Disease; S/P Urgent care visit 02/16/2022; CXR done on arrival. * Appointment requested by: Dr. Jovel (PCP); Dr. Lawton (ENT). * RORY FELICIANO is here for a 1 week follow-up and here with Eli fuentes. * Reason for Visit: Right lower lobe pneumonia; CXR done on arrival. * Appointment requested by: Dr. Jovel. Summary Purpose Family History No Family History Records FoundNo Family History Records FoundNo Family History Records FoundNo Family History Records FoundNo Family History Records FoundNo Family History Records FoundNo Family History Records FoundNo Family History Records Found Additional Source Comments Goals (unrecognized section and content) Goals may be documented in a n alternate section (unrecognized sect ion and content) No Status Records FoundNo Status Records FoundNo Status Records FoundNo Status Records FoundNo Status Records FoundNo Status Records FoundNo Status Records FoundNo Status Records Found INFORMATION SOURCE (unrecogn ized section and content) DATE CREATED AUTHOR 02/23/2022 [facility] DATE CREATED AUTHOR AUTHOR'S ORGANIZ ATION 02/24/2022 [facility] DATE CREATED AUTHOR AUTHOR'S ORGANIZ ATION 09/18/[address] [facility] DATE CREATED AUTHOR AUTHOR'S ORGANIZ ATION 02/24/2024 [facility] DATE CREATED AUTHOR AUTHOR'S ORGANIZ ATION 03/07/2024 [facility] DATE CREATED AUTHOR AUTHOR'S ORGANIZ ATION 07/31/2024 [facility] DATE CREATED AUTHOR AUTHOR'S ORGANIZ ATION 12/10/2024 [facility] DATE CREATED AUTHOR AUTHOR'S ORGANIZ ATION 12/13/2024 [facility] Reason for Visit (unrecogniz ed section and content) Reason Comments MedicareWellness EP. Here for Annual Wellness. And blood work Reason Comments Asthma Shortness of Breath 6 mos follow up Reason Comments Follow-up EP. Here for 6 month follow up and medication Reason Comments Medicare Annual Wellness Visit Subsequen t EP. Here for AMCR. Reason Comments Follow-up EP. Here for follow up and medication. Reason Comments chest congestion Cough EP. Here for chest c ongestion and cough. Seen in ER. Finished Abx. Reason Comments Cough EPV, C/O Productive Cough (yellow phlegm), Chest congestion, No fever X 4 daysOver the counter meds not working Reason Comments Annual Exam EPV, MWEBlood Work c ompleted 07/28/24 Reason Comments Asthma Raspy voice x 2 week s. Care Teams (unrecognized sec tion and content) Certification And Selection Specialist Relationship Specialty Start Date End Date July Jovel MD [address] [facility] [place] [address] PCP - General 04/28/13 July Jovel MD [facility] [address] [facility] [place] [address] PCP - MSSP ACO Attributed Provider 02/12/21 Certification And Selection Specialist Relationship Specialty Start Date End Date July Jovel MD [facility] [address] [facility] [facility] [place] [address] PCP - General 04/28/13 July Jovel MD [facility] [address] [facility] [place] [address] PCP - MSSP ACO Attributed Provider 02/12/21 Certification And Selection Specialist Relationship Specialty Start Date End Date July Jovel MD [facility] [address] [facility] [facility] [place] [address] PCP - General 04/28/13 July Jovel MD [facility] [address] [facility] [place] [address] PCP - MSSP ACO Attributed Provider 02/12/21 Certification And Selection Specialist Relationship Specialty Start Date End Date July Jovel MD [facility] [address] [facility] [place] [address] PCP - General 04/28/13 July Jovel MD [address] [facility] [place] [address] PCP - MSSP ACO Attributed Provider 02/12/21 Certification And Selection Specialist Relationship Specialty Start Date End Date July Jovel MD [facility] [address] [facility] [place] [address] PCP - General 04/28/13 July Jovel MD [facility] [address] [facility] [facility] [place] [address] PCP - MSSP ACO Attributed Provider 02/12/21 Certification And Selection Specialist Relationship Specialty Start Date End Date July Jovel MD [facility] [address] [facility] [facility] [place] [address] PCP - General 04/28/13 July Jovel MD [facility] [address] [facility] [place] [address] PCP - MSSP ACO Attributed Provider 02/12/21 Certification And Selection Specialist Relationship Specialty Start Date End Date July Jovel MD [facility] [address] [facility] [place] [address] PCP - General 04/28/13 July Jovel MD [facility] [address] [facility] [facility] [place] [address] PCP - MSSP ACO Attributed Provider 02/12/21 Certification And Selection Specialist Relationship Specialty Start Date End Date July Jovel MD [address] [facility] [place] [address] PCP - General 04/28/13 July Jovel MD [facility] [address] [facility] [place] [address] PCP - MSSP ACO Attributed Provider 02/12/21 Certification And Selection Specialist Relationship Specialty Start Date End Date July Jovel MD [facility] [address] [facility] [facility] [place] [address] PCP - General 04/28/13 July Jovel MD [facility] [address] [facility] [place] [address] PCP - MSSP ACO Attributed Provider 02/12/21 Certification And Selection Specialist Relationship Specialty Start Date End Date July Jovel MD [facility] [address] [facility] [facility] [place] [address] PCP - General 04/28/13 July Jovel MD [facility] [address] [facility] [facility] [place] [address] PCP - MSSP ACO Attributed Provider 02/12/21 Certification And Selection Specialist Relationship Specialty Start Date End Date July Jovel MD [facility] [address] [facility] [place] [address] PCP - General 04/28/13 July Jovel MD [address] [facility] [place] [address] PCP - MSSP ACO Attributed Provider 02/12/21 Certification And Selection Specialist Relationship Specialty Start Date End Date July Jovel MD [facility] [address] [facility] [place] [address] PCP - General 04/28/13 July Jovel MD [facility] [address] [facility] [facility] [place] [address] PCP - MSSP ACO Attributed Provider 02/12/21 Certification And Selection Specialist Relationship Specialty Start Date End Date July Jovel MD [facility] [address] [facility] [place] [address] PCP - General 04/28/13 July Jovel MD [facility] [address] [facility] [place] [address] PCP - MSSP ACO Attributed Provider 02/12/21 Certification And Selection Specialist Relationship Specialty Start Date End Date July Jovel MD [facility] [address] [facility] [place] [address] PCP - General 04/28/13 July Jovel MD [facility] [address] [facility] [place] [address] PCP - MSSP ACO Attributed Provider 02/12/21 July Jovel MD [address] [facility] [place] [address] PCP - MMO Medicare Advantage PCP 02/13/24 Certification And Selection Specialist Relationship Specialty Start Date End Date July Jovel MD [address] [facility] [place] [address] PCP - General 04/28/13 July Jovel MD [address] [facility] [place] [address] [facility] Att[facility] Provider 02/12/21 July Jovel MD [address] [facility] [place] [address] PCP - MMO Medicare Advantage PCP 02/13/24 Certification And Selection Specialist Relationship Specialty Start Date End Date July Jovel MD [address] [facility] [place] [address] PCP - General 04/28/13 July Jovel MD [address] [facility] [place] [address] PCP - MSSP ACO Attributed Provider 02/12/21 July Jovel MD [address] [facility] [place] [address] PCP - MMO Medicare Advantage PCP 02/13/24 Certification And Selection Specialist Relationship Specialty Start Date End Date July Jovel MD [address] [facility] [place] [address] PCP - General 04/28/13 July Jovel MD [facility] [address] [facility] [facility] [place] [address] PCP - MMO Medicare Advantage PCP 02/13/24 Certification And Selection Specialist Relationship Specialty Start Date End Date July Jovel MD [facility] [address] [facility] [place] [address] PCP - General 04/28/13 July Jovel MD [facility] [address] [facility] [place] [address] PCP - MMO Medicare Advantage PCP 02/13/24 Certification And Selection Specialist Relationship Specialty Start Date End Date July Jovel MD [facility] [address] [facility] [place] [address] PCP - General 04/28/13 July Jovel MD [facility] [address] [facility] [place] [address] PCP - MMO Medicare Advantage PCP 02/13/24 Certification And Selection Specialist Relationship Specialty Start Date End Date July Jovel MD [facility] [address] [facility] [place] [address] PCP - General 04/28/13 July Jovel MD [address] [facility] [place] [address] PCP - MMO Medicare Advantage PCP 02/13/24 FOR RECORDS PERTAINING TO PATIENTS WHO ARE OR HAVE BEEN ENROLLED IN A CHEMICAL DEPENDENCY/SUBSTANCEABUSE PROGRAM, SOME INFORMATION MAY BE OMITTED. This clinical summary was aggregated from multiple sources. Caution should be exercised in using it in the provision of clinical care. This summary normalizes information from multiple sources, and as a consequence, information in this document may materially change the coding, format and clinical context of patient data. In addition, data may be omitted in some cases. CLINICAL DECISIONS SHOULD BE BASED ON THE PRIMARY CLINICAL RECORDS. [employer] provides no warranty or guarantee of the accuracy or completeness of information in this document.
[2025-02-06 03:56] LABS: Pro- Brain NATRIURETIC PEPTIDE 223 pg/mL (<=900); Troponin T High Sensitivity 14 ng/L (<=22)
[2025-02-06 03:57] LABS: Anion Gap 9 (7-18); BUN 14 mg/dL (4-19); BUN/Creat Ratio 14.5 RATIO (10-20); Calcium,Total 8.8 mg/dL (7.6-11.0); Carbon Dioxide 23.2 mmol/L (20.0-29.0); Chloride 107 mmol/L (96-106); Estimated Creatinine Clearance 79.39 ml/min (50-250); Glucose 169 mg/dL (70-99); Potassium 4.3 mmol/L (3.5-5.1)
--- NOTE | 2025-02-06 04:10 | RAD_ITS ---
PROCEDURE: CHEST 1 VIEW (PORTABLE) 02/06/2025 REASON FOR EXAM: SHORTNESS OF BREATH TECHNIQUE: Frontal view of the chest. COMPARISON: 02/12/2024. FINDINGS: Interval appearance of mild bilateral basilar atelectatic pulmonary changes. There is no demonstrated pleural abnormality. Normal heart and pericardium. Normal mediastinum and jose l. Normal visualized pulmonary arteries. Normal visualized aortic arch and descending thoracic aorta. Normal visualized thoracic spine. Normal visualized ribs, clavicles, and shoulders. There is no demonstrated abnormality of the visualized soft tissue structures of the upper abdomen. RAD/Chest 1 View (Portable) IMPRESSION: Interval appearance of mild bilateral basilar atelectatic pulmonary changes. [facility]
--- NOTE | 2025-02-06 04:17 | ED.VIS.DYS ---
HPI History of Present Illness Chief Complaint: Cold Sx Narrative Narrative: Patient was seen and examined after presenting to ED for shortness of breath and wheezing has a history of COPD. PFSH PFSH Medical History Hypercholesterolemia Hypertension Asthma Home Medications ?Medication ?Instructions ?Recorded ?Last Taken ?Type albuterol sulfate 90 mcg/actuation 1 - 2 puff IH Q4H PRN Sob &/Or 04/21/19 Unknown History aerosol inhaler Wheezing atorvastatin 20 mg tablet 20 mg PO DAILY 04/21/19 Unknown History enalapril maleate 20 mg tablet 20 mg PO DAILY 04/21/19 Unknown History timolol 0.5 %-brimonidine 0.15 1 drp ophthalmic (eye) DAILY 04/21/19 Unknown History %-dorzolamide 2 % (PF) eye drops aspirin 81 mg capsule 81 mg PO DAILY 03/02/21 Unknown History albuterol sulfate 2.5 mg/3 mL 2.5 mg inhalation Q6H PRN 02/06/25 Unknown History (0.083 %) solution for nebulization shortness of breath or wheezing fluticasone fur. 200 mcg-umeclid 1 ea inhalation DAILY 02/06/25 Unknown History 62.5 mcg-vilant 25 mcg inhalat.powder (Trelegy Ellipta) prednisone 20 mg tablet 20 mg PO DAILY 02/06/25 Unknown History Allergy/AdvReac Type Severity Reaction Status Date / Time No Known Allergies Allergy Verified 02/06/25 03:18 Social History Smoking Status: Never smoker ROS ROS ED ROS Narrative Pertinent Positives: Wheezing shortness of breath history of COPD Pertinent Negatives: Fevers chills chest pain pressure nausea vomiting diarrhea myalgias history of DVT or PE use of anticoagulation The remainder of review of systems negative unless otherwise stated in the HPI above. Systems reviewed including constitutional, psychiatric, cardiovascular, respiratory, integument, HENT, gastrointestinal. EXAM Physical Exam Narrative Exam Narrative: Patient is afebrile hemodynamically stable does not appear toxic or in distress he is normocephalic and atraumatic just slightly dyspneic. Does have subtle wheezes in his left lungs especially at the base. Abdomen is soft nontender nondistended no palpable pulsatile mass.. He has intact and equal MSPs in his extremities no lower extremity edema or calf tenderness Const Vital Signs: 02/06/25 03:17 02/06/25 03:17 02/06/25 03:19 Temperature 98.5 F Temperature Source Oral Pulse Rate 67 Respiratory Rate 18 Respiratory Effort Short of Breath Labored Respiratory Pattern Blood Pressure 181/88 H Blood Pressure Mean 119 Pulse Ox 97 97 Oxygen Delivery Method Room Air Room Air 02/06/25 03:20 02/06/25 03:35 02/06/25 04:20 Temperature 98.5 F 98.5 F Temperature Source Oral Oral Pulse Rate 53 L 52 L 48 L Respiratory Rate 18 16 16 Respiratory Effort Respiratory Pattern Normal Blood Pressure 153/89 H 140/69 H Blood Pressure Mean 110 92 Pulse Ox 97 96 Oxygen Delivery Method Room Air Room Air MDM MDM MDM Narrative Medical decision making narrative: Nursing notes, triage notes, available previous documentation, and vital signs were reviewed. Any discrepancies noted were addressed. Differential Diagnoses: COPD flare possibly something viral we will evaluate for pneumonia low suspicion for PE or aortic etiology or ACS Interventions: Methylprednisolone breathing treatments Fluids Given: 1 L normal saline Labs Reviewed: No leukocytosis or leukopenia or anemia platelets were 152 no electrolyte abnormality of significance or renal insufficiency troponin is 14 proBNP was 223 patient did test positive for influenza A Imaging Reviewed: Personally reviewed and interpreted by me: Chest x-ray no pneumonia or edema or pneumothoraces EKG: Sinus bradycardia rate of 51 GA interval as well as QTc are otherwise appropriate no ST segment elevation. EKG interpretation is noted and agreed to in the EMR. The interpretation of this patient's EKG contributed directly to the care and management of this patient. Previous Documentation Reviewed: None available or applicable at this time. ED Course: Patient presenting with symptoms as stated above seems to have a bit of a COPD flare medications have been provided we will reevaluate him. 0423: Patient tested positive for influenza A 0506: Patient appears to be doing well he did an ambulatory pulse ox did not drop below 96% he is ready to go back home so return precautions follow-up recommendations provided patient stable for discharge This note was made utilizing voice recognition software. All attempts were made to correct spelling or other errors prior to note completion. However, due to the fast-paced nature of emergency medicine, some errors may still be present. Lab Data Labs: Laboratory Results - last 24 hr 02/06/25 03:24 WBC 8.3 RBC 4.58 L Hgb 13.0 Hct 39.1 L MCV 85.4 MCH 28.4 MCHC 33.2 RDW Std Deviation 41.1 RDW Coeff of Diego 13.3 Plt Count 152 MPV 10.9 Immature Gran % (Auto) 0.200 Neut % (Auto) 87.4 H Lymph % (Auto) 4.6 L Hardin % (Auto) 7.5 Eos % (Auto) 0.1 Baso % (Auto) 0.2 Absolute Neuts (auto) 7.3 Absolute Lymphs (auto) 0.38 L Nucleated RBC % 0 Sodium 138 Potassium 4.3 Chloride 107 H Carbon Dioxide 23.2 Anion Gap 9 BUN 14 Creatinine 0.95 Estim Creat Clear Calc 79.39 Est GFR (MDRD) Non-Af 84 BUN/Creatinine Ratio 14.5 Glucose 169 H Calcium 8.8 Troponin T High Sens 14 NT pro BNP II 223 Discharge Plan Triage Chief Complaint: Cold Sx ED Provider: Brett Wooten Dx/Rx/DC Orders Clinical Impression: Influenza A, COPD exacerbation, Wheezing Prescriptions: No Action atorvastatin 20 MG tablet 20 mg PO DAILY enalapril maleate 20 MG tablet 20 mg PO DAILY albuterol sulfate 90 mcg/actuation HFA aerosol inhaler 1 - 2 puff IH Q4H PRN (Reason: Sob &/Or Wheezing) [id number](PF) 10 ML drops 1 drp ophthalmic (eye) DAILY aspirin 81 mg Capsule 81 mg PO DAILY Trelegy Ellipta 200-62.5-25 mcg blister with device 1 ea inhalation DAILY albuterol sulfate 2.5 mg /3 mL (0.083 %) solution for nebulization 2.5 mg inhalation Q6H PRN (Reason: shortness of breath or wheezing) Patient Comments: Take 3 mL (2.5 mg) by nebulization 4 times a day as needed for wheezing or shortness of breath. prednisone 20 mg tablet 20 mg PO DAILY Primary Care Provider: Dorothy Jovel Referrals: Dorothy Jovel MD [Primary Care Provider, Pediatrics] Activity Restrictions/Additional Instructions: Make sure you stay well-hydrated take Tylenol and ibuprofen for your symptoms follow-up with your doctor please return if getting worse. Print Language: Bulgarian Disposition Disposition: Home, Self Care
== END 2025-02-06 05:28 | disposition home or self-care (01) ==
PROVIDERS: Emergency Provider Specialist/Technologist Athletic Trainer; PCP General Practice; Visit Provider Specialist/Technologist Athletic Trainer
DX: J10.1 Influenza due to other identified influenza virus with other respiratory manifestations (principal); J44.1 Chronic obstructive pulmonary disease with (acute) exacerbation; E78.00 Pure hypercholesterolemia, unspecified; I10 Essential (primary) hypertension; R06.2 Wheezing
CPT/HCPCS: 71045; 80048; 83880; 84484; 85025; 87631; 93005; 94640; 96361; 96374; 99284; A4216